=== PATIENT | male | born 1950 | race Caucasian/White ===

== ENCOUNTER 2018-03-12 19:42 | Emergency (ER) | payer MEDICARE, OTHER, SELFPAY ==
[2018-03-12 19:43] VITALS: BP 128/70; PULSE 60; RESP 14; TEMP 36.4; O2SAT 97; BMI 26.1
--- NOTE | 2018-03-12 20:46 | RAD_ITS ---
STUDY: X-RAY - RIGHT KNEE REASON FOR EXAM: Male, 67 years old. Right knee pain TECHNIQUE: 4 view(s) of the knee. COMPARISON: None. FINDINGS: Normal visualized distal femur. Normal visualized proximal tibia and fibula. Normal proximal tibiofibular articulation. There is no demonstrated fracture. Normal medial femorotibial compartment. Normal lateral femorotibial compartment. Normal patellofemoral articulation. There is no demonstrated joint effusion. The soft tissue structures are unremarkable. RAD/Knee 4 or More Views IMPRESSION: Normal x-ray examination of the knee. Electronically Signed: Wilmer Barker MD at 20:59 EDT , Service support ,
--- NOTE | 2018-03-12 21:24 | ED.DCSUM_ITS ---
- ER Visit Summary Date of Service: 03/12/18 Chief Complaint: Right knee injury History of Present Illness: The patient is a 67 M presenting for evaluation secondary to a right knee and the. Patient reports that he suffered a twisting injury today while he was carrying a piece of furniture upstairs. He had an immediate pain in his right knee and some difficulty with bearing weight. He denies falling or any other injuries associated with this. Patient believes that potentially this could be a meniscus problem as he had something similar in his contralateral knee in the past that required surgery. Review of systems otherwise negative. Physical Examination: Lower extremity exam is remarkable for a mild amount of effusion of the right knee. There is a significant amount of pain over the medial joint line, no evidence of foreign body. Normal distal pulses normal distal sensation. I was unable to perform ligamentous testing on this patient due to the patient's level of pain. Test Results: Knee x-ray found to be negative Emergency Department Course and Treatment: Patient presented for evaluation secondary to a knee injury. X-rays were found to be negative. Due to the patient's effusion, and level of pain I am suspicious for the possibility of either sprain versus ligamentous tear. Patient will be placed in a knee immobilizer and given crutches. Patient will be sent home with a course of analgesia and follow-up with orthopedics Disposition: Discharge Impression: 1. Right knee sprain This note was generated with [employer] dictation software. It may contain incorrect words, spelling, and punctuation that were not noted in review of the chart prior to signing ED Disposition - Plan for ED Patient: Disposition: Home or Assisted Living Chief Complaint: Lower Extremity Injury Diagnosis: Right knee sprain Instructions: ED Sprain Knee Prescriptions: Oxycodone HCl/Acetaminophen [Percocet 5/325] 1 tab PO Q6H PRN PRN 5 Days #20 tab PRN Reason: Pain Referrals: Jensen Quintanilla DO [STAFF PHYSICIAN] - As soon as possible
[2018-03-12] MEDS: HYDROcodone Bitartrate/Apap 5/325 Tablet PO (21:31)
[2018-03-12 21:38] VITALS: BP 119/60; PULSE 78; RESP 16; O2SAT 98
--- NOTE | 2018-03-12 21:38 | ED.RN ---
md aware pt declined knee brace.
== END 2018-03-12 21:39 | disposition home or self-care (01) ==
PROVIDERS: Emergency Provider Emergency Medicine; Family Provider Internal Medicine; PCP Internal Medicine
DX: S83.91XA Sprain of unspecified site of right knee, initial encounter (principal); X50.1XXA Overexertion from prolonged static or awkward postures, initial encounter; Y93.9 Activity, unspecified; Y92.89 Other specified places as the place of occurrence of the external cause; Y99.9 Unspecified external cause status
CPT/HCPCS: 73564; 99283

== ENCOUNTER → 2018-03-30 11:53 | Outpatient (CLI) | payer MEDICARE, SELFPAY ==
[2018-03-30 14:57] LABS: T4 Free Direct 1.14 ng/dL (0.76-1.46); Thyroid Stim Hormone (TSH) 5.13 uIU/mL (0.358-3.74)
[2018-03-31 10:11] LABS: Vitamin B12 374 pg/mL (211-911); Vitamin D,25 Hydroxy 34.2 ng/mL (29.95-100.01)
== END ==
PROVIDERS: Family Provider Internal Medicine; PCP Internal Medicine
DX: R53.82 Chronic fatigue, unspecified (principal)
CPT/HCPCS: 36415; 82306; 82607; 84439; 84443

== ENCOUNTER → 2018-05-15 06:09 | Outpatient (CLI) | payer MEDICARE, OTHER, SELFPAY ==
[2018-05-15 07:32] LABS: Creatinine, Serum 0.99 mg/dL (0.70-1.30); EST Glomerular Filtration Rate 80 mL/min (>60); Est Glom Filt Rate - Afr Amer 97 mL/min (>60)
--- NOTE | 2018-05-15 10:00 | RAD_ITS ---
CLINICAL HISTORY: Male, 68 years old. Right knee pain. PROCEDURE: ARTHROGRAM - RIGHT KNEE. CONSENT: The procedure as well as the benefits and possible complications including infection and bleeding were explained to the patient. Informed consent was obtained. FLUOROSCOPY TIME (if supplied): (0:58) minutes/seconds. One image was obtained. Injection Information: 10 cc of dilute MRI contrast. Number of images obtained: 1 TECHNIQUE: (All elements of maximal sterile barrier technique followed, including US elements as applicable) The patient was in the supine position. The overlying skin was prepped and draped in usual sterile fashion. Following local anesthetic application and under direct fluoroscopic guidance, a 22-gauge spinal needle was placed into the knee joint. 2 cc of Isovue 300 was injected for confirmation. Following this, 10 cc of dilute contrast was injected. The patient tolerated the procedure well. A CT scan will follow. RAD/Arthrogram Knee IMPRESSION: Successful fluoroscopic guided right knee arthrogram. Electronically Signed: Jr Ojeda MD at 13:29 EDT Tel [phone], Service support ,
--- NOTE | 2018-05-15 10:57 | CT_ITS ---
STUDY: CT RIGHT KNEE WITH INTRA-ARTICULAR CONTRAST administration. REASON FOR EXAM: Male, 68 years old. Right knee pain. Right joint effusion. RADIATION DOSAGE (If Supplied By Facility): CTDIvol = ( 15.35 ) mGy, DLP = ( 480.41 ) mGycm TECHNIQUE: Transaxial CT imaging of the knee was performed following intra-articular injection of 10 cc of dilute contrast.. Coronal and sagittal images were reformatted. COMPARISON: None. FINDINGS: Intra-articular contrast is seen. Normal medial femoral condyle and medial tibial plateau. There is preservation of the articular joint space of the medial knee compartment. Normal lateral femoral condyle and lateral tibial plateau. There is preservation of the articular joint space of the lateral knee compartment. Normal proximal tibiofibular articulation. There is no joint effusion. The quadriceps tendon is grossly normal. The patellar tendon is grossly normal. Normal Hoffa's fat pad. The soft tissues are unremarkable. CT/Extremity Lower WITH Contrast IMPRESSION: Normal CT of the knee. Electronically Signed: Jr Ojeda MD at 13:32 EDT Tel [phone], Service support ,
== END ==
PROVIDERS: Family Provider Internal Medicine; PCP Internal Medicine; Visit Provider Orthopaedic Surgery
DX: M25.461 Effusion, right knee (principal); M25.561 Pain in right knee; N28.9 Disorder of kidney and ureter, unspecified
CPT/HCPCS: 27370; 36415; 73580; 73701; 82565; A9577; Q9967

== ENCOUNTER 2019-01-17 10:34 | Day surgery (SDC) | payer MEDICARE, OTHER, SELFPAY ==
[2019-01-09 08:08] VITALS: BMI 26.9
--- NOTE | 2019-01-09 08:53 | HP_ITS ---
Intake Vital Signs 01/09/19 Body Mass Index (BMI) 26.9 01/09/19 Height 5 ft 10 in 01/09/19 Weight: 185 lb 4 oz 01/09/19 Body Mass Index (BMI) 26.6 01/09/19 Blood Pressure 117/78 01/09/19 Blood Pressure Location Rt brachial 01/09/19 Blood Pressure Position Sitting 01/09/19 Respiratory Rate 20 H 01/09/19 Pulse Rate 62 01/09/19 Pulse Ox 97 01/04/19 Body Mass Index (BMI) 26.9 Intake Visit Reasons: Femoral Hernia Chief Complaint: left groin lump Rivet Thrower Required: No Is patient in pain?: No Allergies No Known Allergies Allergy (Verified 01/09/19 08:07) Medications Levothyroxine [Synthroid] 125 mcg PO DAILY 01/06/15 [History Confirmed 01/09/19] albuterol sulfate HFA 90 mcg/actuation aerosol inhaler 1 puff INHALATION Q6H PRN 01/09/19 [History Confirmed 01/09/19] PFSH Medical History Hypothyroidism (Chronic) Syncope and collapse (Chronic) Presence of cardiac pacemaker (Chronic 07/29/17) Atrioventricular block, complete (Chronic) History of traumatic brain injury (Chronic) Third degree AV block (Acute) Anemia (Acute) BCC (basal cell carcinoma of skin) (Acute) Carpal tunnel syndrome (Acute) History of DVT (deep vein thrombosis) (Acute) Plantar fasciitis (Acute) Surgical History Pacemaker (Chronic 07/29/17) BCC (basal cell carcinoma of skin) (Acute) History of colonoscopy (Acute ~2014) History of lateral meniscus repair of left knee (Acute) History of tonsillectomy (Acute) Family History Father CAD (coronary artery disease) Mother CAD (coronary artery disease) Thyroid disorder Social History Smoking Status: Never smoker alcohol intake: never HPI HPI HPI: CASEY MEDEL, is a 68 M who presents to the office today for HPI HPI Surgical H&P: Yes HPI: CASEY MEDEL, is a 68 M who presents to the office today for evaluation of a bulge in his left groin. Patient was working out doing crPeerTraderes developed a bulge from this which was painless. The bulge easily reduced but comes back once he starts doing crunches and significant lower body workouts. He has had no change in his bowel or bladder habits. He has had occasional left lower quadrant abdominal discomfort. It is usually when the bulge is out. The symptoms are exacerbated by straining. He has had no nausea or vomiting ROS General General: No weight change, appetite, fatigue, colon cancer, breast cancer or weakness HEENT HEENT: No difficulty swallowing, eye injury, eye surgery, swollen glands or hoarseness Endo Endocrine: Yes thyroid disease; no diabetes mellitus, thyroid cancer, Hair loss, heat intolerance or cold intolerance Musc Musculoskeletal: Yes back problems and arthritis; no rheumatoid arthritis, gout or joint pain Additional Details: left groin lump Cardio Cardiovascular: Yes pacemaker; no murmur, heart disease, atrial fibrillation, high blood pressure, heart attack, heart stent, palpitations, shortness of breat with exertion or chest pain Resp Respiratory: No shortness of breath, No sleep apnea, No cough, No COPD, No asthma, No emphysema, No wheezing Gastro Gastrointestinal: No abdominal pain, No nausea or vomiting, No diarrhea, No constipation, No blood in stool, No acid reflux, No hemorrhoids, Yes ulcers, No gallbladder problem, No black,tarry stools Shan Hematologic: No blood thinners, No blood disorders, No bleeding, Yes anemia, Yes blood clots Additional Details: DVT 2014 Neuro Neurologic: No weakness Exam Const General: no acute distress, well developed, well hydrated Orientation: oriented to person, oriented to place, oriented to time [facility] Head: normocephalic, atraumatic Ears: external ears normal Mouth: moist mucous membranes Eyes Sclera: sclerae normal Pupils: normal by confrontation Neck Neck: no lymphadenopathy noted Neck mass: No Thyroid: thyroid normal, symmetrical Chest Chest palpation & inspection: normal inspection of the chest Resp Effort & Inspection: normal respiratory effort Auscultation: clear to auscultation bilaterally Percussion: percussion normal Cardio Rate: regular rate Rhythm: regular rhythm Heart Sounds: no murmurs GI Palpation: soft, no hepatosplenomegaly, no masses, tender Rectal Exam: other Other: There is weakness in the left inguinal area which I believe is probably a standard inguinal hernia and not a femoral hernia Rectal exam deferred. Extrem General: normal to inspection, no clubbing, cyanosis or edema Assessment & Plan Problems 1. Non-recurrent unilateral inguinal hernia without obstruction or gangrene K40.90 Plan My plan is to perform a laparoscopic left inguinal repair. The planned surgical procedure was discussed extensively with the patient. The risks, benefits, anticipated outcomes and possible complication were mentioned. The patient understands that all hernia repair surgery has a chance of recurrence and/or chronic post-operative pain. My staff has also explained the procedure in understandable terms and the patient was given the option to take printed material concerning the planned procedure. The patient had the opportunity to ask questions concerning the planned procedure. The patient freely consents to the planned procedure. Preoperative H&P Coding Level of Care Code Off vis,new,level 3 Diagnoses Non-recurrent unilateral inguinal hernia without obstruction or gangrene K40.90 ??Obstruction and gangrene presence: without obstruction or gangrene ??Laterality: unilateral ??Recurrence: non-recurrent 01/09/19 0853 <Electronically signed by Antoni Castellon MD> Date Antoni Castellon MD I have re-examined the patient. There are no clinical changes since date of exam.
--- NOTE | 2019-01-15 11:11 | EKG12_ITS ---
Test Reason : PRE OP Blood Pressure : / mmHG Vent. Rate : 060 BPM Atrial Rate : 060 BPM P-R Int : 204 ms QRS Dur : 112 ms QT Int : 416 ms P-R-T Axes : 086 262 001 degrees QTc Int : 416 ms Normal sinus rhythm Right superior axis deviation Abnormal ECG Confirmed by EDGAR ROOT, MARIELLE ([id number]), restaurant expeditor MYRIAM LEONARDO ([id number]) on 01/16/2019 9:16:10 AM Referred By: Antoni Castellon Confirmed By:MARIELLE HERNÁNDEZ MD
[2019-01-15 11:16] LABS: Hematocrit 45.1 % (40-54); Hemoglobin 15.1 g/dl (13.0-16.5); Mean Corp Hgb Conc 33.5 g/gl (32-36); Mean Corpuscular Hgb 28.5 pg (27.0-32.0); Mean Corpuscular Volume 85.3 fL (80-94); Mean Platelet Vol. 8.9 fl (6.2-12.0); Platelet Count 279 K/mm3 (150-450); RBC Distribution Width SD 43.2 fl (35.1-43.9); Red Blood Count 5.29 M/mm3 (4.6-6.2)
[2019-01-15 11:19] LABS: Scan Indicated on CBC? Y/N NO
[2019-01-15 11:40] LABS: Anion Gap 4 (5-15); BUN 17 mg/dL (7-18); BUN/Creat Ratio 16.5 RATIO (10-20); Chloride 108 mmol/L (98-107); Creatinine, Serum 1.03 mg/dL (0.70-1.30); EST Glomerular Filtration Rate 77 mL/min (>60); Est Glom Filt Rate - Afr Amer 93 mL/min (>60); Glucose 70 mg/dL (74-106); Potassium 4.6 mmol/L (3.5-5.1); Sodium Level 143 mmol/L (136-145)
[2019-01-16 09:05] LABS: Thyroid Stim Hormone (TSH) 1.02 uIU/mL (0.358-3.74)
[2019-01-17] VITALS (7 sets, daily range): BP systolic 110–137; BP diastolic 66–84; PULSE 60–62; RESP 14–18; TEMP 36.1–36.8; O2SAT 95–100; BMI 26.0
--- NOTE | 2019-01-17 12:42 | PCM.OPRPT ---
Problem List (1) Left inguinal hernia Status: Acute Report of Operation Date of Procedure: 01/17/19 Pre-Operative Diagnosis: Left inguinal hernia Post-Operative Diagnosis: Same Surgery/Procedure Performed:: Laparoscopic left inguinal hernia Type of Anesthesia:: General Anesthesiologist: Matt Evans Estimated Blood Loss (mL): < 25 cc Description of Procedure: Patient was brought into the operating room placed in the supine position. Under excellent general trach intubation the abdomen was sterilely prepped and draped in usual fashion. Local was injected infraumbilically. Curvilinear incision was made. Dissection was carried down to the fascia. The fascia was grasped with a Adele's. There is knee was placed inside the abdomen. The abdomen was insufflated 15 torr. A 10/12 trocar was placed without difficulty. It was flank by 2 #5 trochars placed under direct visualization. There is no injury to underlying structures. Patient was placed in the headdown rotated to the right position. I scored the peritoneum on the left. I dissected down to Rogelio's ligament. I dissected laterally dissecting the cord and vessel structures free from the peritoneum. I dissected further laterally. I had good hemostasis. I placed a large left 3D max mesh into the wound. I tacked it to Rogelio's ligament with a pro-tacker. I tacked it superiorly and laterally with sparing tax. I covered the mesh with the peritoneum intact that back up with the pro-tacker. The mesh was completely covered. An ilioinguinal nerve block was performed. I removed the trochars under direct visualization. The umbilical port was closed with 3 interrupted sutures of 0 Nurolon's. Skin incisions were closed with septicum stitches of 4-0 Monocryl. Steri-Strips were applied sterile dressings were applied and the patient tolerated the procedure well. - Admit VTE Documentation VTE Present on Admission: No VTE Mechan Device Prophylaxis: SCD's VTE Pharm Prophylaxis ordered?: No Reason prophylaxis not ordered:: Treatment Not Indicated
[2019-01-17] MEDS: Cefazolin 2 GM in 0.9% Normal Saline 100 ML IV (12:43)
--- NOTE | 2019-01-17 12:44 | DCINST_ITS ---
Discharge Diet: Light diet - advance as tolerated Discharge Activity: Return to Normal Activity, May Drive - when you are no longer taking narcotic pain medications., May Shower - with the bandage in place 1-2 days after surgery. Lifting Restrictions: 20 pounds for 8 weeks. Additional Activity Instructions:: Climbing stairs is fine, walking is encouraged. Sitting in bed may be uncomfortable. Sitting up using your lateral muscles (sitting up sideways) is usually more comfortable. Do not drive, work heavy equipment of sign legal documents for 24 hours. If your hernia repair was an ingunial repair, you may have scrotal swelling, an ice pack and/or athletic support can provide more comfort. Pain medications may cause nausea, you should typically eat light foods as you take your pain medications. Pain medications may also cause constipation. If you have difficulty with this, discuss with your doctor. Call your doctor if your incision/area has: Continuous Slow Oozing, Sudden Increased Bleeding, Increased Pain/ Swelling, Increased Redness, Foul Smelling Discharge Call your doctor if you observe: Fever of 101 or Higher Suture Line Care: Avoid Pulling/Pushing, Avoid Pinching/Bending Additional Dressing/Incision Instructions:: Leave the operative bandage on for 2-3 days. When you remove the bandage, leave the steri-strips on place until your follow up appointment or they fall off. Allergies/Adverse Reactions: Allergies No Known Allergies Allergy (Verified 01/12/19 09:06) Medications to take at Discharge Levothyroxine [Synthroid] 125 mcg PO DAILY 01/06/15 Oxycodone HCl/Acetaminophen [Percocet 5/325] 1 - 2 tab PO Q4H PRN PRN 6 Days #30 tab 01/17/19 The following prescriptions were given: Oxycodone HCl/Acetaminophen [Percocet 5/325] 1 - 2 tab PO Q4H PRN PRN 6 Days #30 tab PRN Reason: Pain Orders to be completed after discharge: 12 Lead EKG [CVS] Time Frame: 01/12/19, Facility: [facility], Location: Cardiovascular Services Basic Metabolic Profile (BMP) Time Frame: 01/12/19, Location: Laboratory CBC-Complete Blood Cnt No Diff Time Frame: 01/12/19, Location: Laboratory Thyroid Stim Hormone (TSH) Time Frame: 01/12/19, Location: Laboratory Primary Care Physician: Simran Caputo DO [Primary Care Provider] - Test Results: Test results from this visit will be discussed in further detail at your follow- up appointment, if applicable. Please Follow Up With: Antoni Castellon MD - [phone] When: Plan to have a follow up appointment in 7 days. Call to schedule.
[2019-01-17] MEDS: Bupivacaine Mpf 0.5% 30 ML VIAL (13:30)
--- NOTE | 2019-01-17 14:01 | EKGRS_ITS ---
Test Reason : Blood Pressure : / mmHG Vent. Rate : 060 BPM Atrial Rate : 060 BPM P-R Int : 274 ms QRS Dur : 110 ms QT Int : 452 ms P-R-T Axes : 003 -42 -04 degrees QTc Int : 452 ms Atrial-paced rhythm with prolonged AV conduction Left axis deviation Abnormal ECG When compared with ECG of 15-JAN-2019 11:31, Electronic atrial pacemaker has replaced Sinus rhythm Confirmed by LANCE BERRIOS ([id number]), editorial assistant MYRIAM LEONARDO ([id number]) on 01/22/2019 4:56:13 PM Referred By: Antoni Castellon Confirmed By:TOM BERRIOS
[2019-01-17] MEDS: oxyCODONE 5 MG Tablet PO (15:07)
[2019-01-17] MEDS: Acetaminophen 325 MG Tablet PO (15:07)
== END 2019-01-17 15:51 | disposition home or self-care (01) ==
LOC: SDC 10:35 → AC 10:35
PROVIDERS: Family Provider Internal Medicine; PCP Internal Medicine; Referring Provider Surgery; Visit Provider Surgery
PROC: (CPT 49650; principal; 2019-01-17 12:20)
DX: K40.90 Unilateral inguinal hernia, without obstruction or gangrene, not specified as recurrent (principal); E03.9 Hypothyroidism, unspecified; Z95.0 Presence of cardiac pacemaker; Z87.820 Personal history of traumatic brain injury; Z85.828 Personal history of other malignant neoplasm of skin
CPT/HCPCS: 49650; 36415; 80048; 84443; 85027; 93005; J7120; C1781; J2405

== ENCOUNTER → 2019-10-23 | Outpatient (CLI) | payer MEDICARE, SELFPAY ==
[2019-10-02 08:19] VITALS: BMI 26.4
--- NOTE | 2019-10-23 08:45 | ECHOD_ITS ---
Reason For Study: MVP Procedure This was a 2D Doppler, Color Flow transthoracic echocardiogram. Exam performed in department. Left Ventricle Normal LV size. Left ventricular systolic function is normal. The estimated ejection fraction is 60 %. Stage 2 diastolic dysfunction. No regional wall motion abnormalities noted. Right Ventricle Normal RV size. ICD or pacer leads identified within the right ventricle. Normal systolic function. Atria The left atrium is mildly enlarged. Normal right atrium. Mitral Valve Bileaflet diffuse mitral valve thickening. Moderate mitral valve prolapse. Tricuspid Valve Normal tricuspid valve. Mild tricuspid valve insufficiency. Pulmonary artery systolic pressure is 23 mmHg. Aortic Valve Normal aortic valve. Trisinus/trileaflet aortic valve. Mild (1+) eccentric aortic valve insufficiency. Pulmonic Valve Normal pulmonic valve. Great Vessels Normal aortic root. The pulmonary artery is normal size. Normal inferior vena cava. Pericardium/Pleural No pericardial effusion. MMode/2D Measurements & Calculations LVIDd: 4.8 cm IVSd: 1.1 cm Ao root diam: 3.4 cm LVIDs: 3.5 cm LVPWd: 1.2 cm RVDd: 4.0 cm FS: 28.5 % LAV(MOD-bp): 69.0 ml LA A4 area: 21.7 cm2 LA dimension(2D): 3.9 cm LAV(MOD-bp) Indexed: 34.2 ml/m2 LAV(MOD-sp2): 68.0 ml LAV(MOD-sp4): 68.6 ml RA A4 area: 18.9 cm2 Time Measurements MV dec time: 0.23 sec Doppler Measurements & Calculations MV E max justin: 66.8 cm/sec Lat Peak E' Justin: 6.6 cm/sec Med Peak E' Justin: 5.1 cm/sec MV A max justin: 79.7 cm/sec E/E' lat: 10.1 E/E' med: 13.2 MV E/A: 0.84 Ao V2 max: 147.5 cm/sec AI max justin: 329.7 cm/sec LV V1 max: 131.3 cm/sec Ao max P.7 mmHg AI max P.5 mmHg LV V1 max P.9 mmHg Ao V2 mean: 99.8 cm/sec AI dec slope: 131.4 cm/sec2 LV V1 mean P.7 mmHg Ao mean P.5 mmHg AI P1/2t: 735.2 msec LV V1 mean: 90.8 cm/sec Ao V2 VTI: 27.1 cm LV V1 VTI: 26.3 cm PA V2 max: 100.1 cm/sec PI end-d justin: 92.5 cm/sec TR max justin: 224.0 cm/sec PI dec slope: 57.5 cm/sec2 TR max P.1 mmHg Interpretation Summary Normal LV size. Left ventricular systolic function is normal. The estimated ejection fraction is 60 %. Stage 2 diastolic dysfunction. Mild tricuspid valve insufficiency. Ordering Physician: Curly Young Referring Physician: Simran Caputo Performed By: Loyda Morrell, CORNELIO, RVT
== END | disposition home or self-care (01) ==
PROVIDERS: PCP Internal Medicine; Referring Provider Internal Medicine Cardiovascular Disease; Visit Provider Internal Medicine Cardiovascular Disease
DX: R07.9 Chest pain, unspecified (principal); I34.1 Nonrheumatic mitral (valve) prolapse
CPT/HCPCS: 93306

== ENCOUNTER → 2020-09-19 12:02 | Outpatient (CLI) | payer MEDICARE, SELFPAY ==
[2019-10-02 08:19] VITALS: BMI 26.4
--- NOTE | 2020-09-19 12:10 | RAD_ITS ---
STUDY: X-RAY CHEST REASON FOR EXAM: Male, 70 years old. cough, Hx COVID in August TECHNIQUE: PA and lateral views of the chest. COMPARISON: 07/30/2017 FINDINGS: Left subclavian dual-lead pacemaker which is unchanged. Interval removal of an insertable carbider. The lungs are clear and expanded. There is no demonstrated pleural abnormality. Normal size heart. Normal mediastinum and faiza. Normal visualized pulmonary arteries. Normal visualized aortic arch and descending thoracic aorta. Normal visualized thoracic spine. Normal visualized ribs, clavicles, and shoulders. There is no demonstrated abnormality of the visualized soft tissue structures of the upper abdomen. RAD/Chest PA and Lateral IMPRESSION: No active disease. Electronically Signed: Maury Flores MD at 17:00 EST Tel , Service support ,
== END ==
PROVIDERS: PCP Internal Medicine; Referring Provider Internal Medicine; Visit Provider Internal Medicine
DX: R05 Cough (principal)
CPT/HCPCS: 71046

== ENCOUNTER → 2020-10-03 11:53 | Outpatient (CLI) | payer MEDICARE, SELFPAY ==
[2019-10-02 08:19] VITALS: BMI 26.4
[2020-10-03 13:38] LABS: Anion Gap 4 (5-15); BUN 23 mg/dL (7-18); Calcium,Total 9.3 mg/dL (8.5-10.1); Chloride 109 mmol/L (98-107); Creatinine, Serum 0.96 mg/dL (0.70-1.30); EST Glomerular Filtration Rate 83 mL/min (>60); Est Glom Filt Rate - Afr Amer 100 mL/min (>60); Free T3 2.3 pg/mL (2.18-3.98); Glucose 89 mg/dL (74-106); Magnesium 2.3 mg/dL (1.6-2.6); Potassium 4.4 mmol/L (3.5-5.1); Sodium Level 142 mmol/L (136-145); T4 Free Direct 1.11 ng/dL (0.76-1.46)
== END ==
PROVIDERS: PCP Internal Medicine; Referring Provider Internal Medicine Cardiovascular Disease; Visit Provider Internal Medicine Cardiovascular Disease
DX: I44.2 Atrioventricular block, complete (principal); I47.2 Ventricular tachycardia; I48.0 Paroxysmal atrial fibrillation; I48.92 Unspecified atrial flutter; I49.5 Sick sinus syndrome; Z95.0 Presence of cardiac pacemaker
CPT/HCPCS: 80048; 83735; 84439; 84443; 84481

== ENCOUNTER → 2020-10-24 16:53 | Outpatient (CLI) | payer MEDICARE, SELFPAY ==
[2020-10-24 12:54] VITALS: BMI 26.5
[2020-10-24 17:26] LABS: Absolute Lymphocyte Count 2.69 X10^3/uL (0.83-4.51); Absolute Neutrophil Count 6.3 X10^3/uL (2.0-7.7); Basophil# 0.07 X10^3/uL; Basophil% 0.7 % (0-1); Eosinophil# 0.25 X10^3/uL; Eosinophils% 2.4 % (0-5); Hematocrit 44.6 % (40-54); Hemoglobin 14.3 g/dL (13.0-16.5); Lymphocyte # 2.69 X10^3/ul (4.0); Lymphocyte % 25.5 % (19-41); Mean Corp Hgb Conc 32.1 g/dL (32-36); Mean Corpuscular Hgb 28.1 pg (27.0-32.0); Mean Corpuscular Volume 87.6 fL (80-94); Monocyte# 1.19 X10^3/uL; Monocyte% 11.3 % (0-10); NRBC Flagged by Analyzer 0 % (0-5); Neutrophil # 6.28 X10^3/uL (2.7-7.7); Neutrophil % 59.6 % (47-70); Platelet Count 304 K/mm3 (150-450); RBC Distribution Width CV 13.8 % (11.6-14.6); RBC Distribution Width SD 43.9 fl (35.1-43.9); Red Blood Count 5.09 M/mm3 (4.6-6.2); White Blood Count 10.5 K/mm3 (4.4-11.0)
[2020-10-24 17:48] LABS: Anion Gap 7 (5-15); BUN 26 mg/dL (7-18); BUN/Creat Ratio 24.3 RATIO (10-20); Calcium,Total 8.7 mg/dL (8.5-10.1); Chloride 104 mmol/L (98-107); Creatinine, Serum 1.07 mg/dL (0.70-1.30); EST Glomerular Filtration Rate 73 mL/min (>60); Est Glom Filt Rate - Afr Amer 88 mL/min (>60); Glucose 85 mg/dL (74-106); Potassium 4.2 mmol/L (3.5-5.1); Sodium Level 140 mmol/L (136-145)
== END ==
PROVIDERS: PCP Internal Medicine; Referring Provider Internal Medicine Cardiovascular Disease; Visit Provider Internal Medicine Cardiovascular Disease
DX: I47.2 Ventricular tachycardia (principal); R07.9 Chest pain, unspecified
CPT/HCPCS: 36415; 80048; 85025

== ENCOUNTER → 2020-11-03 08:54 | Day surgery (SDC) | payer MEDICARE, SELFPAY ==
[2020-10-24 12:54] VITALS: BMI 26.5
[2020-10-31 08:39] VITALS: BMI 26.5
--- NOTE | 2020-11-03 11:07 | CL.D_ITS ---
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 The risks and benefits of the procedure as well as a full d escription of our services here and current unavailability of surgical backup were fully explained to the patient and/or their significant other prior to the catheterization. The Timeout was completed, verifying the correct patient and procedure. The patient's procedural site was prepped and draped in the usual fashion. Local anesthetic was given subcutaneously to right radial region with Lidocaine 2% . Using a modified Seldinger technique, arterial access was obtained via the right radial artery, a 6 Fr sheath was inserted. Left Coronary Artery selective angiography was performed in multiple views u sing a 5 Fr. 4.0 [place] catheter. Right Coronary Artery selective angiography was then performed in mu ltiple views using a 5 Fr. 4.0 [place] catheter. Left Ventriculography was performed in VELEZ projection using a 5 Fr. [place] catheter. LV to AO pullback pressures were then recorded. CORONARY ANGIOGRAPHY DOMINANCE: Right Dominant LEFT HEART ASSESSMENT Left Ventricular Ejection Fraction: by LV Gram 65 % Normal LV wall motion Normal Left Ventricular systolic function LEFT MAIN: Angiographically normal LEFT ANTERIOR DESCENDING ARTERY: PROX LAD: 60 % Stenosis, No significant disease noted CIRCUMFLEX ARTERY: Angiographically normal RIGHT CORONARY ARTERY: Angiographically normal COMPLICATIONS PROCEDURE MEDICATIONS Fentanyl 50 mcg IV Versed 1 mg IV Oxygen: 2 L/min via nasal cannula Heparin 5000 unit(s) IV 11/03/2020 11:15:58 SUMMARY OF HEMODYNAMIC DATA Time AIR REST ECG 09:17:57 AO 99/67 (83) SA 10:42:45 LV 106/3, 6 10:50:29 LV 103/3, 6 10:50:35 LV 104/4, 7 10:51:21 LVp 104/3, 8 10:51:25 AOp 107/64 (83) 10:51:30 Signed By Curly Young MD On 11/03/2020 11:23:17 Curly Yougn MD
--- NOTE | 2020-11-03 12:30 | PCM.OP.PRO ---
Procedure Report Date of Procedure: 11/03/20 Procedure report; 1. IVUS of proximal LAD/intravascular ultrasound 2. IFR of proximal LAD which is measured 0.97. Consent; Risk-benefit procedure explained detail to the patient informed consent obtained and placed in the chart Special equipment; 1. 6 Icelandic JL 3.5 guide catheter 0.014 run-through extra floppy, 180 cm wire 3. Intravascular ultrasound/IVUS catheter 4. IFR wire Procedure in detail; This patient had a history of paroxysmal atrial flutter, with AV block and recent history of syncope and collapse and had a pacemaker Patient underwent cardiac catheterization by his primary chairperson anesthesiology Dr. Young, revealed eccentric atherosclerosis of the proximal LAD around 40-60% Based on his clinical presentation and the angiographic finding of the proximal LAD we decided to proceed and evaluate further to assess for obstructive CAD Anticoagulation used in the Counselor/Art Therapist with heparin Then will proceed with the guide catheter was then we used run-through wire and we crossed the proximal LAD lesion and then we proceed with IVUS and recorded measurement of the LAD distal to the lesion with a pullback across the proximal LAD lesion. Prior to this nitroglycerin IC was given a total of 300 mcg. Patient was given a total of 6000 of heparin in the Counselor/Art Therapist. Following this for further evaluation we will proceed with the IFR wire and pullback IFR was performed which measured around 0.97, this is indicative of nonobstructive lesion of the proximal LAD which is angiographically around 40 to 60%. The MLA of the proximal LAD was measured as well which is indicative of nonobstructive atherosclerosis of the proximal LAD Following this TR band applied to right radial artery area to maintain hemostasis with no complication in the Counselor/Art Therapist Recommendation and plan; Discussed the finding of IVUS of proximal LAD/IFR in detail with the primary chairperson anesthesiology Dr. Young With recommend to treat with medical thank and he will plan for nuclear stress test which can be set up as an outpatient There is no immediate complication in the Counselor/Art Therapist patient was very stable. Aurelio Rubio MD,[facility] The patient chairperson anesthesiology
== END ==
PROVIDERS: PCP Internal Medicine; Referring Provider Internal Medicine Cardiovascular Disease; Visit Provider Internal Medicine Cardiovascular Disease
DX: I25.10 Atherosclerotic heart disease of native coronary artery without angina pectoris (principal); I47.2 Ventricular tachycardia; I48.92 Unspecified atrial flutter; I48.0 Paroxysmal atrial fibrillation; E03.9 Hypothyroidism, unspecified; Z95.0 Presence of cardiac pacemaker; Z79.899 Other long term (current) drug therapy; Z79.82 Long term (current) use of aspirin
CPT/HCPCS: 92978; 93458; 93571; 99152; 99153; J0153; J7040; Q9967; C1753; C1769; C1887; C1894

== ENCOUNTER → 2021-02-04 06:51 | Outpatient (CLI) | payer MEDICARE, SELFPAY ==
[2020-10-31 08:39] VITALS: BMI 26.5
--- NOTE | 2021-02-04 13:10 | STRESSREP ---
Stress Test Report Pharmacologic myocardial perfusion stress test. 70-year-old man with a history of pacemaker implantation. Stress protocol: Resting EKG demonstrates normal sinus rhythm with a rate of 64 bpm normal intervals are noted resting blood pressures 132/76 mmHg. 0.4 mg of regadenoson was infused per usual protocol followed by rapid intravenous saline flush injection continuous EKG monitoring was performed. The maximum heart rate attained was 78 bpm which was 51% of maximum predicted heart rate the maximum workload was 1 metabolic equivalent. At rest there were no ST or T wave changes noted to suggest abnormal flow reserve and at peak infusion nonspecific ST changes were noted with did not meet the criteria for ischemia. No clinical angina was noted the final blood pressure was 118/60 mmHg. Myocardial perfusion protocol. 11.1 mCi of technetium 99m sestamibi was injected at rest. 0.4 mg of regadenoson was infused per usual protocol. At peak infusion 33.1 mCi of technetium 99m sestamibi was injected stress images were obtained stress and rest images were reconstructed in comparing the short axis vertical long and horizontal long axis. Gated images were also obtained per Perfusion SPECT analysis: Review of the stress images demonstrate normal uptake of tracer noted in all areas of the myocardium the resting images similarly demonstrate normal uptake of tracer noted in all areas of the myocardium. No areas of reversibility are noted suggest ischemia and no previous infarct is noted. Gated SPECT analysis: The gated ejection fraction is 71%. Conclusion: Normal pharmacologic myocardial perfusion stress test. Preserved ejection fraction.
== END ==
PROVIDERS: PCP Internal Medicine; Referring Provider Internal Medicine Cardiovascular Disease; Visit Provider Internal Medicine Cardiovascular Disease
DX: I25.119 Atherosclerotic heart disease of native coronary artery with unspecified angina pectoris (principal); I48.92 Unspecified atrial flutter; I48.0 Paroxysmal atrial fibrillation; I49.5 Sick sinus syndrome; I44.2 Atrioventricular block, complete; I34.1 Nonrheumatic mitral (valve) prolapse; I47.2 Ventricular tachycardia; R07.9 Chest pain, unspecified; Z95.0 Presence of cardiac pacemaker
CPT/HCPCS: 78452; 93017; A9500; A4216

== ENCOUNTER 2021-09-17 10:14 | Outpatient (CLI) | payer MEDICARE, SELFPAY ==
[2021-09-17 11:13] LABS: Creatinine, Serum 0.82 mg/dL (0.70-1.30); EST Glomerular Filtration Rate 99 mL/min (>60); Est Glom Filt Rate - Afr Amer 119 mL/min (>60)
== END 2021-09-17 23:59 | disposition short-term general hospital (02) ==
LOC: LAB 10:16
PROVIDERS: PCP Internal Medicine; Referring Provider Orthopaedic Surgery; Visit Provider Orthopaedic Surgery
DX: N18.9 Chronic kidney disease, unspecified (principal); M75.41 Impingement syndrome of right shoulder
CPT/HCPCS: 36415; 82565

== ENCOUNTER 2021-10-02 11:25 | Outpatient (CLI) | payer MEDICARE, SELFPAY ==
--- NOTE | 2021-10-02 11:35 | CT_ITS ---
STUDY: CT SCAN SHOULDER RIGHT REASON FOR EXAM: Male, 71 years old. IMPINGEMENT OF RIGHT SHOULDER RADIATION DOSAGE (If Supplied By Facility): CTDIvol = ( 24.94 ) mGy, DLP = ( 656.13 ) mGycm. Individualized dose optimization techniques were used for this CT.? TECHNIQUE: Multiple axial tomographic images of the right shoulder were obtained following intra-articular contrast administration. Coronal and sagittal reconstruction was obtained as well. COMPARISON: None. FINDINGS: There is a marked degree of the osteoarthritis with degenerative spur formation of the glenohumeral joint. There is evidence of a hypertrophic degenerative changes of the acromioclavicular joint with impingement of the supraspinatus muscle tendon. There is no evidence of full thickness tear of the rotator cuff. CT/Extremity Upper WITH Contrast IMPRESSION: Marked degree of joint space narrowing and osteoarthritis with spur formation along the inferior medial aspect of the proximal right humerus. No evidence of rotator cuff cuff tear. Hypertrophic osteoarthritic changes of the glenohumeral joint. Electronically Signed: Jr Ojeda MD at 13:15 EST ,
--- NOTE | 2021-10-02 11:45 | RAD_ITS ---
CLINICAL HISTORY: Male, 71 years old. Right shoulder pain. Impingement syndrome. PROCEDURE: ARTHROGRAM - RIGHT SHOULDER CONSENT: The procedure as well as the benefits and possible complications including infection and bleeding which point the patient. Informed consent was obtained. FLUOROSCOPY TIME (if supplied): (48 seconds) minutes/seconds Injection Information: 10 cc of dilute MRI contrast. Number of images obtained: 5 TECHNIQUE: (All elements of maximal sterile barrier technique followed, including US elements as applicable) The patient was in the supine position. The overlying skin was prepped and draped in usual sterile fashion. Following local anesthetic application and under direct fluoroscopic guidance, a 22-gauge spinal needle was placed into the shoulder joint. 10 cc of dilute MRI contrast was injected. Imaging was obtained. There is a moderate to marked degree of a joint space narrowing of the glenohumeral joint with degenerative spur formation along the inferior medial aspect of the humeral head. No evidence of rotator cuff tear. RAD/Arthrogram Shoulder IMPRESSION: Moderate degree of joint space narrowing and degenerative changes of the glenohumeral joint with spur formation. The patient tolerated the procedure well. Electronically Signed: Jr Ojeda MD at 12:50 EST ,
[2021-10-02] MEDS: Iopamidol 10 ML in Syringe 1 EACH 600 ML INTRAARTIC (12:00)
[2021-10-02] MEDS: Lidocaine 2% (5ml sdv) 5 ML VIAL.MPF INFILT (12:00)
== END 2021-10-02 23:59 | disposition short-term general hospital (02) ==
PROVIDERS: PCP Internal Medicine; Referring Provider Orthopaedic Surgery; Visit Provider Orthopaedic Surgery
DX: M75.41 Impingement syndrome of right shoulder (principal); M19.011 Primary osteoarthritis, right shoulder
CPT/HCPCS: 23350; 73040; 73201; A9575; Q9967

== ENCOUNTER → 2022-09-21 | Outpatient (CLI) | payer MEDICARE, SELFPAY ==
--- NOTE | 2022-09-21 08:42 | CDU_ITS ---
Reason For Study: Dizziness Rt. Velocities/BP Lt. Velocities/BP Prox CCA 89.4/17.9 cm/sec. Prox CCA 96.1/20 cm/sec. Mid CCA 79.5/21.2 cm/sec. Mid CCA 97.4/28.6 cm/sec. Dist CCA 97.1/24.5 cm/sec. Dist CCA 72.8/23.7 cm/sec. Prox ICA 70.4/21.2 cm/sec. Prox ICA 66.7/20 cm/sec. Mid ICA 71.6/26.2 cm/sec. Mid ICA 66.7/26.2 cm/sec. Dist ICA 92.5/33.5 cm/sec. Dist ICA 61.8/22.5 cm/sec. Rt. ICA/CCA = 1.03. Lt. ICA/CCA = 0.69. Prox ECA 121.2/24.3 cm/sec. Prox ECA 119.5/22.5 cm/sec. Rt. Vert. 32.4/8.8 cm/sec. Lt. Vert. 40.9/12.6 cm/sec. Right Extracranial There is homogeneous, smooth atherosclerotic plaque noted in the right common carotid artery. There is homogeneous, smooth atherosclerotic plaque noted in the right internal carotid artery. There is intimal thickening but no significant atherosclerotic plaque noted in the right external carotid artery. Antegrade flow is noted in the right vertebral artery. Left Extracranial There is homogeneous, smooth atherosclerotic plaque noted in the left common carotid artery. There is homogeneous, smooth atherosclerotic plaque noted in the left internal carotid artery. There is intimal thickening but no significant atherosclerotic plaque noted in the left external carotid artery. Antegrade flow is noted in the left vertebral artery. Procedure Carotid Duplex 47026. This is a Carotid Duplex examination using B-mode, color flow and specral Doppler. Exam performed in department. VL/Carotid Duplex Ultrasound Interpretation Summary Mild (<50%) stenosis right extracranial internal carotid. Mild (<50%) stenosis left extracranial internal carotid. Patent and antegrade vertebrals bilaterally. Ordering Physician: Prosper Lawrence Referring Physician: Simran Caputo M.D. Performed By: Vandana Ayala RVT
== END | disposition home or self-care (01) ==
LOC: CVS 08:41
PROVIDERS: PCP Internal Medicine; Referring Provider Nurse Practitioner Family; Visit Provider Nurse Practitioner Family
DX: I65.23 Occlusion and stenosis of bilateral carotid arteries (principal); I48.0 Paroxysmal atrial fibrillation; I49.5 Sick sinus syndrome; I47.20 Ventricular tachycardia, unspecified; R42 Dizziness and giddiness; I34.1 Nonrheumatic mitral (valve) prolapse; I25.10 Atherosclerotic heart disease of native coronary artery without angina pectoris; Z95.0 Presence of cardiac pacemaker
CPT/HCPCS: 93880

== ENCOUNTER → 2023-11-01 | Outpatient (CLI) | payer MEDICARE, SELFPAY ==
--- NOTE | 2023-11-01 06:15 | ECHOD_ITS ---
Reason For Study: LYNN, CAD Procedure This was a 2D Doppler, Color Flow transthoracic echocardiogram. Exam performed in department. Left Ventricle Normal LV size. Left ventricular systolic function is normal. The estimated ejection fraction is 65 %. No regional wall motion abnormalities noted. Right Ventricle Normal RV size. ICD or pacer leads identified within the right ventricle. Normal systolic function. Atria The left atrium is mildly enlarged. The right atrium is mildly enlarged. Mitral Valve Bileaflet diffuse mitral valve thickening. Mild mitral valve prolapse. Mild (1+) mitral valve insufficiency. Tricuspid Valve Normal tricuspid valve. Mild (1+) tricuspid valve insufficiency. Pulmonary artery systolic pressure is 24 mmHg. Aortic Valve Trisinus/trileaflet aortic valve. Pulmonic Valve Normal pulmonic valve. Great Vessels Normal aortic root. The pulmonary artery is normal size. Normal inferior vena cava. Pericardium/Pleural No pericardial effusion. MMode/2D Measurements & Calculations LVIDd: 4.4 cm IVSd: 1.4 cm Ao root diam: 3.4 cm LVIDs: 3.1 cm LVPWd: 0.95 cm LA dimension: 3.8 cm RVDd: 4.5 cm FS: 29.9 % LAV(MOD-bp): 71.3 ml LVAd ap4: 33.6 cm2 SV(MOD-sp4): 64.5 ml LAV(MOD-bp) Indexed: 36.0 ml/m2 LVLd ap4: 8.1 cm LAV(MOD-sp2): 74.6 ml EDV(MOD-sp4): 114.6 ml LAV(MOD-sp4): 68.5 ml EDV(sp4-el): 117.8 ml LVAs ap4: 20.9 cm2 LVLs ap4: 7.0 cm ESV(MOD-sp4): 50.1 ml ESV(sp4-el): 52.6 ml EF(MOD-sp4): 56.3 % EF(sp4-el): 55.3 % SV(sp4-el): 65.2 ml LA A4 area: 22.2 cm2 RA A4 area: 23.0 cm2 Time Measurements MV dec time: 0.18 sec Doppler Measurements & Calculations MV E max justin: 76.9 cm/sec Lat Peak E' Justin: 7.0 cm/sec Med Peak E' Justin: 6.5 cm/sec MV A max justin: 66.8 cm/sec E/E' lat: 10.9 E/E' med: 11.8 MV E/A: 1.2 MV V2 max: 102.0 cm/sec MV P1/2t max justin: 102.0 cm/sec Ao V2 max: 129.3 cm/sec MV max P.2 mmHg MV P1/2t: 76.3 msec Ao max P.7 mmHg MV V2 mean: 54.0 cm/sec Ao V2 mean: 90.4 cm/sec MV mean P.4 mmHg MV dec slope: 391.7 cm/sec2 Ao mean P.8 mmHg MV V2 VTI: 35.2 cm MVA(P1/2t): 2.9 cm2 Ao V2 VTI: 28.4 cm AI max justin: 344.0 cm/sec LV V1 max: 104.5 cm/sec MR max justin: 508.8 cm/sec AI max P.4 mmHg LV V1 max P.4 mmHg MR max P.6 mmHg AI dec slope: 100.7 cm/sec2 AI P1/2t: 1000 msec PA V2 max: 90.8 cm/sec TR max justin: 273.7 cm/sec TR max P.0 mmHg ECHO/Echo Complete Interpretation Summary Normal LV size. Left ventricular systolic function is normal. The estimated ejection fraction is 65 %. Bileaflet diffuse mitral valve thickening. Mild mitral valve prolapse. Mild (1+) mitral valve insufficiency. Ordering Physician: Prosper Lawrence Referring Physician: Simran Caputo M.D. Performed By: Bryce Raymundo RCS
--- OUTSIDE RECORDS SUMMARY | 2023-11-01 06:25 | XMS RPT_ITS | CCD ---
Author Name Unknown Address [address] [place] [address] Organization [facility] Care Team Providers Care Spot Remover Name Role Phone JOSLYN Krause, Pauly Roy Unavailable Unavailable JOSLYN Krause, Pauly Roy Unavailable Unavailable Simran Woodard Unavailable Reji Guerrero Unavailable Haseeb Page Unavailable Simran Woodard Unavailable Camille Rodriguez Unavailable Unavailab Chris Blanchard Unavailable Ana Hermosillo Unavailable Unavailable Unavailable Unavailable Simran Woodard Unavailable Reji Guerrero Unavailable Haseeb Page Unavailable PeaAntoni Sanders P Unavailable Chelsea Woodardhleen Unavailable Camille Rodriguez Unavailable Unavailab Chris Blanchard Unavailable Suhas Davis Unavailable Unavailable MessengerAna Unavailable Unavailable Manwolfk, Poonam Unavailable Unavailable Unavailable Unavailable Suhas Davis Unavailable Unavailable Manchak, Poonam Unavailable Unavailable Kassidy Handy Unavailable Unavailable Suhas Richard Unavailable Unavailable Messenger, Ana Unavailable Unavailable Danika Quezada Unavailable Olena Mccrary Unavailable Unavailable Antionette Koo Unavailable Unavailable PeabodySHAY Antoni P Unavailable [phone] Vance BHAGAT Simran Unavailable [phone] Reji Guerrero MD Unavailable Dr. Haseeb Page Unavailable Antoni Crocker MD Unavailable Vance DO, Simran Unavailable Camille Rodriguez Unavailable Unavailab Dr. Chris Blanchard Unavailable Jerrica CHANEY, Poonam Unavailable Unavailable Jaimee JORGENSEN, Ana Unavailable Unavailable Jose Manuel SAAVEDRA, Suhas Unavailable Unavailable Gravius ICE PULLER, Olena Unavailable Unavailable Slarb WIRE SPOOLER, Chelsi Unavailable Unavailable Ciesa BODY MAKE UP ARTIST, Gina Unavailable Unavailable Unavailable Unavailable Unavailable DR SIMRAN WOODARD DO Primary Care Physician [phone] Rozina WIRE SPOOLER, Kassidy Unavailable Unavailable Neftali WIRE SPOOLER, ANASTACIO Unavailable Unavailable Vance DO, Simran Unavailable Ciesa, Danika Unavailable JESSIE WEBB Attending Unavailable VANCE SIMRAN K Primary Care Unavailable VANCE, SIMRAN K Referring Unavailable Ciesa, Danika Unavailable Simran Woodard DO Primary Care Provider Vance DOSimran Attending Unavailable Vance DO Simran Referring Unavailable Vance DO, Simran Consulting Unavailable Vance DO, Simran Unavailable Reji Guerrero MD Unavailable Dr. Haseeb Page Unavailable Antoni Crocker MD Unavailable Vance DO, Simran Unavailable Camille Rodriguez Unavailable Unavailab Dr. Chris Blanchard Unavailable Jerrica CHANEY, Poonam Unavailable Unavailable Jaimee JORGENSEN, Ana Unavailable Unavailable Jose Manuel SAAVEDRA, Suhas Unavailable Unavailable Niobrara ICE PULLER, Kayela Unavailable Unavailable Ciesa, Danika Unavailable Unavailable Unavailable LIYAH MENG Attending Unavailable LIYAH MENG Admitting Unavailable SIMRAN WOODARD Primary Care Unavailab LIYAH Ardon Referring Unavailable VANCE, SIMRAN RITTER Primary Care Unavailab shane HANSON, MOOK Attending Unavailable VANCE, SIMRAN RITTER Primary Care Unavailab shane HANSON, MOOK Referring Unavailable VANCE, SIMRAN RITTER Primary Care Unavailab CHAITANYA Aguilera Attending Unavailable VANCE, SIMRAN RITTER Primary Care Unavailab SHANNA Rob Attending Unavailable Allergies Allergy Classification Reported Allergen(s) Allergy Type Date of Onset Reaction(s) Facility NEGATED: Highlighted row has been ruled out! (1 source) Allergy to substance (finding) 6 [facility]; [facility] Work Phone: NEGATED: Highlighted row has been ruled out! (1 source) Allergy to drug (finding) [facility]; [facility] Work Phone: NEGATED: Highlighted row has been ruled out! (1 source) Allergy to substance (finding) [facility]; [facility] Work Phone: NEGATED: Highlighted row has been ruled out! (1 source) Allergy to drug (finding) [facility]; [facility] Work Phone: NEGATED: Highlighted row has been ruled out! (1 source) Allergy to substance (finding) [facility]; [facility] Work Phone: NEGATED: Highlighted row has been ruled out! (1 source) Allergy to drug (finding) [facility]; [facility] Work Phone: NEGATED: Highlighted row has been ruled out! (1 source) Allergy to substance (finding) [facility]; [facility] Work Phone: NEGATED: Highlighted row has been ruled out! (1 source) Allergy to drug (finding) [facility]; [facility] Work Phone: NEGATED: Highlighted row has been ruled out! (1 source) Allergy to substance (finding) [facility]; [facility] Work Phone: NEGATED: Highlighted row has been ruled out! (1 source) Allergy to drug (finding) [facility]; [facility] Work Phone: NEGATED: Highlighted row has been ruled out! (1 source) Allergy to substance (finding) 6 [facility]; [facility] Work Phone: NEGATED: Highlighted row has been ruled out! (1 source) Allergy to drug (finding) [facility]; [facility] Work Phone: NEGATED: Highlighted row has been ruled out! (1 source) Allergy to substance (finding) 6 [facility]; [facility] Work Phone: NEGATED: Highlighted row has been ruled out! (1 source) Allergy to drug (finding) [facility]; [facility] Work Phone: NEGATED: Highlighted row has been ruled out! (1 source) Allergy to substance (finding) 6 [facility]; [facility] Work Phone: NEGATED: Highlighted row has been ruled out! (1 source) Allergy to drug (finding) [facility]; [facility] Work Phone: Medications Current Medications Medication Drug Class(es) Dates Sig (Normalized) Sig (Original) acetaminophen 500 mg oral tablet (1 source) Start: 11-25-2021 End: 12-09-2021 take 1 tablet by mouth once daily acetaminophen 500 mg oral tablet Dose : 1,000 mg = 2 tab(s), Oral, TID, PRN as needed for pain, not to exceed 3000 mg/day, # 100 tab(s), 0 Refill(s), 12/09/21 8:35:00 EDT, Pharmacy: [id number], 177.8, cm, 11/24/21 11:54:00 EDT, Height, kg, 11/24/21 11:54:00 EDT, Dosing Weight Start Date: 11/25/21 Stop Date: 12/09/21 Status: Ordered Albuterol (Eqv-ProAir HFA) 90 mcg/inh inhalation aerosol (1 source) Start: 11-24-2021 take 1 dose by inhalation every six hours as needed for wheezing Albuterol (Eqv-ProAir HFA) 90 mcg/inh inhalation aerosol Dose = 2 puff(s), Inhalation, q6hr, PRN Wheezing, 0 Refill(s) Start Date: 11/24/21 Status: Ordered oxyCODONE hydrochloride 5 mg oral tablet (1 source) Opioid Agonist Start: 11-25-2021 End: 12-02-2021 take 1-2 tablets by mouth every four hours as needed for pain oxyCODONE 5 mg oral tablet ( IMMEDIATE release ) See Instructions, PRN as needed for pain, 1-2 tab(s) Oral q4h, # 42 tab(s), 0 Refill(s), 12/02/21 8:36:00 EDT, Pharmacy: [id number], Status post total replacement of right shoulder, 177.8, cm, 11/24/21 11:54:00 EDT, Height, 79.5, kg, ... Start Date: 11/25/21 Stop Date: 12/02/21 Status: Ordered sennosides, [facility] (1 source) Start: 11-25-2021 End: 11-28-2021 take 1 tablet by mouth twice daily Senokot S 50 mg-8.6 mg oral tablet Dose = 2 tab(s), Oral, BID, Take until first bowel movement, then as needed, # 20 tab(s), 0 Refill(s), Pharmacy: [id number], 177.8, cm, 11/24/21 11:54:00 EDT, Height, kg, 11/24/21 11:54:00 EDT, Dosing Weight Start Date: 11/25/21 Stop Date: 11/28/21 Status: Ordered Vitamin D3 (2 sources) Start: 11-03-2021 Vitamin D3 5000 IU, Oral, qDay, 0 Refill(s) Start Date: 11/03/21 Status: Ordered Vitamin D3 125 mcg (5000 intl units) oral capsule (1 source) Start: 11-24-2021 Vitamin D3 125 mcg (5000 intl units) oral capsule Dose : 5,000 unit(s) = 1 cap(s), Oral, qDay Start Date: 11/24/21 Status: Ordered Completed/Discontinued Medications Medication Drug Class(es) Dates Sig (Normalized) Sig (Original) acetaminophen 750 mg / HYDROcodone bitartrate 7.5 mg oral tablet (20 sources) Opioid Agonist Start: 01-10-2007 End: 11-06-2007 Problems Active Problems Problem Classification Problem Date Documented Da te Episodic/Chronic Abdominal hernia (20 sources) Femoral hernia; Translations: [Non-recurrent unilateral femoral hernia without obstruction or gangrene] 01-04-2019 Episodic Acute bronchitis (20 sources) Acute bronchitis; Translations: [Acute bronchitis, unspecified organism] 09-30-2017 Episodic Past or Other Problems Problem Classification Problem Date Documented Date Episodic/Chronic Blindness and vision defects (20 sources) Visual disturbance; Translations: [Unspecified visual disturbance] Resolved: 11-02-2021 09-30-2017 Episodic Cardiac dysrhythmias (6 sources) Sinus bradycardia; Translations: [Bradycardia, unspecified] Onset: 01-20-2017 01-21-2017 Episodic Complications of surgical procedures or medical care (1 source) Complication of surgical and medical care, unspecified, initial encounter; Translations: [Adverse effect of treatment, initial encounter] Onset: 12-27-2022 Episodic Conditions associated with dizziness or vertigo (20 sources) Labyrinthitis, unspecified; Translations: [Peripheral vertigo, unspecified] Onset: 11-22-2012 Resolved: 11-02-2021 09-30-2017 Episodic Deficiency and other anemia (20 sources) Deficiency and other anemia Headache; including migraine (19 sources) Headache; including migraine Hemorrhoids (20 sources) Hemorrhoids; Translations: [Hemorrhoids] Resolved: 01-20-2009 06-17-2015 Episodic Influenza (20 sources) Influenza Intracranial injury (20 sources) Traumatic brain injury; Translations: [Concussion with loss of consciousness of unspecified duration, initial encounter] Onset: 12-11-2013 Resolved: 11-02-2021 09-30-2017 Episodic Results Test Name Value Interpretation Reference Range Facil ity Vital Signs Date Time Vital Sign Value Performing Clinician Facility 07-27-2023 13:50-0500 Body height 177.8 cm Shanna Negrete APRN.CNP Work Phone: [facility] 07-27-2023 13:50-0500 Body weight 82.56 kg Shanna Negrete APRN.CNP Work Phone: [facility] 07-27-2023 13:50-0500 Diastolic blood pressure 77 mm[Hg] Shanna Negrete APRN.BODY MAKE UP ARTIST Work Phone: [facility] 07-27-2023 13:50-0500 Heart rate 60 /min Shanna Negrete APRN.BODY MAKE UP ARTIST Work Phone: [facility] 07-27-2023 13:50-0500 SaO2% (BldA) [Mass fraction] 97 % Shanna Negrete APRN.BODY MAKE UP ARTIST Work Phone: [facility] 07-27-2023 13:50-0500 Systolic blood pressure 117 mm[Hg] Shanna Negrete APRN.BODY MAKE UP ARTIST Work Phone: [facility] 01-17-2023 09:48-0400 Body height 177.8 cm Chaitanya Gerard APRN.BODY MAKE UP ARTIST Work Phone: [facility] 01-17-2023 09:48-0400 Body weight 81.65 kg Chaitanya Gerard APRN.BODY MAKE UP ARTIST Work Phone: [facility] 01-17-2023 09:48-0400 Diastolic blood pressure 81 mm[Hg] Chaitanya Gerard APRN.BODY MAKE UP ARTIST Work Phone: [facility] 01-17-2023 09:48-0400 Heart rate 60 /min Chaitanya Gerard APRN.BODY MAKE UP ARTIST Work Phone: [facility] 01-17-2023 09:48-0400 SaO2% (BldA) [Mass fraction] 96 % Chaitanya Gerard APRN.BODY MAKE UP ARTIST Work Phone: [facility] 01-17-2023 09:48-0400 Systolic blood pressure 128 mm[Hg] Chaitanya Gerard APRN.BODY MAKE UP ARTIST Work Phone: [facility] 10-28-2022 08:44-0500 Body height 177.8 cm [facility]; [facility] Work Phone: 10-28-2022 08:44-0500 Body mass index (BMI) [Ratio] 25.83 kg/m2 [facility]; [facility] Work Phone: 10-28-2022 08:44-0500 Body surface area Derived from formula 2 m2 [facility]; [facility] Work Phone: 10-28-2022 08:44-0500 Body temperature 96.9 [degF] [facility]prehens[facility]; [facility] Work Phone: 10-28-2022 08:44-0500 Body weight 81.65 kg Antolin [facility]; [facility] Work Phone: 10-28-2022 08:44-0500 Diastolic blood pressure 68 mm[Hg] [facility] Work Phone: 10-28-2022 08:44-0500 Heart rate 99 /min [facility]; [facility] Work Phone: 10-28-2022 08:44-0500 Respiratory rate 16 /min [facility] Comprehensiv e [facility]; [facility] Work Phone: 10-28-2022 08:44-0500 SaO2% (BldA) [Mass fraction] 96 % [facility]; [facility] Work Phone: 10-28-2022 08:44-0500 Systolic blood pressure 114 mm[Hg] [facility]; [facility] Work Phone: 10-15-2022 09:15-0500 Body height 177.8 cm [facility] Comprehensiv e [facility]; [facility] Work Phone: 10-15-2022 09:15-0500 Body mass index (BMI) [Ratio] 25.11 kg/m2 [facility]; [facility] Work Phone: 10-15-2022 09:15-0500 Body surface area Derived from formula 1.97 m2 [facility]; [facility] Work Phone: 10-15-2022 09:15-0500 Body temperature 97.1 [degF] Poonam Becerril ICE PULLER Comprehensi ve [facility]; [facility] Work Phone: Encounters Encounter Date Encounter Type Care Provider Facility Start: 07-27-2023 End: 07-27-2023 ambulatory SIMRAN WOODARD Facility:[facility] Start: 07-27-2023 End: 07-27-2023 Patient encounter procedure Shanna Negrete PROMOTION WRITER.BODY MAKE UP ARTIST Work Phone: [facility] [place] Procedures Date Procedure Procedure Detail Performing Clinician Start: 07-27-2023 Ecg routine ecg w/least 12 lds w/i&r Shanna Negrete PROMOTION WRITER.BODY MAKE UP ARTIST Work Phone: Start: 01-17-2023 Ecg routine ecg w/least 12 lds w/i&r Chaitanya Gerard PROMOTION WRITER.BODY MAKE UP ARTIST Work Phone: Start: 09-21-2022 End: 09-21-2022 Carotid Duplex Ultrasound Procedure Note: See Note; NOTES: [facility] [address] [place] [address] Carotid Duplex Ultrasound 09/21/22 0846 MR#: [id number] Acct: [id number] Name: CASEY FLANAGAN Rep #: [id number] : 1950 72 From: Onofre Jean MD Attending Dr: Prosper Lawrence NP-C Status: REG CLI Ordering Dr: Prosper Lawrence PLANT CONTROL OPERATOR PLANT CONTROL OPERATOR-C Date: 09/21/22 Location: [facility] Sex: M C Admitted: Reason For Study: Dizziness Rt. Velocities/BP Lt. Velocities/BP Prox CCA 89.4/17.9 cm/sec. Prox CCA 96.1/20 cm/sec. Mid CCA 79.5/21.2 cm/sec. Mid CCA 97.4/28.6 cm/sec. Dist CCA 97.1/24.5 cm/sec. Dist CCA 72.8/23.7 cm/sec. Prox ICA 70.4/21.2 cm/sec. Prox ICA 66.7/20 cm/sec. Mid ICA 71.6/26.2 cm/sec. Mid ICA 66.7/26.2 cm/sec. Dist ICA 92.5/33.5 cm/sec. Dist ICA 61.8/22.5 cm/sec. Rt. ICA/CCA = 1.03. Lt. ICA/CCA = 0.69. Prox ECA 121.2/24.3 cm/sec. Prox ECA 119.5/22.5 cm/sec. Rt. Vert. 32.4/8.8 cm/sec. Lt. Vert. 40.9/12.6 cm/sec. Right Extracranial There is homogeneous, smooth atherosclerotic plaque noted in the right common carotid artery. There is homogeneous, smooth atherosclerotic plaque noted in the right internal carotid artery. There is intimal thickening but no significant atherosclerotic plaque noted in the right external carotid artery. Antegrade flow is noted in the right vertebral artery. Left Extracranial There is homogeneous, smooth atherosclerotic plaque noted in the left common carotid artery. There is homogeneous, smooth atherosclerotic plaque noted in the left internal carotid artery. There is intimal thickening but no significant atherosclerotic plaque noted in the left external carotid artery. Antegrade flow is noted in the left vertebral artery. Procedure Carotid Duplex 84896. This is a Carotid Duplex examination using B-mode, color flow and specral Doppler. Exam performed in department. VL/Carotid Duplex Ultrasound Interpretation Summary Mild (<50%) stenosis right extracranial internal carotid. Mild (<50%) stenosis left extracranial internal carotid. Patent and antegrade vertebrals bilaterally. Ordering Physician: Prosper Lawrence Referring Physician: Simran Woodard M.D. Performed By: Vandana Ayala RVT 09/21/221622 Date Onofre Jean MD CC: PLANT CONTROL OPERATOR-Patti Lawrence; Dr. Simran Woodard DO Date Dictated: 09/21/22 0846 Date Transcribed: 09/21/22 1623 Electronic Warfare Technician: Signed Simran Wodoard DO Work Phone: Start: 09-16-2022 End: 09-18-2022 12 Lead EKG performed by BMS Procedure Note: See Note; NOTES: [facility] [address] [place] [address] 12 Lead EKG performed by BMS 09/16/22 1248 MR#: [id number] Acct: [id number] Name: CASEY FLANAGAN Rep #: [id number] : 1950 72 From: Prosper Lawrence PLANT CONTROL OPERATOR PLANT CONTROL OPERATOR-C Attending Dr: Prosper Lawrence PLANT CONTROL OPERATOR-C Status: DEP AMB Ordering Dr: Prosper Lawrence NP PLANT CONTROL OPERATOR-C Date: 09/16/22 Location: [facility] [place] Sex: M C Admitted: BMS/12 Lead EKG performed by BMS ECG Report Interpretation Sin us Rhythm -RSR(V1) -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 ABNORMAL Electronically signed on 09/18/2022 at 10:37 by Curly Young Software Version [id number] 09/18/22 1042 Date Prosper Lawrence PLANT CONTROL OPERATOR PLANT CONTROL OPERATOR-C CC: Dr. Simran Woodard DO Date Dictated: 09/16/22 1248 Date Transcribed: 09/16/22 1248 Electronic Warfare Technician: SID Signed Simran Woodard DO Work Phone: Start: 09-16-2022 End: 11-05-2022 Cardiology Visit Report Procedure Note: See Note; NOTES: [facility] [address] [place] [address] OFFICE VISIT Date of Service: 09/16/22 MR#: [id number] Acct: [id number] Name: CASEY FLANAGAN Rep #: [id number] : 1950 Provider: JAMES landaverde Age/Sex: 72/M Location: [facility] [place] Status: Signed [facility] History of Present Illness Details: CASEY FLANAGAN, is a 72 M who presents to the office today for preoperative clearance. He has a history of recurrent syncope and had a loop recorder placed at the [facility]. He had presented over the week with syncope and was noted to have significant pauses. He subsequently went on to have a dual-chamber pacemaker placed successfully. He has been having routine pacemaker interrogations. Unbeknownst to him he has had some short periods of atrial fibrillation flutter. He has also more recently had an episode of monomorphic wide complex tachycardia concerning for VT at the end of September 2020. It was AV dissociated for approximately 13 seconds. Patient at that time was not symptomatic but was having a verbal heated argument with his brother. In November of 2020, he underwent a left cardiac catheterization, which demonstrated moderately severe disease (60% stenosis) noted in the proximal left anterior descending artery. He was referred to quality assurance/r&d lab technician, Dr. Hanson, for watchman device evaluation due to concerns taking anticoagulation and high fall risk for ongoing dizziness. He denies chest, arm, jaw, or neck discomfort. He denies symptoms of shortness of breath with exertion, shortness of breath at rest, orthopnea, PND, sudden weight gain, or bilateral lower extremity edema. He denies chronic cough. He continues with lightheadedness and dizziness. This is not always positional related. He denies palpitations, near syncope, or syncopal episodes. He denies claudication issues. He denies fever or chills. He denies blood in urine, blood in stool, or epistaxis. He denies myalgia. He denies unexplainable fatigue. His exercise tolerance is stable. A Shared Decision Making interaction occurred at this visit using a Shared Decision Making tool prior to initial implant of Watchman device. Risk, benefits, and alternative treatments were reviewed. Electrophysiology office note also reviewed in detail. A collaborative decision was made that is it within lines of scientific evidence and patient's values and preferences. Intake Vital Signs 09/16/22 12:48 09/16/22 12:48 Height 5 ft 10 in 5 ft 10 in Weight: 181 lb BMI 25.9 BP 121/77 H Blood Pressure Location Lt brachial Position Sitting Respiration 18 Pulse 59 L Pulse Source Monitor Intake Visit Reasons: PER MARIAN LAU Physical Fitness Trainer Required: No Is patient in pain?: No Allergies No Known Allergies Allergy (Verified 05/26/22 15:39) Medications levothyroxine 125 mcg tablet 125 mcg PO DAILY thyroid 01/06/15 [History Confirmed 09/16/22] apixaban 5 mg tablet (Eliquis) 5 mg PO BID #60 tabs 11/02/21 [Rx Confirmed 09/16/22] atorvastatin 80 mg tablet (Lipitor) 80 mg PO DAILY #90 tabs 11/02/21 [Rx Confirmed 09/16/22] meloxicam 15 mg tablet 15 mg PO DAILY 09/16/22 [History Confirmed 09/16/22] PFSH Medical History (Reviewed 09/16/22 @ 13:32 by Prosper Lawrence PLANT CONTROL OPERATOR, PLANT CONTROL OPERATOR-C) Anemia Atrioventricular block, complete BCC (basal cell carcinoma of skin) Carpal tunnel syndrome COVID-19 virus detected (09/02/20) History of DVT (deep vein thrombosis) History of traumatic brain injury Hypothyroidism Left inguinal hernia Nonobstructive atherosclerosis of coronary artery Nonrheumatic mitral (valve) prolapse Paroxysmal atrial fibrillation Paroxysmal atrial flutter Plantar fasciitis Sick sinus syndrome Syncope and collapse Ventricular tachycardia (paroxysmal) (10/02/20) Surgical History (Reviewed 09/16/22 @ 13:32 by Prosper Lawrence PLANT CONTROL OPERATOR, PLANT CONTROL OPERATOR-C) BCC (basal cell carcinoma of skin) History of colonoscopy (2014) History of lateral meniscus repair of left knee History of left heart catheterization (11/03/20) History of permanent cardiac pacemaker placement (07/29/17) History of right shoulder replacement History of tonsillectomy Hx of left inguinal hernia repair Family History (Reviewed 09/16/22 @ 13:32 by Prosper Lawrence PLANT CONTROL OPERATOR, PLANT CONTROL OPERATOR-C) Father CAD (coronary artery disease), Onset Age: 65 CABG Mother CAD (coronary artery disease) Thyroid disorder Pacemaker Brother Heart disease Valve replacement Social History (Reviewed 09/16/22 @ 13:32 by Prosper Lawrence PLANT CONTROL OPERATOR, PLANT CONTROL OPERATOR-C) Smoking Status: Never smoker alcohol intake: current alcohol intake frequency: holidays/special occasions only substance use type: does not use caffeine: Yes Type: coffee ROS Const Const: Negative for fatigue, weakness, body ache, fever(s) or chills ENT ENT: Positive for dizziness; Negative for Nosebleed/epistaxis Cardio Chest Pain: No Palpitations: No Edema: None Muscle aches with walking: None Resp Respiratory: Negative for SOB with activity, SOB at rest, SOB orthopnea SOB lying down, Cough or paroxysmal nocturnal dyspnea GI GI: Negative nausea, vomiting blood/hematemesis, bright, red blood in stools or black,tarry stools : Negative for hematuria or frequent nighttime urination/ nocturia Musc Musc: Negative for muscle aches/ myalgia Skin Skin: Negative non-healing lesions or rash Neuro Neuro: Positive for dizziness and lightheadedness; Negative for near syncope, syncope, orthostatic symptoms or weakness Endo Endo: Negative for fatigue Allergy Allergy/Immunology: Negative for rash Cardiology Exam Const Appearance: cooperative, healthy appearing, comfortable and no acute distress Nutritional Appearance: well nourished and overweight Orientation: alert, awake and oriented x3 Head Head: normal to inspection Ears: hearing grossly normal bilaterally Nose: external nose normal Face and Sinus: face symmetric Mouth: moist mucous membranes Eyes General: appearance normal, both eyes and all related structures Eyelids: eyelids normal EOM: EOM intact bilaterally Neck Neck: normal visual inspection and no JVD Carotids: normal carotid upstroke Chest Chest inspection: normal inspection of the chest, symmetric chest movement and normal respiratory effort; Negative cough Auscultation: Bilateral: Clear to Auscultation Cardio Rate: regular rate Rhythm: regular rhythm Heart sounds: S1 normal and S2 normal; Negative rub, gallop or murmur GI GI: normal to inspection Neuro General: patient alert, patient awake, patient oriented x3 and CN's II-XI intact bilaterally Skin Skin: no rashes or lesions noted Extremities Pulses: Normal: Right Posterior Tibial Pulse, Left Posterior Tibial Pulse, Right Radial Pulse and Left Radial Pulse Lower Extremity Edema: None: Bilateral Psych Psychological: normal affect Supplemental Info Supplemental Information Echocardiogram 10/23/2019: Interpretation Summary Normal LV size. Left ventricular systolic function is normal. The estimated ejection fraction is 60 %. Stage 2 diastolic dysfunction. Mild tricuspid valve insufficiency. Stress test 02/04/2021: Stress protocol: Resting EKG demonstrates normal sinus rhythm with a rate of 64 bpm normal intervals are noted resting blood pressures 132/76 mmHg. 0.4 mg of regadenoson was infused per usual protocol followed by rapid intravenous saline flush injection continuous EKG monitoring was performed. The maximum heart rate attained was 78 bpm which was 51% of maximum predicted heart rate the maximum workload was 1 metabolic equivalent. At rest there were no ST or T wave changes noted to suggest abnormal flow reserve and at peak infusion nonspecific ST changes were noted with did not meet the criteria for ischemia. No clinical angina was noted the final blood pressure was 118/60 mmHg. Myocardial perfusion protocol. 11.1 mCi of technetium 99m sestamibi was injected at rest. 0.4 mg of regadenoson was infused per usual protocol. At peak infusion 33.1 mCi of technetium 99m sestamibi was injected stress images were obtained stress and rest images were reconstructed in comparing the short axis vertical long and horizontal long axis. Gated images were also obtained per Perfusion SPECT analysis: Review of the stress images demonstrate normal uptake of tracer noted in all areas of the myocardium the resting images similarly demonstrate normal uptake of tracer noted in all areas of the myocardium. No areas of reversibility are noted suggest ischemia and no previous infarct is noted. Gated SPECT analysis: The gated ejection fraction is 71%. Conclusion: Normal pharmacologic myocardial perfusion stress test. Preserved ejection fraction. Cardiac catheterization 11/03/2020: PROCEDURE(S) PERFORMED GI08-SKL/COR/LV CLINICAL PROFILE AND INDICATIONS Indications: Cardiac Arrhythmia Heart Failure: None CONCLUSIONS Moderately severe disease noted in the proximal left anterior descending artery RECOMMENDATIONS Staged for IVUS CORONARY ANGIOGRAPHY DOMINANCE: Right Dominant LEFT HEART ASSESSMENT Left Ventricular Ejection Fraction: by LV Gram 65 % Normal LV wall motion Normal Left Ventricular systolic function LEFT MAIN: Angiographically normal LEFT ANTERIOR DESCENDING ARTERY: PROX LAD: 60 % Stenosis, No significant disease noted CIRCUMFLEX ARTERY: Angiographically normal RIGHT CORONARY ARTERY: Angiographically normal Labs: No Data to Display Diagnostics: Electrocardiogram Pacemaker Check Pulmonary: No Data to Display Assessment and Plan Assessment and Plan (1) History of permanent cardiac pacemaker placement: Status: Chronic Plan: His most recent dual-chamber pacemaker evaluation from 07/21/2022 showed 139 MS episodes, less than 1% total time and 945 NSVT episodes since 09/06/2017. Stored electrograms available for review for NSVT episodes show what appears to be supraventricular tachycardia at 181 and 186 bpm, 1:1 conduction for approximately 14 seconds. Stored electrogram for SVT episodes show atrial flutter with RVR. No true VT/VF episodes noted. Stored electrograms for ATR episodes show atrial flutter with appropriate MS. Longest ATR episode approximately 14 minutes and 40 seconds. Ventricular paced 2%. Atrial paced 70%. Estimated by life 4.5 years. (2) Paroxysmal atrial fibrillation: Status: Chronic Plan: Patient's most recent pacemaker evaluation shows 139 MS episodes, comprising of less than 1% total time. This is consistent with previous pacemaker reports. His [id number] score is 1 (age). He does have a previous history of DVT and anemia. Due to ongoing dizziness and frequent falls despite pacemaker placement, he was referred to quality assurance/r&d lab technician for watchman device consideration. A shared decision-making tool was completed today and it was decided to continue to proceed with watchman device placement per quality assurance/r&d lab technician. (3) Sick sinus syndrome: Status: Chronic Plan: He is status post permanent pacemaker for this. (4) Ventricular tachycardia (paroxysmal): Status: Acute Plan: His most recent pacemaker evaluation shows no true VT/VF episodes. He will continue current medical therapy and continue to monitor. (5) Dizziness: Status: Acute Plan: This is an ongoing concern. On account of this, he was evaluated by quality assurance/r&d lab technician for watchman device to reduce stroke risk in the setting of frequent falls and bleeding risk. He does not recall undergoing a carotid duplex ultrasound the past. He was asked undergo goal 1 to ensure no significant carotid artery disease that may be contributing to symptoms. (6) Nonrheumatic mitral (valve) prolapse: Status: Chronic Plan: His most recent echocardiogram from October 2019 showed ejection fraction of 60%, mildly enlarged left atrium, and moderate mitral valve prolapse. This appears stable today. We will continue to monitor and follow. We will consider repeat echocardiogram on an ongoing basis. (7) Nonobstructive atherosclerosis of coronary artery: Status: Chronic Plan: Heart catheterization from November 2020 showed moderately severe disease noted in the proximal left anterior descending artery at 60%. Patient denies any chest pain, arm pain, jaw pain, neck pain, shortness of breath, or fatigue suggestive of angina at this time. We will continue to monitor. We will not make any medication regimen changes and will continue risk factor modification. He will continue current medical therapy with atorvastatin. Orders: Orders 12 Lead EKG performed by TIANA 09/16/22 I48.0 - Paroxysmal atrial fibrillation Carotid Duplex Ultrasound 09/16/22 I25.10 - Atherosclerotic heart disease of [place] coronary artery without angina pectoris, I34.1 - Nonrheumatic mitral (valve) prolapse, I47.2 - Ventricular tachycardia, I48.0 - Paroxysmal atrial fibrillation, I49.5 - Sick sinus syndrome, I65.22 - Occlusion and stenosis of left carotid artery, R42 - Dizziness and giddiness, Z95.0 - Presence of cardiac pacemaker Plan Details Additional Comments: Thank you for allowing us to participate in the patients plan of care, if you have any questions please do not hesitate to call. This note was generated using a voice recognition system and there may be incorrect words, spelling or punctuation that were not noted when reviewing the office note prior to saving. Portions of this documentation were copied and pasted from previous office visit notes to provide a cohesive continuity of the history. The note has been reviewed, edited, and updated, as necessary. 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 Pauly) Coding Level of Care Code Off vis,est,level 4 Diagnoses History of permanent cardiac pacemaker placement Z95.0 Paroxysmal atrial fibrillation I48.0 Sick sinus syndrome I49.5 Ventricular tachycardia (paroxysmal) I47.2 Dizziness R42 Nonrheumatic mitral (valve) prolapse I34.1 Nonobstructive atherosclerosis of coronary artery I25.10 Coding Level of Care Code Off vis,est,level 4 Diagnoses History of permanent cardiac pacemaker placement Z95.0 Paroxysmal atrial fibrillation I48.0 Sick sinus syndrome I49.5 Ventricular tachycardia (paroxysmal) I47.2 Dizziness R42 Nonrheumatic mitral (valve) prolapse I34.1 Nonobstructive atherosclerosis of coronary artery I25.10 09/17/22 1344 <Electronically signed by Prosper RAMIREZ> Date Prosper WICKC Cosigner Signature: Date (if applicable) CC: Dr. Simran Woodard, DO Simran Woodard DO Work Phone: Start: 07-21-2022 End: 07-21-2022 Pacemaker Check Procedure Note: See Note; NOTES: [facility] [address] [place] [address] Pacemaker Check Date of Service: 07/21/221806 MR#: [id number] Acct: [id number] Name: CASEY FLANAGAN Rep #: [id number] : 1950 From: Cinda Krause Age/Sex: 72/M Location: [facility] Status: Signed Billing Codes PM Device Codes: PM Dev Interrogate (Remot Assessment and Plan Assessment and Plan (1) History of permanent cardiac pacemaker placement: Status: Chronic (2) Paroxysmal atrial flutter: Status: Chronic (3) Paroxysmal atrial fibrillation: Status: Chronic (4) Sick sinus syndrome: Status: Chronic (5) Atrioventricular block, complete: Status: Chronic (6) Ventricular tachycardia (paroxysmal): Status: Acute 07/21/221807 <Electronically signed by Cinda Krause > Date Cinda Lea Signature: Date (if applicable) CC: Simran Woodard DO Work Phone: Start: 05-26-2022 End: 05-26-2022 Cardiology Visit Report Procedure Note: See Note; NOTES: [facility] [place] [id number] [place] [address] OFFICE VISIT Date of Service: 05/26/22 MR#: [id number] Acct: [id number] Name: CASEY FLANAGAN Rep #: [id number] : 1950 Provider: AQUILINO Valentin Age/Sex: 72/M Location: [facility] [place] Status: Signed HPI [facility] History of Present Illness Details: CASEY FLANAGAN, is a 71 M who presents to the office today for preoperative clearance. He has a history of recurrent syncope and had a loop recorder placed at the [facility]. He had presented over the week with syncope and was noted to have significant pauses. He subsequently went on to have a dual-chamber pacemaker placed successfully. He has been having routine pacemaker interrogations. Unbeknownst to him he has had some short periods of atrial fibrillation flutter. He has also more recently had an episode of monomorphic wide complex tachycardia concerning for VT at the end of September 2020. It was AV dissociated for approximately 13 seconds. Patient at that time was not symptomatic but was having a verbal heated argument with his brother. In November of 2020, he underwent a left cardiac catheterization, which demonstrated moderately severe disease (60% stenosis) noted in the proximal left anterior descending artery. Pt is having lightheadedness his neurologist wanted him to have a CT scan. He could not have a scan done down there because of his insurance. He is wondering if we could order it and send it to his neurologist. He has not had any recent syncopal events, thinks it has been 6-8 months since he had his last event. He sts that the PPM has not helped with these episodes. This has been worked up extensively over the years. He still notes that he is fatigued. He thinks it is because he is not sleeping well at night. He recently had a shoulder placement in November 2021. He does not have any chest pain. He does not have any palpitations. He would like to be evaluated for a Watchman device, he is concerned about his syncopal events and hitting his head. Intake Vital Signs 05/26/22 15:33 05/26/22 15:35 Height 5 ft 10 in 5 ft 10 in Weight: 180 lb BMI 25.8 BP 117/74 Blood Pressure Location Lt brachial Position Sitting Respiration 16 Pulse 60 Pulse Source Auscultation Intake Visit Reasons: fu/ pt would like discuss getting a watchman Physical Fitness Trainer Required: No Accompanied by: Is patient in pain?: No Allergies No Known Allergies Allergy (Verified 05/26/22 15:39) Medications levothyroxine 125 mcg tablet 125 mcg PO DAILY thyroid 01/06/15 [History Confirmed 05/26/22] apixaban 5 mg tablet (Eliquis) 5 mg PO BID #60 tabs 11/02/21 [Rx Confirmed 05/26/22] atorvastatin 80 mg tablet (Lipitor) 80 mg PO DAILY #90 tabs 11/02/21 [Rx Confirmed 05/26/22] Ejection fraction %: 60 to 64 PFSH Medical History Anemia Atrioventricular block, complete BCC (basal cell carcinoma of skin) Carpal tunnel syndrome COVID-19 virus detected (09/02/20) History of DVT (deep vein thrombosis) History of traumatic brain injury Hypothyroidism Left inguinal hernia Nonobstructive atherosclerosis of coronary artery Nonrheumatic mitral (valve) prolapse Paroxysmal atrial fibrillation Paroxysmal atrial flutter Plantar fasciitis Sick sinus syndrome Syncope and collapse Ventricular tachycardia (paroxysmal) (10/02/20) Surgical History BCC (basal cell carcinoma of skin) History of colonoscopy (2014) History of lateral meniscus repair of left knee History of left heart catheterization (11/03/20) History of permanent cardiac pacemaker placement (07/29/17) History of right shoulder replacement History of tonsillectomy Hx of left inguinal hernia repair Family History Father CAD (coronary artery disease), Onset Age: 65 CABG Mother CAD (coronary artery disease) Thyroid disorder Social History Smoking Status: Never smoker alcohol intake: current alcohol intake frequency: holidays/special occasions only substance use type: does not use caffeine: Yes Type: coffee ROS Const Const: Negative for fatigue, weakness, headache(s), frequent falls, excessive sweating, weight gain or weight loss Eyes Eyes: Negative for blind spots, loss of peripheral vision, transient loss of vision, blurry vision, change in vision or double vision ENT ENT: Positive for dizziness; Negative for headache(s), tinnitus, Nosebleed/epistaxis or balance problems Cardio Chest Pain: No Palpitations: No Edema: None Muscle aches with walking: None Resp Respiratory: Negative for SOB with activity, SOB at rest, SOB orthopnea SOB lying down or Cough GI GI: Negative nausea, vomiting, heartburn, bloating, vomiting blood/hematemesis, bright, red blood in stools or black,tarry stools : Negative for hematuria Musc Musc: Negative for muscle aches/ myalgia, muscle weakness, joint pain or balance problems Skin Skin: Negative rash or wounds Neuro Neuro: Positive for dizziness, lightheadedness, near syncope and syncope; Negative for orthostatic symptoms, frequent falls, headache(s), weakness, confusion, memory loss, restless legs, blurry vision or double vision Shan Hematologic/Lymphatic: Negative for easy bleeding or easy bruising Endo Endo: Negative for fatigue, cold intolerance, heat intolerance or excessive sweating Psych Psych: Negative for anxiety or depression Allergy Allergy/Immunology: Negative for rash Cardiology Exam Const Appearance: cooperative and no acute distress Orientation: alert and oriented x3 Head Head: normal to inspection Ears: hearing grossly normal bilaterally Nose: external nose normal Face and Sinus: face symmetric Eyes General: appearance normal, both eyes and all related structures Eyelids: eyelids normal Conjunctivae: conjunctivae normal Pupils: PERRL and pupil size EOM: EOM intact bilaterally Neck Neck: normal visual inspection Carotids: Negative bruit Chest Chest inspection: normal inspection of the chest and normal respiratory effort Auscultation: Bilateral: Clear to Auscultation Cardio Palpation: normal PMI Rate: regular rate Rhythm: regular rhythm Heart sounds: S1 normal and S2 normal; Negative rub, gallop or murmur GI GI: normal to inspection and soft; Negative no hepatosplenomegaly Neuro General: patient alert, patient oriented x3 and CN's II-XI intact bilaterally Skin Skin: no rashes or lesions noted Extremities Pulses: Normal: Right Posterior Tibial Pulse, Left Posterior Tibial Pulse, Right Radial Pulse and Left Radial Pulse Lower Extremity Edema: None: Bilateral Psych Psychological: normal affect Supplemental Info Supplemental Information Echocardiogram 10/23/2019: Interpretation Summary Normal LV size. Left ventricular systolic function is normal. The estimated ejection fraction is 60 %. Stage 2 diastolic dysfunction. Mild tricuspid valve insufficiency. Stress test 02/04/2021: Stress protocol: Resting EKG demonstrates normal sinus rhythm with a rate of 64 bpm normal intervals are noted resting blood pressures 132/76 mmHg. 0.4 mg of regadenoson was infused per usual protocol followed by rapid intravenous saline flush injection continuous EKG monitoring was performed. The maximum heart rate attained was 78 bpm which was 51% of maximum predicted heart rate the maximum workload was 1 metabolic equivalent. At rest there were no ST or T wave changes noted to suggest abnormal flow reserve and at peak infusion nonspecific ST changes were noted with did not meet the criteria for ischemia. No clinical angina was noted the final blood pressure was 118/60 mmHg. Myocardial perfusion protocol. 11.1 mCi of technetium 99m sestamibi was injected at rest. 0.4 mg of regadenoson was infused per usual protocol. At peak infusion 33.1 mCi of technetium 99m sestamibi was injected stress images were obtained stress and rest images were reconstructed in comparing the short axis vertical long and horizontal long axis. Gated images were also obtained per Perfusion SPECT analysis: Review of the stress images demonstrate normal uptake of tracer noted in all areas of the myocardium the resting images similarly demonstrate normal uptake of tracer noted in all areas of the myocardium. No areas of reversibility are noted suggest ischemia and no previous infarct is noted. Gated SPECT analysis: The gated ejection fraction is 71%. Conclusion: Normal pharmacologic myocardial perfusion stress test. Preserved ejection fraction. Cardiac catheterization 11/03/2020: PROCEDURE(S) PERFORMED AF97-GEC/COR/LV CLINICAL PROFILE AND INDICATIONS Indications: Cardiac Arrhythmia Heart Failure: None CONCLUSIONS Moderately severe disease noted in the proximal left anterior descending artery RECOMMENDATIONS Staged for IVUS DESCRIPTION OF PROCEDURE The patient arrived to the procedure lab. The risks and benefits of the procedure as well as a full description of our services here and current unavailability of surgical backup were fully explained to the patient and/or their significant other prior to the catheterization. The Timeout was completed, verifying the correct patient and procedure. The patient's procedural site was prepped and draped in the usual fashion. Local anesthetic was given subcutaneously to right radial region with Lidocaine 2%. Using a modified Seldinger technique, arterial access was obtained via the right radial artery, a 6Fr sheath was inserted. Left Coronary Artery selective angiography was performed in multiple views using a 5 Fr. 4.0 [place] catheter. Right Coronary Artery selective angiography was then performed in multiple views using a 5 Fr. 4.0 [place] catheter. Left Ventriculography was performed in VELEZ projection using a 5 Fr. Pigtail catheter. LV to AO pullback pressures were then recorded. CORONARY ANGIOGRAPHY DOMINANCE: Right Dominant LEFT HEART ASSESSMENT Left Ventricular Ejection Fraction: by LV Gram 65 % Normal LV wall motion Normal Left Ventricular systolic function LEFT MAIN: Angiographically normal LEFT ANTERIOR DESCENDING ARTERY: PROX LAD: 60 % Stenosis, No significant disease noted CIRCUMFLEX ARTERY: Angiographically normal RIGHT CORONARY ARTERY: Angiographically normal Labs: No Data to Display Diagnostics: Electrocardiogram Stress Test NM Stress Test Pacemaker Check Cardiac Catheterization Pulmonary: No Data to Display Assessment and Plan Assessment and Plan (1) Nonobstructive atherosclerosis of coronary artery: Status: Chronic Plan: Patient does not have any symptoms of angina. He will continue with his atorvastatin. (2) History of permanent cardiac pacemaker placement: Status: Chronic Plan: Pacemaker is functioning appropriately. We will continue to monitor at routine scheduled pacemaker interrogations. (3) Paroxysmal atrial fibrillation: Status: Chronic Plan: Patient does have paroxysmal atrial fibrillation that is noted on his pacemaker interrogations. His rate is controlled. For now he will continue with his Eliquis. He would like to be referred for evaluation of a watchman device as he does have syncopal events from his previous traumatic brain injury and is concerned about falling and hitting his head. If he does proceed with a watchman device feel that patient should be on an aspirin once he stops his Eliquis. (4) Nonrheumatic mitral (valve) prolapse: Status: Chronic Plan: This is moderate, will continue with echocardiograms as deemed appropriate. (5) Dizziness: Status: Acute Plan: Patient does continue to have issues with dizziness. Would like to obtain a head CT to further evaluate. We will then forward results to his neurologist. Orders: Orders Brain/Head without Contrast Today R42 - Dizziness and giddiness Referrals Electrophysiology I48.0 - Paroxysmal atrial fibrillation Plan Details Additional Comments: . Thank you for allowing me to participate in the care of your patient. Please don't hesitate to call if any issues arise. This note was generated using a voice recognition system and there may be incorrect words, spelling, or punctuation that were not noted when reviewing the office note prior to saving. Follow Up: 05/26/22 (keep as is) Coding Level of Care Code Off vis,est,level 4 Diagnoses Nonobstructive atherosclerosis of coronary artery I25.10 History of permanent cardiac pacemaker placement Z95.0 Paroxysmal atrial fibrillation I48.0 Nonrheumatic mitral (valve) prolapse I34.1 Dizziness R42 Coding Level of Care Code Off vis,est,level 4 Diagnoses Nonobstructive atherosclerosis of coronary artery I25.10 History of permanent cardiac pacemaker placement Z95.0 Paroxysmal atrial fibrillation I48.0 Nonrheumatic mitral (valve) prolapse I34.1 Dizziness R42 05/26/22 1722 <Electronically signed by Manju Simon A> Date Manju Lea Signature: Date (if applicable) CC: Dr. Simran Woodard, DO Simran Woodard DO Work Phone: Start: 04-09-2022 End: 04-09-2022 Pacemaker Check Procedure Note: See Note; NOTES: [facility] [address] [place] [address] Pacemaker Check Date of Service: 04/09/221512 MR#: [id number] Acct: [id number] Name: CASEY FLANAGAN Rep #: [id number] : 1950 From: Cinda Krause Age/Sex: 71/M Location: [facility] Status: Signed Billing Codes PM Device Codes: PM Dev Interrogate (Remot Assessment and Plan Assessment and Plan (1) History of permanent cardiac pacemaker placement: Status: Chronic (2) Paroxysmal atrial flutter: Status: Chronic (3) Paroxysmal atrial fibrillation: Status: Chronic (4) Sick sinus syndrome: Status: Chronic (5) Atrioventricular block, complete: Status: Chronic (6) Ventricular tachycardia (paroxysmal): Status: Acute 04/09/225 <Electronically signed by Cinda Krause > Date Cinda Lea Signature: Date (if applicable) CC: Simran Woodard DO Work Phone: Start: 01-01-2022 End: 01-01-2022 Pacemaker Check Comments: See Note; NOTES: [facility] [address] [place] [address] Pacemaker Check Date of Service: 01/01/221631 MR#: [id number] Acct: [id number] Name: CASEY FLANAGAN Rep #: [id number] : 1950 From: Cinda Krause Age/Sex: 71/M Location: [facility] Status: Signed Billing Codes PM Device Codes: PM Dev Interrogate (Remot Assessment and Plan Assessment and Plan (1) History of permanent cardiac pacemaker placement: Status: Chronic (2) Paroxysmal atrial flutter: Status: Chronic (3) Paroxysmal atrial fibrillation: Status: Chronic (4) Sick sinus syndrome: Status: Chronic (5) Atrioventricular block, complete: Status: Chronic (6) Ventricular tachycardia (paroxysmal): Status: Acute 01/01/221632 <Electronically signed by Cinda Krause > Date Cinda Lea Signature: Date (if applicable) CC: Simran Woodard DO Work Phone: Start: 11-24-[address] JASMINE BEYER MD Plan of Treatment Date Care Activity Detail Author Start: 06-16-2031 Urine microalbumin profile DTaP,Tdap,Td Vaccine (2 - Td or Tdap) [facility] Start: 01-19-2026 DIABETES SCREEN DIABETES SCREEN [facility] Start: 01-19-2026 Diabetes Screening Diabetes Screening [facility] Start: 05-06-2023 Covid-19 Vaccine ( season) Covid-19 Vaccine () [facility] Start: 05-06-2023 Influenza vaccination [facility] Start: 10-28-2022 Procedure Education [facility] Work Phone: Start: 10-28-2022 Provider Instructions for Treatment [facility] Work Phone: Start: 10-15-2022 Assay of testosterone free TESTOSTERONE FREE ([id number]) [facility] Work Phone: Start: 10-15-2022 Procedure Education [facility] Work Phone: Start: 10-15-2022 Comprehensive metabolic panel [facility]; [facility] Work Phone: Start: 10-15-2022 Assay of thyroid stimulating hormone tsh TSH (THYROID STIMULATING HORMONE) ([id number]) [facility]; [facility] Work Phone: Start: 10-15-2022 CBC, PLATELETS & MANUAL DIFF ([id number]) CBC, PLATELETS & MANUAL DIFF ([id number]) [facility]; [facility] Work Phone: Start: 10-15-2022 Assay of testosterone total TESTOSTERONE TOTAL ([id number]) [facility]; [facility] Work Phone: Start: 10-15-2022 Assay of prostate specific antigen total PSA (PROSTATE SPECIFIC ANTIGEN) ([id number]) [facility]; [facility] Work Phone: Start: 09-05-2022 ADVANCE DIRECTIVE DISCUSSION ADVANCE DIRECTIVE DISCUSSION [facility] Start: 09-05-2022 DEPRESSION ASSESSMENT DEPRESSION ASSESSMENT [facility] Start: 06-16-2022 Pneumococcal Vaccine: 65+ (2 - PCV) Pneumococcal Vaccine: 65+ (2 - PCV) [facility] Start: 05-06-2022 Influenza vaccination INFLUENZA (#1) [facility] Start: 11-02-2021 Prothrombin time [facility] Work Phone: Start: 11-02-2021 Urnls dip stick/tablet rgnt non-auto w/o micrscp [facility]; [facility] Work Phone: Immunizations Immunization Date Immunization Notes Care Provider Fa epifanio 06-16-2021 tetanus and diphther ia toxoids, adsorbed, preservative free, for adult use (2 Lf of tetanus toxoid and 2 Lf of diphtheria toxoid) Simran Woodard DO Work Phone: [facility]; [facility] Work Phone: 06-16-2021 pneumococcal polysaccharide vaccine, 23 valent Simrnaiva Woodard DO Work Phone: [facility]; [facility] Work Phone: Payers Date Payer Category Payer Medicare [employer] [place] [place] [id number] 2021-Present [phone] [address] [place] [address] O [id number]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 tablet Take 80 mg by mouth once daily. levothyroxine (SYNTHROID) 125 mcg tablet Take 1 tablet by mouth once daily. Takes 125 mcg 6 days a week, and 250 mcg once a week. iv contrast (will be provided with radiology test) CTA Coronary. No IV access, insert saline lock prior to the sedation, infusion, injection for imaging exam. Discontinue saline lock post exam. If Pt. has a central line or IVAD, may access for administration according to line specific nursing protocol. Once exam is complete flush line and de-access according to line specific nursing protocol in the CT contrast administration guidelines link. metoprolol tartrate, short acting, (LOPRESSOR) 50 mg tablet Take one 50 mg tablet the evening prior to the CTA examination, take another 50 mg tablet the morning of the CTA examination. REVIEW OF SYSTEMS: GENERAL: Negative for: Weight loss or gain, Fever or Chills, Weakness and Sleep difficulties. HEENT: Negative for: Headache, Impaired Vision, Glasses, Hearing Impairment, Ringing in Ears, Nosebleeds, Poor dental care, Bleeding Gums, Dentures NECK: Negative for: Swelling, Pain, Stiffness RESPIRATORY: Negative for: (more content not included)... [facility] 11-25-2021 Hospital Discharg e instructions Patient Education 11/25/2021 08:35:02 5 - [facility] Post-op Instruction 04/2017 (01135) [facility] Post-operative Instructions PLEASE FOLLOW [facility] POST-OP INSTRUCTIONS GIVEN WATCH FOR SIGNS OF INFECTION: call the office ([phone]) if experencing any of the following: (Usually appears 36-48 hours after surgery) Increased temperature (101 degrees Fahrenheit or higher) Redness or swelling Increased uncontrolled pain Foul odor or drainage Calf discomfort Significant swelling Or if having any chest pain, shortness of breath, or difficulty breathing or swallowing call the office or go the nearest Emergency Room. If you have any questions, please call your doctor at the number listed on your follow up instructions. Form: 338A (97390) R: 01/09 Follow Up Care 10/20/2021 08:00:28 With:SHAHNAZ HUFFMAN PA-C, Orthopedic, Orthopedic, Orthopedic Address: [facility] [address] [place] [phone] When:12/07/2021 09:45:00 Comments:This is your post-op appointment. Follow-up as scheduled. With:[facility] Address: [address] [place] [phone] When:12/07/2021 10:00:00 Comments:This is your first physical therapy appointment. Follow-up as scheduled. [facility] Evaluation + Plan note Future Appointments [facility] Presence of Watchman left atrial appendage closure device- Primary [facility] Diagnosis Paroxysmal atrial fibrillation (HCC)- Primary Atrial fibrillation Encounter for care of pacemaker AV block, complete (HCC) Atrioventricular block, complete Presence of Watchman left atrial appendage closure device Dizziness Dizziness and giddiness Syncope, unspecified syncope type At risk for stroke Other specified personal history presenting hazards to health [facility] Narrative No data available for this section [facility] Hospital Discharge instructions No data available for this section [facility] Instructions* Name Dates Details Patient Instructions Indication:Encounter for gynecological examination without abnormal finding Start:15-Jun-2021 Instruction Type:Provider Instructions for Treatment How to Access Health Informa tion Online using Patient Portal and [employer]rd [employer] Apps Indication:Encounter for gynecological examination without abnormal finding Start:15-Jun-2021 Instruction Type:Patient Education Patient Instructions Indication:BMI 24.0-24.9, adult Start:04-Jun-2021 Instruction Type:Provider Instructions for Treatment How to Access Health Informa tion Online using Patient Portal and [employer] Apps Indication:BMI 24.0-24.9, adult Start:04-Jun-2021 Instruction Type:Patient Education Patient Instructions Indication:BMI 26.0-26.9,adult Start:27-May-2021 Instruction Type:Provider Instructions for Treatment How to Access Health Informa tion Online using Patient Portal and [employer] Apps Indication:BMI 26.0-26.9,adult Start:27-May-2021 Instruction Type:Patient Education Patient Instructions Indication:Current nonsmoker (Renamed from Current non-smoker) Start:08-Sep-2020 Instruction Type:Provider Instructions for Treatment How to Access Health Informa tion Online using Patient Portal and [employer] Apps Indication:Current nonsmoker (Renamed from Current non-smoker) Start:08-Sep-2020 Instruction Type:Patient Education How to access health informa tion online Indication:BMI 26.0-26.9,adult Start:12-Sep-2019 Instruction Type:Patient Education How to access health informa tion online - Detail Indication:BMI 26.0-26.9,adult Start:12-Sep-2019 Instruction Type:Patient Education Patient Instructions Indication:BMI 26.0-26.9,adult Start:12-Sep-2019 Instruction Type:Provider Instructions for Treatment How to access health informa tion online Indication:Current nonsmoker (Renamed from Current non-smoker) Start:04-Jan-2019 Instruction Type:Patient Education How to access health informa tion online - Detail Indication:Current nonsmoker (Renamed from Current non-smoker) Start:04-Jan-2019 Instruction Type:Patient Education Patient Instructions Indication:Current nonsmoker (Renamed from Current non-smoker) Start:04-Jan-2019 Instruction Type:Provider Instructions for Treatment How to access health informa tion online Indication:Current nonsmoker (Renamed from Current non-smoker) Start:30-Sep-2017 Instruction Type:Patient Education How to access health informa tion online - Detail Indication:Current nonsmoker (Renamed from Current non-smoker) Start:30-Sep-2017 Instruction Type:Patient Education Patient Instructions Indication:Current nonsmoker (Renamed from Current non-smoker) Start:30-Sep-2017 Instruction Type:Provider Instructions for Treatment How to access health informa tion online Indication:Flu-like symptoms Start:23-Sep-2017 Instruction Type:Patient Education How to access health informa tion online - Detail Indication:Flu-like symptoms Start:23-Sep-2017 Instruction Type:Patient Education Patient Instructions Indication:Flu-like symptoms Start:23-Sep-2017 Instruction Type:Provider Instructions for Treatment How to access health informa tion online Indication:Current nonsmoker (Renamed from Current non-smoker) Start:10-Aug-2017 Instruction Type:Patient Education How to access health informa tion online - Detail Indication:Current nonsmoker (Renamed from Current non-smoker) Start:10-Aug-2017 Instruction Type:Patient Education Patient Instructions Indication:Current nonsmoker (Renamed from Current non-smoker) Start:10-Aug-2017 Instruction Type:Provider Instructions for Treatment How to access health informa tion online Indication:BMI 26.0-26.9,adult Start:14-Feb-2017 Instruction Type:Patient Education How to access health informa tion online - Detail Indication:BMI 26.0-26.9,adult Start:14-Feb-2017 Instruction Type:Patient Education Patient Instructions Indication:BMI 26.0-26.9,adult Start:14-Feb-2017 Instruction Type:Provider Instructions for Treatment How to access health informa tion online Indication:Osteoarthritis Start:18-Mar-2016 Instruction Type:Patient Education How to access health informa tion online - Detail Indication:Osteoarthritis Start:18-Mar-2016 Instruction Type:Patient Education Patient Instructions Indication:Osteoarthritis Start:18-Mar-2016 Instruction Type:Provider Instructions for Treatment Patient Instructions Indication:Cough, persistent Start:19-Sep-2015 Instruction Type:Provider Instructions for Treatment How to access health informa tion online - Detail Indication:Cough, persistent Start:11-Sep-2015 Instruction Type:Patient Education How to access health informa tion online Indication:Cough, persistent Start:11-Sep-2015 Instruction Type:Patient Education Patient Instructions Indication:Cough, persistent Start:11-Sep-2015 Instruction Type:Provider Instructions for Treatment Patient Instructions Indication:Cough Start:10-Sep-2015 Instruction Type:Provider Instructions for Treatment How to access health informa tion online Indication:Bronchitis Start:25-Aug-2015 Instruction Type:Patient Education How to access health informa tion online - Detail Indication:Bronchitis Start:25-Aug-2015 Instruction Type:Patient Education Patient Instructions Indication:Bronchitis Start:25-Aug-2015 Instruction Type:Provider Instructions for Treatment How to access health informa tion online Indication:Hypercholesteremia Start:09-Apr-2015 Instruction Type:Patient Education How to access health informa tion online - Detail Indication:Hypercholesteremia Start:09-Apr-2015 Instruction Type:Patient Education Patient Instructions Indication:Hypercholesteremia Start:09-Apr-2015 Instruction Type:Provider Instructions for Treatment Patient Instructions Indication:Hypercholesteremia Start:23-Jul-2013 Instruction Type:Provider Instructions for Treatment Patient Instructions Indication:Hypothyroidism Start:29-Mar-2013 Instruction Type:Provider Instructions for Treatment [facility] Work Phone: Instructions* Name Dates Details Patient Instructions Indication:Current nonsmoker (Renamed from Current non-smoker) Start:25-Sep-2021 Instruction Type:Provider Instructions for Treatment How to Access Health Informa tion Online using Patient Portal and [employer] Indication:Current nonsmoker (Renamed from Current non-smoker) Start:25-Sep-2021 Instruction Type:Patient Education Patient Instructions Indication:Encounter for gynecological examination without abnormal finding Start:15-Jun-2021 Instruction Type:Provider Instructions for Treatment How to Access Health Informa tion Online using Patient Portal and [employer] Indication:Encounter for gynecological examination without abnormal finding Start:15-Jun-2021 Instruction Type:Patient Education Patient Instructions Indication:BMI 24.0-24.9, adult Start:04-Jun-2021 Instruction Type:Provider Instructions for Treatment How to Access Health Informa tion Online using Patient Portal and [employer] Indication:BMI 24.0-24.9, adult Start:04-Jun-2021 Instruction Type:Patient Education Patient Instructions Indication:BMI 26.0-26.9,adult Start:27-May-2021 Instruction Type:Provider Instructions for Treatment How to Access Health Informa tion Online using Patient Portal and [employer] Indication:BMI 26.0-26.9,adult Start:27-May-2021 Instruction Type:Patient Education Patient Instructions Indication:Current nonsmoker (Renamed from Current non-smoker) Start:08-Sep-2020 Instruction Type:Provider Instructions for Treatment How to Access Health Informa tion Online using Patient Portal and [employer] Apps Indication:Current nonsmoker (Renamed from Current non-smoker) Start:08-Sep-2020 Instruction Type:Patient Education How to access health informa tion online Indication:BMI 26.0-26.9,adult Start:12-Sep-2019 Instruction Type:Patient Education How to access health informa tion online - Detail Indication:BMI 26.0-26.9,adult Start:12-Sep-2019 Instruction Type:Patient Education Patient Instructions Indication:BMI 26.0-26.9,adult Start:12-Sep-2019 Instruction Type:Provider Instructions for Treatment How to access health informa tion online Indication:Current nonsmoker (Renamed from Current non-smoker) Start:04-Jan-2019 Instruction Type:Patient Education How to access health informa tion online - Detail Indication:Current nonsmoker (Renamed from Current non-smoker) Start:04-Jan-2019 Instruction Type:Patient Education Patient Instructions Indication:Current nonsmoker (Renamed from Current non-smoker) Start:04-Jan-2019 Instruction Type:Provider Instructions for Treatment How to access health informa tion online Indication:Current nonsmoker (Renamed from Current non-smoker) Start:30-Sep-2017 Instruction Type:Patient Education How to access health informa tion online - Detail Indication:Current nonsmoker (Renamed from Current non-smoker) Start:30-Sep-2017 Instruction Type:Patient Education Patient Instructions Indication:Current nonsmoker (Renamed from Current non-smoker) Start:30-Sep-2017 Instruction Type:Provider Instructions for Treatment How to access health informa tion online Indication:Flu-like symptoms Start:23-Sep-2017 Instruction Type:Patient Education How to access health informa tion online - Detail Indication:Flu-like symptoms Start:23-Sep-2017 Instruction Type:Patient Education Patient Instructions Indication:Flu-like symptoms Start:23-Sep-2017 Instruction Type:Provider Instructions for Treatment How to access health informa tion online Indication:Current nonsmoker (Renamed from Current non-smoker) Start:10-Aug-2017 Instruction Type:Patient Education How to access health informa tion online - Detail Indication:Current nonsmoker (Renamed from Current non-smoker) Start:10-Aug-2017 Instruction Type:Patient Education Patient Instructions Indication:Current nonsmoker (Renamed from Current non-smoker) Start:10-Aug-2017 Instruction Type:Provider Instructions for Treatment How to access health informa tion online Indication:BMI 26.0-26.9,adult Start:14-Feb-2017 Instruction Type:Patient Education How to access health informa tion online - Detail Indication:BMI 26.0-26.9,adult Start:14-Feb-2017 Instruction Type:Patient Education Patient Instructions Indication:BMI 26.0-26.9,adult Start:14-Feb-2017 Instruction Type:Provider Instructions for Treatment How to access health informa tion online Indication:Osteoarthritis Start:18-Mar-2016 Instruction Type:Patient Education How to access health informa tion online - Detail Indication:Osteoarthritis Start:18-Mar-2016 Instruction Type:Patient Education Patient Instructions Indication:Osteoarthritis Start:18-Mar-2016 Instruction Type:Provider Instructions for Treatment Patient Instructions Indication:Cough, persistent Start:19-Sep-2015 Instruction Type:Provider Instructions for Treatment How to access health informa tion online - Detail Indication:Cough, persistent Start:11-Sep-2015 Instruction Type:Patient Education How to access health informa tion online Indication:Cough, persistent Start:11-Sep-2015 Instruction Type:Patient Education Patient Instructions Indication:Cough, persistent Start:11-Sep-2015 Instruction Type:Provider Instructions for Treatment Patient Instructions Indication:Cough Start:10-Sep-2015 Instruction Type:Provider Instructions for Treatment How to access health informa tion online Indication:Bronchitis Start:25-Aug-2015 Instruction Type:Patient Education How to access health informa tion online - Detail Indication:Bronchitis Start:25-Aug-2015 Instruction Type:Patient Education Patient Instructions Indication:Bronchitis Start:25-Aug-2015 Instruction Type:Provider Instructions for Treatment How to access health informa tion online Indication:Hypercholesteremia Start:09-Apr-2015 Instruction Type:Patient Education How to access health informa tion online - Detail Indication:Hypercholesteremia Start:09-Apr-2015 Instruction Type:Patient Education Patient Instructions Indication:Hypercholesteremia Start:09-Apr-2015 Instruction Type:Provider Instructions for Treatment Patient Instructions Indication:Hypercholesteremia Start:23-Jul-2013 Instruction Type:Provider Instructions for Treatment Patient Instructions Indication:Hypothyroidism Start:29-Mar-2013 Instruction Type:Provider Instructions for Treatment [facility] Work Phone: Instructions* Name Dates Details Patient Instructions Indication:Current nonsmoker (Renamed from Current non-smoker) Start:25-Sep-2021 Instruction Type:Provider Instructions for Treatment How to Access Health Informa tion Online using Patient Portal and [employer] Indication:Current nonsmoker (Renamed from Current non-smoker) Start:25-Sep-2021 Instruction Type:Patient Education Patient Instructions Indication:Encounter for gynecological examination without abnormal finding Start:15-Jun-2021 Instruction Type:Provider Instructions for Treatment How to Access Health Informa tion Online using Patient Portal and [employer] Indication:Encounter for gynecological examination without abnormal finding Start:15-Jun-2021 Instruction Type:Patient Education Patient Instructions Indication:BMI 24.0-24.9, adult Start:04-Jun-2021 Instruction Type:Provider Instructions for Treatment How to Access Health Informa tion Online using Patient Portal and [employer] Indication:BMI 24.0-24.9, adult Start:04-Jun-2021 Instruction Type:Patient Education Patient Instructions Indication:BMI 26.0-26.9,adult Start:27-May-2021 Instruction Type:Provider Instructions for Treatment How to Access Health Informa tion Online using Patient Portal and [employer] Indication:BMI 26.0-26.9,adult Start:27-May-2021 Instruction Type:Patient Education Patient Instructions Indication:Current nonsmoker (Renamed from Current non-smoker) Start:08-Sep-2020 Instruction Type:Provider Instructions for Treatment How to Access Health Informa tion Online using Patient Portal and [employer] Indication:Current nonsmoker (Renamed from Current non-smoker) Start:08-Sep-2020 Instruction Type:Patient Education How to access health informa tion online Indication:BMI 26.0-26.9,adult Start:12-Sep-2019 Instruction Type:Patient Education How to access health informa tion online - Detail Indication:BMI 26.0-26.9,adult Start:12-Sep-2019 Instruction Type:Patient Education Patient Instructions Indication:BMI 26.0-26.9,adult Start:12-Sep-2019 Instruction Type:Provider Instructions for Treatment How to access health informa tion online Indication:Current nonsmoker (Renamed from Current non-smoker) Start:04-Jan-2019 Instruction Type:Patient Education How to access health informa tion online - Detail Indication:Current nonsmoker (Renamed from Current non-smoker) Start:04-Jan-2019 Instruction Type:Patient Education Patient Instructions Indication:Current nonsmoker (Renamed from Current non-smoker) Start:04-Jan-2019 Instruction Type:Provider Instructions for Treatment How to access health informa tion online Indication:Current nonsmoker (Renamed from Current non-smoker) Start:30-Sep-2017 Instruction Type:Patient Education How to access health informa tion online - Detail Indication:Current nonsmoker (Renamed from Current non-smoker) Start:30-Sep-2017 Instruction Type:Patient Education Patient Instructions Indication:Current nonsmoker (Renamed from Current non-smoker) Start:30-Sep-2017 Instruction Type:Provider Instructions for Treatment How to access health informa tion online Indication:Flu-like symptoms Start:23-Sep-2017 Instruction Type:Patient Education How to access health informa tion online - Detail Indication:Flu-like symptoms Start:23-Sep-2017 Instruction Type:Patient Education Patient Instructions Indication:Flu-like symptoms Start:23-Sep-2017 Instruction Type:Provider Instructions for Treatment How to access health informa tion online Indication:Current nonsmoker (Renamed from Current non-smoker) Start:10-Aug-2017 Instruction Type:Patient Education How to access health informa tion online - Detail Indication:Current nonsmoker (Renamed from Current non-smoker) Start:10-Aug-2017 Instruction Type:Patient Education Patient Instructions Indication:Current nonsmoker (Renamed from Current non-smoker) Start:10-Aug-2017 Instruction Type:Provider Instructions for Treatment How to access health informa tion online Indication:BMI 26.0-26.9,adult Start:14-Feb-2017 Instruction Type:Patient Education How to access health informa tion online - Detail Indication:BMI 26.0-26.9,adult Start:14-Feb-2017 Instruction Type:Patient Education Patient Instructions Indication:BMI 26.0-26.9,adult Start:14-Feb-2017 Instruction Type:Provider Instructions for Treatment How to access health informa tion online Indication:Osteoarthritis Start:18-Mar-2016 Instruction Type:Patient Education How to access health informa tion online - Detail Indication:Osteoarthritis Start:18-Mar-2016 Instruction Type:Patient Education Patient Instructions Indication:Osteoarthritis Start:18-Mar-2016 Instruction Type:Provider Instructions for Treatment Patient Instructions Indication:Cough, persistent Start:19-Sep-2015 Instruction Type:Provider Instructions for Treatment How to access health informa tion online - Detail Indication:Cough, persistent Start:11-Sep-2015 Instruction Type:Patient Education How to access health informa tion online Indication:Cough, persistent Start:11-Sep-2015 Instruction Type:Patient Education Patient Instructions Indication:Cough, persistent Start:11-Sep-2015 Instruction Type:Provider Instructions for Treatment Patient Instructions Indication:Cough Start:10-Sep-2015 Instruction Type:Provider Instructions for Treatment How to access health informa tion online Indication:Bronchitis Start:25-Aug-2015 Instruction Type:Patient Education How to access health informa tion online - Detail Indication:Bronchitis Start:25-Aug-2015 Instruction Type:Patient Education Patient Instructions Indication:Bronchitis Start:25-Aug-2015 Instruction Type:Provider Instructions for Treatment How to access health informa tion online Indication:Hypercholesteremia Start:09-Apr-2015 Instruction Type:Patient Education How to access health informa tion online - Detail Indication:Hypercholesteremia Start:09-Apr-2015 Instruction Type:Patient Education Patient Instructions Indication:Hypercholesteremia Start:09-Apr-2015 Instruction Type:Provider Instructions for Treatment Patient Instructions Indication:Hypercholesteremia Start:23-Jul-2013 Instruction Type:Provider Instructions for Treatment Patient Instructions Indication:Hypothyroidism Start:29-Mar-2013 Instruction Type:Provider Instructions for Treatment [facility]; [facility] Work Phone: Instructions* Name Dates Details Patient Instructions Indication:Preop examination Start:02-Nov-2021 Instruction Type:Provider Instructions for Treatment How to Access Health Informa tion Online using Patient Portal and [employer] Apps Indication:Preop examination Start:02-Nov-2021 Instruction Type:Patient Education Patient Instructions Indication:Current nonsmoker (Renamed from Current non-smoker) Start:25-Sep-2021 Instruction Type:Provider Instructions for Treatment How to Access Health Informa tion Online using Patient Portal and [employer] Apps Indication:Current nonsmoker (Renamed from Current non-smoker) Start:25-Sep-2021 Instruction Type:Patient Education Patient Instructions Indication:Encounter for gynecological examination without abnormal finding Start:15-Jun-2021 Instruction Type:Provider Instructions for Treatment How to Access Health Informa tion Online using Patient Portal and [employer] Apps Indication:Encounter for gynecological examination without abnormal finding Start:15-Jun-2021 Instruction Type:Patient Education Patient Instructions Indication:BMI 24.0-24.9, adult Start:04-Jun-2021 Instruction Type:Provider Instructions for Treatment How to Access Health Informa tion Online using Patient Portal and [employer]rd [employer] Apps Indication:BMI 24.0-24.9, adult Start:04-Jun-2021 Instruction Type:Patient Education Patient Instructions Indication:BMI 26.0-26.9,adult Start:27-May-2021 Instruction Type:Provider Instructions for Treatment How to Access Health Informa tion Online using Patient Portal and [employer]rd [employer] Apps Indication:BMI 26.0-26.9,adult Start:27-May-2021 Instruction Type:Patient Education Patient Instructions Indication:Current nonsmoker (Renamed from Current non-smoker) Start:08-Sep-2020 Instruction Type:Provider Instructions for Treatment How to Access Health Informa tion Online using Patient Portal and [employer] Apps Indication:Current nonsmoker (Renamed from Current non-smoker) Start:08-Sep-2020 Instruction Type:Patient Education How to access health informa tion online Indication:BMI 26.0-26.9,adult Start:12-Sep-2019 Instruction Type:Patient Education How to access health informa tion online - Detail Indication:BMI 26.0-26.9,adult Start:12-Sep-2019 Instruction Type:Patient Education Patient Instructions Indication:BMI 26.0-26.9,adult Start:12-Sep-2019 Instruction Type:Provider Instructions for Treatment How to access health informa tion online Indication:Current nonsmoker (Renamed from Current non-smoker) Start:04-Jan-2019 Instruction Type:Patient Education How to access health informa tion online - Detail Indication:Current nonsmoker (Renamed from Current non-smoker) Start:04-Jan-2019 Instruction Type:Patient Education Patient Instructions Indication:Current nonsmoker (Renamed from Current non-smoker) Start:04-Jan-2019 Instruction Type:Provider Instructions for Treatment How to access health informa tion online Indication:Current nonsmoker (Renamed from Current non-smoker) Start:30-Sep-2017 Instruction Type:Patient Education How to access health informa tion online - Detail Indication:Current nonsmoker (Renamed from Current non-smoker) Start:30-Sep-2017 Instruction Type:Patient Education Patient Instructions Indication:Current nonsmoker (Renamed from Current non-smoker) Start:30-Sep-2017 Instruction Type:Provider Instructions for Treatment How to access health informa tion online Indication:Flu-like symptoms Start:23-Sep-2017 Instruction Type:Patient Education How to access health informa tion online - Detail Indication:Flu-like symptoms Start:23-Sep-2017 Instruction Type:Patient Education Patient Instructions Indication:Flu-like symptoms Start:23-Sep-2017 Instruction Type:Provider Instructions for Treatment How to access health informa tion online Indication:Current nonsmoker (Renamed from Current non-smoker) Start:10-Aug-2017 Instruction Type:Patient Education How to access health informa tion online - Detail Indication:Current nonsmoker (Renamed from Current non-smoker) Start:10-Aug-2017 Instruction Type:Patient Education Patient Instructions Indication:Current nonsmoker (Renamed from Current non-smoker) Start:10-Aug-2017 Instruction Type:Provider Instructions for Treatment How to access health informa tion online Indication:BMI 26.0-26.9,adult Start:14-Feb-2017 Instruction Type:Patient Education How to access health informa tion online - Detail Indication:BMI 26.0-26.9,adult Start:14-Feb-2017 Instruction Type:Patient Education Patient Instructions Indication:BMI 26.0-26.9,adult Start:14-Feb-2017 Instruction Type:Provider Instructions for Treatment How to access health informa tion online Indication:Osteoarthritis Start:18-Mar-2016 Instruction Type:Patient Education How to access health informa tion online - Detail Indication:Osteoarthritis Start:18-Mar-2016 Instruction Type:Patient Education Patient Instructions Indication:Osteoarthritis Start:18-Mar-2016 Instruction Type:Provider Instructions for Treatment Patient Instructions Indication:Cough, persistent Start:19-Sep-2015 Instruction Type:Provider Instructions for Treatment How to access health informa tion online - Detail Indication:Cough, persistent Start:11-Sep-2015 Instruction Type:Patient Education How to access health informa tion online Indication:Cough, persistent Start:11-Sep-2015 Instruction Type:Patient Education Patient Instructions Indication:Cough, persistent Start:11-Sep-2015 Instruction Type:Provider Instructions for Treatment Patient Instructions Indication:Cough Start:10-Sep-2015 Instruction Type:Provider Instructions for Treatment How to access health informa tion online Indication:Bronchitis Start:25-Aug-2015 Instruction Type:Patient Education How to access health informa tion online - Detail Indication:Bronchitis Start:25-Aug-2015 Instruction Type:Patient Education Patient Instructions Indication:Bronchitis Start:25-Aug-2015 Instruction Type:Provider Instructions for Treatment How to access health informa tion online Indication:Hypercholesteremia Start:09-Apr-2015 Instruction Type:Patient Education How to access health informa tion online - Detail Indication:Hypercholesteremia Start:09-Apr-2015 Instruction Type:Patient Education Patient Instructions Indication:Hypercholesteremia Start:09-Apr-2015 Instruction Type:Provider Instructions for Treatment Patient Instructions Indication:Hypercholesteremia Start:23-Jul-2013 Instruction Type:Provider Instructions for Treatment Patient Instructions Indication:Hypothyroidism Start:29-Mar-2013 Instruction Type:Provider Instructions for Treatment [facility]; [facility] Work Phone: Instructions* Name Dates Details Patient Instructions Indication:Preop examination Start:02-Nov-2021 Instruction Type:Provider Instructions for Treatment How to Access Health Informa tion Online using Patient Portal and [employer] Apps Indication:Preop examination Start:02-Nov-2021 Instruction Type:Patient Education Patient Instructions Indication:Current nonsmoker (Renamed from Current non-smoker) Start:25-Sep-2021 Instruction Type:Provider Instructions for Treatment How to Access Health Informa tion Online using Patient Portal and [employer] Apps Indication:Current nonsmoker (Renamed from Current non-smoker) Start:25-Sep-2021 Instruction Type:Patient Education Patient Instructions Indication:Encounter for gynecological examination without abnormal finding Start:15-Jun-2021 Instruction Type:Provider Instructions for Treatment How to Access Health Informa tion Online using Patient Portal and [employer] Apps Indication:Encounter for gynecological examination without abnormal finding Start:15-Jun-2021 Instruction Type:Patient Education Patient Instructions Indication:BMI 24.0-24.9, adult Start:04-Jun-2021 Instruction Type:Provider Instructions for Treatment How to Access Health Informa tion Online using Patient Portal and [employer] Apps Indication:BMI 24.0-24.9, adult Start:04-Jun-2021 Instruction Type:Patient Education Patient Instructions Indication:BMI 26.0-26.9,adult Start:27-May-2021 Instruction Type:Provider Instructions for Treatment How to Access Health Informa tion Online using Patient Portal and [employer] Apps Indication:BMI 26.0-26.9,adult Start:27-May-2021 Instruction Type:Patient Education Patient Instructions Indication:Current nonsmoker (Renamed from Current non-smoker) Start:08-Sep-2020 Instruction Type:Provider Instructions for Treatment How to Access Health Informa tion Online using Patient Portal and [employer] Apps Indication:Current nonsmoker (Renamed from Current non-smoker) Start:08-Sep-2020 Instruction Type:Patient Education How to access health informa tion online Indication:BMI 26.0-26.9,adult Start:12-Sep-2019 Instruction Type:Patient Education How to access health informa tion online - Detail Indication:BMI 26.0-26.9,adult Start:12-Sep-2019 Instruction Type:Patient Education Patient Instructions Indication:BMI 26.0-26.9,adult Start:12-Sep-2019 Instruction Type:Provider Instructions for Treatment How to access health informa tion online Indication:Current nonsmoker (Renamed from Current non-smoker) Start:04-Jan-2019 Instruction Type:Patient Education How to access health informa tion online - Detail Indication:Current nonsmoker (Renamed from Current non-smoker) Start:04-Jan-2019 Instruction Type:Patient Education Patient Instructions Indication:Current nonsmoker (Renamed from Current non-smoker) Start:04-Jan-2019 Instruction Type:Provider Instructions for Treatment How to access health informa tion online Indication:Current nonsmoker (Renamed from Current non-smoker) Start:30-Sep-2017 Instruction Type:Patient Education How to access health informa tion online - Detail Indication:Current nonsmoker (Renamed from Current non-smoker) Start:30-Sep-2017 Instruction Type:Patient Education Patient Instructions Indication:Current nonsmoker (Renamed from Current non-smoker) Start:30-Sep-2017 Instruction Type:Provider Instructions for Treatment How to access health informa tion online Indication:Flu-like symptoms Start:23-Sep-2017 Instruction Type:Patient Education How to access health informa tion online - Detail Indication:Flu-like symptoms Start:23-Sep-2017 Instruction Type:Patient Education Patient Instructions Indication:Flu-like symptoms Start:23-Sep-2017 Instruction Type:Provider Instructions for Treatment How to access health informa tion online Indication:Current nonsmoker (Renamed from Current non-smoker) Start:10-Aug-2017 Instruction Type:Patient Education How to access health informa tion online - Detail Indication:Current nonsmoker (Renamed from Current non-smoker) Start:10-Aug-2017 Instruction Type:Patient Education Patient Instructions Indication:Current nonsmoker (Renamed from Current non-smoker) Start:10-Aug-2017 Instruction Type:Provider Instructions for Treatment How to access health informa tion online Indication:BMI 26.0-26.9,adult Start:14-Feb-2017 Instruction Type:Patient Education How to access health informa tion online - Detail Indication:BMI 26.0-26.9,adult Start:14-Feb-2017 Instruction Type:Patient Education Patient Instructions Indication:BMI 26.0-26.9,adult Start:14-Feb-2017 Instruction Type:Provider Instructions for Treatment How to access health informa tion online Indication:Osteoarthritis Start:18-Mar-2016 Instruction Type:Patient Education How to access health informa tion online - Detail Indication:Osteoarthritis Start:18-Mar-2016 Instruction Type:Patient Education Patient Instructions Indication:Osteoarthritis Start:18-Mar-2016 Instruction Type:Provider Instructions for Treatment Patient Instructions Indication:Cough, persistent Start:19-Sep-2015 Instruction Type:Provider Instructions for Treatment How to access health informa tion online - Detail Indication:Cough, persistent Start:11-Sep-2015 Instruction Type:Patient Education How to access health informa tion online Indication:Cough, persistent Start:11-Sep-2015 Instruction Type:Patient Education Patient Instructions Indication:Cough, persistent Start:11-Sep-2015 Instruction Type:Provider Instructions for Treatment Patient Instructions Indication:Cough Start:10-Sep-2015 Instruction Type:Provider Instructions for Treatment How to access health informa tion online Indication:Bronchitis Start:25-Aug-2015 Instruction Type:Patient Education How to access health informa tion online - Detail Indication:Bronchitis Start:25-Aug-2015 Instruction Type:Patient Education Patient Instructions Indication:Bronchitis Start:25-Aug-2015 Instruction Type:Provider Instructions for Treatment How to access health informa tion online Indication:Hypercholesteremia Start:09-Apr-2015 Instruction Type:Patient Education How to access health informa tion online - Detail Indication:Hypercholesteremia Start:09-Apr-2015 Instruction Type:Patient Education Patient Instructions Indication:Hypercholesteremia Start:09-Apr-2015 Instruction Type:Provider Instructions for Treatment Patient Instructions Indication:Hypercholesteremia Start:23-Jul-2013 Instruction Type:Provider Instructions for Treatment Patient Instructions Indication:Hypothyroidism Start:29-Mar-2013 Instruction Type:Provider Instructions for Treatment [facility]; [facility] Work Phone: Instructions* Name Dates Details Patient Instructions Indication:Preop examination Start:02-Nov-2021 Instruction Type:Provider Instructions for Treatment How to Access Health Informa tion Online using Patient Portal and [employer] Apps Indication:Preop examination Start:02-Nov-2021 Instruction Type:Patient Education Patient Instructions Indication:Current nonsmoker (Renamed from Current non-smoker) Start:25-Sep-2021 Instruction Type:Provider Instructions for Treatment How to Access Health Informa tion Online using Patient Portal and [employer] Apps Indication:Current nonsmoker (Renamed from Current non-smoker) Start:25-Sep-2021 Instruction Type:Patient Education Patient Instructions Indication:Encounter for gynecological examination without abnormal finding Start:15-Jun-2021 Instruction Type:Provider Instructions for Treatment How to Access Health Informa tion Online using Patient Portal and [employer] Apps Indication:Encounter for gynecological examination without abnormal finding Start:15-Jun-2021 Instruction Type:Patient Education Patient Instructions Indication:BMI 24.0-24.9, adult Start:04-Jun-2021 Instruction Type:Provider Instructions for Treatment How to Access Health Informa tion Online using Patient Portal and [employer] Apps Indication:BMI 24.0-24.9, adult Start:04-Jun-2021 Instruction Type:Patient Education Patient Instructions Indication:BMI 26.0-26.9,adult Start:27-May-2021 Instruction Type:Provider Instructions for Treatment How to Access Health Informa tion Online using Patient Portal and [employer] Apps Indication:BMI 26.0-26.9,adult Start:27-May-2021 Instruction Type:Patient Education Patient Instructions Indication:Current nonsmoker (Renamed from Current non-smoker) Start:08-Sep-2020 Instruction Type:Provider Instructions for Treatment How to Access Health Informa tion Online using Patient Portal and [employer] Apps Indication:Current nonsmoker (Renamed from Current non-smoker) Start:08-Sep-2020 Instruction Type:Patient Education How to access health informa tion online Indication:BMI 26.0-26.9,adult Start:12-Sep-2019 Instruction Type:Patient Education How to access health informa tion online - Detail Indication:BMI 26.0-26.9,adult Start:12-Sep-2019 Instruction Type:Patient Education Patient Instructions Indication:BMI 26.0-26.9,adult Start:12-Sep-2019 Instruction Type:Provider Instructions for Treatment How to access health informa tion online Indication:Current nonsmoker (Renamed from Current non-smoker) Start:04-Jan-2019 Instruction Type:Patient Education How to access health informa tion online - Detail Indication:Current nonsmoker (Renamed from Current non-smoker) Start:04-Jan-2019 Instruction Type:Patient Education Patient Instructions Indication:Current nonsmoker (Renamed from Current non-smoker) Start:04-Jan-2019 Instruction Type:Provider Instructions for Treatment How to access health informa tion online Indication:Current nonsmoker (Renamed from Current non-smoker) Start:30-Sep-2017 Instruction Type:Patient Education How to access health informa tion online - Detail Indication:Current nonsmoker (Renamed from Current non-smoker) Start:30-Sep-2017 Instruction Type:Patient Education Patient Instructions Indication:Current nonsmoker (Renamed from Current non-smoker) Start:30-Sep-2017 Instruction Type:Provider Instructions for Treatment How to access health informa tion online Indication:Flu-like symptoms Start:23-Sep-2017 Instruction Type:Patient Education How to access health informa tion online - Detail Indication:Flu-like symptoms Start:23-Sep-2017 Instruction Type:Patient Education Patient Instructions Indication:Flu-like symptoms Start:23-Sep-2017 Instruction Type:Provider Instructions for Treatment How to access health informa tion online Indication:Current nonsmoker (Renamed from Current non-smoker) Start:10-Aug-2017 Instruction Type:Patient Education How to access health informa tion online - Detail Indication:Current nonsmoker (Renamed from Current non-smoker) Start:10-Aug-2017 Instruction Type:Patient Education Patient Instructions Indication:Current nonsmoker (Renamed from Current non-smoker) Start:10-Aug-2017 Instruction Type:Provider Instructions for Treatment How to access health informa tion online Indication:BMI 26.0-26.9,adult Start:14-Feb-2017 Instruction Type:Patient Education How to access health informa tion online - Detail Indication:BMI 26.0-26.9,adult Start:14-Feb-2017 Instruction Type:Patient Education Patient Instructions Indication:BMI 26.0-26.9,adult Start:14-Feb-2017 Instruction Type:Provider Instructions for Treatment How to access health informa tion online Indication:Osteoarthritis Start:18-Mar-2016 Instruction Type:Patient Education How to access health informa tion online - Detail Indication:Osteoarthritis Start:18-Mar-2016 Instruction Type:Patient Education Patient Instructions Indication:Osteoarthritis Start:18-Mar-2016 Instruction Type:Provider Instructions for Treatment Patient Instructions Indication:Cough, persistent Start:19-Sep-2015 Instruction Type:Provider Instructions for Treatment How to access health informa tion online - Detail Indication:Cough, persistent Start:11-Sep-2015 Instruction Type:Patient Education How to access health informa tion online Indication:Cough, persistent Start:11-Sep-2015 Instruction Type:Patient Education Patient Instructions Indication:Cough, persistent Start:11-Sep-2015 Instruction Type:Provider Instructions for Treatment Patient Instructions Indication:Cough Start:10-Sep-2015 Instruction Type:Provider Instructions for Treatment How to access health informa tion online Indication:Bronchitis Start:25-Aug-2015 Instruction Type:Patient Education How to access health informa tion online - Detail Indication:Bronchitis Start:25-Aug-2015 Instruction Type:Patient Education Patient Instructions Indication:Bronchitis Start:25-Aug-2015 Instruction Type:Provider Instructions for Treatment How to access health informa tion online Indication:Hypercholesteremia Start:09-Apr-2015 Instruction Type:Patient Education How to access health informa tion online - Detail Indication:Hypercholesteremia Start:09-Apr-2015 Instruction Type:Patient Education Patient Instructions Indication:Hypercholesteremia Start:09-Apr-2015 Instruction Type:Provider Instructions for Treatment Patient Instructions Indication:Hypercholesteremia Start:23-Jul-2013 Instruction Type:Provider Instructions for Treatment Patient Instructions Indication:Hypothyroidism Start:29-Mar-2013 Instruction Type:Provider Instructions for Treatment [facility]; [facility] Work Phone: Instructions* Name Dates Details Patient Instructions Indication:Preop examination Start:02-Nov-2021 Instruction Type:Provider Instructions for Treatment How to Access Health Informa tion Online using Patient Portal and [employer]rd [employer] Apps Indication:Preop examination Start:02-Nov-2021 Instruction Type:Patient Education Patient Instructions Indication:Current nonsmoker (Renamed from Current non-smoker) Start:25-Sep-2021 Instruction Type:Provider Instructions for Treatment How to Access Health Informa tion Online using Patient Portal and [employer] Apps Indication:Current nonsmoker (Renamed from Current non-smoker) Start:25-Sep-2021 Instruction Type:Patient Education Patient Instructions Indication:Encounter for gynecological examination without abnormal finding Start:15-Jun-2021 Instruction Type:Provider Instructions for Treatment How to Access Health Informa tion Online using Patient Portal and [employer] Apps Indication:Encounter for gynecological examination without abnormal finding Start:15-Jun-2021 Instruction Type:Patient Education Patient Instructions Indication:BMI 24.0-24.9, adult Start:04-Jun-2021 Instruction Type:Provider Instructions for Treatment How to Access Health Informa tion Online using Patient Portal and [employer] Apps Indication:BMI 24.0-24.9, adult Start:04-Jun-2021 Instruction Type:Patient Education Patient Instructions Indication:BMI 26.0-26.9,adult Start:27-May-2021 Instruction Type:Provider Instructions for Treatment How to Access Health Informa tion Online using Patient Portal and [employer] Apps Indication:BMI 26.0-26.9,adult Start:27-May-2021 Instruction Type:Patient Education Patient Instructions Indication:Current nonsmoker (Renamed from Current non-smoker) Start:08-Sep-2020 Instruction Type:Provider Instructions for Treatment How to Access Health Informa tion Online using Patient Portal and [employer] Apps Indication:Current nonsmoker (Renamed from Current non-smoker) Start:08-Sep-2020 Instruction Type:Patient Education How to access health informa tion online Indication:BMI 26.0-26.9,adult Start:12-Sep-2019 Instruction Type:Patient Education How to access health informa tion online - Detail Indication:BMI 26.0-26.9,adult Start:12-Sep-2019 Instruction Type:Patient Education Patient Instructions Indication:BMI 26.0-26.9,adult Start:12-Sep-2019 Instruction Type:Provider Instructions for Treatment How to access health informa tion online Indication:Current nonsmoker (Renamed from Current non-smoker) Start:04-Jan-2019 Instruction Type:Patient Education How to access health informa tion online - Detail Indication:Current nonsmoker (Renamed from Current non-smoker) Start:04-Jan-2019 Instruction Type:Patient Education Patient Instructions Indication:Current nonsmoker (Renamed from Current non-smoker) Start:04-Jan-2019 Instruction Type:Provider Instructions for Treatment How to access health informa tion online Indication:Current nonsmoker (Renamed from Current non-smoker) Start:30-Sep-2017 Instruction Type:Patient Education How to access health informa tion online - Detail Indication:Current nonsmoker (Renamed from Current non-smoker) Start:30-Sep-2017 Instruction Type:Patient Education Patient Instructions Indication:Current nonsmoker (Renamed from Current non-smoker) Start:30-Sep-2017 Instruction Type:Provider Instructions for Treatment How to access health informa tion online Indication:Flu-like symptoms Start:23-Sep-2017 Instruction Type:Patient Education How to access health informa tion online - Detail Indication:Flu-like symptoms Start:23-Sep-2017 Instruction Type:Patient Education Patient Instructions Indication:Flu-like symptoms Start:23-Sep-2017 Instruction Type:Provider Instructions for Treatment How to access health informa tion online Indication:Current nonsmoker (Renamed from Current non-smoker) Start:10-Aug-2017 Instruction Type:Patient Education How to access health informa tion online - Detail Indication:Current nonsmoker (Renamed from Current non-smoker) Start:10-Aug-2017 Instruction Type:Patient Education Patient Instructions Indication:Current nonsmoker (Renamed from Current non-smoker) Start:10-Aug-2017 Instruction Type:Provider Instructions for Treatment How to access health informa tion online Indication:BMI 26.0-26.9,adult Start:14-Feb-2017 Instruction Type:Patient Education How to access health informa tion online - Detail Indication:BMI 26.0-26.9,adult Start:14-Feb-2017 Instruction Type:Patient Education Patient Instructions Indication:BMI 26.0-26.9,adult Start:14-Feb-2017 Instruction Type:Provider Instructions for Treatment How to access health informa tion online Indication:Osteoarthritis Start:18-Mar-2016 Instruction Type:Patient Education How to access health informa tion online - Detail Indication:Osteoarthritis Start:18-Mar-2016 Instruction Type:Patient Education Patient Instructions Indication:Osteoarthritis Start:18-Mar-2016 Instruction Type:Provider Instructions for Treatment Patient Instructions Indication:Cough, persistent Start:19-Sep-2015 Instruction Type:Provider Instructions for Treatment How to access health informa tion online - Detail Indication:Cough, persistent Start:11-Sep-2015 Instruction Type:Patient Education How to access health informa tion online Indication:Cough, persistent Start:11-Sep-2015 Instruction Type:Patient Education Patient Instructions Indication:Cough, persistent Start:11-Sep-2015 Instruction Type:Provider Instructions for Treatment Patient Instructions Indication:Cough Start:10-Sep-2015 Instruction Type:Provider Instructions for Treatment How to access health informa tion online Indication:Bronchitis Start:25-Aug-2015 Instruction Type:Patient Education How to access health informa tion online - Detail Indication:Bronchitis Start:25-Aug-2015 Instruction Type:Patient Education Patient Instructions Indication:Bronchitis Start:25-Aug-2015 Instruction Type:Provider Instructions for Treatment How to access health informa tion online Indication:Hypercholesteremia Start:09-Apr-2015 Instruction Type:Patient Education How to access health informa tion online - Detail Indication:Hypercholesteremia Start:09-Apr-2015 Instruction Type:Patient Education Patient Instructions Indication:Hypercholesteremia Start:09-Apr-2015 Instruction Type:Provider Instructions for Treatment Patient Instructions Indication:Hypercholesteremia Start:23-Jul-2013 Instruction Type:Provider Instructions for Treatment Patient Instructions Indication:Hypothyroidism Start:29-Mar-2013 Instruction Type:Provider Instructions for Treatment [facility]; [facility] Work Phone: Instructions* Name Dates Details Patient Instructions Indication:Erectile dysfunction, unspecified erectile dysfunction type Start:15-Oct-2022 Instruction Type:Provider Instructions for Treatment How to Access Health Informa tion Online using Patient Portal and [employer] Apps Indication:Erectile dysfunction, unspecified erectile dysfunction type Start:15-Oct-2022 Instruction Type:Patient Education Patient Instructions Indication:Preop examination Start:02-Nov-2021 Instruction Type:Provider Instructions for Treatment How to Access Health Informa tion Online using Patient Portal and [employer] Apps Indication:Preop examination Start:02-Nov-2021 Instruction Type:Patient Education Patient Instructions Indication:Current nonsmoker (Renamed from Current non-smoker) Start:25-Sep-2021 Instruction Type:Provider Instructions for Treatment How to Access Health Informa tion Online using Patient Portal and [employer] Apps Indication:Current nonsmoker (Renamed from Current non-smoker) Start:25-Sep-2021 Instruction Type:Patient Education Patient Instructions Indication:Encounter for gynecological examination without abnormal finding Start:15-Jun-2021 Instruction Type:Provider Instructions for Treatment How to Access Health Informa tion Online using Patient Portal and [employer] Apps Indication:Encounter for gynecological examination without abnormal finding Start:15-Jun-2021 Instruction Type:Patient Education Patient Instructions Indication:BMI 24.0-24.9, adult Start:04-Jun-2021 Instruction Type:Provider Instructions for Treatment How to Access Health Informa tion Online using Patient Portal and [employer] Apps Indication:BMI 24.0-24.9, adult Start:04-Jun-2021 Instruction Type:Patient Education Patient Instructions Indication:BMI 26.0-26.9,adult Start:27-May-2021 Instruction Type:Provider Instructions for Treatment How to Access Health Informa tion Online using Patient Portal and [employer] Apps Indication:BMI 26.0-26.9,adult Start:27-May-2021 Instruction Type:Patient Education Patient Instructions Indication:Current nonsmoker (Renamed from Current non-smoker) Start:08-Sep-2020 Instruction Type:Provider Instructions for Treatment How to Access Health Informa tion Online using Patient Portal and [employer] Apps Indication:Current nonsmoker (Renamed from Current non-smoker) Start:08-Sep-2020 Instruction Type:Patient Education How to access health informa tion online Indication:BMI 26.0-26.9,adult Start:12-Sep-2019 Instruction Type:Patient Education How to access health informa tion online - Detail Indication:BMI 26.0-26.9,adult Start:12-Sep-2019 Instruction Type:Patient Education Patient Instructions Indication:BMI 26.0-26.9,adult Start:12-Sep-2019 Instruction Type:Provider Instructions for Treatment How to access health informa tion online Indication:Current nonsmoker (Renamed from Current non-smoker) Start:04-Jan-2019 Instruction Type:Patient Education How to access health informa tion online - Detail Indication:Current nonsmoker (Renamed from Current non-smoker) Start:04-Jan-2019 Instruction Type:Patient Education Patient Instructions Indication:Current nonsmoker (Renamed from Current non-smoker) Start:04-Jan-2019 Instruction Type:Provider Instructions for Treatment How to access health informa tion online Indication:Current nonsmoker (Renamed from Current non-smoker) Start:30-Sep-2017 Instruction Type:Patient Education How to access health informa tion online - Detail Indication:Current nonsmoker (Renamed from Current non-smoker) Start:30-Sep-2017 Instruction Type:Patient Education Patient Instructions Indication:Current nonsmoker (Renamed from Current non-smoker) Start:30-Sep-2017 Instruction Type:Provider Instructions for Treatment How to access health informa tion online Indication:Flu-like symptoms Start:23-Sep-2017 Instruction Type:Patient Education How to access health informa tion online - Detail Indication:Flu-like symptoms Start:23-Sep-2017 Instruction Type:Patient Education Patient Instructions Indication:Flu-like symptoms Start:23-Sep-2017 Instruction Type:Provider Instructions for Treatment How to access health informa tion online Indication:Current nonsmoker (Renamed from Current non-smoker) Start:10-Aug-2017 Instruction Type:Patient Education How to access health informa tion online - Detail Indication:Current nonsmoker (Renamed from Current non-smoker) Start:10-Aug-2017 Instruction Type:Patient Education Patient Instructions Indication:Current nonsmoker (Renamed from Current non-smoker) Start:10-Aug-2017 Instruction Type:Provider Instructions for Treatment How to access health informa tion online Indication:BMI 26.0-26.9,adult Start:14-Feb-2017 Instruction Type:Patient Education How to access health informa tion online - Detail Indication:BMI 26.0-26.9,adult Start:14-Feb-2017 Instruction Type:Patient Education Patient Instructions Indication:BMI 26.0-26.9,adult Start:14-Feb-2017 Instruction Type:Provider Instructions for Treatment How to access health informa tion online Indication:Osteoarthritis Start:18-Mar-2016 Instruction Type:Patient Education How to access health informa tion online - Detail Indication:Osteoarthritis Start:18-Mar-2016 Instruction Type:Patient Education Patient Instructions Indication:Osteoarthritis Start:18-Mar-2016 Instruction Type:Provider Instructions for Treatment Patient Instructions Indication:Cough, persistent Start:19-Sep-2015 Instruction Type:Provider Instructions for Treatment How to access health informa tion online - Detail Indication:Cough, persistent Start:11-Sep-2015 Instruction Type:Patient Education How to access health informa tion online Indication:Cough, persistent Start:11-Sep-2015 Instruction Type:Patient Education Patient Instructions Indication:Cough, persistent Start:11-Sep-2015 Instruction Type:Provider Instructions for Treatment Patient Instructions Indication:Cough Start:10-Sep-2015 Instruction Type:Provider Instructions for Treatment How to access health informa tion online Indication:Bronchitis Start:25-Aug-2015 Instruction Type:Patient Education How to access health informa tion online - Detail Indication:Bronchitis Start:25-Aug-2015 Instruction Type:Patient Education Patient Instructions Indication:Bronchitis Start:25-Aug-2015 Instruction Type:Provider Instructions for Treatment How to access health informa tion online Indication:Hypercholesteremia Start:09-Apr-2015 Instruction Type:Patient Education How to access health informa tion online - Detail Indication:Hypercholesteremia Start:09-Apr-2015 Instruction Type:Patient Education Patient Instructions Indication:Hypercholesteremia Start:09-Apr-2015 Instruction Type:Provider Instructions for Treatment Patient Instructions Indication:Hypercholesteremia Start:23-Jul-2013 Instruction Type:Provider Instructions for Treatment Patient Instructions Indication:Hypothyroidism Start:29-Mar-2013 Instruction Type:Provider Instructions for Treatment [facility]; [facility] Work Phone: Instructions* Name Dates Details cardiovascular counseling Indication:CAD (coronary artery disease) Start:28-Oct-2022 Instruction Type:Provider Instructions for Treatment Patient Instructions Indication:BMI 25.0-25.9,adult Start:28-Oct-2022 Instruction Type:Provider Instructions for Treatment How to Access Health Informa tion Online using Patient Portal and [employer] Apps Indication:BMI 25.0-25.9,adult Start:28-Oct-2022 Instruction Type:Patient Education Patient Instructions Indication:Erectile dysfunction, unspecified erectile dysfunction type Start:15-Oct-2022 Instruction Type:Provider Instructions for Treatment How to Access Health Informa tion Online using Patient Portal and [employer] Apps Indication:Erectile dysfunction, unspecified erectile dysfunction type Start:15-Oct-2022 Instruction Type:Patient Education Patient Instructions Indication:Preop examination Start:02-Nov-2021 Instruction Type:Provider Instructions for Treatment How to Access Health Informa tion Online using Patient Portal and [employer] Apps Indication:Preop examination Start:02-Nov-2021 Instruction Type:Patient Education Patient Instructions Indication:Current nonsmoker (Renamed from Current non-smoker) Start:25-Sep-2021 Instruction Type:Provider Instructions for Treatment How to Access Health Informa tion Online using Patient Portal and [employer] Apps Indication:Current nonsmoker (Renamed from Current non-smoker) Start:25-Sep-2021 Instruction Type:Patient Education Patient Instructions Indication:Encounter for gynecological examination without abnormal finding Start:15-Jun-2021 Instruction Type:Provider Instructions for Treatment How to Access Health Informa tion Online using Patient Portal and [employer] Apps Indication:Encounter for gynecological examination without abnormal finding Start:15-Jun-2021 Instruction Type:Patient Education Patient Instructions Indication:BMI 24.0-24.9, adult Start:04-Jun-2021 Instruction Type:Provider Instructions for Treatment How to Access Health Informa tion Online using Patient Portal and [employer] Apps Indication:BMI 24.0-24.9, adult Start:04-Jun-2021 Instruction Type:Patient Education Patient Instructions Indication:BMI 26.0-26.9,adult Start:27-May-2021 Instruction Type:Provider Instructions for Treatment How to Access Health Informa tion Online using Patient Portal and [employer] Apps Indication:BMI 26.0-26.9,adult Start:27-May-2021 Instruction Type:Patient Education Patient Instructions Indication:Current nonsmoker (Renamed from Current non-smoker) Start:08-Sep-2020 Instruction Type:Provider Instructions for Treatment How to Access Health Informa tion Online using Patient Portal and [employer] Apps Indication:Current nonsmoker (Renamed from Current non-smoker) Start:08-Sep-2020 Instruction Type:Patient Education How to access health informa tion online Indication:BMI 26.0-26.9,adult Start:12-Sep-2019 Instruction Type:Patient Education How to access health informa tion online - Detail Indication:BMI 26.0-26.9,adult Start:12-Sep-2019 Instruction Type:Patient Education Patient Instructions Indication:BMI 26.0-26.9,adult Start:12-Sep-2019 Instruction Type:Provider Instructions for Treatment How to access health informa tion online Indication:Current nonsmoker (Renamed from Current non-smoker) Start:04-Jan-2019 Instruction Type:Patient Education How to access health informa tion online - Detail Indication:Current nonsmoker (Renamed from Current non-smoker) Start:04-Jan-2019 Instruction Type:Patient Education Patient Instructions Indication:Current nonsmoker (Renamed from Current non-smoker) Start:04-Jan-2019 Instruction Type:Provider Instructions for Treatment How to access health informa tion online Indication:Current nonsmoker (Renamed from Current non-smoker) Start:30-Sep-2017 Instruction Type:Patient Education How to access health informa tion online - Detail Indication:Current nonsmoker (Renamed from Current non-smoker) Start:30-Sep-2017 Instruction Type:Patient Education Patient Instructions Indication:Current nonsmoker (Renamed from Current non-smoker) Start:30-Sep-2017 Instruction Type:Provider Instructions for Treatment How to access health informa tion online Indication:Flu-like symptoms Start:23-Sep-2017 Instruction Type:Patient Education How to access health informa tion online - Detail Indication:Flu-like symptoms Start:23-Sep-2017 Instruction Type:Patient Education Patient Instructions Indication:Flu-like symptoms Start:23-Sep-2017 Instruction Type:Provider Instructions for Treatment How to access health informa tion online Indication:Current nonsmoker (Renamed from Current non-smoker) Start:10-Aug-2017 Instruction Type:Patient Education How to access health informa tion online - Detail Indication:Current nonsmoker (Renamed from Current non-smoker) Start:10-Aug-2017 Instruction Type:Patient Education Patient Instructions Indication:Current nonsmoker (Renamed from Current non-smoker) Start:10-Aug-2017 Instruction Type:Provider Instructions for Treatment How to access health informa tion online Indication:BMI 26.0-26.9,adult Start:14-Feb-2017 Instruction Type:Patient Education How to access health informa tion online - Detail Indication:BMI 26.0-26.9,adult Start:14-Feb-2017 Instruction Type:Patient Education Patient Instructions Indication:BMI 26.0-26.9,adult Start:14-Feb-2017 Instruction Type:Provider Instructions for Treatment How to access health informa tion online Indication:Osteoarthritis Start:18-Mar-2016 Instruction Type:Patient Education How to access health informa tion online - Detail Indication:Osteoarthritis Start:18-Mar-2016 Instruction Type:Patient Education Patient Instructions Indication:Osteoarthritis Start:18-Mar-2016 Instruction Type:Provider Instructions for Treatment Patient Instructions Indication:Cough, persistent Start:19-Sep-2015 Instruction Type:Provider Instructions for Treatment How to access health informa tion online - Detail Indication:Cough, persistent Start:11-Sep-2015 Instruction Type:Patient Education How to access health informa tion online Indication:Cough, persistent Start:11-Sep-2015 Instruction Type:Patient Education Patient Instructions Indication:Cough, persistent Start:11-Sep-2015 Instruction Type:Provider Instructions for Treatment Patient Instructions Indication:Cough Start:10-Sep-2015 Instruction Type:Provider Instructions for Treatment How to access health informa tion online Indication:Bronchitis Start:25-Aug-2015 Instruction Type:Patient Education How to access health informa tion online - Detail Indication:Bronchitis Start:25-Aug-2015 Instruction Type:Patient Education Patient Instructions Indication:Bronchitis Start:25-Aug-2015 Instruction Type:Provider Instructions for Treatment How to access health informa tion online Indication:Hypercholesteremia Start:09-Apr-2015 Instruction Type:Patient Education How to access health informa tion online - Detail Indication:Hypercholesteremia Start:09-Apr-2015 Instruction Type:Patient Education Patient Instructions Indication:Hypercholesteremia Start:09-Apr-2015 Instruction Type:Provider Instructions for Treatment Patient Instructions Indication:Hypercholesteremia Start:23-Jul-2013 Instruction Type:Provider Instructions for Treatment Patient Instructions Indication:Hypothyroidism Start:29-Mar-2013 Instruction Type:Provider Instructions for Treatment [facility]; [facility] Work Phone: Instructions* Name Dates Details cardiovascular counseling Indication:CAD (coronary artery disease) Start:28-Oct-2022 Instruction Type:Provider Instructions for Treatment Patient Instructions Indication:BMI 25.0-25.9,adult Start:28-Oct-2022 Instruction Type:Provider Instructions for Treatment How to Access Health Informa tion Online using Patient Portal and [employer] Apps Indication:BMI 25.0-25.9,adult Start:28-Oct-2022 Instruction Type:Patient Education Patient Instructions Indication:Erectile dysfunction, unspecified erectile dysfunction type Start:15-Oct-2022 Instruction Type:Provider Instructions for Treatment How to Access Health Informa tion Online using Patient Portal and [employer] Apps Indication:Erectile dysfunction, unspecified erectile dysfunction type Start:15-Oct-2022 Instruction Type:Patient Education Patient Instructions Indication:Preop examination Start:02-Nov-2021 Instruction Type:Provider Instructions for Treatment How to Access Health Informa tion Online using Patient Portal and [employer] Apps Indication:Preop examination Start:02-Nov-2021 Instruction Type:Patient Education Patient Instructions Indication:Current nonsmoker (Renamed from Current non-smoker) Start:25-Sep-2021 Instruction Type:Provider Instructions for Treatment How to Access Health Informa tion Online using Patient Portal and [employer] Apps Indication:Current nonsmoker (Renamed from Current non-smoker) Start:25-Sep-2021 Instruction Type:Patient Education Patient Instructions Indication:Encounter for gynecological examination without abnormal finding Start:15-Jun-2021 Instruction Type:Provider Instructions for Treatment How to Access Health Informa tion Online using Patient Portal and [employer] Apps Indication:Encounter for gynecological examination without abnormal finding Start:15-Jun-2021 Instruction Type:Patient Education Patient Instructions Indication:BMI 24.0-24.9, adult Start:04-Jun-2021 Instruction Type:Provider Instructions for Treatment How to Access Health Informa tion Online using Patient Portal and [employer] Apps Indication:BMI 24.0-24.9, adult Start:04-Jun-2021 Instruction Type:Patient Education Patient Instructions Indication:BMI 26.0-26.9,adult Start:27-May-2021 Instruction Type:Provider Instructions for Treatment How to Access Health Informa tion Online using Patient Portal and [employer] Apps Indication:BMI 26.0-26.9,adult Start:27-May-2021 Instruction Type:Patient Education Patient Instructions Indication:Current nonsmoker (Renamed from Current non-smoker) Start:08-Sep-2020 Instruction Type:Provider Instructions for Treatment How to Access Health Informa tion Online using Patient Portal and [employer] Apps Indication:Current nonsmoker (Renamed from Current non-smoker) Start:08-Sep-2020 Instruction Type:Patient Education How to access health informa tion online Indication:BMI 26.0-26.9,adult Start:12-Sep-2019 Instruction Type:Patient Education How to access health informa tion online - Detail Indication:BMI 26.0-26.9,adult Start:12-Sep-2019 Instruction Type:Patient Education Patient Instructions Indication:BMI 26.0-26.9,adult Start:12-Sep-2019 Instruction Type:Provider Instructions for Treatment How to access health informa tion online Indication:Current nonsmoker (Renamed from Current non-smoker) Start:04-Jan-2019 Instruction Type:Patient Education How to access health informa tion online - Detail Indication:Current nonsmoker (Renamed from Current non-smoker) Start:04-Jan-2019 Instruction Type:Patient Education Patient Instructions Indication:Current nonsmoker (Renamed from Current non-smoker) Start:04-Jan-2019 Instruction Type:Provider Instructions for Treatment How to access health informa tion online Indication:Current nonsmoker (Renamed from Current non-smoker) Start:30-Sep-2017 Instruction Type:Patient Education How to access health informa tion online - Detail Indication:Current nonsmoker (Renamed from Current non-smoker) Start:30-Sep-2017 Instruction Type:Patient Education Patient Instructions Indication:Current nonsmoker (Renamed from Current non-smoker) Start:30-Sep-2017 Instruction Type:Provider Instructions for Treatment How to access health informa tion online Indication:Flu-like symptoms Start:23-Sep-2017 Instruction Type:Patient Education How to access health informa tion online - Detail Indication:Flu-like symptoms Start:23-Sep-2017 Instruction Type:Patient Education Patient Instructions Indication:Flu-like symptoms Start:23-Sep-2017 Instruction Type:Provider Instructions for Treatment How to access health informa tion online Indication:Current nonsmoker (Renamed from Current non-smoker) Start:10-Aug-2017 Instruction Type:Patient Education How to access health informa tion online - Detail Indication:Current nonsmoker (Renamed from Current non-smoker) Start:10-Aug-2017 Instruction Type:Patient Education Patient Instructions Indication:Current nonsmoker (Renamed from Current non-smoker) Start:10-Aug-2017 Instruction Type:Provider Instructions for Treatment How to access health informa tion online Indication:BMI 26.0-26.9,adult Start:14-Feb-2017 Instruction Type:Patient Education How to access health informa tion online - Detail Indication:BMI 26.0-26.9,adult Start:14-Feb-2017 Instruction Type:Patient Education Patient Instructions Indication:BMI 26.0-26.9,adult Start:14-Feb-2017 Instruction Type:Provider Instructions for Treatment How to access health informa tion online Indication:Osteoarthritis Start:18-Mar-2016 Instruction Type:Patient Education How to access health informa tion online - Detail Indication:Osteoarthritis Start:18-Mar-2016 Instruction Type:Patient Education Patient Instructions Indication:Osteoarthritis Start:18-Mar-2016 Instruction Type:Provider Instructions for Treatment Patient Instructions Indication:Cough, persistent Start:19-Sep-2015 Instruction Type:Provider Instructions for Treatment How to access health informa tion online - Detail Indication:Cough, persistent Start:11-Sep-2015 Instruction Type:Patient Education How to access health informa tion online Indication:Cough, persistent Start:11-Sep-2015 Instruction Type:Patient Education Patient Instructions Indication:Cough, persistent Start:11-Sep-2015 Instruction Type:Provider Instructions for Treatment Patient Instructions Indication:Cough Start:10-Sep-2015 Instruction Type:Provider Instructions for Treatment How to access health informa tion online Indication:Bronchitis Start:25-Aug-2015 Instruction Type:Patient Education How to access health informa tion online - Detail Indication:Bronchitis Start:25-Aug-2015 Instruction Type:Patient Education Patient Instructions Indication:Bronchitis Start:25-Aug-2015 Instruction Type:Provider Instructions for Treatment How to access health informa tion online Indication:Hypercholesteremia Start:09-Apr-2015 Instruction Type:Patient Education How to access health informa tion online - Detail Indication:Hypercholesteremia Start:09-Apr-2015 Instruction Type:Patient Education Patient Instructions Indication:Hypercholesteremia Start:09-Apr-2015 Instruction Type:Provider Instructions for Treatment Patient Instructions Indication:Hypercholesteremia Start:23-Jul-2013 Instruction Type:Provider Instructions for Treatment Patient Instructions Indication:Hypothyroidism Start:29-Mar-2013 Instruction Type:Provider Instructions for Treatment [facility] Work Phone: Instructions* Name Dates Details cardiovascular counseling Indication:CAD (coronary artery disease) Start:28-Oct-2022 Instruction Type:Provider Instructions for Treatment Patient Instructions Indication:BMI 25.0-25.9,adult Start:28-Oct-2022 Instruction Type:Provider Instructions for Treatment How to Access Health Informa tion Online using Patient Portal and [employer] Apps Indication:BMI 25.0-25.9,adult Start:28-Oct-2022 Instruction Type:Patient Education Patient Instructions Indication:Erectile dysfunction, unspecified erectile dysfunction type Start:15-Oct-2022 Instruction Type:Provider Instructions for Treatment How to Access Health Informa tion Online using Patient Portal and [employer] Apps Indication:Erectile dysfunction, unspecified erectile dysfunction type Start:15-Oct-2022 Instruction Type:Patient Education Patient Instructions Indication:Preop examination Start:02-Nov-2021 Instruction Type:Provider Instructions for Treatment How to Access Health Informa tion Online using Patient Portal and [employer] Apps Indication:Preop examination Start:02-Nov-2021 Instruction Type:Patient Education Patient Instructions Indication:Current nonsmoker (Renamed from Current non-smoker) Start:25-Sep-2021 Instruction Type:Provider Instructions for Treatment How to Access Health Informa tion Online using Patient Portal and [employer] Apps Indication:Current nonsmoker (Renamed from Current non-smoker) Start:25-Sep-2021 Instruction Type:Patient Education Patient Instructions Indication:Encounter for gynecological examination without abnormal finding Start:15-Jun-2021 Instruction Type:Provider Instructions for Treatment How to Access Health Informa tion Online using Patient Portal and [employer] Apps Indication:Encounter for gynecological examination without abnormal finding Start:15-Jun-2021 Instruction Type:Patient Education Patient Instructions Indication:BMI 24.0-24.9, adult Start:04-Jun-2021 Instruction Type:Provider Instructions for Treatment How to Access Health Informa tion Online using Patient Portal and [employer] Apps Indication:BMI 24.0-24.9, adult Start:04-Jun-2021 Instruction Type:Patient Education Patient Instructions Indication:BMI 26.0-26.9,adult Start:27-May-2021 Instruction Type:Provider Instructions for Treatment How to Access Health Informa tion Online using Patient Portal and [employer] Apps Indication:BMI 26.0-26.9,adult Start:27-May-2021 Instruction Type:Patient Education Patient Instructions Indication:Current nonsmoker (Renamed from Current non-smoker) Start:08-Sep-2020 Instruction Type:Provider Instructions for Treatment How to Access Health Informa tion Online using Patient Portal and [employer] Apps Indication:Current nonsmoker (Renamed from Current non-smoker) Start:08-Sep-2020 Instruction Type:Patient Education How to access health informa tion online Indication:BMI 26.0-26.9,adult Start:12-Sep-2019 Instruction Type:Patient Education How to access health informa tion online - Detail Indication:BMI 26.0-26.9,adult Start:12-Sep-2019 Instruction Type:Patient Education Patient Instructions Indication:BMI 26.0-26.9,adult Start:12-Sep-2019 Instruction Type:Provider Instructions for Treatment How to access health informa tion online Indication:Current nonsmoker (Renamed from Current non-smoker) Start:04-Jan-2019 Instruction Type:Patient Education How to access health informa tion online - Detail Indication:Current nonsmoker (Renamed from Current non-smoker) Start:04-Jan-2019 Instruction Type:Patient Education Patient Instructions Indication:Current nonsmoker (Renamed from Current non-smoker) Start:04-Jan-2019 Instruction Type:Provider Instructions for Treatment How to access health informa tion online Indication:Current nonsmoker (Renamed from Current non-smoker) Start:30-Sep-2017 Instruction Type:Patient Education How to access health informa tion online - Detail Indication:Current nonsmoker (Renamed from Current non-smoker) Start:30-Sep-2017 Instruction Type:Patient Education Patient Instructions Indication:Current nonsmoker (Renamed from Current non-smoker) Start:30-Sep-2017 Instruction Type:Provider Instructions for Treatment How to access health informa tion online Indication:Flu-like symptoms Start:23-Sep-2017 Instruction Type:Patient Education How to access health informa tion online - Detail Indication:Flu-like symptoms Start:23-Sep-2017 Instruction Type:Patient Education Patient Instructions Indication:Flu-like symptoms Start:23-Sep-2017 Instruction Type:Provider Instructions for Treatment How to access health informa tion online Indication:Current nonsmoker (Renamed from Current non-smoker) Start:10-Aug-2017 Instruction Type:Patient Education How to access health informa tion online - Detail Indication:Current nonsmoker (Renamed from Current non-smoker) Start:10-Aug-2017 Instruction Type:Patient Education Patient Instructions Indication:Current nonsmoker (Renamed from Current non-smoker) Start:10-Aug-2017 Instruction Type:Provider Instructions for Treatment How to access health informa tion online Indication:BMI 26.0-26.9,adult Start:14-Feb-2017 Instruction Type:Patient Education How to access health informa tion online - Detail Indication:BMI 26.0-26.9,adult Start:14-Feb-2017 Instruction Type:Patient Education Patient Instructions Indication:BMI 26.0-26.9,adult Start:14-Feb-2017 Instruction Type:Provider Instructions for Treatment How to access health informa tion online Indication:Osteoarthritis Start:18-Mar-2016 Instruction Type:Patient Education How to access health informa tion online - Detail Indication:Osteoarthritis Start:18-Mar-2016 Instruction Type:Patient Education Patient Instructions Indication:Osteoarthritis Start:18-Mar-2016 Instruction Type:Provider Instructions for Treatment Patient Instructions Indication:Cough, persistent Start:19-Sep-2015 Instruction Type:Provider Instructions for Treatment How to access health informa tion online - Detail Indication:Cough, persistent Start:11-Sep-2015 Instruction Type:Patient Education How to access health informa tion online Indication:Cough, persistent Start:11-Sep-2015 Instruction Type:Patient Education Patient Instructions Indication:Cough, persistent Start:11-Sep-2015 Instruction Type:Provider Instructions for Treatment Patient Instructions Indication:Cough Start:10-Sep-2015 Instruction Type:Provider Instructions for Treatment How to access health informa tion online Indication:Bronchitis Start:25-Aug-2015 Instruction Type:Patient Education How to access health informa tion online - Detail Indication:Bronchitis Start:25-Aug-2015 Instruction Type:Patient Education Patient Instructions Indication:Bronchitis Start:25-Aug-2015 Instruction Type:Provider Instructions for Treatment How to access health informa tion online Indication:Hypercholesteremia Start:09-Apr-2015 Instruction Type:Patient Education How to access health informa tion online - Detail Indication:Hypercholesteremia Start:09-Apr-2015 Instruction Type:Patient Education Patient Instructions Indication:Hypercholesteremia Start:09-Apr-2015 Instruction Type:Provider Instructions for Treatment Patient Instructions Indication:Hypercholesteremia Start:23-Jul-2013 Instruction Type:Provider Instructions for Treatment Patient Instructions Indication:Hypothyroidism Start:29-Mar-2013 Instruction Type:Provider Instructions for Treatment [facility] Work Phone: Summary Purpose Family History No Family History Records FoundNo Family History Records FoundNo Family History Records FoundNo Family History Records FoundNo Family History Records Found Advance Directives No Advanced Directives Records Found Name Dates Details Immunization Registry [place] - Effective on 06/16/2021. Expiration date unspecified Effective:16-Jun-2021 Name Dates Details Immunization Registry [place] - Effective on 06/16/2021. Expiration date unspecified Effective:16-Jun-2021 Name Dates Details Immunization Registry [place] - Effective on 06/16/2021. Expiration date unspecified Effective:16-Jun-2021 Name Dates Details Immunization Registry [place] - Effective on 06/16/2021. Expiration date unspecified Effective:16-Jun-2021 Name Dates Details Immunization Registry [place] - Effective on 06/16/2021. Expiration date unspecified Effective:16-Jun-2021 Name Dates Details Immunization Registry [place] - Effective on 06/16/2021. Expiration date unspecified Effective:16-Jun-2021 Name Dates Details Immunization Registry [place] - Effective on 06/16/2021. Expiration date unspecified Effective:16-Jun-2021 Name Dates Details Immunization Registry [place] - Effective on 06/16/2021. Expiration date unspecified Effective:16-Jun-2021 Name Dates Details Immunization Registry [place] - Effective on 06/16/2021. Expiration date unspecified Effective:16-Jun-2021 Name Dates Details Immunization Registry [place] - Effective on 06/16/2021. Expiration date unspecified Effective:16-Jun-2021 Name Dates Details Immunization Registry [place] - Effective on 06/16/2021. Expiration date unspecified Effective:16-Jun-2021 Instructions Name Dates Details Current nonsmoker (Renamed f rom Current non-smoker) : How to access health information online Indication:Current nonsmoker (Renamed from Current non-smoker) Current nonsmoker (Renamed f rom Current non-smoker) : How to access health information online - Detail Indication:Current nonsmoker (Renamed from Current non-smoker) Current nonsmoker (Renamed f rom Current non-smoker) : Patient Instructions Indication:Current nonsmoker (Renamed from Current non-smoker) Flu-like symptoms : How to a ccess health information online Indication:Flu-like symptoms Flu-like symptoms : How to a ccess health information online - Detail Indication:Flu-like symptoms Flu-like symptoms : Patient Instructions Indication:Flu-like symptoms BMI 26.0-26.9,adult : How to access health information online Indication:BMI 26.0-26.9,adult BMI 26.0-26.9,adult : How to access health information online - Detail Indication:BMI 26.0-26.9,adult BMI 26.0-26.9,adult : Patien t Instructions Indication:BMI 26.0-26.9,adult Osteoarthritis : How to acce ss health information online Indication:Osteoarthritis Osteoarthritis : How to acce ss health information online - Detail Indication:Osteoarthritis Osteoarthritis : Patient Ins tructions Indication:Osteoarthritis Cough, persistent : Patient Instructions Indication:Cough, persistent Cough, persistent : How to a ccess health information online - Detail Indication:Cough, persistent Cough, persistent : How to a ccess health information online Indication:Cough, persistent Cough : Patient Instructions Indication:Cough Bronchitis : How to access h ealth information online Indication:Bronchitis Bronchitis : How to access h ealth information online - Detail Indication:Bronchitis Bronchitis : Patient Instruc tions Indication:Bronchitis Hypercholesteremia : How to access health information online Indication:Hypercholesteremia Hypercholesteremia : How to access health information online - Detail Indication:Hypercholesteremia Hypercholesteremia : Patient Instructions Indication:Hypercholesteremia Hypothyroidism : Patient Ins tructions Indication:Hypothyroidism Name Dates Details How to access health informa tion online Indication:Current nonsmoker (Renamed from Current non-smoker) Start:04-Jan-2019 Instruction Type:Patient Education How to access health informa tion online - Detail Indication:Current nonsmoker (Renamed from Current non-smoker) Start:04-Jan-2019 Instruction Type:Patient Education Patient Instructions Indication:Current nonsmoker (Renamed from Current non-smoker) Start:04-Jan-2019 Instruction Type:Provider Instructions for Treatment How to access health informa tion online Indication:Current nonsmoker (Renamed from Current non-smoker) Start:30-Sep-2017 Instruction Type:Patient Education How to access health informa tion online - Detail Indication:Current nonsmoker (Renamed from Current non-smoker) Start:30-Sep-2017 Instruction Type:Patient Education Patient Instructions Indication:Current nonsmoker (Renamed from Current non-smoker) Start:30-Sep-2017 Instruction Type:Provider Instructions for Treatment How to access health informa tion online Indication:Flu-like symptoms Start:23-Sep-2017 Instruction Type:Patient Education How to access health informa tion online - Detail Indication:Flu-like symptoms Start:23-Sep-2017 Instruction Type:Patient Education Patient Instructions Indication:Flu-like symptoms Start:23-Sep-2017 Instruction Type:Provider Instructions for Treatment How to access health informa tion online Indication:Current nonsmoker (Renamed from Current non-smoker) Start:10-Aug-2017 Instruction Type:Patient Education How to access health informa tion online - Detail Indication:Current nonsmoker (Renamed from Current non-smoker) Start:10-Aug-2017 Instruction Type:Patient Education Patient Instructions Indication:Current nonsmoker (Renamed from Current non-smoker) Start:10-Aug-2017 Instruction Type:Provider Instructions for Treatment How to access health informa tion online Indication:BMI 26.0-26.9,adult Start:14-Feb-2017 Instruction Type:Patient Education How to access health informa tion online - Detail Indication:BMI 26.0-26.9,adult Start:14-Feb-2017 Instruction Type:Patient Education Patient Instructions Indication:BMI 26.0-26.9,adult Start:14-Feb-2017 Instruction Type:Provider Instructions for Treatment How to access health informa tion online Indication:Osteoarthritis Start:18-Mar-2016 Instruction Type:Patient Education How to access health informa tion online - Detail Indication:Osteoarthritis Start:18-Mar-2016 Instruction Type:Patient Education Patient Instructions Indication:Osteoarthritis Start:18-Mar-2016 Instruction Type:Provider Instructions for Treatment Patient Instructions Indication:Cough, persistent Start:19-Sep-2015 Instruction Type:Provider Instructions for Treatment How to access health informa tion online - Detail Indication:Cough, persistent Start:11-Sep-2015 Instruction Type:Patient Education How to access health informa tion online Indication:Cough, persistent Start:11-Sep-2015 Instruction Type:Patient Education Patient Instructions Indication:Cough, persistent Start:11-Sep-2015 Instruction Type:Provider Instructions for Treatment Patient Instructions Indication:Cough Start:10-Sep-2015 Instruction Type:Provider Instructions for Treatment How to access health informa tion online Indication:Bronchitis Start:25-Aug-2015 Instruction Type:Patient Education How to access health informa tion online - Detail Indication:Bronchitis Start:25-Aug-2015 Instruction Type:Patient Education Patient Instructions Indication:Bronchitis Start:25-Aug-2015 Instruction Type:Provider Instructions for Treatment How to access health informa tion online Indication:Hypercholesteremia Start:09-Apr-2015 Instruction Type:Patient Education How to access health informa tion online - Detail Indication:Hypercholesteremia Start:09-Apr-2015 Instruction Type:Patient Education Patient Instructions Indication:Hypercholesteremia Start:09-Apr-2015 Instruction Type:Provider Instructions for Treatment Patient Instructions Indication:Hypercholesteremia Start:23-Jul-2013 Instruction Type:Provider Instructions for Treatment Patient Instructions Indication:Hypothyroidism Start:29-Mar-2013 Instruction Type:Provider Instructions for Treatment Name Dates Details How to access health informa tion online Indication:Current nonsmoker (Renamed from Current non-smoker) Start:04-Jan-2019 Instruction Type:Patient Education How to access health informa tion online - Detail Indication:Current nonsmoker (Renamed from Current non-smoker) Start:04-Jan-2019 Instruction Type:Patient Education Patient Instructions Indication:Current nonsmoker (Renamed from Current non-smoker) Start:04-Jan-2019 Instruction Type:Provider Instructions for Treatment How to access health informa tion online Indication:Current nonsmoker (Renamed from Current non-smoker) Start:30-Sep-2017 Instruction Type:Patient Education How to access health informa tion online - Detail Indication:Current nonsmoker (Renamed from Current non-smoker) Start:30-Sep-2017 Instruction Type:Patient Education Patient Instructions Indication:Current nonsmoker (Renamed from Current non-smoker) Start:30-Sep-2017 Instruction Type:Provider Instructions for Treatment How to access health informa tion online Indication:Flu-like symptoms Start:23-Sep-2017 Instruction Type:Patient Education How to access health informa tion online - Detail Indication:Flu-like symptoms Start:23-Sep-2017 Instruction Type:Patient Education Patient Instructions Indication:Flu-like symptoms Start:23-Sep-2017 Instruction Type:Provider Instructions for Treatment How to access health informa tion online Indication:Current nonsmoker (Renamed from Current non-smoker) Start:10-Aug-2017 Instruction Type:Patient Education How to access health informa tion online - Detail Indication:Current nonsmoker (Renamed from Current non-smoker) Start:10-Aug-2017 Instruction Type:Patient Education Patient Instructions Indication:Current nonsmoker (Renamed from Current non-smoker) Start:10-Aug-2017 Instruction Type:Provider Instructions for Treatment How to access health informa tion online Indication:BMI 26.0-26.9,adult Start:14-Feb-2017 Instruction Type:Patient Education How to access health informa tion online - Detail Indication:BMI 26.0-26.9,adult Start:14-Feb-2017 Instruction Type:Patient Education Patient Instructions Indication:BMI 26.0-26.9,adult Start:14-Feb-2017 Instruction Type:Provider Instructions for Treatment How to access health informa tion online Indication:Osteoarthritis Start:18-Mar-2016 Instruction Type:Patient Education How to access health informa tion online - Detail Indication:Osteoarthritis Start:18-Mar-2016 Instruction Type:Patient Education Patient Instructions Indication:Osteoarthritis Start:18-Mar-2016 Instruction Type:Provider Instructions for Treatment Patient Instructions Indication:Cough, persistent Start:19-Sep-2015 Instruction Type:Provider Instructions for Treatment How to access health informa tion online - Detail Indication:Cough, persistent Start:11-Sep-2015 Instruction Type:Patient Education How to access health informa tion online Indication:Cough, persistent Start:11-Sep-2015 Instruction Type:Patient Education Patient Instructions Indication:Cough, persistent Start:11-Sep-2015 Instruction Type:Provider Instructions for Treatment Patient Instructions Indication:Cough Start:10-Sep-2015 Instruction Type:Provider Instructions for Treatment How to access health informa tion online Indication:Bronchitis Start:25-Aug-2015 Instruction Type:Patient Education How to access health informa tion online - Detail Indication:Bronchitis Start:25-Aug-2015 Instruction Type:Patient Education Patient Instructions Indication:Bronchitis Start:25-Aug-2015 Instruction Type:Provider Instructions for Treatment How to access health informa tion online Indication:Hypercholesteremia Start:09-Apr-2015 Instruction Type:Patient Education How to access health informa tion online - Detail Indication:Hypercholesteremia Start:09-Apr-2015 Instruction Type:Patient Education Patient Instructions Indication:Hypercholesteremia Start:09-Apr-2015 Instruction Type:Provider Instructions for Treatment Patient Instructions Indication:Hypercholesteremia Start:23-Jul-2013 Instruction Type:Provider Instructions for Treatment Patient Instructions Indication:Hypothyroidism Start:29-Mar-2013 Instruction Type:Provider Instructions for Treatment Name Dates Details How to access health informa tion online Indication:BMI 26.0-26.9,adult Start:12-Sep-2019 Instruction Type:Patient Education How to access health informa tion online - Detail Indication:BMI 26.0-26.9,adult Start:12-Sep-2019 Instruction Type:Patient Education Patient Instructions Indication:BMI 26.0-26.9,adult Start:12-Sep-2019 Instruction Type:Provider Instructions for Treatment How to access health informa tion online Indication:Current nonsmoker (Renamed from Current non-smoker) Start:04-Jan-2019 Instruction Type:Patient Education How to access health informa tion online - Detail Indication:Current nonsmoker (Renamed from Current non-smoker) Start:04-Jan-2019 Instruction Type:Patient Education Patient Instructions Indication:Current nonsmoker (Renamed from Current non-smoker) Start:04-Jan-2019 Instruction Type:Provider Instructions for Treatment How to access health informa tion online Indication:Current nonsmoker (Renamed from Current non-smoker) Start:30-Sep-2017 Instruction Type:Patient Education How to access health informa tion online - Detail Indication:Current nonsmoker (Renamed from Current non-smoker) Start:30-Sep-2017 Instruction Type:Patient Education Patient Instructions Indication:Current nonsmoker (Renamed from Current non-smoker) Start:30-Sep-2017 Instruction Type:Provider Instructions for Treatment How to access health informa tion online Indication:Flu-like symptoms Start:23-Sep-2017 Instruction Type:Patient Education How to access health informa tion online - Detail Indication:Flu-like symptoms Start:23-Sep-2017 Instruction Type:Patient Education Patient Instructions Indication:Flu-like symptoms Start:23-Sep-2017 Instruction Type:Provider Instructions for Treatment How to access health informa tion online Indication:Current nonsmoker (Renamed from Current non-smoker) Start:10-Aug-2017 Instruction Type:Patient Education How to access health informa tion online - Detail Indication:Current nonsmoker (Renamed from Current non-smoker) Start:10-Aug-2017 Instruction Type:Patient Education Patient Instructions Indication:Current nonsmoker (Renamed from Current non-smoker) Start:10-Aug-2017 Instruction Type:Provider Instructions for Treatment How to access health informa tion online Indication:BMI 26.0-26.9,adult Start:14-Feb-2017 Instruction Type:Patient Education How to access health informa tion online - Detail Indication:BMI 26.0-26.9,adult Start:14-Feb-2017 Instruction Type:Patient Education Patient Instructions Indication:BMI 26.0-26.9,adult Start:14-Feb-2017 Instruction Type:Provider Instructions for Treatment How to access health informa tion online Indication:Osteoarthritis Start:18-Mar-2016 Instruction Type:Patient Education How to access health informa tion online - Detail Indication:Osteoarthritis Start:18-Mar-2016 Instruction Type:Patient Education Patient Instructions Indication:Osteoarthritis Start:18-Mar-2016 Instruction Type:Provider Instructions for Treatment Patient Instructions Indication:Cough, persistent Start:19-Sep-2015 Instruction Type:Provider Instructions for Treatment How to access health informa tion online - Detail Indication:Cough, persistent Start:11-Sep-2015 Instruction Type:Patient Education How to access health informa tion online Indication:Cough, persistent Start:11-Sep-2015 Instruction Type:Patient Education Patient Instructions Indication:Cough, persistent Start:11-Sep-2015 Instruction Type:Provider Instructions for Treatment Patient Instructions Indication:Cough Start:10-Sep-2015 Instruction Type:Provider Instructions for Treatment How to access health informa tion online Indication:Bronchitis Start:25-Aug-2015 Instruction Type:Patient Education How to access health informa tion online - Detail Indication:Bronchitis Start:25-Aug-2015 Instruction Type:Patient Education Patient Instructions Indication:Bronchitis Start:25-Aug-2015 Instruction Type:Provider Instructions for Treatment How to access health informa tion online Indication:Hypercholesteremia Start:09-Apr-2015 Instruction Type:Patient Education How to access health informa tion online - Detail Indication:Hypercholesteremia Start:09-Apr-2015 Instruction Type:Patient Education Patient Instructions Indication:Hypercholesteremia Start:09-Apr-2015 Instruction Type:Provider Instructions for Treatment Patient Instructions Indication:Hypercholesteremia Start:23-Jul-2013 Instruction Type:Provider Instructions for Treatment Patient Instructions Indication:Hypothyroidism Start:29-Mar-2013 Instruction Type:Provider Instructions for Treatment Name Dates Details How to access health informa tion online Indication:BMI 26.0-26.9,adult Start:12-Sep-2019 Instruction Type:Patient Education How to access health informa tion online - Detail Indication:BMI 26.0-26.9,adult Start:12-Sep-2019 Instruction Type:Patient Education Patient Instructions Indication:BMI 26.0-26.9,adult Start:12-Sep-2019 Instruction Type:Provider Instructions for Treatment How to access health informa tion online Indication:Current nonsmoker (Renamed from Current non-smoker) Start:04-Jan-2019 Instruction Type:Patient Education How to access health informa tion online - Detail Indication:Current nonsmoker (Renamed from Current non-smoker) Start:04-Jan-2019 Instruction Type:Patient Education Patient Instructions Indication:Current nonsmoker (Renamed from Current non-smoker) Start:04-Jan-2019 Instruction Type:Provider Instructions for Treatment How to access health informa tion online Indication:Current nonsmoker (Renamed from Current non-smoker) Start:30-Sep-2017 Instruction Type:Patient Education How to access health informa tion online - Detail Indication:Current nonsmoker (Renamed from Current non-smoker) Start:30-Sep-2017 Instruction Type:Patient Education Patient Instructions Indication:Current nonsmoker (Renamed from Current non-smoker) Start:30-Sep-2017 Instruction Type:Provider Instructions for Treatment How to access health informa tion online Indication:Flu-like symptoms Start:23-Sep-2017 Instruction Type:Patient Education How to access health informa tion online - Detail Indication:Flu-like symptoms Start:23-Sep-2017 Instruction Type:Patient Education Patient Instructions Indication:Flu-like symptoms Start:23-Sep-2017 Instruction Type:Provider Instructions for Treatment How to access health informa tion online Indication:Current nonsmoker (Renamed from Current non-smoker) Start:10-Aug-2017 Instruction Type:Patient Education How to access health informa tion online - Detail Indication:Current nonsmoker (Renamed from Current non-smoker) Start:10-Aug-2017 Instruction Type:Patient Education Patient Instructions Indication:Current nonsmoker (Renamed from Current non-smoker) Start:10-Aug-2017 Instruction Type:Provider Instructions for Treatment How to access health informa tion online Indication:BMI 26.0-26.9,adult Start:14-Feb-2017 Instruction Type:Patient Education How to access health informa tion online - Detail Indication:BMI 26.0-26.9,adult Start:14-Feb-2017 Instruction Type:Patient Education Patient Instructions Indication:BMI 26.0-26.9,adult Start:14-Feb-2017 Instruction Type:Provider Instructions for Treatment How to access health informa tion online Indication:Osteoarthritis Start:18-Mar-2016 Instruction Type:Patient Education How to access health informa tion online - Detail Indication:Osteoarthritis Start:18-Mar-2016 Instruction Type:Patient Education Patient Instructions Indication:Osteoarthritis Start:18-Mar-2016 Instruction Type:Provider Instructions for Treatment Patient Instructions Indication:Cough, persistent Start:19-Sep-2015 Instruction Type:Provider Instructions for Treatment How to access health informa tion online - Detail Indication:Cough, persistent Start:11-Sep-2015 Instruction Type:Patient Education How to access health informa tion online Indication:Cough, persistent Start:11-Sep-2015 Instruction Type:Patient Education Patient Instructions Indication:Cough, persistent Start:11-Sep-2015 Instruction Type:Provider Instructions for Treatment Patient Instructions Indication:Cough Start:10-Sep-2015 Instruction Type:Provider Instructions for Treatment How to access health informa tion online Indication:Bronchitis Start:25-Aug-2015 Instruction Type:Patient Education How to access health informa tion online - Detail Indication:Bronchitis Start:25-Aug-2015 Instruction Type:Patient Education Patient Instructions Indication:Bronchitis Start:25-Aug-2015 Instruction Type:Provider Instructions for Treatment How to access health informa tion online Indication:Hypercholesteremia Start:09-Apr-2015 Instruction Type:Patient Education How to access health informa tion online - Detail Indication:Hypercholesteremia Start:09-Apr-2015 Instruction Type:Patient Education Patient Instructions Indication:Hypercholesteremia Start:09-Apr-2015 Instruction Type:Provider Instructions for Treatment Patient Instructions Indication:Hypercholesteremia Start:23-Jul-2013 Instruction Type:Provider Instructions for Treatment Patient Instructions Indication:Hypothyroidism Start:29-Mar-2013 Instruction Type:Provider Instructions for Treatment Name Dates Details How to access health informa tion online Indication:BMI 26.0-26.9,adult Start:12-Sep-2019 Instruction Type:Patient Education How to access health informa tion online - Detail Indication:BMI 26.0-26.9,adult Start:12-Sep-2019 Instruction Type:Patient Education Patient Instructions Indication:BMI 26.0-26.9,adult Start:12-Sep-2019 Instruction Type:Provider Instructions for Treatment How to access health informa tion online Indication:Current nonsmoker (Renamed from Current non-smoker) Start:04-Jan-2019 Instruction Type:Patient Education How to access health informa tion online - Detail Indication:Current nonsmoker (Renamed from Current non-smoker) Start:04-Jan-2019 Instruction Type:Patient Education Patient Instructions Indication:Current nonsmoker (Renamed from Current non-smoker) Start:04-Jan-2019 Instruction Type:Provider Instructions for Treatment How to access health informa tion online Indication:Current nonsmoker (Renamed from Current non-smoker) Start:30-Sep-2017 Instruction Type:Patient Education How to access health informa tion online - Detail Indication:Current nonsmoker (Renamed from Current non-smoker) Start:30-Sep-2017 Instruction Type:Patient Education Patient Instructions Indication:Current nonsmoker (Renamed from Current non-smoker) Start:30-Sep-2017 Instruction Type:Provider Instructions for Treatment How to access health informa tion online Indication:Flu-like symptoms Start:23-Sep-2017 Instruction Type:Patient Education How to access health informa tion online - Detail Indication:Flu-like symptoms Start:23-Sep-2017 Instruction Type:Patient Education Patient Instructions Indication:Flu-like symptoms Start:23-Sep-2017 Instruction Type:Provider Instructions for Treatment How to access health informa tion online Indication:Current nonsmoker (Renamed from Current non-smoker) Start:10-Aug-2017 Instruction Type:Patient Education How to access health informa tion online - Detail Indication:Current nonsmoker (Renamed from Current non-smoker) Start:10-Aug-2017 Instruction Type:Patient Education Patient Instructions Indication:Current nonsmoker (Renamed from Current non-smoker) Start:10-Aug-2017 Instruction Type:Provider Instructions for Treatment How to access health informa tion online Indication:BMI 26.0-26.9,adult Start:14-Feb-2017 Instruction Type:Patient Education How to access health informa tion online - Detail Indication:BMI 26.0-26.9,adult Start:14-Feb-2017 Instruction Type:Patient Education Patient Instructions Indication:BMI 26.0-26.9,adult Start:14-Feb-2017 Instruction Type:Provider Instructions for Treatment How to access health informa tion online Indication:Osteoarthritis Start:18-Mar-2016 Instruction Type:Patient Education How to access health informa tion online - Detail Indication:Osteoarthritis Start:18-Mar-2016 Instruction Type:Patient Education Patient Instructions Indication:Osteoarthritis Start:18-Mar-2016 Instruction Type:Provider Instructions for Treatment Patient Instructions Indication:Cough, persistent Start:19-Sep-2015 Instruction Type:Provider Instructions for Treatment How to access health informa tion online - Detail Indication:Cough, persistent Start:11-Sep-2015 Instruction Type:Patient Education How to access health informa tion online Indication:Cough, persistent Start:11-Sep-2015 Instruction Type:Patient Education Patient Instructions Indication:Cough, persistent Start:11-Sep-2015 Instruction Type:Provider Instructions for Treatment Patient Instructions Indication:Cough Start:10-Sep-2015 Instruction Type:Provider Instructions for Treatment How to access health informa tion online Indication:Bronchitis Start:25-Aug-2015 Instruction Type:Patient Education How to access health informa tion online - Detail Indication:Bronchitis Start:25-Aug-2015 Instruction Type:Patient Education Patient Instructions Indication:Bronchitis Start:25-Aug-2015 Instruction Type:Provider Instructions for Treatment How to access health informa tion online Indication:Hypercholesteremia Start:09-Apr-2015 Instruction Type:Patient Education How to access health informa tion online - Detail Indication:Hypercholesteremia Start:09-Apr-2015 Instruction Type:Patient Education Patient Instructions Indication:Hypercholesteremia Start:09-Apr-2015 Instruction Type:Provider Instructions for Treatment Patient Instructions Indication:Hypercholesteremia Start:23-Jul-2013 Instruction Type:Provider Instructions for Treatment Patient Instructions Indication:Hypothyroidism Start:29-Mar-2013 Instruction Type:Provider Instructions for Treatment Name Dates Details Patient Instructions Indication:Current nonsmoker (Renamed from Current non-smoker) Start:08-Sep-2020 Instruction Type:Provider Instructions for Treatment How to Access Health Informa tion Online using Patient Portal and [employer] Apps Indication:Current nonsmoker (Renamed from Current non-smoker) Start:08-Sep-2020 Instruction Type:Patient Education How to access health informa tion online Indication:BMI 26.0-26.9,adult Start:12-Sep-2019 Instruction Type:Patient Education How to access health informa tion online - Detail Indication:BMI 26.0-26.9,adult Start:12-Sep-2019 Instruction Type:Patient Education Patient Instructions Indication:BMI 26.0-26.9,adult Start:12-Sep-2019 Instruction Type:Provider Instructions for Treatment How to access health informa tion online Indication:Current nonsmoker (Renamed from Current non-smoker) Start:04-Jan-2019 Instruction Type:Patient Education How to access health informa tion online - Detail Indication:Current nonsmoker (Renamed from Current non-smoker) Start:04-Jan-2019 Instruction Type:Patient Education Patient Instructions Indication:Current nonsmoker (Renamed from Current non-smoker) Start:04-Jan-2019 Instruction Type:Provider Instructions for Treatment How to access health informa tion online Indication:Current nonsmoker (Renamed from Current non-smoker) Start:30-Sep-2017 Instruction Type:Patient Education How to access health informa tion online - Detail Indication:Current nonsmoker (Renamed from Current non-smoker) Start:30-Sep-2017 Instruction Type:Patient Education Patient Instructions Indication:Current nonsmoker (Renamed from Current non-smoker) Start:30-Sep-2017 Instruction Type:Provider Instructions for Treatment How to access health informa tion online Indication:Flu-like symptoms Start:23-Sep-2017 Instruction Type:Patient Education How to access health informa tion online - Detail Indication:Flu-like symptoms Start:23-Sep-2017 Instruction Type:Patient Education Patient Instructions Indication:Flu-like symptoms Start:23-Sep-2017 Instruction Type:Provider Instructions for Treatment How to access health informa tion online Indication:Current nonsmoker (Renamed from Current non-smoker) Start:10-Aug-2017 Instruction Type:Patient Education How to access health informa tion online - Detail Indication:Current nonsmoker (Renamed from Current non-smoker) Start:10-Aug-2017 Instruction Type:Patient Education Patient Instructions Indication:Current nonsmoker (Renamed from Current non-smoker) Start:10-Aug-2017 Instruction Type:Provider Instructions for Treatment How to access health informa tion online Indication:BMI 26.0-26.9,adult Start:14-Feb-2017 Instruction Type:Patient Education How to access health informa tion online - Detail Indication:BMI 26.0-26.9,adult Start:14-Feb-2017 Instruction Type:Patient Education Patient Instructions Indication:BMI 26.0-26.9,adult Start:14-Feb-2017 Instruction Type:Provider Instructions for Treatment How to access health informa tion online Indication:Osteoarthritis Start:18-Mar-2016 Instruction Type:Patient Education How to access health informa tion online - Detail Indication:Osteoarthritis Start:18-Mar-2016 Instruction Type:Patient Education Patient Instructions Indication:Osteoarthritis Start:18-Mar-2016 Instruction Type:Provider Instructions for Treatment Patient Instructions Indication:Cough, persistent Start:19-Sep-2015 Instruction Type:Provider Instructions for Treatment How to access health informa tion online - Detail Indication:Cough, persistent Start:11-Sep-2015 Instruction Type:Patient Education How to access health informa tion online Indication:Cough, persistent Start:11-Sep-2015 Instruction Type:Patient Education Patient Instructions Indication:Cough, persistent Start:11-Sep-2015 Instruction Type:Provider Instructions for Treatment Patient Instructions Indication:Cough Start:10-Sep-2015 Instruction Type:Provider Instructions for Treatment How to access health informa tion online Indication:Bronchitis Start:25-Aug-2015 Instruction Type:Patient Education How to access health informa tion online - Detail Indication:Bronchitis Start:25-Aug-2015 Instruction Type:Patient Education Patient Instructions Indication:Bronchitis Start:25-Aug-2015 Instruction Type:Provider Instructions for Treatment How to access health informa tion online Indication:Hypercholesteremia Start:09-Apr-2015 Instruction Type:Patient Education How to access health informa tion online - Detail Indication:Hypercholesteremia Start:09-Apr-2015 Instruction Type:Patient Education Patient Instructions Indication:Hypercholesteremia Start:09-Apr-2015 Instruction Type:Provider Instructions for Treatment Patient Instructions Indication:Hypercholesteremia Start:23-Jul-2013 Instruction Type:Provider Instructions for Treatment Patient Instructions Indication:Hypothyroidism Start:29-Mar-2013 Instruction Type:Provider Instructions for Treatment Name Dates Details Patient Instructions Indication:Current nonsmoker (Renamed from Current non-smoker) Start:08-Sep-2020 Instruction Type:Provider Instructions for Treatment How to Access Health Informa tion Online using Patient Portal and [employer] Apps Indication:Current nonsmoker (Renamed from Current non-smoker) Start:08-Sep-2020 Instruction Type:Patient Education How to access health informa tion online Indication:BMI 26.0-26.9,adult Start:12-Sep-2019 Instruction Type:Patient Education How to access health informa tion online - Detail Indication:BMI 26.0-26.9,adult Start:12-Sep-2019 Instruction Type:Patient Education Patient Instructions Indication:BMI 26.0-26.9,adult Start:12-Sep-2019 Instruction Type:Provider Instructions for Treatment How to access health informa tion online Indication:Current nonsmoker (Renamed from Current non-smoker) Start:04-Jan-2019 Instruction Type:Patient Education How to access health informa tion online - Detail Indication:Current nonsmoker (Renamed from Current non-smoker) Start:04-Jan-2019 Instruction Type:Patient Education Patient Instructions Indication:Current nonsmoker (Renamed from Current non-smoker) Start:04-Jan-2019 Instruction Type:Provider Instructions for Treatment How to access health informa tion online Indication:Current nonsmoker (Renamed from Current non-smoker) Start:30-Sep-2017 Instruction Type:Patient Education How to access health informa tion online - Detail Indication:Current nonsmoker (Renamed from Current non-smoker) Start:30-Sep-2017 Instruction Type:Patient Education Patient Instructions Indication:Current nonsmoker (Renamed from Current non-smoker) Start:30-Sep-2017 Instruction Type:Provider Instructions for Treatment How to access health informa tion online Indication:Flu-like symptoms Start:23-Sep-2017 Instruction Type:Patient Education How to access health informa tion online - Detail Indication:Flu-like symptoms Start:23-Sep-2017 Instruction Type:Patient Education Patient Instructions Indication:Flu-like symptoms Start:23-Sep-2017 Instruction Type:Provider Instructions for Treatment How to access health informa tion online Indication:Current nonsmoker (Renamed from Current non-smoker) Start:10-Aug-2017 Instruction Type:Patient Education How to access health informa tion online - Detail Indication:Current nonsmoker (Renamed from Current non-smoker) Start:10-Aug-2017 Instruction Type:Patient Education Patient Instructions Indication:Current nonsmoker (Renamed from Current non-smoker) Start:10-Aug-2017 Instruction Type:Provider Instructions for Treatment How to access health informa tion online Indication:BMI 26.0-26.9,adult Start:14-Feb-2017 Instruction Type:Patient Education How to access health informa tion online - Detail Indication:BMI 26.0-26.9,adult Start:14-Feb-2017 Instruction Type:Patient Education Patient Instructions Indication:BMI 26.0-26.9,adult Start:14-Feb-2017 Instruction Type:Provider Instructions for Treatment How to access health informa tion online Indication:Osteoarthritis Start:18-Mar-2016 Instruction Type:Patient Education How to access health informa tion online - Detail Indication:Osteoarthritis Start:18-Mar-2016 Instruction Type:Patient Education Patient Instructions Indication:Osteoarthritis Start:18-Mar-2016 Instruction Type:Provider Instructions for Treatment Patient Instructions Indication:Cough, persistent Start:19-Sep-2015 Instruction Type:Provider Instructions for Treatment How to access health informa tion online - Detail Indication:Cough, persistent Start:11-Sep-2015 Instruction Type:Patient Education How to access health informa tion online Indication:Cough, persistent Start:11-Sep-2015 Instruction Type:Patient Education Patient Instructions Indication:Cough, persistent Start:11-Sep-2015 Instruction Type:Provider Instructions for Treatment Patient Instructions Indication:Cough Start:10-Sep-2015 Instruction Type:Provider Instructions for Treatment How to access health informa tion online Indication:Bronchitis Start:25-Aug-2015 Instruction Type:Patient Education How to access health informa tion online - Detail Indication:Bronchitis Start:25-Aug-2015 Instruction Type:Patient Education Patient Instructions Indication:Bronchitis Start:25-Aug-2015 Instruction Type:Provider Instructions for Treatment How to access health informa tion online Indication:Hypercholesteremia Start:09-Apr-2015 Instruction Type:Patient Education How to access health informa tion online - Detail Indication:Hypercholesteremia Start:09-Apr-2015 Instruction Type:Patient Education Patient Instructions Indication:Hypercholesteremia Start:09-Apr-2015 Instruction Type:Provider Instructions for Treatment Patient Instructions Indication:Hypercholesteremia Start:23-Jul-2013 Instruction Type:Provider Instructions for Treatment Patient Instructions Indication:Hypothyroidism Start:29-Mar-2013 Instruction Type:Provider Instructions for Treatment Name Dates Details How to access health informa tion online Indication:Current nonsmoker (Renamed from Current non-smoker) Start:04-Jan-2019 Instruction Type:Patient Education How to access health informa tion online - Detail Indication:Current nonsmoker (Renamed from Current non-smoker) Start:04-Jan-2019 Instruction Type:Patient Education Patient Instructions Indication:Current nonsmoker (Renamed from Current non-smoker) Start:04-Jan-2019 Instruction Type:Provider Instructions for Treatment How to access health informa tion online Indication:Current nonsmoker (Renamed from Current non-smoker) Start:30-Sep-2017 Instruction Type:Patient Education How to access health informa tion online - Detail Indication:Current nonsmoker (Renamed from Current non-smoker) Start:30-Sep-2017 Instruction Type:Patient Education Patient Instructions Indication:Current nonsmoker (Renamed from Current non-smoker) Start:30-Sep-2017 Instruction Type:Provider Instructions for Treatment How to access health informa tion online Indication:Flu-like symptoms Start:23-Sep-2017 Instruction Type:Patient Education How to access health informa tion online - Detail Indication:Flu-like symptoms Start:23-Sep-2017 Instruction Type:Patient Education Patient Instructions Indication:Flu-like symptoms Start:23-Sep-2017 Instruction Type:Provider Instructions for Treatment How to access health informa tion online Indication:Current nonsmoker (Renamed from Current non-smoker) Start:10-Aug-2017 Instruction Type:Patient Education How to access health informa tion online - Detail Indication:Current nonsmoker (Renamed from Current non-smoker) Start:10-Aug-2017 Instruction Type:Patient Education Patient Instructions Indication:Current nonsmoker (Renamed from Current non-smoker) Start:10-Aug-2017 Instruction Type:Provider Instructions for Treatment How to access health informa tion online Indication:BMI 26.0-26.9,adult Start:14-Feb-2017 Instruction Type:Patient Education How to access health informa tion online - Detail Indication:BMI 26.0-26.9,adult Start:14-Feb-2017 Instruction Type:Patient Education Patient Instructions Indication:BMI 26.0-26.9,adult Start:14-Feb-2017 Instruction Type:Provider Instructions for Treatment How to access health informa tion online Indication:Osteoarthritis Start:18-Mar-2016 Instruction Type:Patient Education How to access health informa tion online - Detail Indication:Osteoarthritis Start:18-Mar-2016 Instruction Type:Patient Education Patient Instructions Indication:Osteoarthritis Start:18-Mar-2016 Instruction Type:Provider Instructions for Treatment Patient Instructions Indication:Cough, persistent Start:19-Sep-2015 Instruction Type:Provider Instructions for Treatment How to access health informa tion online - Detail Indication:Cough, persistent Start:11-Sep-2015 Instruction Type:Patient Education How to access health informa tion online Indication:Cough, persistent Start:11-Sep-2015 Instruction Type:Patient Education Patient Instructions Indication:Cough, persistent Start:11-Sep-2015 Instruction Type:Provider Instructions for Treatment Patient Instructions Indication:Cough Start:10-Sep-2015 Instruction Type:Provider Instructions for Treatment How to access health informa tion online Indication:Bronchitis Start:25-Aug-2015 Instruction Type:Patient Education How to access health informa tion online - Detail Indication:Bronchitis Start:25-Aug-2015 Instruction Type:Patient Education Patient Instructions Indication:Bronchitis Start:25-Aug-2015 Instruction Type:Provider Instructions for Treatment How to access health informa tion online Indication:Hypercholesteremia Start:09-Apr-2015 Instruction Type:Patient Education How to access health informa tion online - Detail Indication:Hypercholesteremia Start:09-Apr-2015 Instruction Type:Patient Education Patient Instructions Indication:Hypercholesteremia Start:09-Apr-2015 Instruction Type:Provider Instructions for Treatment Patient Instructions Indication:Hypercholesteremia Start:23-Jul-2013 Instruction Type:Provider Instructions for Treatment Patient Instructions Indication:Hypothyroidism Start:29-Mar-2013 Instruction Type:Provider Instructions for Treatment Name Dates Details Current nonsmoker (Renamed f rom Current non-smoker) : How to access health information online Indication:Current nonsmoker (Renamed from Current non-smoker) Current nonsmoker (Renamed f rom Current non-smoker) : How to access health information online - Detail Indication:Current nonsmoker (Renamed from Current non-smoker) Current nonsmoker (Renamed f rom Current non-smoker) : Patient Instructions Indication:Current nonsmoker (Renamed from Current non-smoker) Flu-like symptoms : How to a [employer] information online Indication:Flu-like symptoms Flu-like symptoms : How to a [place] health information online - Detail Indication:Flu-like symptoms Flu-like symptoms : Patient Instructions Indication:Flu-like symptoms BMI 26.0-26.9,adult : How to access health information online Indication:BMI 26.0-26.9,adult BMI 26.0-26.9,adult : How to access health information online - Detail Indication:BMI 26.0-26.9,adult BMI 26.0-26.9,adult : Patien t Instructions Indication:BMI 26.0-26.9,adult Osteoarthritis : How to acce [place] health information online Indication:Osteoarthritis Osteoarthritis : How to acce [place] health information online - Detail Indication:Osteoarthritis Osteoarthritis : Patient Ins tructions Indication:Osteoarthritis Cough, persistent : Patient Instructions Indication:Cough, persistent Cough, persistent : How to a ccess health information online - Detail Indication:Cough, persistent Cough, persistent : How to a ccess health information online Indication:Cough, persistent Cough : Patient Instructions Indication:Cough Bronchitis : How to access h ealth information online Indication:Bronchitis Bronchitis : How to access h ealth information online - Detail Indication:Bronchitis Bronchitis : Patient Instruc tions Indication:Bronchitis Hypercholesteremia : How to access health information online Indication:Hypercholesteremia Hypercholesteremia : How to access health information online - Detail Indication:Hypercholesteremia Hypercholesteremia : Patient Instructions Indication:Hypercholesteremia Hypothyroidism : Patient Ins tructions Indication:Hypothyroidism Name Dates Details Patient Instructions Indication:Current nonsmoker (Renamed from Current non-smoker) Start:08-Sep-2020 Instruction Type:Provider Instructions for Treatment How to Access Health Informa tion Online using Patient Portal and [employer] Apps Indication:Current nonsmoker (Renamed from Current non-smoker) Start:08-Sep-2020 Instruction Type:Patient Education How to access health informa tion online Indication:BMI 26.0-26.9,adult Start:12-Sep-2019 Instruction Type:Patient Education How to access health informa tion online - Detail Indication:BMI 26.0-26.9,adult Start:12-Sep-2019 Instruction Type:Patient Education Patient Instructions Indication:BMI 26.0-26.9,adult Start:12-Sep-2019 Instruction Type:Provider Instructions for Treatment How to access health informa tion online Indication:Current nonsmoker (Renamed from Current non-smoker) Start:04-Jan-2019 Instruction Type:Patient Education How to access health informa tion online - Detail Indication:Current nonsmoker (Renamed from Current non-smoker) Start:04-Jan-2019 Instruction Type:Patient Education Patient Instructions Indication:Current nonsmoker (Renamed from Current non-smoker) Start:04-Jan-2019 Instruction Type:Provider Instructions for Treatment How to access health informa tion online Indication:Current nonsmoker (Renamed from Current non-smoker) Start:30-Sep-2017 Instruction Type:Patient Education How to access health informa tion online - Detail Indication:Current nonsmoker (Renamed from Current non-smoker) Start:30-Sep-2017 Instruction Type:Patient Education Patient Instructions Indication:Current nonsmoker (Renamed from Current non-smoker) Start:30-Sep-2017 Instruction Type:Provider Instructions for Treatment How to access health informa tion online Indication:Flu-like symptoms Start:23-Sep-2017 Instruction Type:Patient Education How to access health informa tion online - Detail Indication:Flu-like symptoms Start:23-Sep-2017 Instruction Type:Patient Education Patient Instructions Indication:Flu-like symptoms Start:23-Sep-2017 Instruction Type:Provider Instructions for Treatment How to access health informa tion online Indication:Current nonsmoker (Renamed from Current non-smoker) Start:10-Aug-2017 Instruction Type:Patient Education How to access health informa tion online - Detail Indication:Current nonsmoker (Renamed from Current non-smoker) Start:10-Aug-2017 Instruction Type:Patient Education Patient Instructions Indication:Current nonsmoker (Renamed from Current non-smoker) Start:10-Aug-2017 Instruction Type:Provider Instructions for Treatment How to access health informa tion online Indication:BMI 26.0-26.9,adult Start:14-Feb-2017 Instruction Type:Patient Education How to access health informa tion online - Detail Indication:BMI 26.0-26.9,adult Start:14-Feb-2017 Instruction Type:Patient Education Patient Instructions Indication:BMI 26.0-26.9,adult Start:14-Feb-2017 Instruction Type:Provider Instructions for Treatment How to access health informa tion online Indication:Osteoarthritis Start:18-Mar-2016 Instruction Type:Patient Education How to access health informa tion online - Detail Indication:Osteoarthritis Start:18-Mar-2016 Instruction Type:Patient Education Patient Instructions Indication:Osteoarthritis Start:18-Mar-2016 Instruction Type:Provider Instructions for Treatment Patient Instructions Indication:Cough, persistent Start:19-Sep-2015 Instruction Type:Provider Instructions for Treatment How to access health informa tion online - Detail Indication:Cough, persistent Start:11-Sep-2015 Instruction Type:Patient Education How to access health informa tion online Indication:Cough, persistent Start:11-Sep-2015 Instruction Type:Patient Education Patient Instructions Indication:Cough, persistent Start:11-Sep-2015 Instruction Type:Provider Instructions for Treatment Patient Instructions Indication:Cough Start:10-Sep-2015 Instruction Type:Provider Instructions for Treatment How to access health informa tion online Indication:Bronchitis Start:25-Aug-2015 Instruction Type:Patient Education How to access health informa tion online - Detail Indication:Bronchitis Start:25-Aug-2015 Instruction Type:Patient Education Patient Instructions Indication:Bronchitis Start:25-Aug-2015 Instruction Type:Provider Instructions for Treatment How to access health informa tion online Indication:Hypercholesteremia Start:09-Apr-2015 Instruction Type:Patient Education How to access health informa tion online - Detail Indication:Hypercholesteremia Start:09-Apr-2015 Instruction Type:Patient Education Patient Instructions Indication:Hypercholesteremia Start:09-Apr-2015 Instruction Type:Provider Instructions for Treatment Patient Instructions Indication:Hypercholesteremia Start:23-Jul-2013 Instruction Type:Provider Instructions for Treatment Patient Instructions Indication:Hypothyroidism Start:29-Mar-2013 Instruction Type:Provider Instructions for Treatment Name Dates Details Patient Instructions Indication:Current nonsmoker (Renamed from Current non-smoker) Start:08-Sep-2020 Instruction Type:Provider Instructions for Treatment How to Access Health Informa tion Online using Patient Portal and [employer] Apps Indication:Current nonsmoker (Renamed from Current non-smoker) Start:08-Sep-2020 Instruction Type:Patient Education How to access health informa tion online Indication:BMI 26.0-26.9,adult Start:12-Sep-2019 Instruction Type:Patient Education How to access health informa tion online - Detail Indication:BMI 26.0-26.9,adult Start:12-Sep-2019 Instruction Type:Patient Education Patient Instructions Indication:BMI 26.0-26.9,adult Start:12-Sep-2019 Instruction Type:Provider Instructions for Treatment How to access health informa tion online Indication:Current nonsmoker (Renamed from Current non-smoker) Start:04-Jan-2019 Instruction Type:Patient Education How to access health informa tion online - Detail Indication:Current nonsmoker (Renamed from Current non-smoker) Start:04-Jan-2019 Instruction Type:Patient Education Patient Instructions Indication:Current nonsmoker (Renamed from Current non-smoker) Start:04-Jan-2019 Instruction Type:Provider Instructions for Treatment How to access health informa tion online Indication:Current nonsmoker (Renamed from Current non-smoker) Start:30-Sep-2017 Instruction Type:Patient Education How to access health informa tion online - Detail Indication:Current nonsmoker (Renamed from Current non-smoker) Start:30-Sep-2017 Instruction Type:Patient Education Patient Instructions Indication:Current nonsmoker (Renamed from Current non-smoker) Start:30-Sep-2017 Instruction Type:Provider Instructions for Treatment How to access health informa tion online Indication:Flu-like symptoms Start:23-Sep-2017 Instruction Type:Patient Education How to access health informa tion online - Detail Indication:Flu-like symptoms Start:23-Sep-2017 Instruction Type:Patient Education Patient Instructions Indication:Flu-like symptoms Start:23-Sep-2017 Instruction Type:Provider Instructions for Treatment How to access health informa tion online Indication:Current nonsmoker (Renamed from Current non-smoker) Start:10-Aug-2017 Instruction Type:Patient Education How to access health informa tion online - Detail Indication:Current nonsmoker (Renamed from Current non-smoker) Start:10-Aug-2017 Instruction Type:Patient Education Patient Instructions Indication:Current nonsmoker (Renamed from Current non-smoker) Start:10-Aug-2017 Instruction Type:Provider Instructions for Treatment How to access health informa tion online Indication:BMI 26.0-26.9,adult Start:14-Feb-2017 Instruction Type:Patient Education How to access health informa tion online - Detail Indication:BMI 26.0-26.9,adult Start:14-Feb-2017 Instruction Type:Patient Education Patient Instructions Indication:BMI 26.0-26.9,adult Start:14-Feb-2017 Instruction Type:Provider Instructions for Treatment How to access health informa tion online Indication:Osteoarthritis Start:18-Mar-2016 Instruction Type:Patient Education How to access health informa tion online - Detail Indication:Osteoarthritis Start:18-Mar-2016 Instruction Type:Patient Education Patient Instructions Indication:Osteoarthritis Start:18-Mar-2016 Instruction Type:Provider Instructions for Treatment Patient Instructions Indication:Cough, persistent Start:19-Sep-2015 Instruction Type:Provider Instructions for Treatment How to access health informa tion online - Detail Indication:Cough, persistent Start:11-Sep-2015 Instruction Type:Patient Education How to access health informa tion online Indication:Cough, persistent Start:11-Sep-2015 Instruction Type:Patient Education Patient Instructions Indication:Cough, persistent Start:11-Sep-2015 Instruction Type:Provider Instructions for Treatment Patient Instructions Indication:Cough Start:10-Sep-2015 Instruction Type:Provider Instructions for Treatment How to access health informa tion online Indication:Bronchitis Start:25-Aug-2015 Instruction Type:Patient Education How to access health informa tion online - Detail Indication:Bronchitis Start:25-Aug-2015 Instruction Type:Patient Education Patient Instructions Indication:Bronchitis Start:25-Aug-2015 Instruction Type:Provider Instructions for Treatment How to access health informa tion online Indication:Hypercholesteremia Start:09-Apr-2015 Instruction Type:Patient Education How to access health informa tion online - Detail Indication:Hypercholesteremia Start:09-Apr-2015 Instruction Type:Patient Education Patient Instructions Indication:Hypercholesteremia Start:09-Apr-2015 Instruction Type:Provider Instructions for Treatment Patient Instructions Indication:Hypercholesteremia Start:23-Jul-2013 Instruction Type:Provider Instructions for Treatment Patient Instructions Indication:Hypothyroidism Start:29-Mar-2013 Instruction Type:Provider Instructions for Treatment Name Dates Details How to access health informa tion online Indication:Current nonsmoker (Renamed from Current non-smoker) Start:04-Jan-2019 Instruction Type:Patient Education How to access health informa tion online - Detail Indication:Current nonsmoker (Renamed from Current non-smoker) Start:04-Jan-2019 Instruction Type:Patient Education Patient Instructions Indication:Current nonsmoker (Renamed from Current non-smoker) Start:04-Jan-2019 Instruction Type:Provider Instructions for Treatment How to access health informa tion online Indication:Current nonsmoker (Renamed from Current non-smoker) Start:30-Sep-2017 Instruction Type:Patient Education How to access health informa tion online - Detail Indication:Current nonsmoker (Renamed from Current non-smoker) Start:30-Sep-2017 Instruction Type:Patient Education Patient Instructions Indication:Current nonsmoker (Renamed from Current non-smoker) Start:30-Sep-2017 Instruction Type:Provider Instructions for Treatment How to access health informa tion online Indication:Flu-like symptoms Start:23-Sep-2017 Instruction Type:Patient Education How to access health informa tion online - Detail Indication:Flu-like symptoms Start:23-Sep-2017 Instruction Type:Patient Education Patient Instructions Indication:Flu-like symptoms Start:23-Sep-2017 Instruction Type:Provider Instructions for Treatment How to access health informa tion online Indication:Current nonsmoker (Renamed from Current non-smoker) Start:10-Aug-2017 Instruction Type:Patient Education How to access health informa tion online - Detail Indication:Current nonsmoker (Renamed from Current non-smoker) Start:10-Aug-2017 Instruction Type:Patient Education Patient Instructions Indication:Current nonsmoker (Renamed from Current non-smoker) Start:10-Aug-2017 Instruction Type:Provider Instructions for Treatment How to access health informa tion online Indication:BMI 26.0-26.9,adult Start:14-Feb-2017 Instruction Type:Patient Education How to access health informa tion online - Detail Indication:BMI 26.0-26.9,adult Start:14-Feb-2017 Instruction Type:Patient Education Patient Instructions Indication:BMI 26.0-26.9,adult Start:14-Feb-2017 Instruction Type:Provider Instructions for Treatment How to access health informa tion online Indication:Osteoarthritis Start:18-Mar-2016 Instruction Type:Patient Education How to access health informa tion online - Detail Indication:Osteoarthritis Start:18-Mar-2016 Instruction Type:Patient Education Patient Instructions Indication:Osteoarthritis Start:18-Mar-2016 Instruction Type:Provider Instructions for Treatment Patient Instructions Indication:Cough, persistent Start:19-Sep-2015 Instruction Type:Provider Instructions for Treatment How to access health informa tion online - Detail Indication:Cough, persistent Start:11-Sep-2015 Instruction Type:Patient Education How to access health informa tion online Indication:Cough, persistent Start:11-Sep-2015 Instruction Type:Patient Education Patient Instructions Indication:Cough, persistent Start:11-Sep-2015 Instruction Type:Provider Instructions for Treatment Patient Instructions Indication:Cough Start:10-Sep-2015 Instruction Type:Provider Instructions for Treatment How to access health informa tion online Indication:Bronchitis Start:25-Aug-2015 Instruction Type:Patient Education How to access health informa tion online - Detail Indication:Bronchitis Start:25-Aug-2015 Instruction Type:Patient Education Patient Instructions Indication:Bronchitis Start:25-Aug-2015 Instruction Type:Provider Instructions for Treatment How to access health informa tion online Indication:Hypercholesteremia Start:09-Apr-2015 Instruction Type:Patient Education How to access health informa tion online - Detail Indication:Hypercholesteremia Start:09-Apr-2015 Instruction Type:Patient Education Patient Instructions Indication:Hypercholesteremia Start:09-Apr-2015 Instruction Type:Provider Instructions for Treatment Patient Instructions Indication:Hypercholesteremia Start:23-Jul-2013 Instruction Type:Provider Instructions for Treatment Patient Instructions Indication:Hypothyroidism Start:29-Mar-2013 Instruction Type:Provider Instructions for Treatment Reason for Referral Specialty Diagnoses / Procedures Referred By Contac t Referred To Contact Diagnoses Dizziness Syncope, unspecified syncope type Procedures CONSULT TO [facility]NCOPE CLINIC OFFICE/OUTPATIENT [facility] 60-74 MINUTES Shanna Negrete, [employer] [address] [place] [address] Referral ID Status Reason Start Date Expiration Date Visits Requested Visits Authorized [id number] Pending Review PCP Requested Referral 3 07/26/2024 1 1 Additional Source Comments (unrecognized sect ion and content) No Status Records FoundNo Status Records FoundNo Status Records FoundNo Status Records FoundNo Status Records Found INFORMATION SOURCE (unrecogn ized section and content) DATE CREATED AUTHOR AUTHOR'S ORGANIZ ATION 12/04/2021 [facility] DATE CREATED AUTHOR AUTHOR'S ORGANIZ ATION 01/29/2022 [facility] DATE CREATED AUTHOR AUTHOR'S ORGANIZ ATION 10/15/2022 [facility] DATE CREATED AUTHOR AUTHOR'S ORGANIZ ATION 07/30/2023 [facility] Source Comments (unrecognize d section and content) In the event this informatio n is protected by the Federal Confidentiality of Alcohol and Drug Abuse Patient Records regulations: The Federal rules restrict any use of the information to criminally investigate or prosecute any alcohol or drug abuse patient.[facility] the event this information is protected by the Federal Confidentiality of Alcohol and Drug Abuse Patient Records regulations: The Federal rules restrict any use of the information to criminally investigate or prosecute any alcohol or drug abuse patient.[facility] the event this information is protected by the Federal Confidentiality of Alcohol and Drug Abuse Patient Records regulations: The Federal rules restrict any use of the information to criminally investigate or prosecute any alcohol or drug abuse patient.[facility] the event this information is protected by the Federal Confidentiality of Alcohol and Drug Abuse Patient Records regulations: The Federal rules restrict any use of the information to criminally investigate or prosecute any alcohol or drug abuse patient.[facility] the event this information is protected by the Federal Confidentiality of Alcohol and Drug Abuse Patient Records regulations: The Federal rules restrict any use of the information to criminally investigate or prosecute any alcohol or drug abuse patient.[facility] the event this information is protected by the Federal Confidentiality of Alcohol and Drug Abuse Patient Records regulations: The Federal rules restrict any use of the information to criminally investigate or prosecute any alcohol or drug abuse patient.[facility] Reason for Visit (unrecogniz ed section and content) Reason Comments Preparations For Procedures Reason Comments Cardiology Follow Up PAF Reason Comments Patient Update Reason Comments Orders Reason Comments CARD Follow Up 6 Month Care Teams (unrecognized sec tion and content) Spot Remover Relationship Specialty Start Date End Date Simran Woodard DO PCP - General Internal Medicine 08/31/12 Spot Remover Relationship Specialty Start Date End Date Simran Woodard DO PCP - General Internal Medicine 08/31/12 Spot Remover Relationship Specialty Start Date End Date Simran Woodard DO PCP - General Internal Medicine 08/31/12 Spot Remover Relationship Specialty Start Date End Date Simran Woodard DO PCP - General Internal Medicine 08/31/12 FOR RECORDS PERTAINING TO PATIENTS WHO ARE OR HAVE BEEN ENROLLED IN A CHEMICAL DEPENDENCY/SUBSTANCEABUSE PROGRAM, SOME INFORMATION MAY BE OMITTED. This clinical summary was aggregated from multiple sources. Caution should be exercised in using it in the provision of clinical care. This summary normalizes information from multiple sources, and as a consequence, information in this document may materially change the coding, format and clinical context of patient data. In addition, data may be omitted in some cases. CLINICAL DECISIONS SHOULD BE BASED ON THE PRIMARY CLINICAL RECORDS. [facility] [employer] [facility]. provides no warranty or guarantee of the accuracy or completeness of information in this document.
--- NOTE | 2023-11-01 17:28 | STRESSREP ---
Stress Test Report Exercise myocardial perfusion stress test. 73-year-old man with a history of chest pain Stress protocol: Resting EKG demonstrates normal sinus rhythm with a rate of 60 bpm resting blood pressure is 124/82 mmHg. The patient exercised according to the regular Alex protocol for a total duration of 10 minutes attaining a maximum heart rate of 130 bpm which was 87% of maximum predicted heart rate; the maximum workload was 13.4 metabolic equivalents. At rest there were no ST or T wave changes noted to suggest ischemia and at peak exercise upsloping ST changes only were noted which did not meet the criteria for ischemia. No clinical angina was noted the test was terminated due to the target heart rate being achieved/fatigue. The peak blood pressure was 140/70 mmHg. Rate-pressure product was 15,004. Myocardial perfusion protocol. 13 point mCi of technetium 99m sestamibi was injected at rest. The patient exercised according to regular Alex protocol for total duration of 10 minutes and at peak exercise 40 point mCi of technetium 99m sestamibi was injected stress images were obtained stress and rest images were reconstructed in comparing the short axis vertical long and horizontal long axis. Gated images were also obtained. Perfusion SPECT analysis: Review of the stress images demonstrate normal uptake of tracer noted in all areas of the myocardium. The resting images similarly demonstrate normal uptake of tracer noted in all areas of the myocardium. No areas of reversibility are noted to suggest ischemia no previous infarct was noted. Gated SPECT analysis: The gated ejection fraction is 68%. Conclusion: Normal exercise myocardial perfusion stress test at a high workload Preserved ejection fraction.
== END | disposition home or self-care (01) ==
LOC: CVS 06:14
PROVIDERS: PCP Internal Medicine; Referring Provider Nurse Practitioner Family; Visit Provider Nurse Practitioner Family
DX: I34.1 Nonrheumatic mitral (valve) prolapse (principal); I48.0 Paroxysmal atrial fibrillation; I47.20 Ventricular tachycardia, unspecified; I25.10 Atherosclerotic heart disease of native coronary artery without angina pectoris; Z95.0 Presence of cardiac pacemaker; R06.02 Shortness of breath
CPT/HCPCS: 78452; 93017; 93306; A9500; A4216

== ENCOUNTER → 2024-03-21 | Outpatient (CLI) | payer MEDICARE, SELFPAY ==
[2024-03-21 07:39] LABS: Bacteria 0 SEEN /hpf (None Seen); Mucous, Urine 0 SEEN /hpf (<or=2+); Red Blood Cells-Urine 0 SEEN /hpf (0-5); Squamous Epithelial Cells - UA 0 SEEN /hpf (0-5); White Blood Cells 0 SEEN /hpf (0-5)
[2024-03-21 07:55] LABS: Color, Urine Yellow (Yellow); Glucose, Dipstick Normal (Normal); Ketone-Dipstick Negative (Negative); Leukocyte Esterase-Dipstick Negative /ul (Negative); Nitrite-Dipstick Negative (Negative); Occult Blood-Urine Negative /ul (Negative); Protein-Dipstick Negative (Negative); Urine Bilirubin Dipstick Negative (Negative); Urine Clarity Clear (Clear); Urine Urobilinogen Normal (Normal)
[2024-03-21 07:57] LABS: Absolute Lymphocyte Count 2.35 X10^3/uL (0.83-4.51); Basophil# 0.07 X10^3/uL; Basophil% 0.9 % (0-1); Eosinophil# 0.29 X10^3/uL; Eosinophils% 3.7 % (0-5); Hematocrit 43.2 % (40-54); Hemoglobin 14.3 g/dL (13.0-16.5); Lymphocyte # 2.35 X10^3/ul (0.83-4.51); Lymphocyte % 30.4 % (19-41); Mean Corp Hgb Conc 33.1 g/dL (32-36); Mean Corpuscular Hgb 28.8 pg (27.0-32.0); Mean Corpuscular Volume 87.1 fL (80-94); Mean Platelet Vol. 8.9 fl (6.2-12.0); Monocyte# 0.96 X10^3/uL; Monocyte% 12.4 % (0-10); NRBC Flagged by Analyzer 0 % (0-5); Neutrophil # 4.04 X10^3/uL (2.7-7.7); Neutrophil % 52.2 % (47-70); Platelet Count 247 K/mm3 (150-450); RBC Distribution Width CV 13.8 % (11.6-14.6); RBC Distribution Width SD 43.8 fl (35.1-43.9); Red Blood Count 4.96 M/mm3 (4.6-6.2); White Blood Count 7.7 K/mm3 (4.4-11.0)
[2024-03-21 08:54] LABS: ALB/GLOB Ratio 0.9 RATIO (0.9-2.4); AST(SGOT) 43 U/L (15-37); Alanine Aminotransfer ALT/SGPT 57 U/L (16-61); Albumin, Serum 3.3 g/dL (3.2-5.0); Alkaline Phosphatase 73 U/L (45-117); Anion Gap 5 (5-15); BUN 15 mg/dL (7-18); BUN/Creat Ratio 14.9 RATIO (10-20); Calcium,Total 8.7 mg/dL (8.5-10.1); Chloride 105 mmol/L (98-107); Cholesterol 108 mg/dL (200); Creatinine, Serum 1.01 mg/dL (0.70-1.30); EST Glomerular Filtration Rate 77 mL/min (>60); Est Glom Filt Rate - Afr Amer 93 mL/min (>60); Globulin 3.5 g/dL (2.2-4.2); Glucose 93 mg/dL (74-106); High Density Lipoprotein 40 mg/dL; Microalbumin,Random Urine < 5.0 mg/L (NO RANGE EST.); PSA,Total - Annual Screen 1.56 ng/mL (0.00-4.00); Potassium 3.9 mmol/L (3.5-5.1); Protein, Total 6.8 g/dL (6.4-8.2); Sodium Level 138 mmol/L (136-145); Thyroid Stim Hormone (TSH) 2.96 uIU/mL (0.358-3.74); Triglycerides 53 mg/dL; Very Low Density Lipoprotein 11 mg/dL (5-40)
== END | disposition home or self-care (01) ==
PROVIDERS: PCP Internal Medicine; Referring Provider Internal Medicine; Visit Provider Internal Medicine
DX: E78.00 Pure hypercholesterolemia, unspecified (principal); E03.9 Hypothyroidism, unspecified; Z12.5 Encounter for screening for malignant neoplasm of prostate
CPT/HCPCS: 36415; 80053; 80061; 81001; 82043; 82570; 84153; 84443; 85025; G0103

== ENCOUNTER → 2024-09-27 | Outpatient (CLI) | payer MEDICARE, SELFPAY ==
[2024-09-27 13:36] LABS: Anion Gap 2 (5-15); BUN 15 mg/dL (7-18); BUN/Creat Ratio 14.6 RATIO (10-20); Calcium,Total 8.8 mg/dL (8.5-10.1); Chloride 106 mmol/L (98-107); Creatinine, Serum 1.03 mg/dL (0.70-1.30); EST Glomerular Filtration Rate 75 mL/min (>60); Est Glom Filt Rate - Afr Amer 91 mL/min (>60); Glucose 100 mg/dL (74-106); Potassium 4.9 mmol/L (3.5-5.1); Sodium Level 138 mmol/L (136-145)
== END | disposition home or self-care (01) ==
LOC: LAB 12:06
PROVIDERS: PCP Internal Medicine; Referring Provider Nurse Practitioner Family; Visit Provider Nurse Practitioner Family
DX: I48.0 Paroxysmal atrial fibrillation (principal); I25.10 Atherosclerotic heart disease of native coronary artery without angina pectoris
CPT/HCPCS: 36415; 80048

== ENCOUNTER → 2024-10-04 | Outpatient (CLI) | payer MEDICARE, SELFPAY ==
--- NOTE | 2024-10-04 12:15 | RAD_ITS ---
PROCEDURE: CHEST PA AND LATERAL REASON FOR EXAM: Preoperative examination. TECHNIQUE: PA and lateral chest. COMPARISON: Chest x-ray of 08/08/2023. 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 Stable device of the left atrial appendage. The cardiomediastinal silhouette is stable, with a somewhat tortuous aorta note d. No evidence of cardiomegaly. Lungs appear clear throughout. No pleural effusion or pneumothorax is seen. Right proximal humeral endoprosth esis partially visualized, without apparent complication. Mild thoracic spine degenerative changes are noted. No evidence of acute cardiopulmonary disease. Reading Location: [id number]
== END | disposition home or self-care (01) ==
LOC: RAD 12:10
PROVIDERS: PCP Internal Medicine; Referring Provider Nurse Practitioner Family; Visit Provider Nurse Practitioner Family
DX: Z01.818 Encounter for other preprocedural examination (principal); I48.0 Paroxysmal atrial fibrillation; I25.10 Atherosclerotic heart disease of native coronary artery without angina pectoris
CPT/HCPCS: 71046

== ENCOUNTER 2024-11-20 09:29 | Day surgery (SDC) | payer MEDICARE, SELFPAY ==
[2024-10-12 08:11] VITALS: BMI 25.8
--- NOTE | 2024-11-19 09:36 | HP.PCM_ITS ---
History and Physical Date of Admission: 11/20/24 CASEY MEDEL, is a 74 M who presents today for cardioversion. He has a history of recurrent syncope and had a loop recorder placed at the [facility]. He had presented over the week with syncope and was noted to have significant pauses. He subsequently went on to have a dual- chamber pacemaker placed successfully. He has been having routine pacemaker interrogations. Unbeknownst to him he has had some short periods of atrial fibrillation flutter. He has also more recently had an episode of monomorphic wide complex tachycardia concerning for VT at the end of September 2020. It was AV dissociated for approximately 13 seconds. Patient at that time was not symptomatic but was having a verbal heated argument with his brother. In November of 2020, he underwent a left cardiac catheterization, which demonstrated moderately severe disease (60% stenosis) noted in the proximal left anterior descending artery. He was referred to veneer redrier, Dr. Hanson, for watchman device evaluation due to concerns taking anticoagulation and high fall risk for ongoing dizziness. He proceeded with Watchmen device placement on 01/19/2023. Device evaluation August 2024 showed persistent atrial fibrillation. He is evaluated again with veneer redrier on 09/25/2024 to further discuss rhythm controlling strategies and recommendation to proceed with cardioversion. He presented previously for such cardioversion and was not to have missed a dosage of Eliquis. His cardioversion was not preformed and he presents today for cardioversion after 4 weeks of anticoagulation. He denies chest, arm, jaw, or neck discomfort. He denies palpitations. He denies bilateral lower extremity edema. He denies claudication. He states intermittent shortness of breath with activity such as going up stairs. He denies shortness of breath at rest, orthopnea, or PND. He denies chronic cough. He denies significant, sudden weight gain. He states lightheadedness when overexerting himself along with near syncope. He denies dizziness or syncope. He denies blood in urine, blood in stool, or epistaxis. He denies fever with chills. He denies myalgia. He states fatigue. His exercise level has remained stable. He has been on Eliquis prior to 2023. Intake Vital Signs: See EMR Intake Visit Reasons: [facility] Lubricator Granulator Required: No Accompanied by: Is patient in pain?: No Allergies No Known Allergies Allergy (Verified 09/27/24 10:27) Medications: See EMR Ejection fraction %: 65 Have you fallen in the past year?: No PFSH Medical History Pacemaker malfunction Presence of Watchman left atrial appendage closure device (01/19/23) Nonobstructive atherosclerosis of coronary artery COVID-19 virus detected (09/02/20) Ventricular tachycardia (paroxysmal) (10/02/20) Paroxysmal atrial flutter Paroxysmal atrial fibrillation Nonrheumatic mitral (valve) prolapse Sick sinus syndrome Left inguinal hernia BCC (basal cell carcinoma of skin) Carpal tunnel syndrome Anemia History of DVT (deep vein thrombosis) Plantar fasciitis Hypothyroidism Syncope and collapse Atrioventricular block, complete History of traumatic brain injury Surgical History History of right shoulder replacement History of left heart catheterization (11/03/20) History of permanent cardiac pacemaker placement (07/29/17) Hx of left inguinal hernia repair BCC (basal cell carcinoma of skin) History of lateral meniscus repair of left knee History of colonoscopy (2014) History of tonsillectomy Family History Father CAD (coronary artery disease), Onset Age: 65 CABGMother CAD (coronary artery disease) Thyroid disorder PacemakerBrother Heart disease Valve replacement Social History (Updated 09/27/24 @ 10:28 by Aisha Redding) Smoking Status: Never smoker alcohol intake: current alcohol intake frequency: holidays/special occasions only substance use type: does not use caffeine: Yes Type: coffee ROS Const Const: Positive for fatigue; Negative for weakness Eyes Eyes: Negative for change in vision ENT ENT: Negative for dizziness or balance problems Cardio Chest Pain: No Palpitations: No Edema: None Muscle aches with walking: None Resp Respiratory: Positive for SOB with activity; Negative for SOB at rest or SOB orthopnea\SOB lying down GI GI: Negative nausea or heartburn : Negative for hematuria or frequent nighttime urination/ nocturia Musc Musc: Negative for balance problems Skin Skin: Negative non-healing lesions or rash Neuro Neuro: Negative for dizziness, lightheadedness, near syncope, syncope or weakness Endo Endo: Positive for fatigue Allergy Allergy/Immunology: Negative for rash Cardiology Exam Const Appearance: cooperative, healthy appearing, comfortable and no acute distress Nutritional Appearance: average body habitus and well nourished Orientation: alert, awake and oriented x3 Head Head: normal to inspection Ears: hearing grossly normal bilaterally Nose: external nose normal Face and Sinus: face symmetric Mouth: moist mucous membranes Eyes General: appearance normal, both eyes and all related structures Eyelids: eyelids normal EOM: EOM intact bilaterally Neck Neck: normal visual inspection and no JVD Carotids: normal carotid upstroke Chest Chest inspection: normal inspection of the chest, symmetric chest movement and normal respiratory effort; Negative cough Auscultation: Bilateral: Clear to Auscultation Cardio Rate: regular rate Rhythm: regular rhythm Heart sounds: S1 normal and S2 normal; Negative rub, gallop or murmur GI GI: normal to inspection Neuro General: patient alert, patient awake, patient oriented x3 and CN's II-XI intact bilaterally Skin Skin: no rashes or lesions noted Extremities Pulses: Normal: Right Posterior Tibial Pulse, Left Posterior Tibial Pulse, Right Radial Pulse and Left Radial Pulse Lower Extremity Edema: None: Bilateral Psych Psychological: normal affect Supplemental Info Supplemental Information Echocardiogram from 11/01/2023: Interpretation Summary Normal LV size. Left ventricular systolic function is normal. The estimated ejection fraction is 65 %. Bileaflet diffuse mitral valve thickening. Mild mitral valve prolapse. Mild (1+) mitral valve insufficiency. Echocardiogram 10/23/2019: Interpretation Summary Normal LV size. Left ventricular systolic function is normal. The estimated ejection fraction is 60 %. Stage 2 diastolic dysfunction. Mild tricuspid valve insufficiency. Stress test from 11/01/2023: Conclusion: Normal exercise myocardial perfusion stress test at a high workload Preserved ejection fraction. Cardiac catheterization 11/03/2020: PROCEDURE(S) PERFORMED [id number]/LV CLINICAL PROFILE AND INDICATIONS Indications: Cardiac Arrhythmia Heart Failure: None CONCLUSIONS Moderately severe disease noted in the proximal left anterior descending artery RECOMMENDATIONS Staged for IVUS CORONARY ANGIOGRAPHY DOMINANCE: Right Dominant LEFT HEART ASSESSMENT Left Ventricular Ejection Fraction: by LV Gram 65 % Normal LV wall motion Normal Left Ventricular systolic function LEFT MAIN: Angiographically normal LEFT ANTERIOR DESCENDING ARTERY: PROX LAD: 60 % Stenosis, No significant disease noted CIRCUMFLEX ARTERY: Angiographically normal RIGHT CORONARY ARTERY: Angiographically normal Carotid duplex ultrasound from 09/21/2022: Interpretation Summary Mild (<50%) stenosis right extracranial internal carotid. Mild (<50%) stenosis left extracranial internal carotid. Patent and antegrade vertebrals bilaterally. Assessment and Plan Assessment and Plan (1) Paroxysmal atrial fibrillation: Status: Chronic Comment: JENA occlusion on 01/19/2023 with a 27 mm Watchman device at [facility]; Plan: [id number] score: 2 (age, CAD) (2.2% stroke risk) Atrial fibrillation stage: 3A, paroxysmal left atrial appendage occlusion: 01/19/2023-27 mm Watchman device 12 Lead EC09/27/2024-ventricular paced rhythm at 71 bpm Echocardiogram: 11/01/2023-EF: 65%, mildly enlarged left atrium, mildly enlarged right atrium Heart Rate Control: Metoprolol succinate 50 mg p.o. twice daily Anticoagulation/CVA Protection: Eliquis 5 mg p.o. twice daily Device report on 08/07/2024 showed atrial fibrillation. Per device report, he appears to be in persistent atrial fibrillation since such time. He notes worsening shortness of breath going up stairs and fatigue. He was started on anticoagulation in August 2024. He saw electrophysiology team on 09/25/2024 with agreement to proceed with cardioversion and then return to EP clinic for discussion regarding antiarrhythmic loading with sotalol or Tikosyn or atrial fibrillation ablation. Hopefully with maintaining sinus rhythm, his symptoms improved. Transesophageal echocardiogram on 01/19/2023 showed well-seated Watchman device with no flow around his edges. Post cardioversion, he will remain on Eliquis for 1 month and then ultimately transition back to Aspirin given Watchman device placement. (2) Sick sinus syndrome: Status: Chronic Plan: He is status post permanent pacemaker.. He continue to follow with device clinic. (3) History of permanent cardiac pacemaker placement: Status: Chronic Plan: Device report on 09/12/2024 shows RA pacing 50%, RV pacing 9%, battery life 10 months, persistent AFL/AF, and 17 ventricular high rate episodes. (4) Ventricular tachycardia (paroxysmal): Status: Acute Plan: His most recent pacemaker evaluation shows no true VT/VF episodes. He will continue current medical therapy and continue to monitor. He will continue metoprolol. (5) Nonrheumatic mitral (valve) prolapse: Status: Chronic Plan: Echocardiogram in October 2023 showed an ejection fraction of 65%, mild mitral valve prolapse, mild mitral valve insufficiency, and a pulmonary artery systolic pressure 24 mmHg. Overall, this appears stable. We will continue to monitor. (6) Nonobstructive atherosclerosis of coronary artery: Status: Chronic Plan: Heart catheterization from November 2020 showed moderately severe disease noted in the proximal left anterior descending artery at 60%. Stress test in October 2023 was negative for ischemia at a high workload. Ejection fraction was noted be preserved. Overall, this appears stable. We will continue to monitor. If maintaining sinus rhythm does not improve his shortness of breath or fatigue, will consider repeat stress test. (7) Hyperlipidemia: Status: Acute Qualifiers: Hyperlipidemia type: mixed hyperlipidemia Qualified Code(s): E78.2 - Mixed hyperlipidemia Plan: This is monitored by PCP. He will continue Atorvastatin 80mg.
[2024-11-20 10:19] LABS: Anion Gap 5 (5-15); BUN 20 mg/dL (4-19); Calcium,Total 9.6 mg/dL (7.6-11.0); Carbon Dioxide 28.3 mmol/L (21.0-32.0); Chloride 103 mmol/L (98-108); Creatinine, Serum 1.05 mg/dL (0.70-1.20); EST Glomerular Filtration Rate 75 (>60); Estimated Creatinine Clearance 65.66 ml/min (50-250); Glucose 95 mg/dL (70-99); Potassium 4.5 mmol/L (3.3-5.1); Sodium Level 136 mmol/L (133-145)
--- NOTE | 2024-11-20 11:23 | EKG12_ITS ---
Test Reason : POST DCCV Blood Pressure : */* mmHG Vent. Rate : 62 BPM Atrial Rate : 62 BPM P-R Int : 166 ms QRS Dur : 100 ms QT Int : 450 ms P-R-T Axes : * -42 -68 degrees QTcB Int : 456 ms Electronic atrial pacemaker Left axis deviation ST & T wave abnormality, consider inferior ischemia ST & T wave abnormality, consider anterolateral ischemia Abnormal ECG When compared with ECG of 20-Nov-2024 09:47, MANUAL COMPARISON REQUIRED DATA IS UNCONFIRMED Confirmed by EDGAR ROOT, CURLY ([id number]), script editor CINDY CORONEL ([id number]) on 11/22/2024 5:55:35 AM Referred By: Curly Young Confirmed By: CURLY YOUNG MD
--- NOTE | 2024-11-20 11:30 | PCM.OP.PRO2 ---
Problems Associated Problem List Diagnoses (1) Paroxysmal atrial fibrillation: Non-invasive Procedural Procedure Information Date of Procedure: 11/20/24 Pre-Procedure Diagnosis: Paroxysmal atrial fibrillation Post-Procedure Diagnosis: Same Procedure Performed:: DC cardioversion silk washing machine operator: No Procedure Time Out: :11 Procedure Start Time: :16 Procedure Stop Time: :20 Special Medications: Intravenous propofol Description of procedure: Patient was brought to the cardiac catheterization lab in the postabsorptive nonsedated state. Informed consent was obtained. Anterior-posterior pads were applied. The patient was seen by Dr. Viera of the critical care division. Informed consent was obtained. 40 mg of intravenous propofol was administered. Synchronized DC biphasic energy was applied time to the R wave of the QRS complex and 200 J of synchronized DC cardioversion energy were applied with prompt reversal of 2 sinus rhythm. EKG confirmed the above. Procedure findings: Successful DC cardioversion from atrial fibrillation to sinus and paced rhythm. Complications Complications: No
--- NOTE | 2024-11-20 11:35 | PRO.PCM_ITS ---
Procedures Pulmonary Pulmonary Procedures /Diagnostic Testin Con Sedation Non-invasive Procedural Procedure Information Date of Procedure: 11/20/24 Description of procedure: CONSCIOUS SEDATION REPORT DATE OF SERVICE: November 20, 2024 BRIEF HISTORY OF PRESENT ILLNESS: The patient is a 74-year-old male who presented to [facility] to undergo an elective outpatient cardioversion due to underlying atrial fibrillati on. The patient has never previously undergone a cardioversion. He denied any prior anesthetic complications. The patient is a lifelong non-smoker. He has never been diagnosed with obstructive sleep apnea. The patient is systemically anticoagulated on Eliquis. His last surface echocardiogram demonstrated an ejection fraction of approximately 65%. PHYSICAL EXAMINATION: VITAL SIGNS: Reviewed and were acceptable. GENERAL: The patient is a male, in no apparent distress, speaking in full sentences. HEENT: Normocephalic, atraumatic. Mucous membranes are moist and pink. Good mouth opening noted. Trachea is midline. Good neck mobility. CHEST: S1, S2 irregularly irregular. No murmurs, rubs or gallops were noted. LUNGS: Clear to auscultation bilaterally without appreciable wheezes, rales or rhonchi. ABDOMEN: Soft, nontender, nondistended. Positive bowel sounds. EXTREMITIES: There is no clubbing, cyanosis or edema. ASA Class: II DESCRIPTION OF PROCEDURE: After confirmation of informed consent, the patient's anesthesia plan was reviewed in detail. Propofol was chosen. Risks and benefits were reviewed and the patient agreed to proceed. At 1119, the patient was given 40 mg of propofol. The patient achieved an appropriate level of sedation and was given a 200 joule synchronized cardioversion by Dr. Young at the bedside. This was successful in achieving normal sinus rhythm. The patient was monitored until 1133, at which time he reached his baseline mental status and function. The patient tolerated the procedure well. COMPLICATIONS: None ESTIMATED BLOOD LOSS: None RECOMMENDATIONS: Okay to recover in usual fashion.
== END 2024-11-20 12:20 | disposition home or self-care (01) ==
PROVIDERS: PCP Internal Medicine; Referring Provider Internal Medicine Cardiovascular Disease; Visit Provider Internal Medicine Cardiovascular Disease
DX: I48.0 Paroxysmal atrial fibrillation (principal); I48.19 Other persistent atrial fibrillation; I47.20 Ventricular tachycardia, unspecified; Z79.01 Long term (current) use of anticoagulants; I25.10 Atherosclerotic heart disease of native coronary artery without angina pectoris; Z95.0 Presence of cardiac pacemaker; R06.09 Other forms of dyspnea; I34.1 Nonrheumatic mitral (valve) prolapse; E78.2 Mixed hyperlipidemia
CPT/HCPCS: 36415; 80048; 93005

== ENCOUNTER → 2024-12-04 | Outpatient (CLI) | payer MEDICARE, SELFPAY ==
[2024-12-04 10:57] LABS: Bacteria 0 SEEN /hpf (None Seen); Mucous, Urine 0 SEEN /hpf (<or=2+); Red Blood Cells-Urine 0 SEEN /hpf (0-5); Squamous Epithelial Cells - UA 0 SEEN /hpf (0-5); White Blood Cells 0 SEEN /hpf (0-5)
[2024-12-04 11:13] LABS: Hematocrit 44.2 % (40-54); Hemoglobin 14.8 g/dL (13.0-16.5); Mean Corp Hgb Conc 33.5 g/dL (32-36); Mean Corpuscular Hgb 28.8 pg (27.0-32.0); Mean Corpuscular Volume 86.2 fL (80-94); Platelet Count 230 K/mm3 (150-450); RBC Distribution Width SD 44.7 fl (35.1-43.9); Red Blood Count 5.13 M/mm3 (4.6-6.2); White Blood Count 7.1 K/mm3 (4.4-11.0)
[2024-12-04 11:27] LABS: International Normalized Ratio 1.2; Prothrombin Time (Protime)PT. 15.2 SECONDS (11.7-14.9)
[2024-12-04 11:28] LABS: Color, Urine Straw (Yellow); Glucose, Dipstick Normal (Normal); Ketone-Dipstick Negative (Negative); Leukocyte Esterase-Dipstick Negative /ul (Negative); Nitrite-Dipstick Negative (Negative); Occult Blood-Urine Negative /ul (Negative); Protein-Dipstick 15 mg/dl (Negative); Urine Bilirubin Dipstick Negative (Negative); Urine Clarity Clear (Clear); Urine Urobilinogen Normal (Normal); Urine pH 6.5 (5.0 - 8.0)
[2024-12-04 12:51] LABS: Anion Gap 8 (5-15); BUN 16 mg/dL (4-19); Calcium,Total 8.8 mg/dL (7.6-11.0); Carbon Dioxide 28.3 mmol/L (21.0-32.0); Chloride 107 mmol/L (98-108); Creatinine, Serum 0.84 mg/dL (0.70-1.20); EST Glomerular Filtration Rate 93 (>60); Glucose 73 mg/dL (70-99); Potassium 4.9 mmol/L (3.3-5.1); Sodium Level 143 mmol/L (133-145)
== END | disposition home or self-care (01) ==
LOC: LAB 10:52
PROVIDERS: Nurse Practitioner Family; PCP Internal Medicine; Referring Provider Physician Assistant Medical; Visit Provider Physician Assistant Medical
DX: I48.92 Unspecified atrial flutter (principal); I49.5 Sick sinus syndrome; I44.2 Atrioventricular block, complete; T82.111A Breakdown (mechanical) of cardiac pulse generator (battery), initial encounter; Z95.818 Presence of other cardiac implants and grafts; Z95.0 Presence of cardiac pacemaker
CPT/HCPCS: 36415; 80048; 81001; 85027; 85610

== ENCOUNTER 2024-12-17 10:43 | Day surgery (SDC) | payer MEDICARE, SELFPAY ==
[2024-12-14 08:05] VITALS: BMI 25.9
--- NOTE | 2024-12-17 12:38 | CL.IE_ITS ---
Patient: CASEY MEDEL Study Date: 12/17/2024 Performing: Curly Young MD : [id number] Age: 74 Gender: male PROCEDURES PERFORMED [id number])BATTERY REMOVAL+REPLACEMENT PACER-DUAL LEAD INDICATIONS End-of-life replacement indicator PROCEDURE DETAILS The patient was brought to the Catheterization Lab in the postabsorptive nonsedated state. Informed consent was obtained prior to the procedure. PPM generator was then interrogated by the computer numerical control programmer. Local anesthetic was given subcutaneously to the left subclavian region with Lidocaine 2%. Incision was made to the left subclavicular area. PPM generator was attached to the lead(s) and inserted into the pocket. Device pocket was irrigated with antibiotic. Subcutaneous closure was completed with 2-0 Vicryl. Skin closure was completed with 3-0 Vicryl. The patient tolerated the procedure well. Estimated Blood Loss: < 10 mls IMPLANTED / EX-PLANTED DEVICES EXPLANTED DEVICE(S): PPM Generator - Telesales Representative: Sp[employer]Live, Model # L111 , Serial # [id number] IMPLANTED DEVICE(S): PPM Generator - Telesales Representative: Sp[employer]Live, Model # ESSENTIO MRI EL DR , Serial # [id number] DEVICE PARAMETERS DEVICE PARAMETERS: Mode- DDDR Lower rate- 60 Upper rate- 130 CONCLUSIONS / RECOMMENDATIONS Device Conclusions: Successful implantation of a dual chamber pacemaker battery change and replacement Device Recommendations: Follow up with Primary Care Physician PROCEDURE MEDICATIONS Fentanyl 50 mcg IV Versed 1 mg IV Versed 1 mg IV Oxygen: 2 L/min via nasal cannula Antibiotic given in appropriate timeframe. Ancef 2 Gm IV @ 12/17/2024 11:42:25 Signed By Curly Young MD On 12/17/2024 12:37:34 Curly Young MD
== END 2024-12-17 13:30 | disposition home or self-care (01) ==
PROVIDERS: PCP Internal Medicine; Referring Provider Internal Medicine Cardiovascular Disease; Visit Provider Internal Medicine Cardiovascular Disease
DX: Z45.010 Encounter for checking and testing of cardiac pacemaker pulse generator [battery] (principal); I48.0 Paroxysmal atrial fibrillation; I49.5 Sick sinus syndrome; I47.29 Other ventricular tachycardia; Z79.890 Hormone replacement therapy; Z79.01 Long term (current) use of anticoagulants; Z79.899 Other long term (current) drug therapy; E03.9 Hypothyroidism, unspecified; I34.1 Nonrheumatic mitral (valve) prolapse; I25.10 Atherosclerotic heart disease of native coronary artery without angina pectoris; E78.2 Mixed hyperlipidemia
CPT/HCPCS: 33228; 99152; 99153

== ENCOUNTER → 2025-08-02 | Outpatient (CLI) | payer MEDICARE, SELFPAY ==
--- NOTE | 2025-08-02 13:05 | RAD_ITS ---
PROCEDURE: CHEST PA AND LATERAL 08/02/2025 REASON FOR EXAM: PRE-OPERATIVE: DCCV TECHNIQUE: Procedure Code: RADCXR Modality: DX Procedure: CHEST PA AND LATERAL COMPARISON: 10/04/2024 FINDINGS: Left chest pacer. Right proximal humeral prosthesis. Cardiac valve repair. No focal consolidation. No pleural effusion or pneumothorax. Cardiac silhouette is within normal limits. No acute fractures. RAD/Chest PA and Lateral IMPRESSION: No focal consolidation. Reading Location: [id number]
--- OUTSIDE RECORDS SUMMARY | 2025-08-02 13:15 | XMS RPT_ITS | CCD ---
Author Organization [facility] ion [facility] Care Team Providers Care Rat Culturist Name Role Phone JOSLYN Krause, Pauly Roy Unavailable Unavailable JOSLYN Krause, Pauly Roy Unavailable Unavailable VanceAndres reveleseen Unavailable Reji Guerrero Unavailable Haseeb Page Unavailable Vance, Simran Unavailable Camille Rodriguez Unavailable Unavailab Chris Blanchard Unavailable Riya Hermosillo Unavailable Unavailable Unavailable Unavailable Vance, Simran Unavailable Reji Guerrero Unavailable Haseeb Page Unavailable Antoni Crocker Unavailable Vance, Simran Unavailable Camille Rodriguez Unavailable Unavailab Chris Blanchard Unavailable Suhas Davis Unavailable Unavailable Riya Hermosillo Unavailable Unavailable Jerrica, Poonam Unavailable Unavailable Unavailable Unavailable Suhas Davis Unavailable Unavailable Mancal, Poonam Unavailable Unavailable Rozina, Kassidy Unavailable Unavailable Suhas Richard Unavailable Unavailable Riya Hermosillo Unavailable Unavailable Danika Quezada Unavailable Olena Mccrary Unavailable Unavailable Antionette Koo Unavailable Unavailable Antoni Crocker Unavailable Vance DO Simran Unavailable Reji Guerrero MD Unavailable Dr. Haseeb Page Unavailable Antoni Crocker MD Unavailable Vance DO, Simran Unavailable [phone] Camille Rodriguez Unavailable Unavailab Dr. Chris Blanchard Unavailable Jerrica CHANEY, Poonam Unavailable Unavailable Jaimee JORGENSEN, Riya Unavailable Unavailable Jose Manuel BHANDARIN, Suhas Unavailable Unavailable Gravius DYE MAKER, Olena Unavailable Unavailable Slarb UPHOLSTERY CUTTER, Chelsi Unavailable Unavailable Ciesa REGULATOR MECHANIC, Gina Unavailable Unavailable Unavailable Unavailable Unavailable DR SIMRAN WOODARD DO Primary Care Physician [phone] Rozina UPHOLSTERY CUTTER, Kassidy Unavailable Unavailable Neftali UPHOLSTERY CUTTER, ANASTACIO Unavailable Unavailable Vance DO Simran Unavailable [phone] Ciesa, Danika Unavailable Ciesa Danika Unavailable Simran Woodard DO Primary Care Provider Dr. Simran Woodard Primary Care Provider [phone] Dr. Curly Young Attending Provider [phone] Curly Young Referring Provider [phone] Simran Woodard Referring Provider [facility] SEASONAL RECRUITER, SEASONAL RECRUITERBarbara Macias Attending Provider Dr. Onofre Jean Attending Provider [phone] Simran Woodard DO Attending Unavailable Vance DOSimran Referring Unavailable Vance DOSimran Consulting Unavailable Vance DO, Simran Unavailable [phone] Reji Geurrero MD Unavailable Dr. Haseeb Page Unavailable [phone] Antoni Crocker MD Unavailable Vance DO, Simran Unavailable [phone] Camille Rodriguez Unavailable Unavailab Dr. Chris Blanchard Unavailable Jerrica CHANEY, Poonam Unavailable Unavailable Jaimee JORGENSEN, Riya Unavailable Unavailable Suhas Richard LPN Unavailable Unavailable Javi DYE MAKER, Kayela Unavailable Unavailable Danika Quezada Unavailable Unavailable Unavailable Dr. Simran Woodard Primary Care Provider [phone] Dr. Curly Young Attending Provider [phone] Simran Woodard Referring Provider Roof SEASONAL RECRUITER, SEASONAL RECRUITER-C Prosper Macias Attending Provider Dr. Curly Young Referring Provider [phone] Cinda Krause Attending Provider Unavailable Simran Woodard DO Primary Care Provider SIMRAN WOODARD Referring Unavailable SIMRAN WOODARD Primary Care Unavailable JESSIE WILLIS Attending Unavailable Dr. Simran Woodard DO Primary Care Provider Dr. Curly Young MD Attending Provider [phone] Dr. Curly Young MD Referring Provider [phone] Dr. Simran Woodard DO Referring Provider [phone] [facility] SEASONAL RECRUITER-CProsper Attending Provider [phone] [facility] SEASONAL RECRUITER-CProsper Referring Provider [phone] Dr. Curly Young MD Other Provider [phone] Pablito Viera DO Attending Provider Dr. Simran Woodard DO Primary Care Provider Dr. Curly Young MD Attending Provider [phone] Dr. Curly Young MD Referring Provider [phone] Manju Ross Attending Provider [phone] Cinda Krause Attending Provider Unavailable Manju Ross Referring Provider [phone] Dr. Simran Woodard DO Primary Care Provider Dr. Curly Young MD Attending Provider [phone] Dr. Simran Woodard DO Referring Provider Cinda Krause Attending Provider Unavailable Vance DO, Dr. Khalil Primary Care Provider Hannah ROOT, Dr. Rawls Attending Provider Hannah ROOT, Dr. Rawls Referring Provider MATVERENICE DANIELLEISAL Attending Unavailable SELF Referring Unavailable VANCE, SIMRAN RIYA Primary Care Unavailab le MATTO, MOOK Attending Unavailable SELF Referring Unavailable VANCE, SIMRAN RIYA Primary Care Unavailab le MATTO, MOOK Attending Unavailable SELF Referring Unavailable VANCE, SIMRAN RIYA Primary Care Unavailab le Vance, Simran Primary Care Unavailable Pablito Viera Attending Unavailable Hannah, [place] Consulting Unavailable Hannah, Curly Referring Unavailable Hannah, [place] Attending Unavailable Hannah, Curly Referring Unavailable Vance, Simran Primary Care Unavailable Vance, Simran Referring Unavailable Roof SEASONAL RECRUITERProsper Attending Unavailable Vance, Simran Primary Care Unavailable Hannah, [place] Attending Unavailable Hannah, Curly Referring Unavailable Vance, Simran Primary Care Unavailable Hannah, [place] Attending Unavailable Hannah, Curly Referring Unavailable Vance, Simran Primary Care Unavailable Vance, Simran Referring Unavailable Vance, Simran Primary Care Unavailable Cinda Krause Attending Unavailable Vance, Simran Primary Care Unavailable Manju Ross Referring Unavail able Manju Ross Attending Unavail able Hannah, [place] Referring Unavailable Vance, Simran Primary Care Unavailable Hannah, [place] Attending Unavailable Vance, Simran Primary Care Unavailable Vance, Simran Referring Unavailable Roof SEASONAL RECRUITER, Prosper Macias Attending Unavailable Vance, Simran Primary Care Unavailable Hannah, Curly Attending Unavailable Hannah, [place] Attending Unavailable Hannah, Curly Referring Unavailable Vance, Simran Primary Care Unavailable Hannah, Curly Referring Unavailable Hannah, Curly Attending Unavailable Vance, Simran Primary Care Unavailable Hannah, Curly Attending Unavailable Hannah, [place] Referring Unavailable Vance, Simran Primary Care Unavailable Vance, Simran Primary Care Unavailable Hannah, Curly Attending Unavailable Hannah, Curly Referring Unavailable Vance, Simran Primary Care Unavailable Hannah, [place] Attending Unavailable Hannah, Curly Referring Unavailable Vance, Simran Primary Care Unavailable Hannah, [place] Attending Unavailable Hannah, Curly Consulting Unavailable Hannah, Curly Referring Unavailable Vance, Simran Primary Care Unavailable Vance, Simran Referring Unavailable Manju Ross Attending Unavail able Vance, Simran Primary Care Unavailable Hannah, Curly Referring Unavailable Hannah, Curly Attending Unavailable Vance, Simran Primary Care Unavailable Roof SEASONAL RECRUITER, Prosper H Referring Unavailable Roof SEASONAL RECRUITER, Prosper H Attending Unavailable Vance, Simran Primary Care Unavailable Hannah, Curly Attending Unavailable Vance, Simran Primary Care Unavailable Roof SEASONAL RECRUITER, Prosper H Referring Unavailable Roof SEASONAL RECRUITER, Prosper H Attending Unavailable Vance, Simran Primary Care Unavailable Hannah, [place] Referring Unavailable Hannah, Curly Attending Unavailable Vance, Simran Primary Care Unavailable Hannah, Curly Attending Unavailable Hannah, Curly Referring Unavailable Vance, Simran Primary Care Unavailable Hannah, Curly Attending Unavailable Hannah, Curly Consulting Unavailable Hannah, Curly Referring Unavailable Allergies Allergy Classification Reported Allergen(s) Allergy [...] Allergy to substance (finding) [facility]; [facility] Work Phone: NEGATED: Highlighted row [...] Allergy to substance (finding) [facility]; [facility] Work Phone: NEGATED: Highlighted row has been ruled out! (1 source) Allergy to drug (finding) [facility]; [facility] Work Phone: Medications Current Medications [...] tab(s), 0 Refill(s), 12/09/21 8:35:00 EDT, Pharmacy: [id number], 177.8, cm, 11/24/21 11:54:00 [...] 0 Refill(s) Start Date: 11/24/21 Status: Ordered apixaban 5 mg oral tablet (20 sources) Factor Xa Inhibitor Start: 09-16-2024 take 1 tablet by mouth every twelve hours ELIQUIS 5 mg tab(s) Take 1 tablet by mouth every 12 hours. 09/16/2024 Active Start: 08-20-2024 End: 05-08-2025 take 1 tablet by mouth twice daily Apixaban (Eliquis) 5 mg tablet Discontinued 5 mg PO TWICE A DAY 60 September 17, 2024 9:11am December 17, 2024 1:09pm Start: 11-02-2021 End: 03-31-2023 take 1 tablet by mouth twice daily Apixaban (Eliquis) 5 mg tablet Discontinued 5 mg PO TWICE A DAY 60 December 10, 2022 11:09am March 31, 2023 1:31pm Comment on above: Take 5 mg by mouth t wice daily. aspirin 81 mg delayed release oral tablet (20 sources) Platelet Aggregation Inhibitor, Nonsteroidal Anti-inflammatory Drug Start: 03-09-2023 End: 09-27-2024 take 1 tablet by mouth once daily aspirin, enteric coated (ECOTRIN LOW STRENGTH) 81 mg EC tablet Indications: Presence of Watchman left atrial appendage closure device Take 1 tablet by mouth once daily. 90 tablet 3 03/09/2023 Active Start: 09-25-2021 End: 10-28-2022 Start: 10-02-2019 End: 11-02-2021 take 1 tablet by mouth once daily Aspirin (Adult Aspirin Regimen) 81 mg tablet,delayed release (DR/EC) Discontinued 81 mg PO DAILY October 02, 2019 1:00am November 02, 2021 6:27pm Start: 08-22-2015 End: 09-21-2015 Start: 08-22-2015 End: 09-21-2015 take 3 tablets by mouth once daily ASPIRIN ADULT LOW DOSE, 81MG (Oral Tablet Delayed Release) [address] daily for 30 days Refills: 0 Ordered: 22-Sep-2015 Janel Diaz MD Start : 22-Aug-2015 End : 21-Sep-2015 Inactive End: 03-09-2023 take 1 tablet by mouth once aspirin 81 mg chewable tab let Take 81 mg by mouth one time only. 0 03/09/2023 Discontinued (Other) Comment on above: Take 1 tablet by prema th once daily. Take 81 mg by mouth one time only. 24 hr metoprolol succinate 50 mg extended release oral tablet (20 sources) beta-Adrenergic Violet Start: 09-06-2024 take 1 tablet by mouth twice daily Metoprolol Succinate 50 mg tablet extended release 24 hr Active 50 mg PO TWICE A DAY 180 3 September 06, 2024 10:31am this is a dose increase Start: 08-28-2024 End: 09-06-2024 Metoprolol Succinate 50 mg t ablet extended release 24 hr Discontinued 50 mg PO daily 90 3 August 28, 2024 1:00am September 06, 2024 10:32am Dose increased from 25 to 50 mg Start: 08-10-2024 End: 08-28-2024 Metoprolol Succinate 25 mg t ablet extended release 24 hr Discontinued 50 mg PO DAILY 0 0 August 10, 2024 1:06pm August 28, 2024 11:07am Start: 07-04-2023 take 1 tablet by prema th twice daily metoprolol succinate ER (TOPROL XL) 25 mg 24 hr tablet Take 50 mg by mouth two times a day. 07/04/2023 Active Start: 07-04-2023 metoprolol suc cinate ER (TOPROL XL) 25 mg 24 hr tablet 07/04/2023 Active Start: 04-08-2023 End: 08-10-2024 take 1 tablet by mouth once daily Metoprolol Succinate 25 mg tablet extended release 24 hr Discontinued 25 mg PO DAILY 90 March 30, 2024 9:24am August 10, 2024 1:07pm Start: 08-11-2022 End: 01-17-2023 metoprolol tartrate, short a cting, (LOPRESSOR) 50 mg tablet Take one 50 mg tablet the evening prior to the CTA examination, take another 50 mg tablet the morning of the CTA examination. 2 tablet 0 08/11/2022 01/17/2023 Discontinued (Discontinued by another Health Care Provider) Start: 10-24-2020 End: 10-24-2020 take 2 tablets by mouth once daily Metoprolol Succinate 50 mg tablet extended release 24 hr Discontinued 25 mg PO DAILY October 24, 2020 5:27pm October 24, 2020 5:39pm Ventricular tachycardia Paroxysmal atrial fibrillation ventricular tachycardia Start: 10-24-2020 End: 10-24-2020 take 25 mg by mouth once daily Metoprolol Succinate Di scontinued 25 MG PO DAILY October 24, 2020 4:27pm October 24, 2020 4:39pm Start: 10-03-2020 End: 10-24-2020 take 1 tablet by mouth once daily Metoprolol Succinate 50 mg tablet extended release 24 hr Discontinued 50 mg PO DAILY 90 October 03, 2020 1:00am October 24, 2020 5:28pm Ventricular tachycardia Paroxysmal atrial fibrillation ventricular tachycardia Comment on above: Take one 50 mg table t the evening prior to the CTA examination, take another 50 mg tablet the morning of the CTA examination. oxyCODONE hydrochloride 5 mg oral tablet (1 source) Opioid Agonist Start: 11-26-19 End: 12-03-19 take 1-2 tablets by mouth every four hours as needed for pain oxyCODONE 5 mg oral tablet ( IMMEDIATE release ) See Instructions, PRN as needed for pain, 1-2 tab(s) Oral q4h, # 42 tab(s), 0 Refill(s), 12/02/21 8:36:00 EDT, Pharmacy: [id number], Status post total replacement of right shoulder, 177.8, cm, 11/24/21 11:54:00 EDT, Height, 79.5, kg, 11/24/... Start Date: 11/25/21 Stop Date: 12/02/21 Status: Ordered sennosides, DETENTION (1 source) Start: 11-26-19 End: 11-29-19 take 1 tablet by mouth twice daily Senokot S 50 mg-8.6 mg oral tablet Dose = 2 tab(s), Oral, BID, Take until first bowel movement, then as needed, # 20 tab(s), 0 Refill(s), Pharmacy: [id number], 177.8, cm, 11/24/21 11:54:00 EDT, Height, kg, 11/24/21 11:54:00 EDT, Dosing Weight Start Date: 11/25/21 Stop Date: 11/28/21 Status: Ordered Vitamin D3 (2 sources) Start: 11-04-19 Vitamin D3 5000 IU, Oral, qDay, 0 Refill(s) Start Date: 11/03/21 Status: Ordered Vitamin D3 125 mcg (5000 intl units) oral capsule (1 source) Start: 11-25-19 Vitamin D3 125 mcg (5000 intl units) oral capsule Dose : 5,000 unit(s) = 1 cap(s), Oral, qDay Start Date: 11/24/21 Status: Ordered Completed/Discontinued Medications Medication Drug Class(es) Dates Sig (Normalized) Sig (Original) acetaminophen 750 mg / HYDROcodone bitartrate 7.5 mg oral tablet (20 sources) Opioid Agonist Start: 01-10-2007 End: 11-06-2007 Start: 01-10-2007 End: 11-06-2007 take 7.5-750 mg by mouth every six hours as needed VICODIN ES, 7.5-750MG (Oral Tablet) 1 (one) Tablet q6 hours prn for 0 days Quantity: 20 {Tablet} Refills: 0 Ordered: 10-Jan-2007 Riya Hermosillo RN Start : 10-Jan-2007 End : 06-Nov-2007 Inactive acetaminophen 325 mg / oxyCODONE hydrochloride 5 mg oral tablet (16 sources) Opioid Agonist Start: 01-17-2019 End: 01-23-2019 Oxycodone-Acetaminophen 1 TABLET tablet Discontinued 1 - 2 {tbl} PO EVERY 4 HOURS NEEDED as needed for Pain 30 January 17, 2019 12:00am January 22, 2019 12:00am January 23, 2019 12:06am Start: 01-17-2019 End: 01-23-2019 take 1 tablet by mouth every four hours as needed Oxycodone-Acetaminophen Discontinued 1 - 2 TABLET PO EVERY 4 HOURS NEEDED 30 6 January 16, 2019 11:00pm January 22, 2019 11:06pm Start: 03-12-2018 End: 07-05-2018 Oxycodone-Acetaminophen 1 TA BLET tablet Discontinued 1 {tbl} PO EVERY 6 HOURS NEEDED as needed for Pain 20 5 0 March 12, 2018 12:00am July 05, 2018 7:41am Sprain of knee Sprain of unspecified site of unspecified knee, initial encounter Start: 03-12-2018 End: 07-05-2018 take 1 tablet by mouth every six hours as needed Oxycodone-Acetaminophen Discontinued 1 TABLET PO EVERY 6 HOURS NEEDED 20 5 March 11, 2018 11:00pm July 05, 2018 6:41am sensor 200 actuat albuterol 0.09 mg/actuat dry powder inhaler (20 sources) beta2-Adrenergic Agonist Start: 09-25-2021 End: 11-02-2021 Start: 09-25-2021 End: 11-02-2021 take 2 puff(s) by inhalation three times daily ProAir Digihaler 108 (90 Base) MCG/ACT Inhalation Aerosol Powder Breath Activated 2 (two) Puff tid or qid for 0 days Quantity: 1 {Each} Refills: 0 Ordered: 02-Nov-2021 Chelsi Krause LPN Start : 25-Sep-2021 End : 02-Nov-2021 Inactive Start: 09-19-2020 End: 11-02-2021 Start: 09-19-2020 End: 11-02-2021 Proventil HFA 108 (90 Base) MCG/ACT Inhalation Aerosol Solution 1 (one) Puff 2 puffs every 6 hours as needed for 0 days Quantity: 1 {Inhaler} Refills: 0 Ordered: 02-Nov-2021 Chelsi Krause LPN Start : 19-Sep-2020 End : 02-Nov-2021 Inactive Comments: Medication taken as needed. R05 Start: 09-19-2020 Proventil HFA 108 (90 Base) MCG/ACT Inhalation Aerosol Solution 1 (one) Puff 2 puffs every 6 hours as needed for 0 days Quantity: 1 {Inhaler} Refills: 0 Ordered: 19-Sep-2020 Antionette Koo LPN Start : 19-Sep-2020 Active Comments: Medication taken as needed. R05 Start: 09-30-2017 End: 09-12-2019 Start: 09-30-2017 End: 09-12-2019 Start: 09-30-2017 End: 09-12-2019 take 2 puff(s) by inhalation every six hours as needed ProAir RespiClick 108 (90 Base) MCG/ACT Inhalation Aerosol Powder Breath Activated 2 (two) Puff Puff q6 hr prn for 0 days Quantity: 1 {Inhaler} Refills: 0 Ordered: 12-Sep-2019 Suhas Richard LPN Start : 30-Sep-2017 End : 12-Sep-2019 Inactive Start: 08-25-2015 End: 03-18-2016 Start: 08-25-2015 End: 03-18-2016 Proventil HFA 108 (90 Base) MCG/ACT Inhalation Aerosol Solution 1 (one) Aerosol Soln 1-2puffs bid for 0 days Quantity: 1 {Each} Refills: 0 Ordered: 18-Mar-2016 Poonam Becerril CMA Start : 25-Aug-2015 End : 18-Mar-2016 Inactive Start: 07-18-2008 End: 10-01-2008 Start: 07-18-2008 End: 10-01-2008 VENTOLIN HFA, 108 (90 Base)M CG/ACT (Inhalation Aerosol Solution) 2 (two) Aerosol Soln Q 6hr/PRN for 0 days Refills: 0 Ordered: 18-Jul-2008 Darcy Staton Start : 18-Jul-2008 End : 01-Oct-2008 Discontinued Start: 07-18-2008 End: 10-01-2008 VENTOLIN HFA, 108 (90 Base)M CG/ACT (Inhalation Aerosol Solution) 2 (two) Aerosol Soln Q 6hr/PRN for 0 days Refills: 0 Ordered: 18-Jul-2008 Darcy Staton Start : 18-Jul-2008 End : 01-Oct-2008 Discontinued Start: 07-18-2008 End: 10-01-2008 VENTOLIN HFA, 108 (90 Base)M CG/ACT (Inhalation Aerosol Solution) 2 (two) Aerosol Soln Q 6hr/PRN for 0 days Refills: 0 Ordered: 18-Jul-2008 Darcy Staton Start : 18-Jul-2008 End : 01-Oct-2008 Discontinued Comment on above: Medication taken as needed. R05 amoxicillin 875 mg / clavulanate 125 mg oral tablet (20 sources) Penicillin-class Antibacterial Start: 08-25-2015 End: 09-10-2015 Start: 08-25-2015 End: 09-10-2015 take 1 tablet by mouth twice daily AUGMENTIN, 875-125MG (Oral Tablet) 1 Tablet bid for 0 days Quantity: 28 {Tablet} Refills: 0 Ordered: 10-Sep-2015 Chelsi Krause LPN Start : 25-Aug-2015 End : 10-Sep-2015 Discontinued ascorbic acid (4 sources) take 1 tablet by prema th once daily VITAMIN C TABS One tablet by mouth daily ASCORBIC ACID TABS [id number] Haseeb Page DO End: 07-13-2012 take 1 tablet by mouth once daily VITAMIN C TABS One tablet by mouth daily ASCORBIC ACID TABS [id number] Gregorio Patel MD atorvastatin 80 mg oral tablet (20 sources) HMG-CoA Reductase Inhibitor Start: 11-03-2020 End: 10-30-2024 take 1 tablet by mouth once daily Atorvastatin (Lipitor) 80 mg tablet Discontinued 80 mg PO DAILY 90 November 07, 2023 12:13pm October 30, 2024 5:51pm Comment on above: Dr. Young Take 80 mg by mouth once daily. azithromycin 250 mg oral tablet (20 sources) Macrolide Antimicrobial Start: 09-25-2021 End: 11-02-2021 Start: 09-12-2019 End: 06-04-2021 Zithromax Z-Naomy 250 MG Oral Tablet 1 (one) Tablet TAD for 0 days Quantity: 1 {Package} Refills: 0 Ordered: 04-Jun-2021 Olena Mccrary CMA Start : 12-Sep-2019 End : 04-Jun-2021 Inactive Start: 08-22-2015 End: 08-25-2015 ZITHROMAX Z-NAOMY, 250MG (Oral Tablet) Tablet TAD for 0 days Quantity: 1 {Package(s)} Refills: 0 Ordered: 25-Aug-2015 ANASTACIO Lindsay LPN Start : 22-Aug-2015 End : 25-Aug-2015 Inactive Comment on above: 1 package breath-actuated 120 actuat b eclomethasone dipropionate 0.08 mg/actuat metered dose inhaler (20 sources) Corticosteroid Start: 09-11-2015 End: 03-18-2016 Start: 09-11-2015 End: 03-18-2016 Qvar 80 MCG/ACT Inhalation A erosol Solution 1 (one) Aerosol Soln Aerosol Soln bid for 0 days Quantity: 1 {Inhaler} Refills: 0 Ordered: 18-Mar-2016 ChicoPoonam mccall CMA Start : 11-Sep-2015 End : 18-Mar-2016 Inactive Start: 09-11-2015 End: 03-18-2016 Qvar 80 MCG/ACT Inhalation A erosol Solution 1 (one) Aerosol Soln Aerosol Soln bid for 0 days Quantity: 1 {Inhaler} Refills: 0 Ordered: 18-Mar-2016 Poonam Becerril CMA Start : 11-Sep-2015 End : 18-Mar-2016 Inactive Chlorpheniramine / Codeine (20 sources) Histamine-1 Receptor Antagonist, Opioid Agonist Start: 09-12-2015 End: 09-19-2015 Start: 09-12-2015 End: 09-19-2015 take 10 mL by mouth every twelve hours TUZISTRA XR, 14.7-2.8MG/5ML (Oral Liquid Extended Release) 10 Milliliter q12hr for 7 days Quantity: 280 {Milliliter} Refills: 0 Ordered: 12-Sep-2015 Danika Quezada Start : 12-Sep-2015 End : 19-Sep-2015 Inactive Comments: max 10ml /24 Start: 09-12-2015 End: 09-19-2015 take 10 mL by mouth every twelve hours TUZISTRA XR, 14.7-2.8MG/5ML (Oral Liquid Extended Release) 10 Milliliter q12hr for 7 days Quantity: 280 {Milliliter} Refills: 0 Ordered: 12-Sep-2015 Danika Quezada CNP Start : 12-Sep-2015 End : 19-Sep-2015 Inactive Comments: max 10ml /24 Start: 09-12-2015 End: 09-19-2015 take 10 mL by mouth every twelve hours TUZISTRA XR, 14.7-2.8MG/5ML (Oral Liquid Extended Release) 10 Milliliter q12hr for 7 days Quantity: 280 {Milliliter} Refills: 0 Ordered: 12-Sep-2015 Danika Quezada CNP Start : 12-Sep-2015 End : 19-Sep-2015 Inactive Comments: max 10ml /24 Comment on above: max 10ml /24 clopidogrel 75 mg oral tablet (9 sources) P2Y12 Platelet Inhibitor Start: 3 End: 4 take 1 tablet by mouth once daily Clopidogrel 75 mg tablet Discontinued 75 mg PO DAILY March 31, 2023 12:00am September 12, 2023 12:06pm Comment on above: Take 1 tablet by prema th once daily. codeine phosphate 2 mg/ml / guaiFENesin 20 mg/ml oral solution (20 sources) Opioid Agonist Start: 2 End: 2 Start: 09-25-2021 End: 11-02-2021 Virtussin A/C 100-10 MG/5ML Oral Solution 5-10 Milliliter tid or qid for 0 days Quantity: 280 {Milliliter} Refills: 0 Ordered: 02-Nov-2021 Chelsi Krause LPN Start : 25-Sep-2021 End : 02-Nov-2021 Inactive Start: 08-22-2015 End: 09-10-2015 Start: 08-22-2015 End: 09-10-2015 CHERATUSSIN AC, 100-10MG/5ML (Oral Syrup) 1 (one) Syrup Syrup 1-2 teaspoons every 6hours prn for 0 days Quantity: 8 {Fluid_Ounce} Refills: 0 Ordered: 10-Sep-2015 Chelsi Krause LPN Start : 22-Aug-2015 End : 10-Sep-2015 Discontinued Comments: eight Start: 10-01-2008 End: 05-05-2009 Start: 10-01-2008 End: 05-05-2009 GUAIATUSSIN AC, 100-10MG/5ML (Oral Syrup) 1 Syrup 1 tsp qhs for 0 days Quantity: 6 {Ounce(s)} Refills: 0 Ordered: 01-Oct-2008 ANASTACIO Lindsay LPN Start : 01-Oct-2008 End : 05-May-2009 Inactive Comment on above: eight desoximetasone 2.5 mg/ml top ical cream (20 sources) Corticosteroid Start: 09-12-2013 End: 04-09-2015 Start: 09-12-2013 End: 04-09-2015 DESOXIMETASONE, 0.25% (Exter nal Cream) 1 Cream qd prn for 0 days Quantity: 30 {gram(s)} Refills: 2 Ordered: 09-Apr-2015 Riya Hermosillo RN Start : 12-Sep-2013 End : 09-Apr-2015 Inactive dexamethasone 6 mg oral tablet (20 sources) Corticosteroid Start: 09-19-2020 End: 09-24-2020 Comment on above: R05 dexlansoprazole 60 mg delayed release oral capsule (20 sources) Proton Pump Inhibitor Start: 09-11-2015 End: 03-18-2016 doxycycline hyclate 100 mg oral capsule (19 sources) Tetracycline-class Drug Start: 05-27-2021 End: 06-15-2021 fish oil (4 sources) take 1 tablet by mouth once daily FISH OIL CAPS One tablet by mouth daily OMEGA-3 FATTY ACIDS CAPS [id number] Haseeb Page DO End: 07-13-2012 take 1 tablet by mouth once daily FISH OIL CAPS One tablet by mouth daily OMEGA-3 FATTY ACIDS CAPS [id number] Gregorio Patel MD FLUoxetine 20 mg oral tablet (20 sources) Serotonin Reuptake Inhibitor Start: 03-01-2016 End: 03-18-2016 Start: 12-18-2014 End: 01-17-2015 Comment on above: Mail order. levoFLOXacin 750 mg oral tablet (20 sources) Quinolone Antimicrobial Start: 07-18-20 08 End: 10-01-19 09 meloxicam 15 mg oral tablet (20 sources) Nonsteroidal Anti-inflammatory Drug Start: 09-16-19 23 End: 09-12-19 24 take 1 tablet by mouth once daily Meloxicam 15 mg tablet Discontinued 15 mg PO DAILY September 16, 2022 1:00am September 12, 2023 12:06pm Comment on above: Dr. sutton metaxalone 800 mg oral table t (20 sources) Start: 05-24-2011 End: 11-04-2011 methylPREDNISolone 4 mg oral tablet (20 sources) Corticosteroid Start: 09-25-2021 End: 11-02-2021 Start: 08-25-2015 End: 09-10-2015 Start: 08-25-2015 End: 09-10-2015 take 1 tablet by mouth once daily MEDROL (NAOMY), 4MG (Oral Tablet) uad Tablet qd until gone for 0 days Quantity: 1 {Packet} Refills: 0 Ordered: 10-Sep-2015 Chelsi Krause LPN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 [Ratio] 14.0 % Normal 11.6-14.6 [facility] Comment on above: Performed By: #### L 400.0001, L300.3900, L100.0500 #### [facility] [address] [place], [address] Hematocrit (Bld) [Volume fraction] 44.2 % Normal 40-54 [facility] Comment on above: Performed By: #### L 400.0001, L300.3900, L100.0500 #### [facility] [address] [place], [address] Hemoglobin (Bld) [Mass/Vol] 14.8 g/dL Normal 13.0-16.5 [facility] Comment on above: Performed By: #### L 400.0001, L300.3900, L100.0500 #### [facility] [address] [place], [address] MCH (RBC) [Entitic mass] 28.8 pg Normal 27.0-32.0 [facility] Comment on above: Performed By: #### L 400.0001, L300.3900, L100.0500 #### [facility] [address] [place], [address] MCHC (RBC) [Mass/Vol] 33.5 g/dL Normal 32-36 [facility] Comment on above: Performed By: #### L 400.0001, L300.3900, L100.0500 #### [facility] [address] [place], [address] MCV (RBC) [Entitic vol] 86.2 fL Normal 80-94 [facility] Comment on above: Performed By: #### L 400.0001, L300.3900, L100.0500 #### [facility] [address] [place], [address] Platelet mean volume (Bld) [Entitic vol] 9.0 fL Normal 6.2-12.0 [facility] Comment on above: Performed By: #### L 400.0001, L300.3900, L100.0500 #### [facility] [address] [place], [address] Platelets (Bld) [#/Vol] 230 10*3/uL Normal 150-450 [facility] Comment on above: Performed By: #### L 400.0001, L300.3900, L100.0500 #### [facility] [address] [place], [address] RBC (Bld) [#/Vol] 5.13 10*6/uL Normal 4.6-6.2 [facility] Comment on above: Performed By: #### L 400.0001, L300.3900, L100.0500 #### [facility] [address] [place], [address] RDW SD 44.7 fl High 35.1-43.9 [facility] Comment on above: Performed By: #### L 400.0001, L300.3900, L100.0500 #### [facility] [address] [place], [address] WBC (Bld) [#/Vol] 7.1 10*3/uL Normal 4.4-11.0 [facility] Comment on above: Performed By: #### L 400.0001, L300.3900, L100.0500 #### [facility] [address] [place], [address] Carbon dioxide, total [Moles /volume] in Central venous bloodOrdered By: Prosper Lawrence on 12-04-2024 CO2 [Moles/Vol] 28.3 mmol/L 21.0-32.0 [facility] Cardiology Visit Reporton Cardiology Visit Report [facility] [address] [place], [place] [address] OFFICE VISIT Date of Service: 12/04/24 MR#: [id number] Acct: [id number] Name: CASEY FLANAGAN Rep #: [id number] : 1950 Provider: AQUILINO Mccall Age/Sex: 74/M Location: [facility] Status: Signed HPI HPI History of Present Illness Surgical H P: Yes Details: CASEY FLANAGAN, is a 74 M who presents to the office today for preoperative clearance. He has a history of recurrent syncope and had a loop recorder placed at the [facility]. He had presented over the week with [...] anterior descending artery. He was referred to food clerk, Dr. Lara, for watchman device evaluation due to concerns taking anticoagulation and high fall risk for ongoing dizziness. He proceeded with placement on 01/19/2023. Device evaluation August 2024 showed persistent atrial fibrillation. He is evaluated again with food clerk on 09/25/2024 to further discuss rhythm controlling strategies. Patient underwent a cardioversion on November 20, 2024. Since that time he feels much better. He is more energy. He feels less fatigued. His even notices a difference. If patient does not maintain sinus rhythm patient does follow with EP at [facility]. It was recommended that he be considered for Tikosyn versus sotalol versus an ablation. He does follow-up with them in March of this year. Intake Vital Signs 09/12/23 11:01 10/12/24 08:15 11/20/24 09:52 12/04/24 09:45 Height 5 ft 10 in 5 ft 10 in 5 ft 10 in 5 ft 10 in Weight: 181 lb BMI 25.9 BP 113/78 Blood Pressure Location Lt brachial Position Sitting Respiration 16 Pulse 60 Pulse Source NIBP Intake Visit Reasons: 1 Y FU/PAULY @ 10 Soil Technologist Required: No Accompanied by: Is patient in pain?: No Allergies No Known Allergies Allergy (Verified 12/04/24 09:49) Medications ???Medication ???Instructions ???Recorded ???Confirmed ???Type levothyroxine 125 mcg tablet 125 mcg PO DAILY thyroid 01/06/15 12/04/24 History metoprolol succinate 50 mg 50 mg PO BID this is a dose 12/04/24 Rx tablet,extended release 24 hr increase #180 tabs apixaban 5 mg tablet (Eliquis) 5 mg PO BID #60 tabs 09/17/24 04/09/29 Rx atorvastatin 80 mg tablet (Lipitor) 80 mg PO DAILY #90 tabs 10/30/ 5 12/04/24 Rx Ejection fraction %: 65 Have you fallen in the past year?: No PFSH Medical History Pacemaker malfunction Presence of Watchman left atrial appendage closure device (01/19/23) Nonobstructive atherosclerosis of coronary artery COVID-19 virus detected (09/02/20) Ventricular tachycardia (paroxysmal) (10/02/20) Paroxysmal atrial flutter Paroxysmal atrial fibrillation Nonrheumatic mitral (valve) prolapse Sick sinus syndrome Left inguinal hernia BCC (basal cell carcinoma of skin) Carpal tunnel syndrome Anemia History of DVT (deep vein thrombosis) Plantar fasciitis Hypothyroidism Syncope and collapse Atrioventricular block, complete History of traumatic brain injury Surgical History History of cardioversion (11/20/24) History of right shoulder replacement History of left heart catheterization (11/03/20) History of permanent cardiac pacemaker placement (07/29/17) Hx of left inguinal hernia repair BCC (basal cell carcinoma of skin) History of lateral meniscus repair of left knee History of colonoscopy (2014) History of tonsillectomy Family History Father CAD (coronary artery disease), Onset Age: 65 CABG Mother CAD (coronary artery disease) Thyroid disorder Pacemaker Brother Heart disease Valve replacement Social History Smoking Status: Never smoker alcohol intake: current alcohol intake frequency: holidays/special occasions only substance use type: does not use caffeine: Yes Type: coffee ROS Const Const: Negative for fatigue or weakness Eyes Eyes: Negative for paiz (more content not included)... Normal [facility] Chloride assayOrdered By: Diane Lawrence on 12-04-2024 Chloride [Moles/Vol] 107 mmol/L 98-[address] [facility] Epithelial cells.squamous LM Ql (Urine sed)Ordered By: Manju James on 12-04-2024 Epithelial cells.squamous LM.HPF (Urine sed) [#/Area] 0 /[HPF] 0-5 [facility] Erythrocyte distribution wid th (RBC) [Ratio]Ordered By: Manju James on 12-04-2024 Erythrocyte distribution width (RBC) [Entitic vol] 44.7 fL High 35.1-43.9 [facility] Erythrocyte distribution wid th ratioOrdered By: Manju James on 12-04-2024 Erythrocyte distribution width (RBC) [Ratio] 14.0 % 11.6-14.6 [facility] GFR/1.73 sq M.predicted krishna g non-blacks MDRD (S/P/Bld) [Vol rate/Area]Ordered By: Prosper Lawrence on 12-04-2024 Estimated GFR (MDRD) Non-Af Amer 93 >60 [facility] Comment on above: mL/min/1.73m2 CKD-EP I Creatinine Equation (2020) Glucose Ql (U)Ordered By: Carolyn James on 12-04-2024 Urine Glucose (UA) Normal mg/dl Normal [facility] Hematocrit Auto (Bld) [Volum e fraction]Ordered By: Manju James on 12-04-2024 Hematocrit (Bld) [Volume fraction] 44.2 % 40-54 [facility] Hemoglobin measurementOrdere d By: Manju James on 12-04-2024 Hemoglobin (Bld) [Mass/Vol] 14.8 g/dL 13.0-16.5 [facility] International normalized rat io (INR) calculationOrdered By: Manju James on 12-04-2024 INR Coag (Bld) [Relative time] 1.2 {INR} [facility] Ketones Test strip Ql (U)Ord ered By: Manju James on 12-04-2024 Ketones Ql (U) Negative Negative [facility] MCV (mean corpuscular volume ) determinationOrdered By: Manju James on 12-04-2024 MCV (RBC) [Entitic vol] 86.2 fL 80-94 [facility] Mean corpuscular hemoglobin (MCH) determinationOrdered By: Manju James on 12-04-2024 MCH (RBC) [Entitic mass] 28.8 pg 27.0-32.0 [facility] Mean corpuscular hemoglobin concentration (MCHC) determinationOrdered By: Manju James on 12-04-2024 MCHC (RBC) [Mass/Vol] 33.5 g/dL 32-36 [facility] Mean platelet volume determi nationOrdered By: Manju James on 12-04-2024 Platelet mean volume (Bld) [Entitic vol] 9.0 fL 6.2-12.0 [facility] Microscopic analysis of urin e for red blood cells (RBC)Ordered By: Manju James on 12-04-2024 Urine RBC 0 SEEN /hpf 0-5 [facility] Mucus LM Ql (Urine sed)Order ed By: Manuj James on 12-04-2024 Mucus Ql (Urine sed) 0 SEEN /hpf [facility] Nitrite Test strip Ql (U)Ord ered By: Manju James on 12-04-2024 Nitrite Ql (U) Negative Negative [facility] Pacemaker Checkon 12-04-2024 Pacemaker Check [facility] [place] [facility] [address] [place] [address] Pacemaker Check Date of Service: 12/04/24 1759 MR#: [id number] Acct: [id number] Name: CASEY FLANAGAN Rep #: [id number] : 1950 From: Cinda Krause Age/Sex: 74/M Location: [facility] Status: Signed Billing Codes PM Device Codes: 24450 PM Dev Prog Eval, Dual Assessment and Plan Assessment and Plan (1) Pacemaker malfunction: Status: Acute Comment: BSX advisory for safety mode and early battery depletion (2) Presence of Watchman left atrial appendage closure device: Status: Chronic (3) History of permanent cardiac pacemaker placement: Status: Chronic (4) Paroxysmal atrial flutter: Status: Chronic (5) Paroxysmal atrial fibrillation: Status: Chronic Comment: JENA occlusion on 01/19/2023 with a 27 mm Watchman device at [facility]; (6) Sick sinus syndrome: Status: Chronic (7) Atrioventricular block, complete: Status: Chronic Orders: Orders CBC-Complete Blood Cnt No Diff Today I48.0 - Paroxysmal atrial fibrillation, I48.92 - Unspecified atrial flutter, I49.5 - Sick sinus syndrome, T82.111A - Breakdown (mechanical) of cardiac pulse generator (battery), initial encounter, Z95.0 - Presence of cardiac pacemaker, Z95.818 - Presence of other cardiac implants and grafts Prothrombin Time w/INR Today I44.2 - Atrioventricular block, complete, I48.0 - Paroxysmal atrial fibrillation, I48.92 - Unspecified atrial flutter, I49.5 - Sick sinus syndrome, T82.111A - Breakdown (mechanical) of cardiac pulse generator (battery), initial encounter, Z95.0 - Presence of cardiac pacemaker, Z95.818 - Presence of other cardiac implants and grafts Urinalysis, Complete Today I44.2 - Atrioventricular block, complete, I48.0 - Paroxysmal atrial fibrillation, I48.92 - Unspecified atrial flutter, I49.5 - Sick sinus syndrome, T82.111A - Breakdown (mechanical) of cardiac pulse generator (battery), initial encounter, Z95.0 - Presence of cardiac pacemaker, Z95.818 - Presence of other cardiac implants and grafts Pacemaker Generator Change 12/17/24 I44.2 - Atrioventricular block, complete, I48.0 - Paroxysmal atrial fibrillation, I48.92 - Unspecified atrial flutter, I49.5 - Sick sinus syndrome, T82.111A - Breakdown (mechanical) of cardiac pulse generator (battery), initial encounter, Z95.0 - Presence of cardiac pacemaker, Z95.818 - Presence of other cardiac implants and grafts 12/04/24 1759 Date Cinda Stephenser Venu Signature: Date (if applicable) CC: Normal [facility] Platelet countOrdered By: Carolyn James on 12-04-2024 Platelets (Bld) [#/Vol] 230 10*3/uL 150-450 [facility] Potassium (Unsp spec) [Mass/ Vol]Ordered By: Prosper Lawrence on 12-04-2024 Potassium [Moles/Vol] 4.9 mmol/L 3.3-5.1 [facility] Protein Test strip Ql (U)Ord ered By: Manju James on 12-04-2024 Protein Ql (U) 15 mg/dl High Negative [facility] Prothrombin Time w/INRon INR Coag (PPP) [Relative time] 1.2 {INR} Normal [facility] Comment on above: Order Comment: Comme nts: For PPM generator change Performed By: #### L 400.0001, L300.3900, L100.0500 #### [facility] [address] [place], [address] PT Coag (PPP) [Time] 15.2 s High 11.7-14.[address] [facility] Comment on above: Order Comment: Comme nts: For PPM generator change Performed By: #### L 400.0001, L300.3900, L100.0500 #### [facility] [address] [place], [place], [address] Prothrombin timeOrdered By: Manju James on 12-04-2024 PT Coag (PPP) [Time] 15.2 s High 11.7-14.[address] [facility] RBC Auto (Bld) [#/Vol]Ordere d By: Manju James on 12-04-2024 RBC (Bld) [#/Vol] 5.13 10*6/uL 4.6-6.2 [facility] Serum creatinine measurement (mass/volume)Ordered By: Prosper Lawrence on 12-04-2024 Creatinine [Mass/Vol] 0.84 mg/dL 0.70-1.20 [facility] Serum glucose measurement (m ass/volume)Ordered By: Prosper Lawrence on 12-04-2024 Glucose [Mass/Vol] 73 mg/dL 70-99 [facility] Serum or plasma calcium lauryn urement (mass/volume)Ordered By: Prosper Lawrence on 12-04-2024 Calcium [Mass/Vol] 8.8 mg/dL 7.6-11.0 [facility] Serum or plasma urea nitroge n measurement (mass/volume)Ordered By: Prosper Lawrence on 12-04-2024 Urea nitrogen [Mass/Vol] 16 mg/dL 4-19 [facility] Sodium levelOrdered By: Prosper Lawrence on 12-04-2024 Sodium [Moles/Vol] 143 mmol/L 133-145 [facility] Urinalysis, Completeon 12-04 BACTERIA 0 SEEN Normal None Seen [facility] Comment on above: Order Comment: For P PPM genrator change BRAILLE TRANSCRIBER TO SPECIFY Performed By: #### L 400.0001, L300.3900, L100.0500 #### [facility] [address] [place], [address] EPI,SQUAMOUS 0 SEEN Normal 0-5 [facility] Comment on above: Order Comment: For P PPM genrator change BRAILLE TRANSCRIBER TO SPECIFY Performed By: #### L 400.0001, L300.3900, L100.0500 #### [facility] [address] [place], [address] Mucus Ql (Urine sed) 0 SEEN Normal [facility] Comment on above: Order Comment: For P PPM genrator change BRAILLE TRANSCRIBER TO SPECIFY Performed By: #### L 400.0001, L300.3900, L100.0500 #### [facility] [address] [place], [address] RBC 0 SEEN Normal 0-[address] [place] [address] Comment on above: Order Comment: For P PPM genrator change BRAILLE TRANSCRIBER TO SPECIFY Performed By: #### L 400.0001, L300.3900, L100.0500 #### [facility] [address] [place], [address] WBC 0 SEEN Normal 0-[address] [place] [address] Comment on above: Order Comment: For P PPM genrator change BRAILLE TRANSCRIBER TO SPECIFY Performed By: #### L 400.0001, L300.3900, L100.0500 #### [facility] [address] [place], [address] Urine blood detectionOrdered By: Manju James on 12-04-2024 Urine Occult Blood Negative Negative [facility] Urine clarityOrdered By: Damon James on 12-04-2024 Clarity (U) Clear Clear [facility] Urine color determinationOrd ered By: Manju James on 12-04-2024 Color (U) Straw Yellow [facility] Urine leukocyte esterase det ection by dipstickOrdered By: Manju James on 12-04-2024 Leukocyte esterase Test strip Ql (U) Negative Negative [facility] Urine pHOrdered By: Manju James on 12-04-2024 pH (U) 6.5 [pH] 5.0 - 8.0 [facility] Urine sediment bacteria coun t by microscopy (number/high power field)Ordered By: Manju James on 12-04-2024 Bacteria LM.HPF (Urine sed) [#/Area] 0 /[HPF] None Seen [facility] Urine specific gravity measu rementOrdered By: Manju James on 12-04-2024 Specific gravity (U) [Rel density] 1.010 1.002-1.03 0 [facility] Urobilinogen Ql (U)Ordered B y: Manju James on 12-04-2024 Urine Urobilinogen Normal mg/dl Normal [facility] White blood cell (WBC) count Ordered By: Manju James on 12-04-2024 WBC (Bld) [#/Vol] 7.1 10*3/uL 4.4-11.0 [facility] White blood cell countOrdere d By: Manju James on 12-04-2024 Urine WBC 0 SEEN /hpf 0-5 [facility] 12 Lead EKGon 11-20-2024 [address] [facility] Cardiovascular Services [address] [place] [address] 12 Lead EKG 11/20/24 1123 MR#: [id number] Acct: [id number] Name: CASEY FLANAGAN Rep #: [id number] : 1950 74 From: Curly Young MD Attending Dr: Dr. Curly Young MD Status: DEP S DC Ordering Dr: Curly Young MD Date: 11/20/24 Location: [facility] Sex: M C Admitted: Test Reason : POST DCCV Blood Pressure : */* mmHG Vent. Rate : 62 BPM Atrial Rate : 62 BPM P-R Int : 166 ms QRS Dur : 100 ms QT Int : 450 ms P-R-T Axes : * -42 -68 degrees QTcB Int : 456 ms Electronic atrial pacemaker Left axis deviation ST T wave abnormality, consider inferior ischemia ST T wave abnormality, consider anterolateral ischemia Abnormal ECG When compared with ECG of 20-Nov-2024 09:47, MANUAL COMPARISON REQUIRED DATA IS UNCONFIRMED Confirmed by CURLY YOUNG MD ([id number]), manager editorial CINDY CORONEL ([id number]) on 11/22/2024 5:55:35 AM Referred By: Curly Young Confirmed By: CURLY YOUNG MD 11/22/24 0555 Date Curly Young MD CC: Dr. Curly Young MD; Dr. Simran Woodard DO Signed Normal [facility] Anion gap in Serum or Plasma Ordered By: Curly Young on 11-20-2024 Anion gap [Moles/Vol] 5 mmol/L 5- [facility] BUN/creatinine ratioOrdered By: Curly Young on 11-20-2024 Urea nitrogen/Creatinine [Mass ratio] 19.0 mg/mg - [facility] Basic Metabolic Profile (BMP )on 11-20-2024 BUN/CRE 19.0 RATIO Normal - [facility] Comment on above: Performed By: #### L 500.2500 #### [facility] [address] [place], [address] Calcium [Mass/Vol] 9.6 mg/dL Normal 7.6-11.0 [facility] Comment on above: Performed By: #### L 500.2500 #### [facility] [address] [place], [address] Chloride [Moles/Vol] 103 mmol/L Normal 98-[address] [facility] Comment on above: Performed By: #### L 500.2500 #### [facility] [address] [place], [address] CO2 [Moles/Vol] 28.3 mmol/L Normal 21.0-32.0 [facility] Comment on above: Performed By: #### L 500.2500 #### [facility] [address] [place], [address] Creatinine [Mass/Vol] 1.05 mg/dL Normal 0.70-1.20 [facility] Comment on above: Performed By: #### L 500.2500 #### [facility] [address] [place], [address] ECRCL 65.66 ml/min Normal 50-250 [facility] Comment on above: Performed By: #### L 500.2500 #### [facility] [address] [place], [address] GAP 5 Normal 5-15 [facility] Comment on above: Performed By: #### L 500.2500 #### [facility] [address] [place], [address] GFR/1.73 sq M.predicted among non-blacks MDRD (S/P/Bld) [Vol rate/Area] 75 mL/min/{1.73_m2} Normal >60 [facility] Comment on above: Result Comment: mL/m in/1.73m2 CKD-EPI Creatinine Equation (2020) Performed By: #### L 500.2500 #### [facility] [address] [place], [address] Glucose [Mass/Vol] 95 mg/dL Normal 70-99 [facility] Comment on above: Performed By: #### L 500.2500 #### [facility] [address] [place], [address] Potassium [Moles/Vol] 4.5 mmol/L Normal 3.3-5.1 [facility] Comment on above: Performed By: #### L 500.2500 #### [facility] [address] [place], [address] Sodium [Moles/Vol] 136 mmol/L Normal 133-145 [facility] Comment on above: Performed By: #### L 500.2500 #### [facility] [address] [place], [place], [address] Urea nitrogen [Mass/Vol] 20 mg/dL High 4-19 [facility] Comment on above: Performed By: #### L 500.2500 #### [facility] [address] [place], [address] Carbon dioxide, total [Moles /volume] in Central venous bloodOrdered By: Curly Young on 11-20-2024 CO2 [Moles/Vol] 28.3 mmol/L 21.0-32.0 [facility] [facility] Chloride assayOrdered By: Cy ril Hannah on 11-20-2024 Chloride [Moles/Vol] 103 mmol/L 98-[address] [facility] Estimation of creatinine saud aranceOrdered By: [place] Hannah on 11-20-2024 Estimated Creatinine Clearance Calc 65.66 ml/min 50-250 [facility] GFR/1.73 sq M.predicted krishna g non-blacks MDRD (S/P/Bld) [Vol rate/Area]Ordered By: Curly Hannah on 11-20-2024 Estimated GFR (MDRD) Non-Af Amer 75 >60 [facility] Comment on above: mL/min/1.73m2 CKD-EP I Creatinine Equation (2020) Potassium (Unsp spec) [Mass/ Vol]Ordered By: [place] Hannah on 11-20-2024 Potassium [Moles/Vol] 4.5 mmol/L 3.3-5.1 [facility] Procedure Reporton Procedure Report [facility] Medical Records Department [address] [place] [address] Procedure Report 11/20/24 1135 MR#: [id number] Acct: [id number] Name: CASEY FLANAGAN Rep #: [id number] : 1950 74 From: Pablito Viera DO PCP: Dr. Simran Woodard, Status:REG [facility] Location: [facility] Procedures Pulmonary Pulmonary Procedures /Diagnostic Testin Con Sedation Non-invasive Procedural Procedure Information Date of Procedure: 11/20/24 Description of procedure: CONSCIOUS SEDATION REPORT DATE OF SERVICE: November 20, 2024 BRIEF HISTORY OF PRESENT ILLNESS: The patient is a 74-year-old male who presented to [facility] to undergo an elective outpatient cardioversion due to underlying atrial fibrillation. The patient has never previously undergone a cardioversion. He denied any prior anesthetic complications. The patient is a lifelong non-smoker. He has never been diagnosed with obstructive sleep apnea. The patient is systemically anticoagulated on Eliquis. His last surface echocardiogram demonstrated an ejection fraction of approximately 65%. PHYSICAL EXAMINATION: VITAL SIGNS: Reviewed and were acceptable. GENERAL: The patient is a male, in no apparent distress, speaking in full sentences. HEENT: Normocephalic, atraumatic. Mucous membranes are moist and pink. Good mouth opening noted. Trachea is midline. Good neck mobility. CHEST: S1, S2 irregularly irregular. No murmurs, rubs or gallops were noted. LUNGS: Clear to auscultation bilaterally without appreciable wheezes, rales or rhonchi. ABDOMEN: Soft, nontender, nondistended. Positive bowel sounds. EXTREMITIES: There is no clubbing, cyanosis or edema. ASA Class: II DESCRIPTION OF PROCEDURE: After confirmation of informed consent, the patient's anesthesia plan was reviewed in detail. Propofol was chosen. Risks and benefits were reviewed and the patient agreed to proceed. At 1119, the patient was given 40 mg of propofol. The patient achieved an appropriate level of sedation and was given a 200 joule synchronized cardioversion by Dr. Young at the bedside. This was successful in achieving normal sinus rhythm. The patient was monitored until 1133, at which time he reached his baseline mental status and function. The patient tolerated the procedure well. COMPLICATIONS: None ESTIMATED BLOOD LOSS: None RECOMMENDATIONS: Okay to recover in usual fashion. 11/20/24 1137 Cosigner Signature (if applicable): CC: Dr. Curly Young MD; Dr. Pablito Viera DO; Dr. Simran Woodard DO Signed Normal [facility] Procedure Report [facility] System Medical Records Department [address] [place] [address] Procedure Report 11/20/24 1130 MR#: [id number] Acct: [id number] Name: CASEY FLANAGAN Rep #: [id number] : 1950 74 From: Curly Young MD PCP: Dr. Simran Woodard DO Status:[facility] Location: [facility] Problems Associated Problem List Diagnoses (1) Paroxysmal atrial fibrillation: Non-invasive Procedural Procedure Information Date of Procedure: 11/20/24 Pre-Procedure Diagnosis: Paroxysmal atrial fibrillation Post-Procedure Diagnosis: Same Procedure Performed:: DC cardioversion technical business systems analyst: No Procedure Time Out: : Procedure Start Time: :16 Procedure Stop Time: : Special Medications: Intravenous propofol Description of procedure: Patient was brought to the cardiac catheterization lab in the postabsorptive nonsedated state. Informed consent was obtained. Anterior-posterior pads were applied. The patient was seen by Dr. Viera of the critical care division. Informed consent was obtained. 40 mg of intravenous propofol was administered. Synchronized DC biphasic energy was applied time to the R wave of the QRS complex and 200 J of synchronized DC cardioversion energy were applied with prompt reversal of 2 sinus rhythm. EKG confirmed the above. Procedure findings: Successful DC cardioversion from atrial fibrillation to sinus and paced rhythm. Complications Complications: No 11/20/24 1131 Cosigner Signature (if applicable): CC: Dr. Curly Young MD; Dr. Simran Woodard DO Signed Normal [facility] Serum creatinine measurement (mass/volume)Ordered By: Curly Young on 11-20-2024 Creatinine [Mass/Vol] 1.05 mg/dL 0.70-1.20 [facility] Serum glucose measurement (m ass/volume)Ordered By: Curly Young on 11-20-2024 Glucose [Mass/Vol] 95 mg/dL 70-99 [facility] Serum or plasma calcium lauryn urement (mass/volume)Ordered By: Curly Young on 11-20-2024 Calcium [Mass/Vol] 9.6 mg/dL 7.6-11.0 [facility] Serum or plasma urea nitroge n measurement (mass/volume)Ordered By: Curly Young on 11-20-2024 Urea nitrogen [Mass/Vol] 20 mg/dL High 4-19 [facility] Sodium levelOrdered By: Ina Young on 11-20-2024 Sodium [Moles/Vol] 136 mmol/L 133-145 [facility] Chest PA and Lateralon 10-04 Chest PA and Lateral [facility] Imaging Services [address] [place], [place] [id number] Chest PA and Lateral MR#: [id number] Acct: [id number] Name: CASEY FLANAGAN Rep #: [id number] : 1950 M 74 From: Casey Zendejas PCP: Dr. Simran Woodard DO Status: REG CLI Study: Chest PA and Lateral Date of Exam: 10/04/24 Exam# [id number] Ordering Dr: Prosper Lawrence NP SEASONAL RECRUITER-Patti PROCEDURE: CHEST PA AND LATERAL REASON FOR EXAM: Preoperative examination. TECHNIQUE: PA and lateral chest. COMPARISON: Chest x-ray of 08/08/2023. RAD/Chest PA and Lateral IMPRESSION: Left thoracic transvenous pacemaker with atrial and ventricular leads is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 Platelet mean volume (Bld) [Entitic vol] 7.7 fL Normal 7.4-10.4 [facility] ([place]) Comment on above: Performed By: #### A BUTCH, ADIFF, CBC, BMP, ALB, GFR #### [address] [address] RBC 4.06 10 6/mcL Normal 4.04-6.13 [facility] ([place]) Comment on above: Performed By: #### A BUTCH, ADIFF, CBC, BMP, ALB, GFR #### [place] [id number] WBC 11.10 10 3/mcL High 4.60-10.80 [facility] ([place]) Comment on above: Performed By: #### A BUTCH, ADIFF, CBC, BMP, ALB, GFR #### [facility] [address] [place], [place] [address] LABORATORYOrdered By: Lanie Tolentino on 11-25-2021 Basophil, Absolute 0.00 103/mcL Invalid Interpretation Code 0.00 - 0.19 10^3/mcL AO Auto Heme SS Basophils/100 WBC (Bld) 0.3 % Invalid Interpretation Code 0.0 - 2.5 % AO Auto Heme SS Eosinophil, Absolute 0.00 103/mcL Invalid Interpretation Code 0.00 - 0.40 10^3/mcL AO Auto Heme SS Eosinophils/100 WBC (Bld) 0.1 % Invalid Interpretation Code 0.0 - 7.0 % AO Auto Heme SS Erythrocyte distribution width (RBC) [Ratio] 14.1 % Invalid Interpretation Code 11.5 - 14.5 % AO Auto Heme SS Hematocrit (Bld) [Volume fraction] 35.9 % Invalid Interpretation Code 42.0 - 52.0 % AO Auto Heme SS Hemoglobin (Bld) [Mass/Vol] 12.0 G/dL Invalid Interpretation Code 14.0 - 18.0 G/dL AO Auto Heme SS Lymphocyte, Absolute 1.60 103/mcL Invalid Interpretation Code 0.77 - 3.85 10^3/mcL AO Auto Heme SS Lymphocytes/100 WBC (Bld) 14.1 % Invalid Interpretation Code 10.0 - 50.0 % AO Auto Heme SS MCH (RBC) [Entitic mass] 29.6 pg Invalid Interpretation Code 27.0 - 31.2 pg AO Auto Heme SS MCHC (RBC) [Mass/Vol] 33.5 G/dL Invalid Interpretation Code 31.8 - 35.4 G/dL AO Auto Heme SS MCV (RBC) [Entitic vol] 88.5 fL Invalid Interpretation Code 80.0 - 94.0 fL AO Auto Heme SS Monocyte, Absolute 1.80 103/mcL Invalid Interpretation Code 0.15 - 1.00 10^3/mcL AO Auto Heme SS Monocytes/100 WBC (Bld) 15.9 % Invalid Interpretation Code 1.7 - 13.0 % AO Auto Heme SS Neutrophil, Absolute 7.70 103/mcL Invalid Interpretation Code 2.85 - 6.16 10^3/mcL AO Auto Heme SS Neutrophils/100 WBC (Bld) 69.6 % Invalid Interpretation Code 37.0 - 80.0 % AO Auto Heme SS Platelet mean volume (Bld) [Entitic vol] 7.7 fL Invalid Interpretation Code 7.4 - 10.4 fL AO Auto Heme SS Platelets (Bld) [#/Vol] 237 103/mcL Invalid Interpretation Code 130 - 400 10^3/mcL AO Auto Heme SS RBC (Bld) [#/Vol] 4.06 106/mcL Invalid Interpretation Code 4.04 - 6.13 10^6/mcL AO Auto Heme SS WBC (Bld) [#/Vol] 11.10 103/mcL Invalid Interpretation Code 4.60 - 10.80 10^3/mcL AO Auto Heme SS LABORATORYOrdered By: Nelida Hollins on 11-25-2021 Calcium [Mass/Vol] 8.2 mg/dL Invalid Interpretation Code 8.4 - 10.2 mg/dL AO ADM SS Chloride [Moles/Vol] 106 mmol/L Invalid Interpretation Code 98 - 107 mmol/L AO ADM SS CO2 [Moles/Vol] 27 mmol/L Invalid Interpretation Code 23 - 31 mmol/L AO ADM SS Creatinine [Mass/Vol] 1.01 mg/dL Invalid Interpretation Code 0.70 - 1.30 mg/dL AO ADM SS Electrolyte Balance 8.0 mEq/L Invalid Interpretation Code 4.0 - 15.0 mEq/L AO ADM SS Glucose [Mass/Vol] 113 mg/dL Invalid Interpretation Code 80 - 115 mg/dL AO ADM SS Potassium [Moles/Vol] 4.4 mmol/L Invalid Interpretation Code 3.5 - 5.1 mmol/L AO ADM SS Sodium [Moles/Vol] 141 mmol/L Invalid Interpretation Code 136 - 145 mmol/L AO ADM SS Urea nitrogen [Mass/Vol] 15 mg/dL Invalid Interpretation Code 7 - 18 mg/dL AO ADM SS Urea nitrogen/Creatinine [Mass ratio] 15 ratio Invalid Interpretation Code 7 - 27 ratio AO ADM SS LABORATORYOrdered By: SYSTEM SYSTEM on 11-25-2021 GFR 89 ml/min/1.73sqm Invalid Interpretation Code AO Chemistry S GFR Non- 73 ml/min/1.73sqm Invalid Interpretation Code AO Chemistry S Gel ABOon 11-24-2021 ABO/Rh Interp Positive Invalid Interpretation Code [facility] [place] Comment on above: Performed By: #### A BUTCH, ADIFF, CBC, BMP, ALB, GFR #### [place] [id number] [place], [place] [address] Gel ABSon 11-24-2021 Antibody Screen Gel Negative Normal [facility] ([place]) Comment on above: Performed By: #### A BUTCH, ADIFF, CBC, BMP, ALB, GFR #### [place] [id number] [place], [place] [address] LABORATORYOrdered By: Luis Miguel Mckeon on 11-24-2021 ABO/Rh Interp Positive Invalid Interpretation Code AO BB SS Antibody Screen Gel Negative ABSC (11/24/21 7:04 AM) Invalid Interpretation Code AO BB SS INHOUSE Rapid Covid/ Flu A/ Flu BOrdered By: ANASTACIO Lindsay on 11-05-2021 SARS-CoV-2 (COVID-19) RNA LAURYN+probe Ql (Unsp spec) Negative Normal [facility]; [facility] Work Phone: INHOUSE Rapid Covid/ Flu A/ Flu B Negative Normal [facility]; [facility] Work Phone: XR CHEST 2 VIEWSon 2 XR CHEST 2 VIEWS ORIGINAL EXAMINATION: TWO XRAY VIEWS OF THE CHEST11/03/2021 TECHNIQUE: PA and Lat chest x-ray obtained. COMPARISON: None. HISTORY: ORDERING SYSTEM PROVIDED HISTORY: Reason for Exam: Pre-admission testing FINDINGS: Left chest wall pacemaker present. The lungs are clear without focal consolidation, pleural effusion, or pneumothorax. The cardiomediastinal silhouette is within normal limits. The visualized osseous structures are within normal limits for age. IMPRESSION: No acute cardiopulmonary process. Interpreted by: Daniel Billings Preliminary Report By: Daniel Billings Electronically signed By Daniel Billings Dictated Date: 11/05/2021 8:32:06 AM Prelim Date: 11/05/2021 8:33:02 AM Sign Date: 11/05/2021 8:33:02 AM Ordering Provider: JASMINE Mora [facility] [place]) .Auto Diffon 11-03-2021 Basophil, Absolute 0.00 10 3/mcL Normal 0.00-0.19 [facility] ([place]) Comment on above: Performed By: #### A BUTCH, ADIFF, CBC, BMP, ALB, GFR #### [address] [address] Basophils/100 WBC (Bld) 0.7 % Normal 0.0-2.5 [facility] [place] Comment on above: Performed By: #### A BUTCH, ADIFF, CBC, BMP, ALB, GFR #### [address] [address] Eosinophil, Absolute 0.10 10 3/mcL Normal 0.00-0.40 A [facility] ([place]) Comment on above: Performed By: #### A BUTCH, ADIFF, CBC, BMP, ALB, GFR #### [address] [address] Eosinophils/100 WBC (Bld) 1.6 % Normal 0.0-7.0 [facility] [place] Comment on above: Performed By: #### A BUTCH, ADIFF, CBC, BMP, ALB, GFR #### [address] [address] Lymphocyte, Absolute 1.60 10 3/mcL Normal 0.77-3.85 A [facility] ([place] Comment on above: Performed By: #### A BUTCH, ADIFF, CBC, BMP, ALB, GFR #### [address] [address] Lymphocytes/100 WBC (Bld) 28.2 % Normal 10.0-50.0 [facility] [place] Comment on above: Performed By: #### A BUTCH, ADIFF, CBC, BMP, ALB, GFR #### [address] [address] Monocyte, Absolute 1.00 10 3/mcL Normal 0.15-1.00 [facility] ([place] Comment on above: Performed By: #### A BUTCH, ADIFF, CBC, BMP, ALB, GFR #### [address] [address] Monocytes/100 WBC (Bld) 17.8 % High 1.7-13.0 [facility] [place] Comment on above: Performed By: #### A BUTCH, ADIFF, CBC, BMP, ALB, GFR #### [address] [address] Neutrophils/100 WBC (Bld) 51.7 % Normal 37.0-80.0 [facility] [place] Comment on above: Performed By: #### A BUTCH, ADIFF, CBC, BMP, ALB, GFR #### [address] [address] .GFRon 11-03-2021 GFR 104 ml/min/1.73sqm Normal [facility] [place] Comment on above: Result Comment: GFR Population mean for , Non- Americans Ages 20-29 = 116 mL/min/1.73 sq.m. Ages 30-39 = 107 mL/min/1.73 sq.m. Ages 40-49 = 99 mL/min/1.73 sq.m. Ages 50-59 = 93 mL/min/1.73 sq.m. Ages 60-69 = 85 mL/min/1.73 sq.m. Ages 70+ = 75 mL/min/1.73 sq.m. Chronic Kidney Disease: Less than 60 mL/min/1.73 square meters End Stage Renal Disease: Less than 15 mL/min/1.73 square meters Performed By: #### A BUTCH, ADIFF, CBC, BMP, ALB, GFR #### [address] [address] GFR Non- 86 ml/min/1.73sqm Normal [facility] [place] Comment on above: Result Comment: GFR Population mean for , Non- Americans Ages 20-29 = 116 mL/min/1.73 sq.m. Ages 30-39 = 107 mL/min/1.73 sq.m. Ages 40-49 = 99 mL/min/1.73 sq.m. Ages 50-59 = 93 mL/min/1.73 sq.m. Ages 60-69 = 85 mL/min/1.73 sq.m. Ages 70+ = 75 mL/min/1.73 sq.m. Chronic Kidney Disease: Less than 60 mL/min/1.73 square meters End Stage Renal Disease: Less than 15 mL/min/1.73 square meters Performed By: #### A BUTCH, ADIFF, CBC, BMP, ALB, GFR #### [address] [address] .NEUABSon 11-03-2021 Neutrophil, Absolute 2.90 10 3/mcL Normal 2.85-6.16 [facility] ([place]) Comment on above: Performed By: #### A BUTCH, ADIFF, CBC, BMP, ALB, GFR #### [address] [address] ALBon 11-03-2021 Albumin Level 3.4 G/dL Normal 3.4-4.8 [facility] ([place]) Comment on above: Performed By: #### A BUTCH, ADIFF, CBC, BMP, ALB, GFR #### [address] [address] BMPon 11-03-2021 BUN/Creatinine Ratio 25 ratio Normal 7-27 [facility] [place] Comment on above: Performed By: #### A BUTCH, ADIFF, CBC, BMP, ALB, GFR #### [address] [address] Calcium [Mass/Vol] 8.4 mg/dL Normal 8.4-10.2 [facility] ([place]) Comment on above: Performed By: #### A BUTCH, ADIFF, CBC, BMP, ALB, GFR #### [address] [address] Chloride [Moles/Vol] 103 mmol/L Normal 98-107 [facility] [place] Comment on above: Performed By: #### A BUTCH, ADIFF, CBC, BMP, ALB, GFR #### [address] [address] CO2 [Moles/Vol] 30 mmol/L Normal 23-31 [facility] ([place]) Comment on above: Performed By: #### A BUTCH, ADIFF, CBC, BMP, ALB, GFR #### [address] [address] Creatinine [Mass/Vol] 0.88 mg/dL Normal 0.70-1.30 [facility] ([place]) Comment on above: Performed By: #### A BUTCH, ADIFF, CBC, BMP, ALB, GFR #### [address] [address] Electrolyte Balance 8.0 mEq/L Normal 4.0-15.0 [facility] ([place]) Comment on above: Performed By: #### A BUTCH, ADIFF, CBC, BMP, ALB, GFR #### [address] [address] Glucose [Mass/Vol] 99 mg/dL Normal 80-115 [facility] ([place]) Comment on above: Performed By: #### A BUTCH, ADIFF, CBC, BMP, ALB, GFR #### [address] [address] Potassium [Moles/Vol] 4.6 mmol/L Normal 3.5-5.1 [facility] ([place] Comment on above: Performed By: #### A BUTCH, ADIFF, CBC, BMP, ALB, GFR #### [address] [address] Sodium [Moles/Vol] 141 mmol/L Normal 136-145 [facility] ([place]) Comment on above: Performed By: #### A BUTCH, ADIFF, CBC, BMP, ALB, GFR #### [address] [address] Urea nitrogen [Mass/Vol] 22 mg/dL High 7-18 [facility] [place] Comment on above: Performed By: #### A BUTCH, ADIFF, CBC, BMP, ALB, GFR #### [address] [address] CBCon 11-03-2021 Erythrocyte distribution width (RBC) [Ratio] 14.6 % High 11.5-14.5 [facility] [place] Comment on above: Order Comment: Pre-A dmission Testing Performed By: #### A BUTCH, ADIFF, CBC, BMP, ALB, GFR #### [address] [address] Hematocrit (Bld) [Volume fraction] 41.0 % Low 42.0-52.0 [facility] [place] Comment on above: Order Comment: Pre-A dmission Testing Performed By: #### A BUTCH, ADIFF, CBC, BMP, ALB, GFR #### [place] [id number] Hgb 14.0 G/dL Normal 14.0-18.0 [facility] [place] Comment on above: Order Comment: Pre-A dmission Testing Performed By: #### A BUTCH, ADIFF, CBC, BMP, ALB, GFR #### [address] [address] MCH (RBC) [Entitic mass] 30.0 pg Normal 27.0-31.2 [facility] [place] Comment on above: Order Comment: Pre-A dmission Testing Performed By: #### A BUTCH, ADIFF, CBC, BMP, ALB, GFR #### [place] [address] MCHC 34.1 G/dL Normal 31.8-35.4 [facility] [place] Comment on above: Order Comment: Pre-A dmission Testing Performed By: #### A BUTCH, ADIFF, CBC, BMP, ALB, GFR #### [place] [id number] MCV (RBC) [Entitic vol] 87.9 fL Normal 80.0-94.0 [facility] [place] Comment on above: Order Comment: Pre-A dmission Testing Performed By: #### A BUTCH, ADIFF, CBC, BMP, ALB, GFR #### [place] [id number] Platelet 277 10 3/mcL Normal 130-400 [facility] ([place]) Comment on above: Order Comment: Pre-A dmission Testing Performed By: #### A BUTCH, ADIFF, CBC, BMP, ALB, GFR #### [address] [address] Platelet mean volume (Bld) [Entitic vol] 7.3 fL Low 7.4-10.4 [facility] ([place]) Comment on above: Order Comment: Pre-A dmission Testing Performed By: #### A BUTCH, ADIFF, CBC, BMP, ALB, GFR #### [address] [address] RBC 4.66 10 6/mcL Normal 4.04-6.13 [facility] ([place]) Comment on above: Order Comment: Pre-A dmission Testing Performed By: #### A BUTCH, ADIFF, CBC, BMP, ALB, GFR #### [address] [address] WBC 5.50 10 3/mcL Normal 4.60-10.80 [facility] Comment on above: Order Comment: Pre-A dmission Testing Performed By: #### A BUTCH, ADIFF, CBC, BMP, ALB, GFR #### [address] [address] Gel ABOon 11-03-2021 ABO/Rh Interp Positive Invalid Interpretation Code [facility] [place] Comment on above: Performed By: #### A NSG, ABOG #### [address] [address] Gel ABSon 11-03-2021 Antibody Screen Gel Negative Normal [facility] ([place] Comment on above: Performed By: #### A NSG, ABOG #### [address] [address] LABORATORYOrdered By: Lanie Tolentino on 11-03-2021 ABO/Rh Interp Positive Invalid Interpretation Code AO BB SS Antibody Screen Gel Negative ABSC (11/03/21 3:45 PM) Invalid Interpretation Code AO BB SS Basophil, Absolute 0.00 103/mcL Invalid Interpretation Code 0.00 - 0.19 10^3/mcL AO Auto Heme SS Basophils/100 WBC (Bld) 0.7 % Invalid Interpretation Code 0.0 - 2.5 % AO Auto Heme SS Eosinophil, Absolute 0.10 103/mcL Invalid Interpretation Code 0.00 - 0.40 10^3/mcL AO Auto Heme SS Eosinophils/100 WBC (Bld) 1.6 % Invalid Interpretation Code 0.0 - 7.0 % AO Auto Heme SS Erythrocyte distribution width (RBC) [Ratio] 14.6 % Invalid Interpretation Code 11.5 - 14.5 % AO Auto Heme SS Hematocrit (Bld) [Volume fraction] 41.0 % Invalid Interpretation Code 42.0 - 52.0 % AO Auto Heme SS Hemoglobin (Bld) [Mass/Vol] 14.0 G/dL Invalid Interpretation Code 14.0 - 18.0 G/dL AO Auto Heme SS INR Coag (PPP) [Relative time] 1.1 {INR} Invalid Interpretation Code 0.9 - 1.2 ratio AO Coag SS Lymphocyte, Absolute 1.60 103/mcL Invalid Interpretation Code 0.77 - 3.85 10^3/mcL AO Auto Heme SS Lymphocytes/100 WBC (Bld) 28.2 % Invalid Interpretation Code 10.0 - 50.0 % AO Auto Heme SS MCH (RBC) [Entitic mass] 30.0 pg Invalid Interpretation Code 27.0 - 31.2 pg AO Auto Heme SS MCHC (RBC) [Mass/Vol] 34.1 G/dL Invalid Interpretation Code 31.8 - 35.4 G/dL AO Auto Heme SS MCV (RBC) [Entitic vol] 87.9 fL Invalid Interpretation Code 80.0 - 94.0 fL AO Auto Heme SS Monocyte, Absolute 1.00 103/mcL Invalid Interpretation Code 0.15 - 1.00 10^3/mcL AO Auto Heme SS Monocytes/100 WBC (Bld) 17.8 % Invalid Interpretation Code 1.7 - 13.0 % AO Auto Heme SS Neutrophil, Absolute 2.90 103/mcL Invalid Interpretation Code 2.85 - 6.16 10^3/mcL AO Auto Heme SS Neutrophils/100 WBC (Bld) 51.7 % Invalid Interpretation Code 37.0 - 80.0 % AO Auto Heme SS Platelet mean volume (Bld) [Entitic vol] 7.3 fL Invalid Interpretation Code 7.4 - 10.4 fL AO Auto Heme SS Platelets (Bld) [#/Vol] 277 103/mcL Invalid Interpretation Code 130 - 400 10^3/mcL AO Auto Heme SS PT Coag (PPP) [Time] 12.2 s Invalid Interpretation Code 9.7 - 14.3 seconds AO Coag SS RBC (Bld) [#/Vol] 4.66 106/mcL Invalid Interpretation Code 4.04 - 6.13 10^6/mcL AO Auto Heme SS WBC (Bld) [#/Vol] 5.50 103/mcL Invalid Interpretation Code 4.60 - 10.80 10^3/mcL AO Auto Heme SS LABORATORYOrdered By: Carmen Yates on 11-03-2021 Albumin BCP dye [Mass/Vol] 3.4 G/dL Invalid Interpretation Code 3.4 - 4.8 G/dL AO ADM SS Calcium [Mass/Vol] 8.4 mg/dL Invalid Interpretation Code 8.4 - 10.2 mg/dL AO ADM SS Chloride [Moles/Vol] 103 mmol/L Invalid Interpretation Code 98 - 107 mmol/L AO ADM SS CO2 [Moles/Vol] 30 mmol/L Invalid Interpretation Code 23 - 31 mmol/L AO ADM SS Creatinine [Mass/Vol] 0.88 mg/dL Invalid Interpretation Code 0.70 - 1.30 mg/dL AO ADM SS Electrolyte Balance 8.0 mEq/L Invalid Interpretation Code 4.0 - 15.0 mEq/L AO ADM SS Glucose [Mass/Vol] 99 mg/dL Invalid Interpretation Code 80 - 115 mg/dL AO ADM SS Potassium [Moles/Vol] 4.6 mmol/L Invalid Interpretation Code 3.5 - 5.1 mmol/L AO ADM SS Sodium [Moles/Vol] 141 mmol/L Invalid Interpretation Code 136 - 145 mmol/L AO ADM SS Urea nitrogen [Mass/Vol] 22 mg/dL Invalid Interpretation Code 7 - 18 mg/dL AO ADM SS Urea nitrogen/Creatinine [Mass ratio] 25 ratio Invalid Interpretation Code 7 - 27 ratio AO ADM SS LABORATORYOrdered By: SYSTEM SYSTEM on 11-03-2021 GFR 104 ml/min/1.73sqm Invalid Interpretation Code AO Chemistry S GFR Non- 86 ml/min/1.73sqm Invalid Interpretation Code AO Chemistry S LABORATORYOrdered By: Lanie Cannon on 11-03-2021 TSH Qn 0.91 m[IU]/L Invalid Interpretation Code 0.36 - 3.74 mcIU/mL AO ADM SS PROon 11-03-2021 INR Coag (PPP) [Relative time] 1.1 {INR} Normal 0.9-1.2 [facility] ([place] Comment on above: Result Comment: Klever dard Dose 2.0 - 3.0 High Dose 2.5 - 3.5 The recommended therapeutic range for oral anticoagulant therapy is: LOW RISK: Prophylaxis of venous thrombosis INR: 2.0 - 3.0 Treatment of pulmonary embolism 2.0 - 3.0 Prevention of systemic embolism 2.0 - 3.0 HIGH RISK: Mechanical prosthetic valves 2.5 - 3.5 Performed By: #### T SH, PRO #### [address] [address] PT Coag (PPP) [Time] 12.2 s Normal 9.7-14.3 [facility] Comment on above: Performed By: #### T SH, PRO #### [address] [address] TSHon 11-03-2021 TSH Qn 0.91 m[IU]/L Normal 0.36-3.74 [facility] ([place]) Comment on above: Performed By: #### T SH, PRO #### [address] [address] Urinalysis, Office ([id number])Or dered By: Chelsi Krause on 11-02-2021 Bilirubin Ql (U) Negative Normal Comprehe nsive Internal Medicine; [facility] Internal Medicine Work Phone: Glucose Test strip (U) [Mass/Vol] Negative Normal [facility]; [facility] Work Phone: Hemoglobin Ql (U) Negative Normal Compreh ensive Internal Medicine; [facility] Work Phone: Ketones Ql (U) Negative Normal Comprehens mouna [facility]; [facility] Work Phone: Leukocyte esterase Test strip Ql (U) Negative Normal [facility]; [facility] Work Phone: Nitrite Ql (U) Negative Normal Comprehens mouna [facility]; [facility] Work Phone: pH (U) 6 [pH] Abnormal [facility]; [facility] Work Phone: Comment on above: 5.5 Protein Ql (U) Negative Normal Comprehens mouna [facility]; [facility] Work Phone: Specific gravity (U) [Rel density] 1.020 1 Normal [facility]; [facility] Work Phone: Urobilinogen (24H U) [Mass/Time] Normal Normal [facility]; [facility] Work Phone: COVID 19 (ONLY) RAPID ([id number] )Ordered By: Suhas Richard on 09-25-2021 SARS-CoV-2 (COVID-19) RNA LAURYN+probe Ql (Unsp spec) Positive Normal [facility]; [facility] Work Phone: COVID 19 (ONLY) RAPID (24658) Positive Normal [facility]; [facility] Work Phone: HEPATITIS C ANTIBODY (77582) Ordered By: Dyer Assistant on 06-16-2021 HCV Ab Signal/Cutoff IA [Rel units/Vol] 0.1 {s/co_ratio} Normal 0.0-0.9 Comprehensiv e Internal Medicine; [facility] Work Phone: Comment on above: Negative: < 0.8 Inde terminate: 0.8 - 0.9 Positive: > 0.9 . The CDC recommends that a positive HCV antibody result be followed up with a HCV Nucleic Acid Amplification test (603289). PATIENT WAS FASTINGP ERFORMED BY: MineSense TechnologiesNorton Audub[facility] Hospital [id number] CBC W/AUTO DIFF WBC (94066)O rdered By: Dyer Assistant on 06-04-2021 Basophils (Bld) [#/Vol] 0.1 10*3/uL Normal 0.0-0.2 [facility]; [facility] Work Phone: Comment on above: PATIENT WAS FASTINGP ERFORMED BY: MineSense TechnologiesNorton [facility]ub[facility] Hospital [id number] Basophils/100 WBC (Bld) 1 % Normal [facility]; [facility] Work Phone: Comment on above: PATIENT WAS FASTINGP ERFORMED BY: [employer] LabUniversity [facility] Ddazxi[address]blin [place] [id number] Eosinophils (Bld) [#/Vol] 0.3 10*3/uL Normal 0.0-0.4 [facility]; [facility] Work Phone: Comment on above: PATIENT WAS FASTINGP ERFORMED BY: LabSturgis Hospital[address] Roadblin [place] [id number] Eosinophils/100 WBC (Bld) 5 % Normal [facility]; [facility] Work Phone: Comment on above: PATIENT WAS FASTINGP ERFORMED BY: LabSturgis Hospital6[address] RoadFrye Regional [facility] [id number] Erythrocyte distribution width (RBC) [Ratio] 13.4 % Normal 11.6-15.4 [facility]; [facility] Work Phone: Comment on above: PATIENT WAS FASTINGP ERFORMED BY: [place] [address] [facility] [id number] Hematocrit (Bld) [Volume fraction] 41.0 % Normal 37.5-51.0 [facility]; [facility] Work Phone: Comment on above: PATIENT WAS FASTINGP ERFORMED BY: [facility]St[facility] [facility] [id number] Hemoglobin (Bld) [Mass/Vol] 13.7 g/dL Normal 13.0-17.7 [facility]; [facility] Work Phone: Comment on above: PATIENT WAS FASTINGP ERFORMED BY: LabSturgis Hospital[address] RoadLevine Children'S Hospitalin [place] [id number] Immature granulocytes (Bld) [#/Vol] 0.0 10*3/uL Normal 0.0-0.1 [facility]; [facility] Work Phone: Comment on above: PATIENT WAS FASTINGP ERFORMED BY: LabUniversity [facility] Kwnfzn8[address] RoadDublin [place] [id number] Immature granulocytes/100 WBC (Bld) 0 % Normal [facility]; [facility] Work Phone: Comment on above: PATIENT WAS FASTINGP ERFORMED BY: [facility] Hvyiae36[address] RoadDublin [place] [id number] Lymphocytes (Bld) [#/Vol] 2.1 10*3/uL Normal 0.7-3.1 [facility]; [facility] Work Phone: Comment on above: PATIENT WAS FASTINGP ERFORMED BY: [facility] Omjpuv40[address] RoadDublin [place] [id number] Lymphocytes/100 WBC (Bld) 30 % Normal [facility]; [facility] Work Phone: Comment on above: PATIENT WAS FASTINGP ERFORMED BY: [facility] Zoyemh97[address] RoadDublin [place] [id number] MCH (RBC) [Entitic mass] 29.5 pg Normal 26.6-33.0 [facility]; [facility] Work Phone: Comment on above: PATIENT WAS FASTINGP ERFORMED BY: [facility] Kstruk6[address] RoadDublin [place] [id number] MCHC (RBC) [Mass/Vol] 33.4 g/dL Normal 31.5-35.7 [facility] prehensive Internal Medicine; [facility] Work Phone: Comment on above: PATIENT WAS FASTINGP ERFORMED BY: [facility] Retfaq4[address] RoadDublin [place] [id number] MCV (RBC) [Entitic vol] 88 fL Normal 79-97 [facility]; [facility] Work Phone: Comment on above: PATIENT WAS FASTINGP ERFORMED BY: [facility] Pglylf4[address]Dublin [place] [id number] Monocytes (Bld) [#/Vol] 0.8 10*3/uL Normal 0.1-0.9 [facility]; [facility] Work Phone: Comment on above: PATIENT WAS FASTINGP ERFORMED BY: [facility] Tgspwf97[address] RoadDublin [place] [id number] Monocytes/100 WBC (Bld) 12 % Normal [facility]; [facility] Work Phone: Comment on above: PATIENT WAS FASTINGP ERFORMED BY: GIA [facility] Thfhic78[address] RoadDublin [place] [id number] Neutrophils (Bld) [#/Vol] 3.5 10*3/uL Normal 1.4-7.0 [facility]; [facility] Work Phone: Comment on above: PATIENT WAS FASTINGP ERFORMED BY: CB [facility] Mnyfed67[address] RoadDublin [place] [id number] Neutrophils/100 WBC (Bld) 52 % Normal [facility]; [facility] Work Phone: Comment on above: PATIENT WAS FASTINGP ERFORMED BY: CB [facility] Fjswtg3[address] RoadDublin [place] [id number] Platelets (Bld) [#/Vol] 279 10*3/uL Normal 150-450 [facility]; [facility] Work Phone: Comment on above: PATIENT WAS FASTINGP ERFORMED BY: CB [facility] Kllwxu88[address] RoadDublin [place] [id number] RBC (Bld) [#/Vol] 4.64 10*6/uL Normal 4.14-5.80 Compr ehensive Internal Medicine; [facility] Work Phone: Comment on above: PATIENT WAS FASTINGP ERFORMED BY: GIA [facility] Amjrud18[address]Dublin [place] [id number] WBC (Bld) [#/Vol] 6.8 10*3/uL Normal 3.4-10.8 Compre [facility]log[facility]; [facility] Work Phone: Comment on above: PATIENT WAS FASTINGP ERFORMED BY: CB [facility] Mwznzg06[address]Dublin [place] [id number] LIPID PANEL ([id number])Ordered B y: Dyer Assistant on 06-04-2021 Cholesterol [Mass/Vol] 109 mg/dL Normal 100-199 [facility]; [facility] Work Phone: Comment on above: PATIENT WAS FASTINGP ERFORMED BY: CB [facility] Xgvxub4[address]Dublin [place] [id number] Cholesterol in HDL [Mass/Vol] 38 mg/dL Abnormal [facility]; [facility] Work Phone: Comment on above: PATIENT WAS FASTINGP ERFORMED BY: GIA LabLynn Azawyk[address] RoadDublin [place] [id number] Triglyceride [Mass/Vol] 39 mg/dL Normal 0-149 [facility]; [facility] Work Phone: Comment on above: PATIENT WAS FASTINGP ERFORMED BY: GIA [facility] Xhsosn[address] [facility] Centerin [place] [id number] LIPID PANEL ([id number]) 10 mg/dL Normal 5-40 [facility]; [facility] Work Phone: Comment on above: PATIENT WAS FASTINGP ERFORMED BY: GIA LabCoepifanio Ujpwnm[address]Dublin [place] [id number] LIPID PANEL (28527) 61 mg/dL Normal 0-99 [facility]; [facility] Work Phone: Comment on above: PATIENT WAS FASTINGP ERFORMED BY: GIA [facility] Uaqvat[address] [facility] Hospitalblin [place] [id number] LIPID PANEL (37695) 1.6 {ratio} Normal 0.0-3.6 [facility] Internal Medicine; [facility] Work Phone: Comment on above: LDL/HDL Ratio Men Wo men 1/2 Avg.Risk 1.0 1.5 Avg.Risk 3.6 3.2 2X Avg.Risk 6.2 5.0 3X Avg.Risk 8.0 6.1 PATIENT WAS FASTINGP ERFORMED BY: GIA [facility] Cizdpv[address] [facility] HospitalDublin [place] [id number] METABOLIC PANEL, COMPREHENSI VE ([id number])Ordered By: Dyer Assistant on 06-04-2021 Albumin [Mass/Vol] 4.0 g/dL Normal 3.8-4.8 [facility] Internal Medicine; [facility] Work Phone: Comment on above: PATIENT WAS FASTINGP ERFORMED BY: GIA [facility] Fhtjut750[address] RoadDublin [place] [id number] Albumin/Globulin [Mass ratio] 1.8 {ratio} Normal 1.2-2.2 [facility]; [facility] Work Phone: Comment on above: PATIENT WAS FASTINGP ERFORMED BY: GIA Mcclure[address] RoadMarkblin [place] [id number] ALP [Catalytic activity/Vol] 81 U/L Normal 44-121 [facility]; [facility] Work Phone: Comment on above: Please note refere nce interval change PATIENT WAS FASTINGP ERFORMED BY: GIA LabUniversity [facility] Rakmra[address]blin [place] [id number] ALT [Catalytic activity/Vol] 77 U/L Abnormal 0-44 [facility]; [facility] Work Phone: Comment on above: PATIENT WAS FASTINGP ERFORMED BY: GIA MelanieUniversity Of Missouri Children'S Hospital Uvhfqs[address]blin [place] [id number] AST [Catalytic activity/Vol] 71 U/L Abnormal 0-40 [facility]; [facility] Work Phone: Comment on above: PATIENT WAS FASTINGP ERFORMED BY: GIA MelanieUniversity Of Missouri Children'S Hospital Alhexc[address]blin [place] [id number] Bilirubin [Mass/Vol] 0.9 mg/dL Normal 0.0-1.2 [facility] rehensive Internal Medicine; [facility] Work Phone: Comment on above: PATIENT WAS FASTINGP ERFORMED BY: LabUniversity [facility] Qlrwes[address] [facility] Centerin [place] [id number] Calcium [Mass/Vol] 9.1 mg/dL Normal 8.6-10.2 [facility] Internal Medicine; [facility] Work Phone: Comment on above: PATIENT WAS FASTINGP ERFORMED BY: LabUniversity [facility] Dpyyzu[address] [facility] Hospitalblin [place] [id number] Chloride [Moles/Vol] 104 mmol/L Normal 96-106 Comp rehensive Internal Medicine; [facility] Work Phone: Comment on above: PATIENT WAS FASTINGP ERFORMED BY: [facility]6[address] [facility] [id number] CO2 [Moles/Vol] 27 mmol/L Normal 20-29 [facility]en [facility]se Internal [facility]; [facility] Work Phone: Comment on above: PATIENT WAS FASTINGP ERFORMED BY: [facility]6[address] [facility] [id number] Creatinine [Mass/Vol] 0.91 mg/dL Normal 0.76-1.27 [facility] prehensive Internal Medicine; [facility] Work Phone: Comment on above: PATIENT WAS FASTINGP ERFORMED BY: LabSturgis Hospital6370 [facility] [id number] GFR/1.73 sq M.predicted among blacks CKD-EPI (S/P/Bld) [Vol rate/Area] 99 mL/min/1.73 Normal [facility]; [facility] Work Phone: Comment on above: [facility] currently reports eGFR in compliance with the current recommendations of the National Kidney Foundation. [facility]aud[facility] will update reporting as new guidelines are published from the NKF-ASN Task force. PATIENT WAS FASTINGP ERFORMED BY: [facility]6[address] [facility] [id number] GFR/1.73 sq M.predicted among non-blacks CKD-EPI (S/P/Bld) [Vol rate/Area] 86 mL/min/1.73 Normal [facility]; [facility] Work Phone: Comment on above: PATIENT WAS FASTINGP ERFORMED BY: LabSt[facility] Hospital6370 [facility] [id number] Globulin (S) [Mass/Vol] 2.2 g/dL Normal 1.5-4.5 [facility]; [facility] Work Phone: Comment on above: PATIENT WAS FASTINGP ERFORMED BY: [facility]6[address] [facility] [id number] Glucose [Mass/Vol] 87 mg/dL Normal 65-99 [facility]; [facility] Work Phone: Comment on above: PATIENT WAS FASTINGP ERFORMED BY: [facility] Uaztju38[address] RoadDublin [place] [id number] Potassium [Moles/Vol] 4.5 mmol/L Normal 3.5-5.2 [facility] Internal Medicine; [facility] Work Phone: Comment on above: PATIENT WAS FASTINGP ERFORMED BY: CB [facility] Sqdwlx5[address] RoadDublin [place] [id number] Protein [Mass/Vol] 6.2 g/dL Normal 6.0-8.5 [facility] Internal Medicine; [facility] Work Phone: Comment on above: PATIENT WAS FASTINGP ERFORMED BY: CB [facility] Hclcst28[address] RoadDublin [place] [id number] Sodium [Moles/Vol] 141 mmol/L Normal 134-144 [facility] Internal Medicine; [facility] Work Phone: Comment on above: PATIENT WAS FASTINGP ERFORMED BY: [facility] Ovfadb93[address] RoadLevine Children'S Hospitalin [place] [id number] Urea nitrogen [Mass/Vol] 21 mg/dL Normal 8-27 [facility] Internal Medicine; [facility] Work Phone: Comment on above: PATIENT WAS FASTINGP ERFORMED BY: [facility] Hixdpp56[address] RoadLevine Children'S Hospitalin [place] [id number] Urea nitrogen/Creatinine [Mass ratio] 23 mg/mg Normal 10-24 [facility] Internal Medicine; [facility] Work Phone: Comment on above: PATIENT WAS FASTINGP ERFORMED BY: [facility] Vsllup[address] [facility]in [place] [id number] PSA (PROSTATE SPECIFIC ANTIG EN) (V76.44)Ordered By: Dyer Assistant on 06-04-2021 Prostate specific Ag [Mass/Vol] 1.0 ng/mL Normal 0.0-4.0 [facility] Internal [facility]; [facility] Work Phone: Comment on above: Brandy ECLIA methodol ogy. .According to the [place] [employer], Serum PSA shoulddecrease and remain at undetectable levels after radicalprostatectomy. The AUA defines biochemical recurrence as an initialPSA value 0.2 ng/mL or greater followed by a subsequent confirmatoryPSA value 0.2 ng/mL or greater.Values obtained with different assay methods or kits cannot be usedinterchangeably. Results cannot be interpreted as absolute evidenceof the presence or absence of malignant disease. PATIENT WAS FASTINGP ERFORMED BY: [employer] Dhagfq6431 [facility] [id number] TSH ([id number])Ordered By: Syste m Line Maintainer on 06-04-2021 TSH Qn 3.050 {uIU/mL} Normal 0.450-4.50 0 [facility]; [facility] Work Phone: Comment on above: PATIENT WAS FASTINGP ERFORMED BY: [facility] AllianceSturgis Hospital6370 [facility] [id number] INHOUSE Rapid Covid/ Flu A/ Flu BOrdered By: Olena Mccrary on 05-27-2021 SARS-CoV-2 (COVID-19) RNA LAURYN+probe Ql (Unsp spec) Negative Normal [facility]; [facility] Work Phone: INHOUSE Rapid Covid/ Flu A/ Flu B Negative Normal [facility]; [facility] Work Phone: 2018 Novel Coronavirus (COVI D-19), LAURYN ([id number])Ordered By: Dyer Assistant on 09-08-20202018 Novel Coronavirus (COVID-19), LAURYN ([id number]) Detected Abnormal [facility]; [facility] Work Phone: Comment on above: Client Requested Fla gThis nucleic acid amplification test was developed and its performancecharacteristics determined by [employer]. Nucleic acidamplification tests include PCR and TMA. This test has not been FDAcleared or approved. This test has been authorized by FDA under anEmergency Use Authorization (EUA). This test is only authorized forthe duration of time the declaration that circumstances existjustifying the authorization of the emergency use of in vitrodiagnostic tests for detection of SARS-CoV-2 virus and/or diagnosisof COVID-19 infection under section 564(b)(1) of the Act, 21 U.S.C.360bbb-3(b) (1), unless the authorization is terminated or revokedsooner.When diagnostic testing is negative, the possibility of a falsenegative result should be considered in the context of a patient'srecent exposures and the presence of clinical signs and symptomsconsistent with COVID-19. An individual without symptoms of COVID-19and who is not shedding SARS-CoV-2 virus would expect to have anegative (not detected) result in this assay. PATIENT NOT FASTINGP ERFORMED BY: [employer] RYB[address] [place] [id number] 2018 Novel Coronavirus (COVID-19), LAURYN ([id number]) Detected Abnormal [facility]; [facility] Work Phone: Comment on above: Client Requested Fla gThis nucleic acid amplification test was developed and its performancecharacteristics determined by [employer]. Nucleic acidamplification tests include PCR and TMA. This test has not been FDAcleared or approved. This test has been authorized by FDA under anEmergency Use Authorization (EUA). This test is only authorized forthe duration of time the declaration that circumstances existjustifying the authorization of the emergency use of in vitrodiagnostic tests for detection of SARS-CoV-2 virus and/or diagnosisof COVID-19 infection under section 564(b)(1) of the Act, 21 U.S.C.360bbb-3(b) (1), unless the authorization is terminated or revokedsooner.When diagnostic testing is negative, the possibility of a falsenegative result should be considered in the context of a patient'srecent exposures and the presence of clinical signs and symptomsconsistent with COVID-19. An individual without symptoms of COVID-19and who is not shedding SARS-CoV-2 virus would expect to have anegative (not detected) result in this assay. PATIENT NOT FASTINGP ERFORMED BY: [employer] [id number] [place] [id number] CBC, PLATELETS & AUT DIFF ([id number] [id number])Ordered By: Dyer Assistant on 11-14-2019 Basophils (Bld) [#/Vol] 0.0 {x10E3/uL} Normal 0.0-0.2 [facility] Work Phone: Comment on above: PATIENT WAS FASTINGP ERFORMED BY: [facility] Rlfkqv14[address]Dublin [place] [id number] Basophils (Bld) [#/Vol] 0.0 10*3/uL Normal 0.0-0.2 [facility]; [facility] Work Phone: Comment on above: PATIENT WAS FASTINGP ERFORMED BY: [facility] Rneljh4[address]Dublin [place] [id number] Basophils/100 WBC (Bld) 0 % Normal [facility] Work Phone: Comment on above: PATIENT WAS FASTINGP ERFORMED BY: [facility] Mcvgnr91[address]Dublin [place] [id number] Eosinophils (Bld) [#/Vol] 0.2 {x10E3/uL} Normal 0.0-0.4 [facility] Work Phone: Comment on above: PATIENT WAS FASTINGP ERFORMED BY: [facility] Fowvdm29[address]Dublin [place] [id number] Eosinophils (Bld) [#/Vol] 0.2 10*3/uL Normal 0.0-0.4 [facility]; [facility] Work Phone: Comment on above: PATIENT WAS FASTINGP ERFORMED BY: [facility] Sayfjh05[address] [place] [id number] Eosinophils/100 WBC (Bld) 2 % Normal [facility] Work Phone: Comment on above: PATIENT WAS FASTINGP ERFORMED BY: [facility] Mgatqe37[address] RoadDublin [place] [id number] Erythrocyte distribution width (RBC) [Ratio] 14.8 % Normal 11.6-15.4 [facility] Work Phone: Comment on above: PATIENT WAS FASTINGP ERFORMED BY: [facility] Knptnf2051 [address]Dublin [place] [id number] Hematocrit (Bld) [Volume fraction] 45.4 % Normal 37.5-51.0 [facility] Work Phone: Comment on above: PATIENT WAS FASTINGP ERFORMED BY: GIA Mcclure[address] [facility] Hospitalblin [place] [id number] Hemoglobin (Bld) [Mass/Vol] 15.1 g/dL Normal 13.0-17.7 [facility] Work Phone: Comment on above: PATIENT WAS FASTINGP ERFORMED BY: LabUniversity [facility] Xgvmor8[address]bl[address] [place] [id number] Immature granulocytes (Bld) [#/Vol] 0.0 {x10E3/uL} Normal 0.0-0.1 [facility] Work Phone: Comment on above: PATIENT WAS FASTINGP ERFORMED BY: Sergio Zxjmdg0746 [address] [place] [id number] Immature granulocytes (Bld) [#/Vol] 0.0 10*3/uL Normal 0.0-0.1 [facility]; [facility] Work Phone: Comment on above: PATIENT WAS FASTINGP ERFORMED BY: [facility]University [facility] Pdijvk4347 [address] [facility]in [place] [id number] Immature granulocytes/100 WBC (Bld) 1 % Normal [facility] Work Phone: Comment on above: PATIENT WAS FASTINGP ERFORMED BY: Sergio Xxwpvc3398 [address] [facility] [id number] Lymphocytes (Bld) [#/Vol] 2.6 {x10E3/uL} Normal 0.7-3.1 [facility] Work Phone: Comment on above: PATIENT WAS FASTINGP ERFORMED BY: [facility] Rbtpsx4796 [address] RoadDublin [place] [id number] Lymphocytes (Bld) [#/Vol] 2.6 10*3/uL Normal 0.7-3.1 [facility]; [facility] Work Phone: Comment on above: PATIENT WAS FASTINGP ERFORMED BY: [facility] Bxwazu9267 [address] RoadDublin [place] [id number] Lymphocytes/100 WBC (Bld) 35 % Normal [facility] Work Phone: Comment on above: PATIENT WAS FASTINGP ERFORMED BY: [facility] Ztzcgy2718 [address] RoadDublin [place] [id number] MCH (RBC) [Entitic mass] 28.3 pg Normal 26.6-33.0 [facility] Internal Medicine Work Phone: Comment on above: PATIENT WAS FASTINGP ERFORMED BY: [facility] Ohosbv8299 [address] Roadbl[address] [place] [id number] MCHC (RBC) [Mass/Vol] 33.3 g/dL Normal 31.5-35.7 [facility] Internal Medicine Work Phone: Comment on above: PATIENT WAS FASTINGP ERFORMED BY: LabUniversity [facility] Tdgvet2006 [address] RoadDuin [place] [id number] MCV (RBC) [Entitic vol] 85 fL Normal 79-97 [facility] Internal Medicine Work Phone: Comment on above: PATIENT WAS FASTINGP ERFORMED BY: LabUniversity [facility] Dhfbwx6177 [address] RoadLevine Children'[facility] Hospitalin [place] [id number] Monocytes (Bld) [#/Vol] 0.8 {x10E3/uL} Normal 0.1-0.9 [facility] Work Phone: Comment on above: PATIENT WAS FASTINGP ERFORMED BY: [facility] Dmhulz0486 [address] Roadbl[address] [place] [id number] Monocytes (Bld) [#/Vol] 0.8 10*3/uL Normal 0.1-0.9 [facility]; [facility] Work Phone: Comment on above: PATIENT WAS FASTINGP ERFORMED BY: [facility] Wxrqxd7628 [address] RoadDublin [place] [id number] Monocytes/100 WBC (Bld) 11 % Normal [facility] Work Phone: Comment on above: PATIENT WAS FASTINGP ERFORMED BY: [facility] Rcoafs2671 [address] RoadDublin [place] [id number] Neutrophils (Bld) [#/Vol] 3.6 {x10E3/uL} Normal 1.4-7.0 [facility] Work Phone: Comment on above: PATIENT WAS FASTINGP ERFORMED BY: CB [facility] Qeqqbb4468 [address] RoadDublin [place] [id number] Neutrophils (Bld) [#/Vol] 3.6 10*3/uL Normal 1.4-7.0 [facility]; [facility] Work Phone: Comment on above: PATIENT WAS FASTINGP ERFORMED BY: CB [facility] Ulotyg9204 [address] RoadDublin [place] [id number] Neutrophils/100 WBC (Bld) 51 % Normal [facility] Work Phone: Comment on above: PATIENT WAS FASTINGP ERFORMED BY: CB [facility] Edldjr2001 [address] RoadDublin [place] [id number] Platelets (Bld) [#/Vol] 311 {x10E3/uL} Normal 150-450 [facility] Work Phone: Comment on above: PATIENT WAS FASTINGP ERFORMED BY: CB [facility] Gnvfir6783 [address] RoadDublin [place] [id number] Platelets (Bld) [#/Vol] 311 10*3/uL Normal 150-450 [facility]; [facility] Work Phone: Comment on above: PATIENT WAS FASTINGP ERFORMED BY: CB [facility] Shmzpe6427 [address] RoadDublin [place] [id number] RBC (Bld) [#/Vol] 5.33 {x10E6/uL} Normal 4.14-5.80 [facility] Internal Medicine Work Phone: Comment on above: PATIENT WAS FASTINGP ERFORMED BY: CB [facility] Eagdep8944 [address] RoadDublin [place] [id number] RBC (Bld) [#/Vol] 5.33 10*6/uL Normal 4.14-5.80 [facility] Internal Medicine; [facility] Work Phone: Comment on above: PATIENT WAS FASTINGP ERFORMED BY: CB [facility] Otjswd6664 [address] RoadDublin [place] [id number] WBC (Bld) [#/Vol] 7.2 {x10E3/uL} Normal 3.4-10.8 [facility] prehensive Internal Medicine Work Phone: Comment on above: PATIENT WAS FASTINGP ERFORMED BY: GIA MelanieLynn Bkptuk1553 ChanceMetropolitan [facility] Psychiatric Centerblin [place] [id number] WBC (Bld) [#/Vol] 7.2 10*3/uL Normal 3.4-10.8 [facility] Internal Medicine; [facility] Work Phone: Comment on above: PATIENT WAS FASTINGP ERFORMED BY: GIA LabLynn MejíaTorupm4130 [facility] [place] [id number] LIPID PANEL ([id number])Ordered B y: Dyer Assistant on 11-14-2019 Cholesterol [Mass/Vol] 196 mg/dL Normal 100-199 [facility] Work Phone: Comment on above: PATIENT WAS FASTINGP ERFORMED BY: GIA Mejíalin6370 [facility] [id number] Cholesterol in HDL [Mass/Vol] 39 mg/dL Abnormal [facility] Work Phone: Comment on above: PATIENT WAS FASTINGP ERFORMED BY: GIA LabLynn MejíaSzmffm9805 [facility] [id number] Cholesterol in LDL [Mass/Vol] 136 mg/dL Abnormal 0-99 [facility] Work Phone: Comment on above: PATIENT WAS FASTINGP ERFORMED BY: GIA LabLynn Wsykge5335 [facility] [id number] Cholesterol in LDL/Cholesterol in HDL [Mass ratio] 3.5 {ratio} Normal 0.0-3.6 [facility] Work Phone: Comment on above: LDL/HDL Ratio Men Wo men 1/2 Avg.Risk 1.0 1.5 Avg.Risk 3.6 3.2 2X Avg.Risk 6.2 5.0 3X Avg.Risk 8.0 6.1 PATIENT WAS FASTINGP ERFORMED BY: GIA LabCoepifanio Cgqnyt5598 [facility] [id number] Cholesterol in VLDL [Mass/Vol] 21 mg/dL Normal 5-40 [facility] Work Phone: Comment on above: PATIENT WAS FASTINGP ERFORMED BY: GIA [facility] Afgqkd9346 [address] RoadDublin [place] [id number] Triglyceride [Mass/Vol] 106 mg/dL Normal 0-149 [facility] Work Phone: Comment on above: PATIENT WAS FASTINGP ERFORMED BY: GIA [facility] Lpdnjt7823 [address] RoadDublin [place] [id number] METABOLIC PANEL, COMPREHENSI VE (10800)Ordered By: Dyer Assistant on 11-14-2019 Albumin [Mass/Vol] 4.3 g/dL Normal 3.8-4.8 [facility] Internal Medicine Work Phone: Comment on above: PATIENT WAS FASTINGP ERFORMED BY: GIA [facility] Ieigss4476 [address] RoadDublin [place] [id number] Albumin/Globulin [Mass ratio] 1.8 {ratio} Normal 1.2-2.2 [facility] Work Phone: Comment on above: PATIENT WAS FASTINGP ERFORMED BY: GIA [facility] Wfvjkn2876 [address] RoadDublin [place] [id number] ALP [Catalytic activity/Vol] 67 [iU]/L Normal 39-117 [facility] Work Phone: Comment on above: PATIENT WAS FASTINGP ERFORMED BY: GIA [facility] Pdhyye3243 [address] RoadDublin [place] [id number] ALP [Catalytic activity/Vol] 67 U/L Normal 39-117 [facility]; [facility] Work Phone: Comment on above: PATIENT WAS FASTINGP ERFORMED BY: CB [facility] Mycssa6903 [address] RoadDublin [place] [id number] ALT [Catalytic activity/Vol] 30 [iU]/L Normal 0-44 [facility] Work Phone: Comment on above: PATIENT WAS FASTINGP ERFORMED BY: CB [facility] Fdrnri7000 [address] RoadDublin [place] [id number] ALT [Catalytic activity/Vol] 30 U/L Normal 0-44 [facility]; [facility] Work Phone: Comment on above: PATIENT WAS FASTINGP ERFORMED BY: CB [facility] Kshhhr5273 [address] RoadDublin [place] [id number] AST [Catalytic activity/Vol] 27 [iU]/L Normal 0-40 [facility] Internal Medicine Work Phone: Comment on above: PATIENT WAS FASTINGP ERFORMED BY: CB [facility] Smkwzu3050 [address] RoadD[address] [place] [id number] AST [Catalytic activity/Vol] 27 U/L Normal 0-40 [facility]; [facility] Internal Medicine Work Phone: Comment on above: PATIENT WAS FASTINGP ERFORMED BY: [facility] Weondo3608 [address] RoadDublin [place] [id number] Bilirubin [Mass/Vol] 0.7 mg/dL Normal 0.0-1.2 [facility] Work Phone: Comment on above: PATIENT WAS FASTINGP ERFORMED BY: [facility] Btivhn3804 [address] RoadDublin [place] [id number] Calcium [Mass/Vol] 9.5 mg/dL Normal 8.6-10.2 [facility] Internal Medicine Work Phone: Comment on above: PATIENT WAS FASTINGP ERFORMED BY: [facility] Aqilrz2865 [address] RoadD[address] [place] [id number] Chloride [Moles/Vol] 100 mmol/L Normal 96-106 [facility] Work Phone: Comment on above: PATIENT WAS FASTINGP ERFORMED BY: CB [facility] Cvqext7408 [address] RoadD[address] [place] [id number] CO2 [Moles/Vol] 28 mmol/L Normal 20-29 [facility] Work Phone: Comment on above: PATIENT WAS FASTINGP ERFORMED BY: CB [facility] Xepfin9614 [address] RoadDublin [place] [id number] Creatinine [Mass/Vol] 1.02 mg/dL Normal 0.76-1.27 [facility] Work Phone: Comment on above: PATIENT WAS FASTINGP ERFORMED BY: CB [facility] Uqfpji0948 [address] RoadD[address] [place] [id number] GFR/1.73 sq M predicted among blacks CKD-EPI (S/P/Bld) [Vol rate/Area] 88 mL/min/1.73 Normal [facility] Internal Medicine Work Phone: Comment on above: PATIENT WAS FASTINGP ERFORMED BY: CB [facility] Qwzyhx4373 [address] RoadD[address] [place] [id number] GFR/1.73 sq M predicted among non-blacks CKD-EPI (S/P/Bld) [Vol rate/Area] 76 mL/min/1.73 Normal [facility] Internal Medicine Work Phone: Comment on above: PATIENT WAS FASTINGP ERFORMED BY: [facility] Ujuxou6238 [address] RoadD[address] [place] [id number] Globulin (S) [Mass/Vol] 2.4 g/dL Normal 1.5-4.5 [facility] Internal Medicine Work Phone: Comment on above: PATIENT WAS FASTINGP ERFORMED BY: [facility] Gnozlc7660 [address] RoadD[address] [place] [id number] Glucose [Mass/Vol] 95 mg/dL Normal 65-99 [facility] Internal Medicine Work Phone: Comment on above: PATIENT WAS FASTINGP ERFORMED BY: [facility] Ntfdfq9162 [address] RoadD[address] [place] [id number] Potassium [Moles/Vol] 5.2 mmol/L Normal 3.5-5.2 [facility] Internal Medicine Work Phone: Comment on above: PATIENT WAS FASTINGP ERFORMED BY: CB [facility] Pnojat3496 [address] RoadD[address] [place] [id number] Protein [Mass/Vol] 6.7 g/dL Normal 6.0-8.5 [facility] Internal Medicine Work Phone: Comment on above: PATIENT WAS FASTINGP ERFORMED BY: CB [facility] Clqlmq8446 [address] RoadD[address] [place] [id number] Sodium [Moles/Vol] 141 mmol/L Normal 134-144 [facility] Internal Medicine Work Phone: Comment on above: PATIENT WAS FASTINGP ERFORMED BY: GIA NavarroUniversity Of [facility] Bmmoqs7201 [facility] [id number] Urea nitrogen [Mass/Vol] 16 mg/dL Normal 8-27 [facility] Internal Medicine Work Phone: Comment on above: PATIENT WAS FASTINGP ERFORMED BY: [facility]6370 [facility] [id number] Urea nitrogen/Creatinine [Mass ratio] 16 mg/mg Normal 10-24 [facility] Internal Medicine Work Phone: Comment on above: PATIENT WAS FASTINGP ERFORMED BY: [facility] Pweqmb5413 [facility] [id number] T3, FREE (TRIDOTHYRONINE) (8 3428)Ordered By: Dyer Assistant on 11-14-2019 Free T3 [Mass/Vol] 3.4 pg/mL Normal 2.0-4.4 [facility] Internal Medicine Work Phone: Comment on above: PATIENT WAS FASTINGP ERFORMED BY: [facility]6370 [facility] [id number] T4, FREE (THYROXINE) (90024) Ordered By: Dyer Assistant on 11-14-2019 Free T4 [Mass/Vol] 1.55 ng/dL Normal 0.82-1.77 [facility] Internal Medicine Work Phone: Comment on above: PATIENT WAS FASTINGP ERFORMED BY: [facility]St[facility]6370 [facility] [id number] TSH (THYROID STIMULATING HOR OSVALDO) (20307)Ordered By: Dyer Assistant on 11-14-2019 TSH Qn 1.000 {uIU/mL} Normal 0.450-4.50 0 [facility] Internal Medicine Work Phone: Comment on above: PATIENT WAS FASTINGP ERFORMED BY: [facility]6370 [facility] [id number] Serum Creatinine AND GFROrde red By: Dyer Assistant on 05-15-2018 Creatinine mass conc 0.99 mg/dL Normal 0.70-1.30 Comp rehensive Internal Medicine Work Phone: Comment on above: The validity of the calculated GFR AND GFRAA in patients over70 years has not been determined. Clinical correlation isessential. [facility] [address] [place], [place], [address] GFR/1.73 sq M predicted among non-blacks MDRD vol rate/area (S/P/Bld) 80 mL/min/{1.73_m2} Normal Comprehe nsive Internal Medicine Work Phone: Comment on above: Non- GFR Calc [facility] Q[address] [place], [place], [address] Serum Creatinine AND GFR 97 mL/min Normal [facility] Work Phone: Comment on above: GFR Calc [facility] [address]pt[address] [place], [place], [address]69[address] T4 Free DirectOrdered By: Fresco [employer] stem Line Maintainer on 03-30-2018 T4 free mass conc 1.14 ng/dL Normal 0.76-1.46 Compreh ensive Internal Medicine Work Phone: Comment on above: [facility] [address] [place], [place], [address] Thyroid Stim Hormone (TSH)Or dered By: Dyer Assistant on 03-30-2018 Thyrotropin Qn 5.13 {uIU/mL} Abnormal 0.358-3.74 Compreh ensive Internal Medicine Work Phone: Comment on above: [facility] [address] [place], [address] Vitamin D26Zrrupxq By: Aleksander m Line Maintainer on 03-30-2018 Cobalamin (Vitamin B12) mass conc 374 pg/mL Normal 211-911 [facility] Work Phone: Comment on above: [facility] [address] [place], [address] Vitamin D,25 HydroxyOrdered By: Dyer Assistant on 03-30-2018 Vitamin D,25 Hydroxy 34.2 ng/mL Normal 29.95-1 00. 01 [facility] Work Phone: Comment on above: Vitamin D 25(OH) Sta tus Range Deficiency <20 ng/mL (50nmol/L) Insuffciency 20 - 30 ng/mL (50 - 75 nmol/L) Sufficiency 30 - 100 ng/mL (75 - 250 nmol/L) Toxicity >100 ng/mL (>250 nmol/L) [facility] [address] [place], [address] Rapid Flu (59899 x 2)Ordered By: Chelsi Krause on 09-23-2017 FLUAV Ag IA Ql (Throat) Positive Normal [facility] Work Phone: FLUAV Ag IA Ql (Throat) Positive Normal [facility]; [facility] Work Phone: Basic Metabolic Profile (BMP )Ordered By: Dyer Assistant on 09-06-2017 Basic metabolic 2000 panel 31.0 mmol/L Normal 21.0-32.0 [facility] Work Phone: Comment on above: [facility] Z[address] [place], [id number] Basic metabolic 2000 panel 97 mL/min Normal [facility] Work Phone: Comment on above: Non- GFR Calc [facility] V[address]cur[address] [place], [place], [address] Basic metabolic 2000 panel 6 1 Normal 5-15 [facility] Work Phone: Comment on above: [facility] Sil[address] [place], [place], [address]26[address] Basic metabolic 2000 panel 102 mmol/L Normal 98-107 [facility] Work Phone: Comment on above: [facility] [address] [place], [place], 91138[address] Basic metabolic 2000 panel 84 mg/dL Normal 70-110 [facility] Work Phone: Comment on above: [facility] [address]oxcz[address] [place], [place], [address] Basic metabolic 2000 panel 4.5 mmol/L Normal 3.5-5.1 [facility] Work Phone: Comment on above: [facility] Msmyqrlbrx[address] [place], [place], 200536[address] Basic metabolic 2000 panel 139 mmol/L Normal 136-145 [facility] Work Phone: Comment on above: [facility] [address]jlra[address] [place], [place], [address] Basic metabolic 2000 panel 8.9 mg/dL Normal 8.5-10.1 [facility] Work Phone: Comment on above: [facility] [address] [place], [place], 128036[address] Basic metabolic 2000 panel 16 mg/dL Normal 7-18 [facility] Work Phone: Comment on above: [facility] [address] [place], [place], 72558691 Basic metabolic 2000 panel 0.85 mg/dL Normal 0.70-1.30 [facility] Work Phone: Comment on above: The validity of the calculated GFR AND GFRAA in patients over70 years has not been determined. Clinical correlation isessential. [facility] [address]fr[address] [place], [place], 149736[address] Basic metabolic 2000 panel 18.9 {RATIO} Normal 10-20 [facility] Work Phone: Comment on above: [facility] Encbottjrn[address] [place], [place], [address]9847[address] Basic metabolic 2000 panel 117 mL/min Normal [facility] Work Phone: Comment on above: GFR Calc [facility] [address] [place], [place], [address] CBC-Complete Blood Cnt No Di ffOrdered By: Dyer Assistant on 09-06-2017 Erythrocyte distribution width (RBC) [Ratio] 14.0 % Normal 11.6-14.6 [facility] Work Phone: Comment on above: [facility] [address] [place], [address] Erythrocyte distribution width Auto Ratio (RBC) 14.0 % Normal 11.6-14.6 [facility] Work Phone: Hematocrit (Bld) [Volume fraction] 44.9 % Normal 40-54 [facility] Work Phone: Comment on above: [facility] [address] [place], [address] Hematocrit Auto Volume Fraction (Bld) 44.9 % Normal 40-54 Comprehens mouna Internal Medicine Work Phone: Hemoglobin mass conc (Bld) 14.6 g/dL Normal 13.0-16.5 [facility] Work Phone: Comment on above: [facility] [address] [place], [address] MCH (RBC) [Entitic mass] 28.6 pg Normal 27.0-32.0 [facility] Work Phone: Comment on above: [facility] [address] [place], [address] MCH Auto Entitic mass (RBC) 28.6 pg Normal 27.0-32.0 [facility] Work Phone: MCHC (RBC) [Mass/Vol] 32.5 {g/gl} Normal 32-36 [facility] mprehselect [facility] specialty [facility] Internal Medicine Work Phone: Comment on above: [facility] [address] [place], [address] MCHC Auto mass conc (RBC) 32.5 {g/gl} Normal 32-36 [facility] Work Phone: MCV (RBC) [Entitic vol] 87.9 fL Normal 80-94 [facility] Work Phone: Comment on above: [facility] [address] [place], [address] MCV Auto Entitic volume (RBC) 87.9 fL Normal 80-94 [facility] Work Phone: Platelet mean volume (Bld) [Entitic vol] 9.2 fL Normal 6.2-12.0 Comprehensevergreen[facility] Work Phone: Comment on above: [facility] [address] [place], [address] Platelet mean volume Auto Entitic volume (Bld) 9.2 fL Normal 6.2-12.0 [facility] Internal Medicine Work Phone: Platelets (Bld) [#/Vol] 261 10*3/uL Normal 150-450 [facility] Work Phone: Comment on above: [place] [address] [place], [address] Platelets Auto #/vol (Bld) 261 10*3/uL Normal 150-450 [facility] Internal Medicine Work Phone: RBC (Bld) [#/Vol] 5.11 {M/mm3} Normal 4.6-6.2 [facility] Internal Medicine Work Phone: Comment on above: [facility] [place], [address] RBC Auto #/vol (Bld) 5.11 {M/mm3} Normal 4.6-6.2 [facility] Internal Medicine Work Phone: WBC (Bld) [#/Vol] 7.3 10*3/uL Normal 4.4-11.0 [facility] Internal Medicine Work Phone: Comment on above: [facility] [address] [place], [address] WBC Auto #/vol (Bld) 7.3 10*3/uL Normal 4.4-11.0 [facility] prehensive Internal Medicine Work Phone: CBC-Complete Blood Cnt No Diff 44.7 fL Abnormal 35.1-43.9 [facility] Work Phone: Comment on above: [facility] [address] [place], [place], [address] Basic Metabolic Profile (BMP )Ordered By: Dyer Assistant on 07-27-2017 Basic metabolic 2000 panel 19 mg/dL Abnormal 7-18 [facility] Work Phone: Comment on above: 'TROP' Serial specim en #1, #2, #3, or #4: [address] [place] [address] [place], [place], [address] Basic metabolic 2000 panel 120 mL/min Normal [facility] Work Phone: Comment on above: GFR Calc 'TROP' Serial specim en #1, #2, #3, or #4: [address] [place] [address] [place], [place], [address] Basic metabolic 2000 panel 8 1 Normal 5-15 [facility] Work Phone: Comment on above: 'TROP' Serial specim en #1, #2, #3, or #4: [address] [place] [address] [place], [address] Basic metabolic 2000 panel 28.0 mmol/L Normal 21.0-32.0 [facility] Work Phone: Comment on above: 'TROP' Serial specim en #1, #2, #3, or #4: [address] [place] [address] [place], [place], [address] Basic metabolic 2000 panel 4.3 mmol/L Normal 3.5-5.1 [facility] Work Phone: Comment on above: 'TROP' Serial specim en #1, #2, #3, or #4: [address] [place] [address] [place], [place], [address] Basic metabolic 2000 panel 0.83 mg/dL Normal 0.70-1.30 [facility] Work Phone: Comment on above: The validity of the calculated GFR AND GFRAA in patients over70 years has not been determined. Clinical correlation isessential. 'TROP' Serial specim en #1, #2, #3, or #4: [address] [place] [address] [place], [address] Basic metabolic 2000 panel 99 mL/min Normal [facility] Work Phone: Comment on above: Non- GFR Calc 'TROP' Serial specim en #1, #2, #3, or #4: [address] [place] [address] [place], [place], [phone] Basic metabolic 2000 panel 143 mmol/L Normal 136-145 [facility] Work Phone: Comment on above: 'TROP' Serial specim en #1, #2, #3, or #4: [address] [place] [address] [place], [address] Basic metabolic 2000 panel 107 mmol/L Normal 98-107 [facility] Work Phone: Comment on above: 'TROP' Serial specim en #1, #2, #3, or #4: [address] [place] [address] [place], [address] Basic metabolic 2000 panel 8.4 mg/dL Abnormal 8.5-10.1 [facility] Work Phone: Comment on above: 'TROP' Serial specim en #1, #2, #3, or #4: [address] [place] [address] [place], [address] Basic metabolic 2000 panel 22.9 {RATIO} Abnormal 10-20 [facility] Work Phone: Comment on above: 'TROP' Serial specim en #1, #2, #3, or #4: [address] [place] [address] [place], [place], [address] Basic metabolic 2000 panel 94 mg/dL Normal 70-110 [facility] Work Phone: Comment on above: 'TROP' Serial specim en #1, #2, #3, or #4: [address] [place] [address] [place], [address] Basic metabolic 2000 panel 91.62 ml/min Normal [facility] Work Phone: Comment on above: 'TROP' Serial specim en #1, #2, #3, or #4: [address] [place] [address] [place], [address] CBC W/Diff, AutomatedOrdered By: Dyer Assistant on 07-27-2017 Absolute Neut 4.3 {X10_3/uL} Normal 2.0-7.7 Compreh ensive Internal Medicine Work Phone: Comment on above: [facility] [address] [place], [address] Basophils/100 WBC (Bld) 0.4 % Normal 0-1 [facility] Work Phone: Comment on above: [facility] [address] [place], [address] Basophils/100 WBC Auto (Bld) 0.4 % Normal 0-1 [facility] Work Phone: Eosinophils/100 WBC (Bld) 4.3 % Normal 0-5 [facility] Work Phone: Comment on above: [facility] [address] [place], [address] Eosinophils/100 WBC Auto (Bld) 4.3 % Normal 0-5 [facility] Work Phone: Erythrocyte distribution width (RBC) [Ratio] 13.9 % Normal 11.6-14.6 [facility] Work Phone: Comment on above: [facility] [address] [place], [address] Erythrocyte distribution width Auto Ratio (RBC) 13.9 % Normal 11.6-14.6 [facility] Work Phone: Hematocrit (Bld) [Volume fraction] 41.3 % Normal 40-54 [facility] Work Phone: Comment on above: [facility] [address] [place], [address] Hematocrit Auto Volume Fraction (Bld) 41.3 % Normal 40-54 Comprehens mouna Internal Medicine Work Phone: Hemoglobin mass conc (Bld) 13.9 g/dL Normal 13.0-16.5 [facility] Work Phone: Comment on above: [facility] [address] [place], [address] IM GRAN % 0.300 % Normal 0.0-0.9 [facility] Work Phone: Comment on above: IG% - Immature Granu locytes (promyelocytes, myelocytes andmetamyelocytes) > 1% indicates that a LEFT SHIFT is Present. [facility] [address] [place], [address] Lymphocytes (Bld) [#/Vol] 2.24 {X10_3/ul} Normal 0.83-4.51 [facility] Work Phone: Comment on above: [facility] [address] [place], [address] Lymphocytes/100 WBC (Bld) 28.9 % Normal 19-41 [facility] Work Phone: Comment on above: [facility] [address] [place], [address] Lymphocytes/100 WBC Auto (Bld) 28.9 % Normal 19-41 [facility] Work Phone: MCH (RBC) [Entitic mass] 29.4 pg Normal 27.0-32.0 [facility] Work Phone: Comment on above: [facility] [address] [place], [address] MCH Auto Entitic mass (RBC) 29.4 pg Normal 27.0-32.0 [facility] Work Phone: MCHC (RBC) [Mass/Vol] 33.7 {g/gl} Normal 32-36 [facility] [place] Internal Medicine Work Phone: Comment on above: [facility] [address] [place], [address] MCHC Auto mass conc (RBC) 33.7 {g/gl} Normal 32-36 [facility] Work Phone: MCV (RBC) [Entitic vol] 87.3 fL Normal 80-94 [facility] Work Phone: Comment on above: [facility] [address] [place], [address] MCV Auto Entitic volume (RBC) 87.3 fL Normal 80-94 [facility] Work Phone: Monocytes/100 WBC (Bld) 11.0 % Abnormal 0-10 [facility] Work Phone: Comment on above: [facility] [address] [place], [address] Monocytes/100 WBC Auto (Bld) 11.0 % Abnormal 0-10 [facility] Work Phone: Neutrophils/100 WBC (Bld) 55.1 % Normal 47-70 [facility] Work Phone: Comment on above: [facility] [address] [place], [address] Neutrophils/100 WBC Auto (Bld) 55.1 % Normal 47-70 [facility] Work Phone: Platelet mean volume (Bld) [Entitic vol] 8.7 fL Normal 6.2-12.0 Comprehens e Internal Medicine Work Phone: Comment on above: [facility] [address] [place], [address] Platelet mean volume Auto Entitic volume (Bld) 8.7 fL Normal 6.2-12.0 [facility] Work Phone: Platelets (Bld) [#/Vol] 277 10*3/uL Normal 150-450 [facility] Work Phone: Comment on above: [facility] [address] [place], [address] Platelets Auto #/vol (Bld) 277 10*3/uL Normal 150-450 [facility] Work Phone: RBC (Bld) [#/Vol] 4.73 {M/mm3} Normal 4.6-6.2 [facility] Internal Medicine Work Phone: Comment on above: [facility] [address] [place], [address] RBC Auto #/vol (Bld) 4.73 {M/mm3} Normal 4.6-6.2 [facility] [place] Internal Medicine Work Phone: RDW SD 44.0 fL Abnormal 35.1-43.9 [facility] Work Phone: Comment on above: [facility] [address] [place], [address] WBC (Bld) [#/Vol] 7.8 10*3/uL Normal 4.4-11.0 [facility] Internal Medicine Work Phone: Comment on above: [facility] [address] [place], [address] WBC Auto #/vol (Bld) 7.8 10*3/uL Normal 4.4-11.0 [facility] Internal Medicine Work Phone: CBC W/Diff, Automated 0.300 % Normal 0.0-0.9 [facility] prehensive Internal Medicine Work Phone: Comment on above: IG% - Immature Granu locytes (promyelocytes, myelocytes andmetamyelocytes) > 1% indicates that a LEFT SHIFT is Present. CBC W/Diff, Automated 2.24 {X10_3/ul} Normal 0.83-4.51 [facility] Work Phone: CBC W/Diff, Automated 4.3 {X10_3/uL} Normal 2.0-7.7 [facility] Work Phone: CBC W/Diff, Automated 44.0 fL Abnormal 35.1-43.9 [facility] prehensive Internal Medicine Work Phone: MagnesiumOrdered By: Dyer Assistant on 07-27-2017 Magnesium mass conc 2.3 mg/dL Normal 1.8-2.4 [facility]: Comment on above: 'TROP' Serial specim en #1, #2, #3, or #4: [address] [place] [address] [address] [place], [address] PROGRESSon 07-27-2017 PROGRESS HNO ID: [id number] thor: Gordo Wagoner, DOService: (none)Author Type: (none)Type: Progress NotesFiled: 07/27/2017 2:43 PMNote Text:notified today of another long pause 9 sec due to complete heart block.I have not seen pt in 4 yrscalled him in jun after pause and advised ed /cards fuhe didn't doI called pt he feels ok episode was nocturalnevertheless he has had a few episodes of long pauses? sleep apnea,? vagal but need cardiac eval for ischemia etcadvised local er /cards Connie Wagoner Jr, DO Normal [facility] Troponin-IOrdered By: Dyer Assistant on 07-27-2017 Troponin I.cardiac mass conc ng/mL Normal [facility] Work Phone: Comment on above: TROPONIN-I EXPECTED VALUES <0.05 NEGATIVE 0.06 - 0.59 AT RISK OF [place] > OR = 0.60 SUGGEST [place] 'TROP' Serial specim en #1, #2, #3, or #4: [address] [place] [address] [address] [place], [address] LIPID PANEL ([id number])Ordered B y: Dyer Assistant on 02-16-2017 Cholesterol in HDL mass conc 37 mg/dL Abnormal [facility] Work Phone: Comment on above: PATIENT WAS FASTINGP ERFORMED BY: GIA LabCoepifanio Vogrwc9461 [facility] [id number] Cholesterol in LDL mass conc 138 mg/dL Abnormal 0-99 [facility] Work Phone: Comment on above: PATIENT WAS FASTINGP ERFORMED BY: GIA LabLynn Cgkgup6707 [facility] [id number] Cholesterol in LDL/Cholesterol in HDL mass ratio 3.7 {ratio_units} Abnormal 0.0-3.6 [facility] Work Phone: Comment on above: LDL/HDL Ratio Men Wo men 1/2 Avg.Risk 1.0 1.5 Avg.Risk 3.6 3.2 2X Avg.Risk 6.2 5.0 3X Avg.Risk 8.0 6.1 PATIENT WAS FASTINGP ERFORMED BY: GIA LabContinuityX Solutionsepifanio Bwbdui7843 [facility] [id number] Cholesterol in VLDL mass conc 14 mg/dL Normal 5-40 [facility] Work Phone: Comment on above: PATIENT WAS FASTINGP ERFORMED BY: GIA LabContinuityX Solutionsepifanio Dsrdiy0781 [facility] [id number] Cholesterol mass conc 189 mg/dL Normal 100-199 Com prehensive Internal Medicine Work Phone: Comment on above: PATIENT WAS FASTINGP ERFORMED BY: GIA LabCoepifanio Ocdbdb8848 [facility] [id number] Triglyceride mass conc 71 mg/dL Normal 0-149 [facility] Work Phone: Comment on above: PATIENT WAS FASTINGP ERFORMED BY: [facility] Icxlba8500 [facility] [id number] T3, FREE (TRIDOTHYRONINE) ([id number])Ordered By: Dyer Assistant on 02-16-2017 T3 free mass conc 2.9 pg/mL Normal 2.0-4.4 Compreh ensive Internal Medicine Work Phone: Comment on above: PATIENT WAS FASTINGP ERFORMED BY: [facility]6370 [facility] [id number] T4, FREE (THYROXINE) ([id number]) Ordered By: Dyer Assistant on 02-16-2017 T4 free mass conc 1.31 ng/dL Normal 0.82-1.77 Compreh ensive Internal Medicine Work Phone: Comment on above: PATIENT WAS FASTINGP ERFORMED BY: [facility]6370 [facility] [id number] TSH ([id number])Ordered By: Syste m Line Maintainer on 02-16-2017 Thyrotropin Qn 2.160 {uIU/mL} Normal 0.450-4.50 0 [facility] Work Phone: Comment on above: PATIENT WAS FASTINGP ERFORMED BY: [facility]6370 [facility] [id number] Culture, WoundOrdered By: Maicol stem Line Maintainer on 07-14-2016 Bacteria identified Cx Nom (Wound) See Note Normal [facility] Work Phone: Comment on above: Comments: LEFT LATER AL SUPERIOR CHEST.Gram StainGram Stain 2+ Red Blood Cells No organisms seen Wound CultureNo growth aerobically. [facility] [address] [place], [address] Culture, WoundOrdered By: Maicol stem Line Maintainer on 06-30-2016 Bacteria identified Cx Nom (Wound) See Note Normal [facility] Work Phone: Comment on above: Gram StainGram Stain Rare White Blood Cells No organisms seen Wound CultureORGANISM 1: Staphylococcus aureusAmount Growth Rare Staphylococcus aureus: REACTION Benzylpenicillin NF >=0.5 R Cefoxitin *NF - Clindamycin $$ <=0.25 S Inducable Clindamycin Resistan - Erythromycin $ <=0.25 S Gentamicin $ <=0.5 S Levofloxacin $ <=0.12 S Linezolid $$$$ 2 S Moxifloxicin *NF <=0.25 S Oxacillin NF 0.5 S Tigecycline $$$$ <=0.12 S Rifampin $$ <=0.5 S Tetracycline NF <=1 S Trimethoprim/Sulfametho $ <=10 S Vancomycin $ 1 S(NF) indicates non-formulary drug at [facility]. Approval by Infectious Disease Specialist required before non-formulary drugs may be ordered and/or dispensed. * CLSI guidelines does not recommend testing of cephalosporins. This interpretation is deduced from Beta-lactam/penicillin results. [facility] [address] [place], [address] Culture, WoundOrdered By: Maicol stem Line Maintainer on 06-22-2016 Bacteria identified Cx Nom (Wound) See Note Normal [facility] Work Phone: Comment on above: Comments: LEFT LATER IAL SUPERIOR CHESTGram StainGram Stain 3+ Gram positive cocci No cells seen Wound CultureORGANISM 1: Staphylococcus aureusAmount Growth 3+ ORGANISM 2: Stenotrophomonas maltophiliaAmount Growth 1+ Staphylococcus aureus: REACTION Benzylpenicillin NF >=0.5 R Cefoxitin *NF - Clindamycin $$ <=0.25 S Inducable Clindamycin Resistan - Erythromycin $ <=0.25 S Gentamicin $ <=0.5 S Levofloxacin $ <=0.12 S Linezolid $$$$ 2 S Moxifloxicin *NF <=0.25 S Oxacillin NF 0.5 S Tigecycline $$$$ <=0.12 S Rifampin $$ <=0.5 S Tetracycline NF <=1 S Trimethoprim/Sulfametho $ <=10 S Vancomycin $ 1 S(NF) indicates non-formulary drug at [facility]. Approval by Infectious Disease Specialist required before non-formulary drugs may be ordered and/or dispensed. * CLSI guidelines does not recommend testing of cephalosporins. This interpretation is deduced from Beta-lactam/penicillin results. Stenotrophomonas maltophilia: REACTION Levofloxacin $ 2 S Trimethoprim/Sulfametho $ <=20 S(NF) indicates non-formulary drug at [facility]. Approval by Infectious Disease Specialist required before non-formulary drugs may be ordered and/or dispensed. [facility] [address] [place], [place], [address] COLON BIOPSY (CHOOSE SITE)Or dered By: Dyer Assistant on 06-08-2016 COLON BIOPSY (CHOOSE SITE) See Note Normal [facility] Work Phone: Comment on above: Patient: LUCINA FLANAGAN : 1950 (66/M) Acct Num: [id number] Phys: Chris Stallworth Unit Num: [id number] Loc: LABSPEC Specimen: [id number] Received: 06/08/161611 Spec Type: COLON BX TISSUES TISSUES: GROSS DESCRIPTION Received is one container labeled with the patient's name and designated polyp colon 25 cm. The specimen consists of is a pink-red polyp measuring 0.8 x 0.5 x 0.3 cm. The apparent base is inked. The polyp is bisected and submitted entirely in one cassette. / SJ:arelis 06/09/16 TC:1 CPT:74197 HEADER OPERATION: Colonoscopy with polypectomy PRE-OP DIAGNOSIS: Screening / polyp TISSUE SUBMITTED: Colon polyp 25 cm, rule out adenoma MICROSCOPIC DESCRIPTION Slides are reviewed. 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 SJ:arelis 06/10/16 Signed David Hernandez 06/10/16 [facility] [address] [place], [place], [address] CBC WITH MANUAL DIFF ([id number]) Ordered By: Dyer Assistant on 02-16-2016 Basophils (Bld) [#/Vol] 0.0 {x10E3/uL} Normal 0.0-0.2 [facility] Work Phone: Comment on above: PATIENT WAS FASTINGP ERFORMED BY: [facility] Zxnpkv9580 [facility] [id number] Information: [id number] Basophils (Bld) [#/Vol] 0.0 10*3/uL Normal 0.0-0.2 [facility]; [facility] Work Phone: Comment on above: PATIENT WAS FASTINGP ERFORMED BY: [address] [id number] Information: [id number] Basophils Auto #/vol (Bld) 0.0 {x10E3/uL} Normal 0.0-0.2 [facility] Work Phone: Basophils/100 WBC (Bld) 1 % Normal [facility] Work Phone: Comment on above: PATIENT WAS FASTINGP ERFORMED BY: [address] [id number] Information: [id number] Basophils/100 WBC Auto (Bld) 1 % Normal [facility] Work Phone: Eosinophils (Bld) [#/Vol] 0.2 {x10E3/uL} Normal 0.0-0.4 [facility] Work Phone: Comment on above: PATIENT WAS FASTINGP ERFORMED BY: [address] [id number] Information: [id number] Eosinophils (Bld) [#/Vol] 0.2 10*3/uL Normal 0.0-0.4 [facility]; [facility] Work Phone: Comment on above: PATIENT WAS FASTINGP ERFORMED BY: [address] [id number] Information: [id number] Eosinophils Auto #/vol (Bld) 0.2 {x10E3/uL} Normal 0.0-0.4 [facility] Work Phone: Eosinophils/100 WBC (Bld) 3 % Normal [facility] Work Phone: Comment on above: PATIENT WAS FASTINGP ERFORMED BY: [place] [address] [facility] [id number] Information: [id number] Eosinophils/100 WBC Auto (Bld) 3 % Normal [facility] Work Phone: Erythrocyte distribution width (RBC) [Ratio] 14.9 % Normal 12.3-15.4 [facility] Work Phone: Comment on above: PATIENT WAS FASTINGP ERFORMED BY: GIA [place] [id number] [facility] [id number] Information: [id number] Erythrocyte distribution width Auto Ratio (RBC) 14.9 % Normal 12.3-15.4 [facility] Work Phone: Hematocrit (Bld) [Volume fraction] 41.4 % Normal 37.5-51.0 [facility] Work Phone: Comment on above: PATIENT WAS FASTINGP ERFORMED BY: GIA [place] [id number] [facility] [id number] Information: [id number] Hematocrit Auto Volume Fraction (Bld) 41.4 % Normal 37.5-51.0 [facility] Internal Medicine Work Phone: Hemoglobin mass conc (Bld) 13.7 g/dL Normal 12.6-17.7 [facility] Work Phone: Comment on above: PATIENT WAS FASTINGP ERFORMED BY: GIA [facility]6370 [facility] [id number] Information: [id number] Immature granulocytes #/vol (Bld) 0.0 {x10E3/uL} Normal 0.0-0.1 [facility] Work Phone: Comment on above: PATIENT WAS FASTINGP ERFORMED BY: GIA [facility]6370 [facility] [id number] Information: [id number] Immature granulocytes (Bld) [#/Vol] 0.0 10*3/uL Normal 0.0-0.1 [facility]; [facility] Work Phone: Comment on above: PATIENT WAS FASTINGP ERFORMED BY: GIA [facility]6370 [facility] [id number] Information: [id number] Immature granulocytes/100 WBC (Bld) 0 % Normal [facility] Work Phone: Comment on above: PATIENT WAS FASTINGP ERFORMED BY: [place] [id number] [facility] [id number] Information: [id number] Lymphocytes (Bld) [#/Vol] 2.5 {x10E3/uL} Normal 0.7-3.1 [facility] Work Phone: Comment on above: PATIENT WAS FASTINGP ERFORMED BY: GIA [address] [id number] Information: [id number] Lymphocytes (Bld) [#/Vol] 2.5 10*3/uL Normal 0.7-3.1 [facility]; [facility] Work Phone: Comment on above: PATIENT WAS FASTINGP ERFORMED BY: GIA [place] [id number] [facility] [id number] Information: [id number] Lymphocytes Auto #/vol (Bld) 2.5 {x10E3/uL} Normal 0.7-3.1 [facility] Work Phone: Lymphocytes/100 WBC (Bld) 38 % Normal [facility] Work Phone: Comment on above: PATIENT WAS FASTINGP ERFORMED BY: [place] [id number] [facility] [id number] Information: [id number] Lymphocytes/100 WBC Auto (Bld) 38 % Normal [facility] Work Phone: MCH (RBC) [Entitic mass] 28.4 pg Normal 26.6-33.0 [facility] Work Phone: Comment on above: PATIENT WAS FASTINGP ERFORMED BY: Lab19 Jones StreetDublin [place] [id number] Information: [id number] MCH Auto Entitic mass (RBC) 28.4 pg Normal 26.6-33.0 [facility] Work Phone: MCHC (RBC) [Mass/Vol] 33.1 g/dL Normal 31.5-35.7 [facility] prehensive Internal Medicine Work Phone: Comment on above: PATIENT WAS FASTINGP ERFORMED BY: [address] [id number] Information: [id number] MCHC Auto mass conc (RBC) 33.1 g/dL Normal 31.5-35.7 [facility] Work Phone: MCV (RBC) [Entitic vol] 86 fL Normal 79-97 [facility] Work Phone: Comment on above: PATIENT WAS FASTINGP ERFORMED BY: [address] [id number] Information: [id number] MCV Auto Entitic volume (RBC) 86 fL Normal 79-97 [facility] Work Phone: Monocytes (Bld) [#/Vol] 0.8 {x10E3/uL} Normal 0.1-0.9 [facility] Work Phone: Comment on above: PATIENT WAS FASTINGP ERFORMED BY: [place] [id number] [facility] [id number] Information: [id number] Monocytes (Bld) [#/Vol] 0.8 10*3/uL Normal 0.1-0.9 [facility]; [facility] Work Phone: Comment on above: PATIENT WAS FASTINGP ERFORMED BY: [place] [id number] [facility] [id number] Information: [id number] Monocytes Auto #/vol (Bld) 0.8 {x10E3/uL} Normal 0.1-0.9 [facility] Work Phone: Monocytes/100 WBC (Bld) 12 % Normal [facility] Work Phone: Comment on above: PATIENT WAS FASTINGP ERFORMED BY: GIA Melanie[place] MejíaBzrmfe5735 [facility] [id number] Information: [id number] Monocytes/100 WBC Auto (Bld) 12 % Normal [facility] Work Phone: Neutrophils (Bld) [#/Vol] 3.1 {x10E3/uL} Normal 1.4-7.0 [facility] Work Phone: Comment on above: PATIENT WAS FASTINGP ERFORMED BY: GIA [facility] Trgfwy8833 [facility] [id number] Information: [id number] Neutrophils (Bld) [#/Vol] 3.1 10*3/uL Normal 1.4-7.0 [facility]; [facility] Work Phone: Comment on above: PATIENT WAS FASTINGP ERFORMED BY: GIA [facility] Rznwex4168 [facility] [id number] Information: [id number] Neutrophils Auto #/vol (Bld) 3.1 {x10E3/uL} Normal 1.4-7.0 [facility] Work Phone: Neutrophils/100 WBC (Bld) 46 % Normal [facility] Work Phone: Comment on above: PATIENT WAS FASTINGP ERFORMED BY: GIA [place] [id number] [facility] [id number] Information: [id number] Neutrophils/100 WBC Auto (Bld) 46 % Normal [facility] Work Phone: Platelets (Bld) [#/Vol] 265 {x10E3/uL} Normal 150-379 [facility] Work Phone: Comment on above: PATIENT WAS FASTINGP ERFORMED BY: GIA [place] [id number] [facility] [id number] Information: [id number] Platelets (Bld) [#/Vol] 265 10*3/uL Normal 150-379 [facility] Internal Medicine; [facility] Work Phone: Comment on above: PATIENT WAS FASTINGP ERFORMED BY: [facility]6370 [facility] [id number] Information: [id number] Platelets Auto #/vol (Bld) 265 {x10E3/uL} Normal 150-379 [facility] Internal Medicine Work Phone: RBC (Bld) [#/Vol] 4.82 {x10E6/uL} Normal 4.14-5.80 [facility] Internal Medicine Work Phone: Comment on above: PATIENT WAS FASTINGP ERFORMED BY: [address] [id number] Information: [id number] RBC (Bld) [#/Vol] 4.82 10*6/uL Normal 4.14-5.80 [facility] Internal Medicine; [facility] Work Phone: Comment on above: PATIENT WAS FASTINGP ERFORMED BY: [place] [id number] [facility] [id number] Information: [id number] RBC Auto #/vol (Bld) 4.82 {x10E6/uL} Normal 4.14-5.80 [facility] Internal Medicine Work Phone: WBC (Bld) [#/Vol] 6.6 {x10E3/uL} Normal 3.4-10.8 [facility] Internal Medicine Work Phone: Comment on above: PATIENT WAS FASTINGP ERFORMED BY: [place] [id number] [facility] [id number] Information: [id number] WBC (Bld) [#/Vol] 6.6 10*3/uL Normal 3.4-10.8 [facility] Internal Medicine; [facility] Work Phone: Comment on above: PATIENT WAS FASTINGP ERFORMED BY: GIA Sergioepifanio Pdejex4930 [facility] [id number] Information: [id number] WBC Auto #/vol (Bld) 6.6 {x10E3/uL} Normal 3.4-10.8 [facility] Work Phone: Lipid Panel ([id number])Ordered B y: Dyer Assistant on 02-16-2016 Cholesterol in HDL mass conc 39 mg/dL Abnormal [facility] Work Phone: Comment on above: According to ATP-III Guidelines, HDL-C >59 mg/dL is considered anegative risk factor for CHD. PATIENT WAS FASTINGP ERFORMED BY: GIA MelanieLynn MejíaJiywcv0796 [facility] [id number] Cholesterol in LDL mass conc 143 mg/dL Abnormal 0-99 [facility] Work Phone: Comment on above: PATIENT WAS FASTINGP ERFORMED BY: GIA Mejíalin6370 [facility] [id number] Cholesterol in LDL/Cholesterol in HDL mass ratio 3.7 {ratio_units} Abnormal 0.0-3.6 [facility] Work Phone: Comment on above: LDL/HDL Ratio Men Wo men 1/2 Avg.Risk 1.0 1.5 Avg.Risk 3.6 3.2 2X Avg.Risk 6.2 5.0 3X Avg.Risk 8.0 6.1 PATIENT WAS FASTINGP ERFORMED BY: GIA Mejíalin6370 [facility] [id number] Cholesterol in VLDL mass conc 10 mg/dL Normal 5-40 [facility] Work Phone: Comment on above: PATIENT WAS FASTINGP ERFORMED BY: GIA MelanieLynn MejíaXkxurq4409 [facility] [id number] Cholesterol mass conc 192 mg/dL Normal 100-199 Com prehensive Internal Medicine Work Phone: Comment on above: PATIENT WAS FASTINGP ERFORMED BY: GIA Mejíalin6370 [facility] [id number] Triglyceride mass conc 49 mg/dL Normal 0-149 [facility] Work Phone: Comment on above: PATIENT WAS FASTINGP ERFORMED BY: GIA [facility] Uvuaac6[address] RoadDublin [place] [id number] Metabolic Panel, Comprehensi ve ([id number])Ordered By: Dyer Assistant on 02-16-2016 Albumin mass conc 3.9 g/dL Normal 3.6-4.8 Compreh [facility] Internal Medicine Work Phone: Comment on above: PATIENT WAS FASTINGP ERFORMED BY: CB [facility] Zjlwuv4219 Chance RoadDublin [place] [id number] Albumin/Globulin mass ratio 1.6 {ratio} Normal 1.1-2.5 [facility] Work Phone: Comment on above: PATIENT WAS FASTINGP ERFORMED BY: GIA [facility] Kyjpsw1102 [address] RoadDublin [place] [id number] ALP [Catalytic activity/Vol] 55 U/L Normal 39-117 [facility]; [facility] Internal Medicine Work Phone: Comment on above: PATIENT WAS FASTINGP ERFORMED BY: [facility] Mvloeq9949 [address] RoadDublin [place] [id number] ALP enzyme act/vol 55 [iU]/L Normal 39-117 [facility] Internal Medicine Work Phone: Comment on above: PATIENT WAS FASTINGP ERFORMED BY: [facility] Luueop2390 [address]Dublin [place] [id number] ALT [Catalytic activity/Vol] 23 U/L Normal 0-44 [facility]; [facility] Internal Medicine Work Phone: Comment on above: PATIENT WAS FASTINGP ERFORMED BY: CB [facility] Gpydez0464 [address] RoadDublin [place] [id number] ALT enzyme act/vol 23 [iU]/L Normal 0-44 [facility] Internal Medicine Work Phone: Comment on above: PATIENT WAS FASTINGP ERFORMED BY: CB [facility] Fxbdfi38[address] RoadDublin [place] [id number] AST [Catalytic activity/Vol] 23 U/L Normal 0-40 [facility]; [facility] Work Phone: Comment on above: PATIENT WAS FASTINGP ERFORMED BY: GIA LabLynn Mcclure6370 [facility] [id number] AST enzyme act/vol 23 [iU]/L Normal 0-40 Compre hensive Internal Medicine Work Phone: Comment on above: PATIENT WAS FASTINGP ERFORMED BY: GIA Tali Mcclure6370 [facility] [id number] Bilirubin mass conc 0.7 mg/dL Normal 0.0-1.2 Compr ehensive Internal Medicine Work Phone: Comment on above: PATIENT WAS FASTINGP ERFORMED BY: GIA Tali Mcclure6370 [facility] [id number] Calcium mass conc 8.5 mg/dL Abnormal 8.6-10.2 Compreh ensive Internal Medicine Work Phone: Comment on above: PATIENT WAS FASTINGP ERFORMED BY: GIA NavarroJewelsepifanio MejíaQxnmay5437 [facility] [id number] Chloride molar conc 104 mmol/L Normal 97-108 Compr ensive Internal Medicine Work Phone: Comment on above: PATIENT WAS FASTINGP ERFORMED BY: GIA Sergioeipfanio Gkdmqd8642 [facility] [id number] CO2 molar conc 24 mmol/L Normal 18-29 Comprehens mouna Internal Medicine Work Phone: Comment on above: PATIENT WAS FASTINGP ERFORMED BY: GIA Serigoepifanio Xvxnht0819 [facility] [id number] Creatinine mass conc 0.87 mg/dL Normal 0.76-1.27 Comp [facility] Work Phone: Comment on above: PATIENT WAS FASTINGP ERFORMED BY: GIA LabJewelsepifanio Dwbtos3772 [facility] [id number] GFR/1.73 sq M predicted among blacks CKD-EPI vol rate/area (S/P/Bld) 106 mL/min/1.73 Normal Comprehensiv e Internal Medicine Work Phone: Comment on above: PATIENT WAS FASTINGP ERFORMED BY: GIA [facility] Qwgdvf2052 [address] Roadblin [place] [id number] GFR/1.73 sq M predicted among non-blacks CKD-EPI vol rate/area (S/P/Bld) 92 mL/min/1.73 Normal [facility] Work Phone: Comment on above: PATIENT WAS FASTINGP ERFORMED BY: GIA [facility] Flujta8324 Chance Roadblin [place] [id number] Globulin (S) [Mass/Vol] 2.4 g/dL Normal 1.5-4.5 [facility] Work Phone: Comment on above: PATIENT WAS FASTINGP ERFORMED BY: GIA [facility] Efkxgv5332 [address] RoadDublin [place] [id number] Globulin Calculated mass conc (S) 2.4 g/dL Normal 1.5-4.5 [facility] Work Phone: Glucose mass conc 86 mg/dL Normal 65-99 Compreh ensive Internal Medicine Work Phone: Comment on above: PATIENT WAS FASTINGP ERFORMED BY: GIA [facility] Geuvuh0655 [address] RoadDublin [place] [id number] Potassium molar conc 4.7 mmol/L Normal 3.5-5.2 Comp rehensive Internal Medicine Work Phone: Comment on above: PATIENT WAS FASTINGP ERFORMED BY: GIA [facility] Ncigsk6[address] RoadDublin [place] [id number] Protein mass conc 6.3 g/dL Normal 6.0-8.5 Compreh ensive Internal Medicine Work Phone: Comment on above: PATIENT WAS FASTINGP ERFORMED BY: GIA [facility] Nodmyj2817 [address] RoadDublin [place] [id number] Sodium molar conc 143 mmol/L Normal 134-144 Compreh ensive Internal Medicine Work Phone: Comment on above: PATIENT WAS FASTINGP ERFORMED BY: GIA [facility] Epmqfx8059 [address] RoadDublin [place] [id number] Urea nitrogen mass conc 17 mg/dL Normal 8-27 [facility] Work Phone: Comment on above: PATIENT WAS FASTINGP ERFORMED BY: [facility] StaffingJeff[facility]Vqqboq7552 [facility] [id number] Urea nitrogen/Creatinine mass ratio 20 mg/mg Normal 10-22 [facility] Work Phone: Comment on above: PATIENT WAS FASTINGP ERFORMED BY: [facility]ingJeff[facility]Vrtokq1255 [facility] [id number] TSH ([id number])Ordered By: TransactionTreee m Line Maintainer on 02-16-2016 Thyrotropin Qn 2.420 {uIU/mL} Normal 0.450-4.50 0 [facility] Work Phone: Comment on above: PATIENT WAS FASTINGP ERFORMED BY: [facility]ingJeff[facility]Ubnvaa7157 [facility] [id number] VITAMIN B-12 (CYANOCOBALAMIN ) (19344)Ordered By: Dyer Assistant on 02-16-2016 Cobalamin (Vitamin B12) mass conc 539 pg/mL Normal 211-946 [facility] Work Phone: Comment on above: PATIENT WAS FASTINGP ERFORMED BY: [facility]ingJeff[facility]Afsdab9912 [facility] [id number] Bordetella Pertussis PCR ([id number] 798)Ordered By: Dyer Assistant on 09-11-2015 B. parapertussis DNA LAURYN+probe Ql (Unsp spec) Negative Normal [facility] Work Phone: Comment on above: This test was develo ped and its performance characteristics determinedby [employer]. It has not been cleared or approved by theU.S. Food and Drug Administration. The FDA has determined that suchclearance or approval is not necessary. This test is used for clinicalpurposes. It should not be regarded as investigational or research. PATIENT NOT FASTINGP ERFORMED BY: [facility]-[employer]hes[facility] AllianceCandace [place] 997267 [facility] [id number] Information: SRC:NOS [id number] B. parapertussis DNA LAURYN+probe Ql (Unsp spec) Negative Normal [facility]; [facility] Work Phone: Comment on above: This test was develo ped and its performance characteristics determinedby [employer]. It has not been cleared or approved by theU.S. Food and Drug Administration. The FDA has determined that suchclearance or approval is not necessary. This test is used for clinicalpurposes. It should not be regarded as investigational or research. PATIENT NOT FASTINGP ERFORMED BY: [address] [id number] Information: SRC:NOS [id number] B. pertussis DNA LAURYN+probe Ql (Unsp spec) Negative Normal [facility] Work Phone: Comment on above: PATIENT NOT FASTINGP ERFORMED BY: [address] [id number] Information: SRC:NOS F43440 B. pertussis DNA LAURYN+probe Ql (Unsp spec) Negative Normal [facility]; [facility] Work Phone: Comment on above: PATIENT NOT FASTINGP ERFORMED BY: [address] [id number] Information: SRC:NOS L20510 Sputum Culture ([id number])Ordere d By: Dyer Assistant on 09-11-2015 Bacteria identified Cx Nom (Sput) Final report Normal [facility] Work Phone: Comment on above: PATIENT NOT FASTINGP ERFORMED BY: [facility]ingJeff[facility]Zavymw3878 [facility] [id number] Information: [id number] Bacteria identified Cx Nom (Unsp spec) RRF Normal [facility] Work Phone: Comment on above: Routine respiratory mamadou PATIENT NOT FASTINGP ERFORMED BY: [facility]ingJeff[facility]Fpermw7133 [facility] [id number] Information: [id number] Serum Creatinine AND GFROrde red By: Dyer Assistant on 09-10-2015 Creatinine mass conc 1.11 mg/dL Normal 0.70-1.30 Comp rehensive Internal Medicine Work Phone: Comment on above: The validity of the calculated GFR AND GFRAA in patients over70 years has not been determined. Clinical correlation isessential. [facility] [address] [place], [place], [id number] GFR/1.73 sq M predicted among non-blacks MDRD vol rate/area (S/P/Bld) 71 mL/min/{1.73_m2} Normal Comprehe nsive Internal Medicine Work Phone: Comment on above: Non- GFR Calc [facility] [address]spf[address] [place], [place], [id number] Serum Creatinine AND GFR 86 mL/min Normal [facility] Work Phone: Comment on above: GFR Calc [facility] [address] [place], [place], [phone] Rapid Flu (36640 x 2)Ordered By: Miki Pop on 08-22-2015 FLUAV Ag IA Ql (Throat) Negative Normal [facility] Work Phone: Comment on above: A & B negative FLUAV Ag IA Ql (Throat) Negative Normal [facility]; [facility] Work Phone: Comment on above: A & B negative CBC W/AUTO DIFF WBC (55928)O rdered By: Dyer Assistant on 04-09-2015 Basophils (Bld) [#/Vol] 0.0 {x10E3/uL} Normal 0.0-0.2 [facility] Work Phone: Comment on above: PATIENT WAS FASTINGP ERFORMED BY: [employer]70 [facility] [id number] Information: [id number] Basophils (Bld) [#/Vol] 0.0 10*3/uL Normal 0.0-0.2 [facility]; [facility] Work Phone: Comment on above: PATIENT WAS FASTINGP ERFORMED BY: [employer] Ltphse9134 [facility] [id number] Information: [id number] Basophils Auto #/vol (Bld) 0.0 {x10E3/uL} Normal 0.0-0.2 [facility] Work Phone: Basophils/100 WBC (Bld) 1 % Normal [facility] Work Phone: Comment on above: PATIENT WAS FASTINGP ERFORMED BY: [address] [id number] Information: [id number] Basophils/100 WBC Auto (Bld) 1 % Normal [facility] Work Phone: Eosinophils (Bld) [#/Vol] 0.2 {x10E3/uL} Normal 0.0-0.4 [facility] Work Phone: Comment on above: PATIENT WAS FASTINGP ERFORMED BY: [address] [id number] Information: [id number] Eosinophils (Bld) [#/Vol] 0.2 10*3/uL Normal 0.0-0.4 [facility]; [facility] Work Phone: Comment on above: PATIENT WAS FASTINGP ERFORMED BY: [address] [id number] Information: [id number] Eosinophils Auto #/vol (Bld) 0.2 {x10E3/uL} Normal 0.0-0.4 [facility] Work Phone: Eosinophils/100 WBC (Bld) 3 % Normal [facility] Work Phone: Comment on above: PATIENT WAS FASTINGP ERFORMED BY: [address] [id number] Information: [id number] Eosinophils/100 WBC Auto (Bld) 3 % Normal [facility] Work Phone: Erythrocyte distribution width (RBC) [Ratio] 14.6 % Normal 12.3-15.4 [facility] Work Phone: Comment on above: PATIENT WAS FASTINGP ERFORMED BY: [address] [id number] Information: [id number] Erythrocyte distribution width Auto Ratio (RBC) 14.6 % Normal 12.3-15.4 [facility] Work Phone: Hematocrit (Bld) [Volume fraction] 41.6 % Normal 37.5-51.0 [facility] Work Phone: Comment on above: PATIENT WAS FASTINGP ERFORMED BY: GIA [place] [id number] [facility] [id number] Information: [id number] Hematocrit Auto Volume Fraction (Bld) 41.6 % Normal 37.5-51.0 [facility] Internal Medicine Work Phone: Hemoglobin mass conc (Bld) 14.6 g/dL Normal 12.6-17.7 [facility] Work Phone: Comment on above: PATIENT WAS FASTINGP ERFORMED BY: GIA [facility]6370 [facility] [id number] Information: [id number] Immature granulocytes #/vol (Bld) 0.0 {x10E3/uL} Normal 0.0-0.1 [facility] Work Phone: Comment on above: PATIENT WAS FASTINGP ERFORMED BY: GIA [facility]6370 [facility] [id number] Information: [id number] Immature granulocytes (Bld) [#/Vol] 0.0 10*3/uL Normal 0.0-0.1 [facility]; [facility] Work Phone: Comment on above: PATIENT WAS FASTINGP ERFORMED BY: [facility]6370 [facility] [id number] Information: [id number] Immature granulocytes/100 WBC (Bld) 0 % Normal [facility] Work Phone: Comment on above: PATIENT WAS FASTINGP ERFORMED BY: GIA [place] [id number] [facility] [id number] Information: [id number] Lymphocytes (Bld) [#/Vol] 2.7 {x10E3/uL} Normal 0.7-3.1 [facility] Work Phone: Comment on above: PATIENT WAS FASTINGP ERFORMED BY: GIA [address] [id number] Information: [id number] Lymphocytes (Bld) [#/Vol] 2.7 10*3/uL Normal 0.7-3.1 [facility]; [facility] Work Phone: Comment on above: PATIENT WAS FASTINGP ERFORMED BY: [address] [id number] Information: [id number] Lymphocytes Auto #/vol (Bld) 2.7 {x10E3/uL} Normal 0.7-3.1 [facility] Work Phone: Lymphocytes/100 WBC (Bld) 39 % Normal [facility] Work Phone: Comment on above: PATIENT WAS FASTINGP ERFORMED BY: [address] [id number] Information: 315505,[id number] Lymphocytes/100 WBC Auto (Bld) 39 % Normal [facility] Work Phone: MCH (RBC) [Entitic mass] 29.8 pg Normal 26.6-33.0 [facility] Work Phone: Comment on above: PATIENT WAS FASTINGP ERFORMED BY: [address] [id number] Information: [id number] MCH Auto Entitic mass (RBC) 29.8 pg Normal 26.6-33.0 [facility] Work Phone: MCHC (RBC) [Mass/Vol] 35.1 g/dL Normal 31.5-35.7 [facility] prehensive Internal Medicine Work Phone: Comment on above: PATIENT WAS FASTINGP ERFORMED BY: [facility]6370 [facility] [id number] Information: [id number] MCHC Auto mass conc (RBC) 35.1 g/dL Normal 31.5-35.7 [facility] Work Phone: MCV (RBC) [Entitic vol] 85 fL Normal 79-97 [facility] Work Phone: Comment on above: PATIENT WAS FASTINGP ERFORMED BY: [place] [id number] [facility] [id number] Information: [id number] MCV Auto Entitic volume (RBC) 85 fL Normal 79-97 [facility] Work Phone: Monocytes (Bld) [#/Vol] 0.8 {x10E3/uL} Normal 0.1-0.9 [facility] Work Phone: Comment on above: PATIENT WAS FASTINGP ERFORMED BY: [address] [id number] Information: [id number] Monocytes (Bld) [#/Vol] 0.8 10*3/uL Normal 0.1-0.9 [facility]; [facility] Work Phone: Comment on above: PATIENT WAS FASTINGP ERFORMED BY: [address] [id number] Information: [id number] Monocytes Auto #/vol (Bld) 0.8 {x10E3/uL} Normal 0.1-0.9 [facility] Work Phone: Monocytes/100 WBC (Bld) 11 % Normal [facility] Work Phone: Comment on above: PATIENT WAS FASTINGP ERFORMED BY: [place] [id number] [facility] [id number] Information: [id number] Monocytes/100 WBC Auto (Bld) 11 % Normal [facility] Work Phone: Neutrophils (Bld) [#/Vol] 3.2 {x10E3/uL} Normal 1.4-7.0 [facility] Work Phone: Comment on above: PATIENT WAS FASTINGP ERFORMED BY: GIA Sergio Ybyyik1410 [facility] [id number] Information: [id number] Neutrophils (Bld) [#/Vol] 3.2 10*3/uL Normal 1.4-7.0 [facility]; [facility] Work Phone: Comment on above: PATIENT WAS FASTINGP ERFORMED BY: GIA [facility] Yngerq8768 [facility] [id number] Information: [id number] Neutrophils Auto #/vol (Bld) 3.2 {x10E3/uL} Normal 1.4-7.0 [facility] Work Phone: Neutrophils/100 WBC (Bld) 46 % Normal [facility] Work Phone: Comment on above: PATIENT WAS FASTINGP ERFORMED BY: GIA [facility] Hljqao9326 [facility] [id number] Information: [id number] Neutrophils/100 WBC Auto (Bld) 46 % Normal [facility] Work Phone: Platelets (Bld) [#/Vol] 268 {x10E3/uL} Normal 150-379 [facility] Work Phone: Comment on above: PATIENT WAS FASTINGP ERFORMED BY: GIA [place] [id number] [facility] [id number] Information: [id number] Platelets (Bld) [#/Vol] 268 10*3/uL Normal 150-379 [facility]; [facility] Work Phone: Comment on above: PATIENT WAS FASTINGP ERFORMED BY: [facility]6370 [facility] [id number] Information: [id number] Platelets Auto #/vol (Bld) 268 {x10E3/uL} Normal 150-379 [facility] Work Phone: RBC (Bld) [#/Vol] 4.90 {x10E6/uL} Normal 4.14-5.80 [facility] Internal Medicine Work Phone: Comment on above: PATIENT WAS FASTINGP ERFORMED BY: GIA [place] [id number] [facility] [id number] Information: [id number] RBC (Bld) [#/Vol] 4.90 10*6/uL Normal 4.14-5.80 [facility] Internal Medicine; [facility] Work Phone: Comment on above: PATIENT WAS FASTINGP ERFORMED BY: [place] [id number] [facility] [id number] Information: [id number] RBC Auto #/vol (Bld) 4.90 {x10E6/uL} Normal 4.14-5.80 [facility] Work Phone: WBC (Bld) [#/Vol] 7.0 {x10E3/uL} Normal 3.4-10.8 [facility] Internal Medicine Work Phone: Comment on above: PATIENT WAS FASTINGP ERFORMED BY: GIA [facility]6370 [facility] [id number] Information: [id number] WBC (Bld) [#/Vol] 7.0 10*3/uL Normal 3.4-10.8 [facility] Internal [facility]; [facility] Work Phone: Comment on above: PATIENT WAS FASTINGP ERFORMED BY: [facility]6370 [facility] [id number] Information: [id number] WBC Auto #/vol (Bld) 7.0 {x10E3/uL} Normal 3.4-10.8 [facility] Internal Medicine Work Phone: LIPID PANEL ([id number])Ordered B y: Dyer Assistant on 04-09-2015 Cholesterol in HDL mass conc 40 mg/dL Normal [facility] Work Phone: Comment on above: According to ATP-III Guidelines, HDL-C >59 mg/dL is considered anegative risk factor for CHD. PATIENT WAS FASTINGP ERFORMED BY: GIA Mcclure6370 [facility] [id number] Cholesterol in LDL mass conc 145 mg/dL Abnormal 0-99 [facility] Work Phone: Comment on above: PATIENT WAS FASTINGP ERFORMED BY: GIA Mcclure6370 [facility] [id number] Cholesterol in LDL/Cholesterol in HDL mass ratio 3.6 {ratio_units} Normal 0.0-3.6 [facility] Work Phone: Comment on above: LDL/HDL Ratio Men Wo men 1/2 Avg.Risk 1.0 1.5 Avg.Risk 3.6 3.2 2X Avg.Risk 6.2 5.0 3X Avg.Risk 8.0 6.1 PATIENT WAS FASTINGP ERFORMED BY: GIA Mejíalin6370 [facility] [id number] Cholesterol in VLDL mass conc 15 mg/dL Normal 5-40 [facility] Work Phone: Comment on above: PATIENT WAS FASTINGP ERFORMED BY: GIA Mejíalin6370 [facility] [id number] Cholesterol mass conc 200 mg/dL Abnormal 100-199 [facility] prehensive Internal Medicine Work Phone: Comment on above: PATIENT WAS FASTINGP ERFORMED BY: GIA Mcclure6370 [facility] [id number] Triglyceride mass conc 77 mg/dL Normal 0-149 [facility] Work Phone: Comment on above: PATIENT WAS FASTINGP ERFORMED BY: GIA Mejíalin6370 [facility] [id number] METABOLIC PANEL, COMPREHENSI VE (12470)Ordered By: Dyer Assistant on 04-09-2015 Albumin mass conc 4.3 g/dL Normal 3.6-4.8 Compreh ensive Internal Medicine Work Phone: Comment on above: PATIENT WAS FASTINGP ERFORMED BY: GIA [facility] Xlmhle85[address]Dublin [place] [id number] Albumin/Globulin mass ratio 2.0 {ratio} Normal 1.1-2.5 [facility] Internal Medicine Work Phone: Comment on above: PATIENT WAS FASTINGP ERFORMED BY: GIA LabCoepifanio MejíaAomkko0240 [address] RoadDublin [place] [id number] ALP [Catalytic activity/Vol] 72 U/L Normal 39-117 [facility]; [facility] Internal Medicine Work Phone: Comment on above: PATIENT WAS FASTINGP ERFORMED BY: GIA [facility] Rvjymr5994 [address] RoadDublin [place] [id number] ALP enzyme act/vol 72 [iU]/L Normal 39-117 [facility] Internal Medicine Work Phone: Comment on above: PATIENT WAS FASTINGP ERFORMED BY: GIA Mejíalin6370 [address]Dublin [place] [id number] ALT [Catalytic activity/Vol] 30 U/L Normal 0-44 [facility] Internal [facility]; [facility] Work Phone: Comment on above: PATIENT WAS FASTINGP ERFORMED BY: GIA LabLynn MejíaAvlgag17[address]Dublin [place] [id number] ALT enzyme act/vol 30 [iU]/L Normal 0-44 [facility] Internal Medicine Work Phone: Comment on above: PATIENT WAS FASTINGP ERFORMED BY: GIA [facility] Woauit[address] RoadDublin [place] [id number] AST [Catalytic activity/Vol] 25 U/L Normal 0-40 [facility] Internal [facility]; [facility] Work Phone: Comment on above: PATIENT WAS FASTINGP ERFORMED BY: GIA [facility] Czbjlr8586 Chance RoadDublin [place] [id number] AST enzyme act/vol 25 [iU]/L Normal 0-40 [facility] Internal Medicine Work Phone: Comment on above: PATIENT WAS FASTINGP ERFORMED BY: GIA [facility] Rdgexy9335 Chance RoadDublin [place] [id number] Bilirubin mass conc 0.6 mg/dL Normal 0.0-1.2 Compr ehensive Internal Medicine Work Phone: Comment on above: PATIENT WAS FASTINGP ERFORMED BY: GIA LabCoepifanio MejíaEtcgba3224 Chance RoadDublin [place] [id number] Calcium mass conc 9.0 mg/dL Normal 8.6-10.2 Compreh ensive Internal Medicine Work Phone: Comment on above: PATIENT WAS FASTINGP ERFORMED BY: CB [facility] Zdqyhi1305 Chance Roadblin [place] [id number] Chloride molar conc 99 mmol/L Normal 97-108 Compr ehensive Internal Medicine Work Phone: Comment on above: PATIENT WAS FASTINGP ERFORMED BY: GIA [facility] Qrsgob2046 Chance Roadblin [place] [id number] CO2 molar conc 26 mmol/L Normal 18-29 Comprehens mouna Internal Medicine Work Phone: Comment on above: PATIENT WAS FASTINGP ERFORMED BY: [facility] Fohmxb3383 Chance Roadblin [place] [id number] Creatinine mass conc 0.96 mg/dL Normal 0.76-1.27 [facility] Work Phone: Comment on above: PATIENT WAS FASTINGP ERFORMED BY: [facility] Bzwrpj2730 Chance RoadDublin [place] [id number] GFR/1.73 sq M predicted among blacks CKD-EPI vol rate/area (S/P/Bld) 98 mL/min/1.73 Normal Comprehensiv e Internal Medicine Work Phone: Comment on above: PATIENT WAS FASTINGP ERFORMED BY: [facility] Vocwsc5967 Chance RoadDublin [place] [id number] GFR/1.73 sq M predicted among non-blacks CKD-EPI vol rate/area (S/P/Bld) 84 mL/min/1.73 Normal [facility] Work Phone: Comment on above: PATIENT WAS FASTINGP ERFORMED BY: [facility] Fsjgzb9931 Chance RoadDublin [place] [id number] Globulin (S) [Mass/Vol] 2.1 g/dL Normal 1.5-4.5 [facility] Work Phone: Comment on above: PATIENT WAS FASTINGP ERFORMED BY: GIA Sergioepifanio Rirbpr2433 [facility] [id number] Globulin Calculated mass conc (S) 2.1 g/dL Normal 1.5-4.5 [facility] Work Phone: Glucose mass conc 77 mg/dL Normal 65-99 Compreh ensive Internal Medicine Work Phone: Comment on above: PATIENT WAS FASTINGP ERFORMED BY: GIA Mejíalin6370 [facility] [id number] Potassium molar conc 5.2 mmol/L Normal 3.5-5.2 Comp rehensive Internal Medicine Work Phone: Comment on above: PATIENT WAS FASTINGP ERFORMED BY: GIA Mejíalin6370 [facility] [id number] Protein mass conc 6.4 g/dL Normal 6.0-8.5 Compreh ensive Internal Medicine Work Phone: Comment on above: PATIENT WAS FASTINGP ERFORMED BY: GIA Mejíalin6370 [facility] [id number] Sodium molar conc 139 mmol/L Normal 134-144 Compreh ensive Internal Medicine Work Phone: Comment on above: PATIENT WAS FASTINGP ERFORMED BY: GIA Mejíalin6370 [facility] [id number] Urea nitrogen mass conc 16 mg/dL Normal 8-27 [facility] Work Phone: Comment on above: PATIENT WAS FASTINGP ERFORMED BY: GIA LabLynn MejíaYfrlka8807 [facility] [id number] Urea nitrogen/Creatinine mass ratio 17 mg/mg Normal 10-22 [facility] Work Phone: Comment on above: PATIENT WAS FASTINGP ERFORMED BY: GIA LabJewels Ijdjfz3580 [facility] [id number] T3, FREE (TRIDOTHYRONINE) (8 1522)Ordered By: Dyer Assistant on 04-09-2015 T3 free mass conc 2.7 pg/mL Normal 2.0-4.4 Compreh ensive Internal Medicine Work Phone: Comment on above: PATIENT WAS FASTINGP ERFORMED BY: Aimetis6370 Face++[facility] [id number] T4, FREE (THYROXINE) (21054) Ordered By: Dyer Assistant on 04-09-2015 T4 free mass conc 1.34 ng/dL Normal 0.82-1.77 Compreh ensive Internal Medicine Work Phone: Comment on above: PATIENT WAS FASTINGP ERFORMED BY: ProbiodrugUNC Health [facility] [id number] TSH ([id number])Ordered By: TransactionTreee m Line Maintainer on 04-09-2015 Thyrotropin Qn 2.090 {uIU/mL} Normal 0.450-4.50 0 [facility] Work Phone: Comment on above: PATIENT WAS FASTINGP ERFORMED BY: Aimetis6370 [facility]++[facility] [id number] CBC with auto diff ([id number])Or dered By: Dyer Assistant on 12-19-2014 Basophils (Bld) [#/Vol] 0.0 {x10E3/uL} Normal 0.0-0.2 [facility] Work Phone: Comment on above: PERFORMED BY: ERNUNC Health [facility] [id number] Basophils (Bld) [#/Vol] 0.0 10*3/uL Normal 0.0-0.2 [facility]; [facility] Work Phone: Comment on above: PERFORMED BY: ERNUNC Health [facility] [id number] Basophils Auto #/vol (Bld) 0.0 {x10E3/uL} Normal 0.0-0.2 [facility] Work Phone: Basophils/100 WBC (Bld) 1 % Normal [facility] Work Phone: Comment on above: PERFORMED BY: Mas Con Movil70 ChanceHeatmapsFrye Regional [facility] [id number] Basophils/100 WBC Auto (Bld) 1 % Normal [facility] Work Phone: Eosinophils (Bld) [#/Vol] 0.2 {x10E3/uL} Normal 0.0-0.4 [facility] Work Phone: Comment on above: PERFORMED BY: Kadenze ChanceHeatmapsFrye Regional Medical Center [id number] Eosinophils (Bld) [#/Vol] 0.2 10*3/uL Normal 0.0-0.4 [facility]; [facility] Work Phone: Comment on above: PERFORMED BY: WineristFrye Regional Medical Center [id number] Eosinophils Auto #/vol (Bld) 0.2 {x10E3/uL} Normal 0.0-0.4 [facility] Work Phone: Eosinophils/100 WBC (Bld) 2 % Normal [facility] Work Phone: Comment on above: PERFORMED BY: [facility]ineristFrye [facility] [id number] Eosinophils/100 WBC Auto (Bld) 2 % Normal [facility] Work Phone: Erythrocyte distribution width (RBC) [Ratio] 14.7 % Normal 12.3-15.4 [facility] Work Phone: Comment on above: PERFORMED BY: [employer] [place] [address] LawnStarterFrye Regional Medical Center [id number] Erythrocyte distribution width Auto Ratio (RBC) 14.7 % Normal 12.3-15.4 [facility] Work Phone: Hematocrit (Bld) [Volume fraction] 43.4 % Normal 37.5-51.0 [facility] Work Phone: Comment on above: PERFORMED BY: Mas Con Movil[address] [place], [place] [address]HeatmapsFrye Regional Medical Center [id number] Hematocrit Auto Volume Fraction (Bld) 43.4 % Normal 37.5-51.0 [facility] Internal Medicine Work Phone: Hemoglobin mass conc (Bld) 14.4 g/dL Normal 12.6-17.7 [facility] Work Phone: Comment on above: PERFORMED BY: WineristFrye Regional Medical Center [id number] Immature granulocytes #/vol (Bld) 0.0 {x10E3/uL} Normal 0.0-0.1 [facility] Work Phone: Comment on above: PERFORMED BY: Mas Con Movil70 Chance LawnStarterFrye Regional Medical Center [id number] Immature granulocytes (Bld) [#/Vol] 0.0 10*3/uL Normal 0.0-0.1 [facility]; [facility] Work Phone: Comment on above: PERFORMED BY: WineristFrye Regional Medical Center [id number] Immature granulocytes/100 WBC (Bld) 0 % Normal [facility] Work Phone: Comment on above: PERFORMED BY: Mas Con Movil70 Face++[facility] [id number] Lymphocytes (Bld) [#/Vol] 3.2 {x10E3/uL} Abnormal 0.7-3.1 [facility] Work Phone: Comment on above: PERFORMED BY: WineristFrye Regional [facility] Center [id number] Lymphocytes (Bld) [#/Vol] 3.2 10*3/uL Abnormal 0.7-3.1 [facility]; [facility] Work Phone: Comment on above: PERFORMED BY: WineristFrye Regional [facility] Center [id number] Lymphocytes Auto #/vol (Bld) 3.2 {x10E3/uL} Abnormal 0.7-3.1 [facility] Work Phone: Lymphocytes/100 WBC (Bld) 37 % Normal [facility] Work Phone: Comment on above: PERFORMED BY: WineristFrye Regional Medical Center [id number] Lymphocytes/100 WBC Auto (Bld) 37 % Normal [facility] Work Phone: MCH (RBC) [Entitic mass] 28.4 pg Normal 26.6-33.0 [facility] Internal Medicine Work Phone: Comment on above: PERFORMED BY: Kadenze ChanceHeatmapsFrye Regional Medical Center [id number] MCH Auto Entitic mass (RBC) 28.4 pg Normal 26.6-33.0 [facility] Internal Medicine Work Phone: MCHC (RBC) [Mass/Vol] 33.2 g/dL Normal 31.5-35.7 [facility] Internal Medicine Work Phone: Comment on above: PERFORMED BY: WineristFrye Regional Medical Center [id number] MCHC Auto mass conc (RBC) 33.2 g/dL Normal 31.5-35.7 [facility] Internal Medicine Work Phone: MCV (RBC) [Entitic vol] 86 fL Normal 79-97 [facility] Work Phone: Comment on above: PERFORMED BY: WineristFrye Regional Medical Center [id number] MCV Auto Entitic volume (RBC) 86 fL Normal 79-97 [facility] Internal Medicine Work Phone: Monocytes (Bld) [#/Vol] 0.9 {x10E3/uL} Normal 0.1-0.9 [facility] Internal Medicine Work Phone: Comment on above: PERFORMED BY: WineristFrye Regional Medical Center [id number] Monocytes (Bld) [#/Vol] 0.9 10*3/uL Normal 0.1-0.9 [facility]; [facility] Work Phone: Comment on above: PERFORMED BY: Kadenze Chance [facility] [id number] Monocytes Auto #/vol (Bld) 0.9 {x10E3/uL} Normal 0.1-0.9 [facility] Work Phone: Monocytes/100 WBC (Bld) 10 % Normal [facility] Work Phone: Comment on above: PERFORMED BY: Kadenze ChanceCONEXANCE MDin [place] [id number] Monocytes/100 WBC Auto (Bld) 10 % Normal [facility] Work Phone: Neutrophils (Bld) [#/Vol] 4.5 {x10E3/uL} Normal 1.4-7.0 [facility] Work Phone: Comment on above: PERFORMED BY: ERNUNC [facility] [id number] Neutrophils (Bld) [#/Vol] 4.5 10*3/uL Normal 1.4-7.0 [facility]; [facility] Work Phone: Comment on above: PERFORMED BY: Kadenze ChanceCONEXANCE MDUNC Health [facility] [id number] Neutrophils Auto #/vol (Bld) 4.5 {x10E3/uL} Normal 1.4-7.0 [facility] Work Phone: Neutrophils/100 WBC (Bld) 50 % Normal [facility] Work Phone: Comment on above: PERFORMED BY: ERNUNC [facility] [id number] Neutrophils/100 WBC Auto (Bld) 50 % Normal [facility] Work Phone: Platelets (Bld) [#/Vol] 314 {x10E3/uL} Normal 150-379 [facility] Work Phone: Comment on above: PERFORMED BY: ERNin [place] [id number] Platelets (Bld) [#/Vol] 314 10*3/uL Normal 150-379 [facility]; [facility] Work Phone: Comment on above: PERFORMED BY: ERNUNC [facility] [id number] Platelets Auto #/vol (Bld) 314 {x10E3/uL} Normal 150-379 [facility] Work Phone: RBC (Bld) [#/Vol] 5.07 {x10E6/uL} Normal 4.14-5.80 [facility] Internal Medicine Work Phone: Comment on above: PERFORMED BY: ERNUNC [facility] [id number] RBC (Bld) [#/Vol] 5.07 10*6/uL Normal 4.14-5.80 [facility]; [facility] Work Phone: Comment on above: PERFORMED BY: ERNUNC [facility] [id number] RBC Auto #/vol (Bld) 5.07 {x10E6/uL} Normal 4.14-5.80 [facility] Work Phone: WBC (Bld) [#/Vol] 8.8 {x10E3/uL} Normal 3.4-10.8 [facility] Internal Medicine Work Phone: Comment on above: PERFORMED BY: ERNUNC Health [facility] [id number] WBC (Bld) [#/Vol] 8.8 10*3/uL Normal 3.4-10.8 [facility] Internal [facility]; [facility] Work Phone: Comment on above: PERFORMED BY: WineristFrye Regional Medical Center [id number] WBC Auto #/vol (Bld) 8.8 {x10E3/uL} Normal 3.4-10.8 [facility] Work Phone: LIPID PANEL ([id number])Ordered B y: Dyer Assistant on 12-19-2014 Cholesterol in HDL mass conc 36 mg/dL Abnormal [facility] Work Phone: Comment on above: According to ATP-III Guidelines, HDL-C >59 mg/dL is considered anegative risk factor for CHD. PERFORMED BY: ERNblin [place] [id number] Cholesterol in LDL mass conc 148 mg/dL Abnormal 0-99 [facility] Work Phone: Comment on above: PERFORMED BY: [employer]6370 [facility] [id number] Cholesterol in LDL/Cholesterol in HDL mass ratio 4.1 {ratio_units} Abnormal 0.0-3.6 [facility] Work Phone: Comment on above: LDL/HDL Ratio Men Wo men 1/2 Avg.Risk 1.0 1.5 Avg.Risk 3.6 3.2 2X Avg.Risk 6.2 5.0 3X Avg.Risk 8.0 6.1 PERFORMED BY: Mas Con Movil70 [address] [facility] [id number] Cholesterol in VLDL mass conc 13 mg/dL Normal 5-40 [facility] Work Phone: Comment on above: PERFORMED BY: Mas Con Movil70 [address] [facility] [id number] Cholesterol mass conc 197 mg/dL Normal 100-199 [facility] prehensive Internal Medicine Work Phone: Comment on above: PERFORMED BY: Mas Con Movil70 Face++[facility] [id number] Triglyceride mass conc 64 mg/dL Normal 0-149 [facility] Work Phone: Comment on above: PERFORMED BY: [employer]6370 [facility] [id number] METABOLIC PANEL, COMPREHENSI VE ([id number])Ordered By: Dyer Assistant on 12-19-2014 Albumin mass conc 4.3 g/dL Normal 3.6-4.8 Compreh ensive Internal Medicine Work Phone: Comment on above: PERFORMED BY: Mas Con Movil70 [address] [facility] [id number] Albumin/Globulin mass ratio 1.7 {ratio} Normal 1.1-2.5 [facility] Work Phone: Comment on above: PERFORMED BY: Mas Con Movil70 [address] [facility] [id number] ALP [Catalytic activity/Vol] 68 U/L Normal 39-117 [facility]; [facility] Work Phone: Comment on above: PERFORMED BY: [employer]6[address] [facility] CenterMarkUNC [facility] [id number] ALP enzyme act/vol 68 [iU]/L Normal 39-117 [facility] Internal Medicine Work Phone: Comment on above: PERFORMED BY: Mas Con Movil70 [facility] [id number] ALT [Catalytic activity/Vol] 22 U/L Normal 0-44 [facility]; [facility] Work Phone: Comment on above: PERFORMED BY: Mas Con Movil70 [address] [facility] [id number] ALT enzyme act/vol 22 [iU]/L Normal 0-44 [facility] Internal Medicine Work Phone: Comment on above: PERFORMED BY: Mas Con Movil70 [facility] [id number] AST [Catalytic activity/Vol] 21 U/L Normal 0-40 [facility]; [facility] Internal Medicine Work Phone: Comment on above: PERFORMED BY: [employer]6[address] [facility] [id number] AST enzyme act/vol 21 [iU]/L Normal 0-40 [facility] Internal Medicine Work Phone: Comment on above: PERFORMED BY: Mas Con Movil70 [address] [facility] [id number] Bilirubin mass conc 0.8 mg/dL Normal 0.0-1.2 [facility] Internal Medicine Work Phone: Comment on above: PERFORMED BY: Mas Con Movil70 [address] [facility] [id number] Calcium mass conc 9.0 mg/dL Normal 8.6-10.2 [facility] Work Phone: Comment on above: PERFORMED BY: Mas Con Movil70 [address] [facility] [id number] Chloride molar conc 98 mmol/L Normal 97-108 Compr ehensive Internal Medicine Work Phone: Comment on above: PERFORMED BY: [employer]6370 OcoUNC [facility] [id number] CO2 molar conc 26 mmol/L Normal 18-29 Comprehens mouna Internal Medicine Work Phone: Comment on above: PERFORMED BY: [employer]6[address] [facility] [id number] Creatinine mass conc 0.95 mg/dL Normal 0.76-1.27 Comp [facility] Work Phone: Comment on above: PERFORMED BY: [employer]6370 Face++[facility] [id number] GFR/1.73 sq M predicted among blacks CKD-EPI vol rate/area (S/P/Bld) 99 mL/min/1.73 Normal Comprehensiv e Internal Medicine Work Phone: Comment on above: PERFORMED BY: [employer]6370 ChanceHeatmapsFrye Regional Medical Center [id number] GFR/1.73 sq M predicted among non-blacks CKD-EPI vol rate/area (S/P/Bld) 85 mL/min/1.73 Normal [facility] Work Phone: Comment on above: PERFORMED BY: [employer]6370 Face++[facility] [id number] Globulin (S) [Mass/Vol] 2.5 g/dL Normal 1.5-4.5 [facility] Work Phone: Comment on above: PERFORMED BY: [employer]6370 [facility] [id number] Globulin Calculated mass conc (S) 2.5 g/dL Normal 1.5-4.5 [facility] Work Phone: Glucose mass conc 88 mg/dL Normal 65-99 Compreh ensive Internal Medicine Work Phone: Comment on above: PERFORMED BY: [employer]6370 Face++[facility] [id number] Potassium molar conc 4.3 mmol/L Normal 3.5-5.2 Comp rehensive Internal Medicine Work Phone: Comment on above: PERFORMED BY: Kamicat Lynn Vbvlri0550 [place] [id number] Protein mass conc 6.8 g/dL Normal 6.0-8.5 Compreh ensive Internal Medicine Work Phone: Comment on above: PERFORMED BY: Kamicat Lynn Diohnd3326 ChanceCONEXANCE MDUNC Health [facility] [id number] Sodium molar conc 138 mmol/L Normal 134-144 Compreh ensive Internal Medicine Work Phone: Comment on above: PERFORMED BY: Kamicat Lynn Turypc4278 OcoUNC [facility] [id number] Urea nitrogen mass conc 20 mg/dL Normal 8-27 [facility] Work Phone: Comment on above: PERFORMED BY: Mas Con Movil70 OcoUNC Health [facility] [id number] Urea nitrogen/Creatinine mass ratio 21 mg/mg Normal 10-22 [facility] Work Phone: Comment on above: PERFORMED BY: Kamicat Lynn Pmvrol8477 OcoUNC Health [facility] [id number] TSH ([id number])Ordered By: Syste m Line Maintainer on 12-19-2014 Thyrotropin Qn 0.886 {uIU/mL} Normal 0.450-4.50 0 [facility] Work Phone: Comment on above: PERFORMED BY: Mas Con Movil70 OcoUNC Health [facility] [id number] TSH ([id number])Ordered By: Syste m Line Maintainer on 06-07-2013 Thyrotropin Qn 3.490 {uIU/mL} Normal 0.450-4.50 0 [facility] Work Phone: Comment on above: PATIENT NOT FASTINGP ERFORMED BY: [employer] [facility] Ldpvnv7196 [facility] [id number] Information: [id number] CBC with manual diff ([id number]) Ordered By: Dyer Assistant on 03-22-2013 Basophils (Bld) [#/Vol] 0.0 {x10E3/uL} Normal 0.0-0.2 [facility] Work Phone: Comment on above: PATIENT NOT FASTINGP ERFORMED BY: GIA Davis [facility] [id number] Information: ADD [id number] AND DRAW FEE 99 6660 Basophils (Bld) [#/Vol] 0.0 10*3/uL Normal 0.0-0.2 [facility]; [facility] Work Phone: Comment on above: PATIENT NOT FASTINGP ERFORMED BY: GIA [place] Yksqau3586 [facility] [id number] Information: ADD [id number] AND DRAW FEE 99 6660 Basophils Auto #/vol (Bld) 0.0 {x10E3/uL} Normal 0.0-0.2 [facility] Work Phone: Basophils/100 WBC (Bld) 1 % Normal 0-3 [facility] Work Phone: Comment on above: PATIENT NOT FASTINGP ERFORMED BY: GIA Mejíalin6370 [facility] [id number] Information: ADD [id number] AND DRAW FEE 99 6660 Basophils/100 WBC Auto (Bld) 1 % Normal 0-3 [facility] Work Phone: Eosinophils (Bld) [#/Vol] 0.1 {x10E3/uL} Normal 0.0-0.4 [facility] Work Phone: Comment on above: PATIENT NOT FASTINGP ERFORMED BY: GIA [place] Ndgliw8021 [facility] [id number] Information: ADD [id number] AND DRAW FEE 99 6660 Eosinophils (Bld) [#/Vol] 0.1 10*3/uL Normal 0.0-0.4 [facility]; [facility] Work Phone: Comment on above: PATIENT NOT FASTINGP ERFORMED BY: GIA Hill Rfnmdu5037 [facility] [id number] Information: ADD [id number] AND DRAW FEE 99 6660 Eosinophils Auto #/vol (Bld) 0.1 {x10E3/uL} Normal 0.0-0.4 [facility] Work Phone: Eosinophils/100 WBC (Bld) 2 % Normal 0-7 [facility] Work Phone: Comment on above: PATIENT NOT FASTINGP ERFORMED BY: GIA [facility] Zgnrfe519[address] [id number] Information: ADD [id number] AND DRAW FEE 99 6660 Eosinophils/100 WBC Auto (Bld) 2 % Normal 0-7 [facility] Work Phone: Erythrocyte distribution width (RBC) [Ratio] 14.7 % Normal 12.3-15.4 [facility] Internal Medicine Work Phone: Comment on above: PATIENT NOT FASTINGP ERFORMED BY: GIA [employer] [id number] Information: ADD [id number] AND DRAW FEE 99 6660 Erythrocyte distribution width Auto Ratio (RBC) 14.7 % Normal 12.3-15.4 [facility] Work Phone: Hematocrit (Bld) [Volume fraction] 41.0 % Normal 37.5-51.0 [facility] Internal Medicine Work Phone: Comment on above: PATIENT NOT FASTINGP ERFORMED BY: GIA LabContinuityX Solutions[address] [id number] Information: ADD [id number] AND DRAW FEE 99 6660 Hematocrit Auto Volume Fraction (Bld) 41.0 % Normal 37.5-51.0 [facility] Internal Medicine Work Phone: Hemoglobin mass conc (Bld) 13.8 g/dL Normal 12.6-17.7 [facility] Work Phone: Comment on above: PATIENT NOT FASTINGP ERFORMED BY: [facility] Hbqoqk794[address] [id number] Information: ADD [id number] AND DRAW FEE 99 6660 Immature granulocytes #/vol (Bld) 0.0 {x10E3/uL} Normal 0.0-0.1 [facility] Work Phone: Comment on above: PATIENT NOT FASTINGP ERFORMED BY: GIA LabCoepifanio McclureYhycbe2992 [facility] [id number] Information: ADD [id number] AND DRAW FEE 99 6660 Immature granulocytes (Bld) [#/Vol] 0.0 10*3/uL Normal 0.0-0.1 [facility]; [facility] Work Phone: Comment on above: PATIENT NOT FASTINGP ERFORMED BY: [facility] Pzftvy6414 [facility] [id number] Information: ADD [id number] AND DRAW FEE 99 6660 Immature granulocytes/100 WBC (Bld) 0 % Normal 0-2 [facility] Work Phone: Comment on above: PATIENT NOT FASTINGP ERFORMED BY: [facility] Pjanao6377 [facility] [id number] Information: ADD [id number] AND DRAW FEE 99 6660 Lymphocytes (Bld) [#/Vol] 2.7 {x10E3/uL} Normal 0.7-4.5 [facility] Work Phone: Comment on above: PATIENT NOT FASTINGP ERFORMED BY: GIA [facility] Ovucfv9419 [facility] [id number] Information: ADD [id number] AND DRAW FEE 99 6660 Lymphocytes (Bld) [#/Vol] 2.7 10*3/uL Normal 0.7-4.5 [facility]; [facility] Work Phone: Comment on above: PATIENT NOT FASTINGP ERFORMED BY: [place] [id number] [facility] [id number] Information: ADD [id number] AND DRAW FEE 99 6660 Lymphocytes Auto #/vol (Bld) 2.7 {x10E3/uL} Normal 0.7-4.5 [facility] Work Phone: Lymphocytes/100 WBC (Bld) 42 % Normal 14-46 [facility] Work Phone: Comment on above: PATIENT NOT FASTINGP ERFORMED BY: GIA [facility]6370 [facility] [id number] Information: ADD [id number] AND DRAW FEE 99 6660 Lymphocytes/100 WBC Auto (Bld) 42 % Normal 14-46 [facility] Work Phone: MCH (RBC) [Entitic mass] 28.6 pg Normal 26.6-33.0 [facility] Work Phone: Comment on above: PATIENT NOT FASTINGP ERFORMED BY: [place] [id number] [facility] [id number] Information: ADD [id number] AND DRAW FEE 99 6660 MCH Auto Entitic mass (RBC) 28.6 pg Normal 26.6-33.0 [facility] Work Phone: MCHC (RBC) [Mass/Vol] 33.7 g/dL Normal 31.5-35.7 [facility] Work Phone: Comment on above: PATIENT NOT FASTINGP ERFORMED BY: [place] [id number] [facility] [id number] Information: ADD [id number] AND DRAW FEE 99 6660 MCHC Auto mass conc (RBC) 33.7 g/dL Normal 31.5-35.7 [facility] Work Phone: MCV (RBC) [Entitic vol] 85 fL Normal 79-97 [facility] Work Phone: Comment on above: PATIENT NOT FASTINGP ERFORMED BY: [place] [id number] [facility] [id number] Information: ADD [id number] AND DRAW FEE 99 6660 MCV Auto Entitic volume (RBC) 85 fL Normal 79-97 [facility] Work Phone: Monocytes (Bld) [#/Vol] 0.6 {x10E3/uL} Normal 0.1-1.0 [facility] Work Phone: Comment on above: PATIENT NOT FASTINGP ERFORMED BY: [address] [id number] Information: ADD [id number] AND DRAW FEE 99 6660 Monocytes (Bld) [#/Vol] 0.6 10*3/uL Normal 0.1-1.0 [facility]; [facility] Work Phone: Comment on above: PATIENT NOT FASTINGP ERFORMED BY: GIA [facility] [id number] [facility] [id number] Information: ADD [id number] AND DRAW FEE 99 6660 Monocytes Auto #/vol (Bld) 0.6 {x10E3/uL} Normal 0.1-1.0 [facility] Work Phone: Monocytes/100 WBC (Bld) 9 % Normal - [facility] Work Phone: Comment on above: PATIENT NOT FASTINGP ERFORMED BY: GIA [facility] Cent[facility]if[facility]io MejíaTcediw[address] [id number] Information: ADD [id number] AND DRAW FEE 99 6660 Monocytes/100 WBC Auto (Bld) 9 % Normal - [facility] Work Phone: Neutrophils (Bld) [#/Vol] 2.9 {x10E3/uL} Normal 1.8-7.8 [facility] Work Phone: Comment on above: PATIENT NOT FASTINGP ERFORMED BY: GIA [facility] MejíaHfrsta9637 [facility] [id number] Information: ADD [id number] AND DRAW FEE 99 6660 Neutrophils (Bld) [#/Vol] 2.9 10*3/uL Normal 1.8-7.8 [facility]; [facility] Work Phone: Comment on above: PATIENT NOT FASTINGP ERFORMED BY: GIA [facility] [id number] [facility] [id number] Information: ADD [id number] AND DRAW FEE 99 6660 Neutrophils Auto #/vol (Bld) 2.9 {x10E3/uL} Normal 1.8-7.8 [facility] Work Phone: Neutrophils/100 WBC (Bld) 46 % Normal 40-74 [facility] Work Phone: Comment on above: PATIENT NOT FASTINGP ERFORMED BY: GIA Tali Lucia70 [facility] [id number] Information: ADD [id number] AND DRAW FEE 99 6660 Neutrophils/100 WBC Auto (Bld) 46 % Normal 40-74 [facility] Work Phone: Platelets (Bld) [#/Vol] 296 {x10E3/uL} Normal 140-415 [facility] Work Phone: Comment on above: PATIENT NOT FASTINGP ERFORMED BY: GIA Tali Mcclure6370 [facility] [id number] Information: ADD [id number] AND DRAW FEE 99 6660 Platelets (Bld) [#/Vol] 296 10*3/uL Normal 140-415 [facility]; [facility] Work Phone: Comment on above: PATIENT NOT FASTINGP ERFORMED BY: GIA Tali Mcclure6370 [facility] [id number] Information: ADD [id number] AND DRAW FEE 99 6660 Platelets Auto #/vol (Bld) 296 {x10E3/uL} Normal 140-415 [facility] Work Phone: RBC (Bld) [#/Vol] 4.82 {x10E6/uL} Normal 4.14-5.80 [facility] Internal [facility] Work Phone: Comment on above: PATIENT NOT FASTINGP ERFORMED BY: GIA Tali Mejíalin6370 [facility] [id number] Information: ADD [id number] AND DRAW FEE 99 6660 RBC (Bld) [#/Vol] 4.82 10*6/uL Normal 4.14-5.80 [facility] Internal Medicine; [facility] Work Phone: Comment on above: PATIENT NOT FASTINGP ERFORMED BY: GIA Sergio Vyeaqb4775 [facility] [id number] Information: ADD [id number] AND DRAW FEE 99 6660 RBC Auto #/vol (Bld) 4.82 {x10E6/uL} Normal 4.14-5.80 [facility] Work Phone: WBC (Bld) [#/Vol] 6.4 {x10E3/uL} Normal 4.0-10.5 [facility] Work Phone: Comment on above: PATIENT NOT FASTINGP ERFORMED BY: GIA LabCoepifanio MejíaUqteqe7438 [facility] [id number] Information: ADD [id number] AND DRAW FEE 99 6660 WBC (Bld) [#/Vol] 6.4 10*3/uL Normal 4.0-10.5 [facility]; [facility] Work Phone: Comment on above: PATIENT NOT FASTINGP ERFORMED BY: GIA Mejíalin6370 [facility] [id number] Information: ADD [id number] AND DRAW FEE 99 6660 WBC Auto #/vol (Bld) 6.4 {x10E3/uL} Normal 4.0-10.5 [facility] Work Phone: Lipid Panel ([id number])Ordered B y: Dyer Assistant on 03-22-2013 Cholesterol in HDL mass conc 43 mg/dL Normal [facility] Work Phone: Comment on above: According to ATP-III Guidelines, HDL-C >59 mg/dL is considered anegative risk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 [Ratio] 25.9 kg/m2 Dr. Simran Woodard DO Work Phone: [facility] 12-04-2024 09:45-0400 Body weight 82.[address] Simran Woodard DO Work Phone: [facility] 12-04-2024 09:45-0400 Diastolic blood pressure 78 mm[Hg] Dr. Simran Woodard DO Work Phone: [facility] 12-04-2024 09:45-0400 Heart rate 60 /min Dr. Simran Woodard DO Work Phone: [facility] 12-04-2024 09:45-0400 Respiratory rate 16 /min Dr. Simran Wodoard DO Work Phone: [facility] 12-04-2024 09:45-0400 Systolic blood pressure 113 mm[Hg] Dr. Simran Woodard DO Work Phone: [facility] 11-20-2024 09:52-0400 Body height 177.[address] Simran Woodard DO Work Phone: [facility] 11-20-2024 09:52-0400 Body weight 81.[address] Simran Woodard DO Work Phone: [facility] 10-12-2024 08:11-0500 Body mass index (BMI) [Ratio] 25.8 kg/m2 Dr. Simran Woodard DO Work Phone: [facility] 09-27-2024 10:18-0500 Body mass index (BMI) [Ratio] 25.8 kg/m2 Dr. Simran Woodard DO Work Phone: [facility] 09-27-2024 10:18-0500 Body weight 81.[address] Simran Woodard DO Work Phone: [facility] 09-27-2024 10:18-0500 Diastolic blood pressure 72 mm[Hg] Dr. Simran Woodard DO Work Phone: [facility] 09-27-2024 10:18-0500 Heart rate 86 /min Dr. Simran Woodard DO Work Phone: [facility] 09-27-2024 10:18-0500 Respiratory rate 16 /min Dr. Simran Woodard DO Work Phone: [facility] 09-27-2024 10:18-0500 Systolic blood pressure 101 mm[Hg] Dr. Simran Woodard DO Work Phone: [facility] 09-25-2024 12:49-0500 Body mass index (BMI) [Ratio] 25.88 kg/m2 Mook Lara MD Work Phone: [facility] 09-25-2024 12:49-0500 Body weight 81.83 kg Mook Lara MD Work Phone: [facility] 09-25-2024 12:49-0500 Diastolic blood pressure 78 mm[Hg] Mook Lara MD Work Phone: [facility] 09-25-2024 12:49-0500 Heart rate 70 /min Mook Lara MD Work Phone: [facility] 09-25-2024 12:49-0500 SaO2% (BldA) [Mass fraction] 100 % Mook Lara MD Work Phone: [facility] 09-25-2024 12:49-0500 Systolic blood pressure 116 mm[Hg] Mook Lara MD Work Phone: [facility] 09-12-2023 11:01-0500 Body height 177.[address] Simran Woodard Work Phone: [facility] 09-12-2023 11:01-0500 Body mass index (BMI) [Ratio] 25.5 kg/m2 Dr. Simran Woodard Work Phone: [facility] 09-12-2023 11:01-0500 Body weight 80.[address] Simran Woodard Work Phone: [facility] 09-12-2023 11:01-0500 Diastolic blood pressure 64 mm[Hg] Dr. Simran Woodard Work Phone: [facility] 09-12-2023 11:01-0500 Heart rate 60 /min Dr. Simran Woodard Work Phone: [facility] 09-12-2023 11:01-0500 Respiratory rate 16 /min Dr. Simran Woodard Work Phone: [facility] 09-12-2023 11:01-0500 Systolic blood pressure 107 mm[Hg] Dr. Simran Woodard Work Phone: [facility] 07-27-2023 13:50-0500 Body height 177.8 cm Jocelin Anderson JIGGER MACHINE OPERATOR.REGULATOR MECHANIC Work Phone: [facility] 07-27-2023 13:50-0500 Body weight 82.56 kg Jocelin Anderson JIGGER MACHINE OPERATOR.REGULATOR MECHANIC Work Phone: [facility] 07-27-2023 13:50-0500 Diastolic blood pressure 77 mm[Hg] Jocelin Anderson JIGGER MACHINE OPERATOR.REGULATOR MECHANIC Work Phone: [facility] 07-27-2023 13:50-0500 Heart rate 60 /min Jocelin Anderson JIGGER MACHINE OPERATOR.REGULATOR MECHANIC Work Phone: [facility] 07-27-2023 13:50-0500 SaO2% (BldA) [Mass fraction] 97 % Jocelin Anderson JIGGER MACHINE OPERATOR.REGULATOR MECHANIC Work Phone: [facility] 07-27-2023 13:50-0500 Systolic blood pressure 117 mm[Hg] Jocelin Anderson JIGGER MACHINE OPERATOR.REGULATOR MECHANIC Work Phone: [facility] 01-17-2023 09:48-0400 Body height 177.8 cm Chaitanya Gerard APRN.REGULATOR MECHANIC Work Phone: [facility] 01-17-2023 09:48-0400 Body weight 81.65 kg Chaitanya Gerard APRN.REGULATOR MECHANIC Work Phone: [facility] 01-17-2023 09:48-0400 Diastolic blood pressure 81 mm[Hg] Chaitanya Gerard APRN.REGULATOR MECHANIC Work Phone: [facility] 01-17-2023 09:48-0400 Heart rate 60 /min Chaitanya Gerard APRN.REGULATOR MECHANIC Work Phone: [facility] 01-17-2023 09:48-0400 SaO2% (BldA) [Mass fraction] 96 % Chaitanya Gerard APRN.REGULATOR MECHANIC Work Phone: [facility] 01-17-2023 09:48-0400 Systolic blood pressure 128 mm[Hg] Chaitanya Gerard APRN.REGULATOR MECHANIC Work Phone: [facility] 10-28-2022 08:44-0500 Body height 177.8 cm [facility]; [facility] Work Phone: 10-28-2022 08:44-0500 Body mass index (BMI) [Ratio] 25.83 kg/m2 [facility]; [facility] Work Phone: 10-28-2022 08:44-0500 Body surface area Derived from formula 2 m2 [facility]; [facility] Work Phone: 10-28-2022 08:44-0500 Body temperature 96.9 [degF] [facility]; [facility] Work Phone: 10-28-2022 08:44-0500 Body weight 81.65 kg [facility]; [facility] Work Phone: 10-28-2022 08:44-0500 Diastolic blood pressure 68 mm[Hg] [facility]; [facility] Work Phone: 10-28-2022 08:44-0500 Heart rate 99 /min [facility]; [facility] Work Phone: 10-28-2022 08:44-0500 Respiratory rate 16 /min [facility]; [facility] Work Phone: 10-28-2022 08:44-0500 SaO2% (BldA) [Mass fraction] 96 % [facility]; [facility] Work Phone: 10-28-2022 08:44-0500 Systolic blood pressure 114 mm[Hg] [facility]; [facility] Work Phone: 10-15-2022 09:15-0500 Body height 177.8 cm [facility]; [facility] Work Phone: 10-15-2022 09:15-0500 Body mass index (BMI) [Ratio] 25.11 kg/m2 [facility]; [facility] Work Phone: 10-15-2022 09:15-0500 Body surface area Derived from formula 1.97 m2 [facility]; [facility] Work Phone: 10-15-2022 09:15-0500 Body temperature 97.1 [degF] [facility]; [facility] Work Phone: Comment on above: Method: Thermal Scan 10-15-2022 09:15-0500 Body weight 79.38 kg [facility]; [facility] Work Phone: 10-15-2022 09:15-0500 Diastolic blood pressure 64 mm[Hg] [facility]; [facility] Work Phone: Comment on above: Patient Position: Sitting; Cuff Location : Left Arm; Cuff Size: Standard 10-15-2022 09:15-0500 Heart rate 60 /min Poonam Becerril [facility]; [facility] Work Phone: Comment on above: Pattern: Regular 10-15-2022 09:15-0500 Respiratory rate 16 /min Poonam Becerril [facility]; [facility] Work Phone: Comment on above: Pattern: Unlabored 10-15-2022 09:15-0500 SaO2% (BldA) [Mass fraction] 98 % [facility]; [facility] Work Phone: Comment on above: Room air 10-15-2022 09:15-0500 Systolic blood pressure 110 mm[Hg] Poonam Becerril [facility]; [facility] Work Phone: Comment on above: Patient Position: Sitting; Cuff Location : Left Arm; Cuff Size: Standard 09-16-2022 12:48-0500 Body height 177.[address] Simran Woodard Work Phone: [facility] 09-16-2022 12:48-0500 Body mass index (BMI) [Ratio] 25.9 kg/m2 Dr. Simran Woodard Work Phone: [facility] 09-16-2022 12:48-0500 Body weight 82.[address] Simran Woodard Work Phone: [facility] 09-16-2022 12:48-0500 Diastolic blood pressure 77 mm[Hg] Dr. Simran Woodard Work Phone: [facility] 09-16-2022 12:48-0500 Heart rate 59 /min Dr. Simran Woodard Work Phone: [facility] 09-16-2022 12:48-0500 Respiratory rate 18 /min Dr. Simran Woodard Work Phone: [facility] 09-16-2022 12:48-0500 Systolic blood pressure 121 mm[Hg] Dr. Simran Woodard Work Phone: [facility] 11-25-2021 07:29-0400 Body temperature 97.52 [degF] DR JASMINE BEYER MD [facility] 11-25-2021 07:29-0400 Diastolic blood pressure 69 mm[Hg] DR JASMINE BEYER MD [facility] 11-25-2021 07:29-0400 Heart rate 69 /min DR JASMINE BEYER MD [facility] 11-25-2021 07:29-0400 Reason For Taking VItal Signs DR JASMINE BEYER MD [facility] 11-25-2021 07:29-0400 Respiratory rate 18 /min DR JASMINE BEYER MD [facility] 11-25-2021 07:29-0400 Systolic blood pressure 109 mm[Hg] DR JASMINE BEYER MD [facility] 11-25-2021 03:44-0400 Diastolic blood pressure 57 mm[Hg] DR JASMINE BEYER MD [facility] 11-25-2021 03:44-0400 Heart rate 63 /min DR JASMINE BEYER MD [facility] 11-25-2021 03:44-0400 Respiratory rate 18 /min DR JASMINE BEYER MD [facility] 11-25-2021 03:44-0400 Systolic blood pressure 104 mm[Hg] DR JASMINE BEYER MD [facility] 11-25-2021 00:27-0400 Body temperature 98.24 [degF] DR JASMINE BEYER MD [facility] 11-25-2021 00:27-0400 Diastolic blood pressure 57 mm[Hg] DR JASMINE BEYER MD [facility] 11-25-2021 00:27-0400 Heart rate 59 /min DR JASMINE BEYER MD [facility] 11-25-2021 00:27-0400 Respiratory rate 18 /min DR JASMINE BEYER MD [facility] 11-25-2021 00:27-0400 Systolic blood pressure 110 mm[Hg] DR JASMINE BEYER MD [facility] 11-24-2021 19:47-0400 Body temperature 98.42 [degF] DR JASMINE BEYER MD [facility] 11-24-2021 19:47-0400 Heart rate 60 /min DR JASMINE BEYER MD [facility] 11-24-2021 15:35-0400 Heart rate 60 /min DR JASMINE BEYER MD [facility] 11-24-2021 15:35-0400 Reason For Taking VItal Signs DR JASMINE BEYER MD [facility] 11-24-2021 12:09-0400 Body temperature 97.52 [degF] DR JASMINE BEYER MD [facility] 11-24-2021 12:09-0400 Diastolic Blood Pressure NBP [address] JASMINE BEYER MD [facility] 11-24-2021 12:09-0400 Heart rate 61 /min DR JASMINE BEYER MD [facility] 11-24-2021 12:09-0400 Systolic Blood Pressure NBP [address] JASMINE BEYER MD [facility] 11-24-2021 11:54-0400 Body height 177.[address] JASMINE BEYER MD [facility] 11-24-2021 11:54-0400 Body weight 79.[address] JASMINE BEYER MD [facility] 11-24-2021 11:54-0400 Body weight 25.15 kg/m2 DR JASMINE BEYER MD [facility] 11-24-2021 11:16-0400 Body temperature 97.52 [degF] DR JASMINE BEYER MD [facility] 11-24-2021 11:16-0400 Diastolic Blood Pressure NBP [address] JASMINE BEYER MD [facility] 11-24-2021 11:16-0400 Systolic Blood Pressure NBP [address] JASMINE BEYER MD [facility] 11-24-2021 11:00-0400 Diastolic Blood Pressure NBP [address] JASMINE BEYER MD [facility] 11-24-2021 11:00-0400 Systolic Blood Pressure NBP [address] JASMINE BEYER MD [facility] 11-24-2021 10:25-0400 Body temperature 97.52 [degF] DR JASMINE BEYER MD [facility] 11-24-2021 09:45-0400 Body temperature 97.7 [degF] DR JASMINE BEYER MD [facility] 11-24-2021 09:30-0400 Body temperature 96.8 [degF] DR JASMINE BEYER MD [facility] 11-24-2021 07:50-0400 Heart rate 62 /min DR JASMINE BEYER MD [facility] 11-24-2021 07:40-0400 Heart rate 64 /min DR JASMINE BEYER MD [facility] 11-24-2021 06:50-0400 Body height 177.[address] JASMINE BEYER MD [facility] 11-24-2021 06:50-0400 Body weight 79.[address] JASMINE BEYER MD [facility] 11-24-2021 06:50-0400 Heart rate 60 /min DR JASMINE BEYER MD [facility] 11-03-2021 15:03-0500 Body height 177.[address] JASMINE BEYER MD [facility] 11-03-2021 15:03-0500 Body weight 79.[address] JASMINE BEYER MD [facility] 11-03-2021 15:03-0500 Body weight 25.15 kg/m2 DR JASMINE BEYER MD [facility] 11-03-2021 15:03-0500 diastolic 68 mm[Hg] DR JASMINE BEYER MD [facility] 11-03-2021 15:03-0500 Heart rate 60 /min DR JASMINE BEYER MD [facility] 11-03-2021 15:03-0500 systolic 116 mm[Hg] DR JASMINE BEYER MD [facility] 11-02-2021 13:33-0500 Body height 177.8 cm Chelsi Slarb [employer] [facility] Work Phone: 11-02-2021 13:33-0500 Body mass index (BMI) [Ratio] 25.11 kg/m2 Chelsi Slarb [employer] [facility] Work Phone: 11-02-2021 13:33-0500 Body surface area Derived from formula 1.97 m2 Chelsi Slarb [employer] [facility] Work Phone: 11-02-2021 13:33-0500 Body temperature 97.1 [degF] Chelsi Slarb [employer] [facility] Work Phone: 11-02-2021 13:33-0500 Body weight 79.38 kg Chelsi Slarb [employer] [facility] Work Phone: 11-02-2021 13:33-0500 Diastolic blood pressure 78 mm[Hg] Chelsi Slarb [employer] [facility] Work Phone: Comment on above: Patient Position: Sitting; Cuff Location : Left Arm; Cuff Size: Standard 11-02-2021 13:33-0500 Heart rate 63 /min Chelsi Slarb [employer] [facility] Work Phone: Comment on above: Pattern: Regular 11-02-2021 13:33-0500 Respiratory rate 16 /min Chelsi Slarb [employer] [facility] Work Phone: Comment on above: Pattern: Unlabored 11-02-2021 13:33-0500 SaO2% (BldA) [Mass fraction] 96 % Chelsi Slarb [employer] [facility] Work Phone: Comment on above: Room air 11-02-2021 13:33-0500 Systolic blood pressure 102 mm[Hg] Chelsi Slarb [employer] [facility] Work Phone: Comment on above: Patient Position: Sitting; Cuff Location : Left Arm; Cuff Size: Standard 09-25-2021 07:15-0500 Body height 177.8 cm Danika Quezada CNP Work Phone: [facility] Work Phone: 09-25-2021 07:15-0500 Body mass index (BMI) [Ratio] 24.39 kg/m2 Danika Quezada CNP Work Phone: [facility] Work Phone: 09-25-2021 07:15-0500 Body surface area Derived from formula 1.95 m2 Danika Quezada CNP Work Phone: [facility]; [facility] Work Phone: 09-25-2021 07:15-0500 Body temperature 96 [degF] Danika Quezada CNP Work Phone: [facility]; [facility] Work Phone: 09-25-2021 07:15-0500 Body weight 77.11 kg Danika Quezada CNP Work Phone: [facility]; [facility] Work Phone: 06-15-2021 08:04-0400 Body height 177.8 cm Simran Vance DO Work Phone: [facility]; [facility] Work Phone: Comment on above: partial vitals due to virtual visit with covid 06-15-2021 08:04-0400 Body mass index (BMI) [Ratio] 24.39 kg/m2 Simran Vance DO Work Phone: [facility]; [facility] Work Phone: Comment on above: partial vitals due to virtual visit with covid 06-15-2021 08:04-0400 Body surface area Derived from formula 1.95 m2 Simran Vance DO Work Phone: [facility]; [facility] Work Phone: Comment on above: partial vitals due to virtual visit with covid 06-15-2021 08:04-0400 Body temperature 97.6 [degF] Simran Woodard DO Work Phone: [facility]; [facility] Work Phone: Comment on above: Method: Oral partial vitals due t o virtual visit with covid 06-15-2021 08:04-0400 Body weight 77.11 kg Simran Woodard DO Work Phone: [facility]; [facility] Work Phone: Comment on above: partial vitals due to virtual visit with covid 06-15-2021 08:04-0400 Diastolic blood pressure 87 mm[Hg] Simran Woodard DO Work Phone: [facility]; [facility] Work Phone: Comment on above: Patient Position: Sitting partial vitals due t o virtual visit with covid 06-15-2021 08:04-0400 Heart rate 60 /min Simran Woodard DO Work Phone: [facility]; [facility] Work Phone: Comment on above: Pattern: Regular partial vitals due t o virtual visit with covid 06-15-2021 08:04-0400 Systolic blood pressure 128 mm[Hg] Simran Woodard DO Work Phone: [facility]; [facility] Work Phone: Comment on above: Patient Position: Sitting partial vitals due t o virtual visit with covid 06-04-2021 08:16-0400 Body height 177.8 cm Olena Mccrary [facility] Work Phone: 06-04-2021 08:16-0400 Body mass index (BMI) [Ratio] 24.39 kg/m2 Olena Landius [facility] Work Phone: 06-04-2021 08:16-0400 Body surface area [facility]ived from formula 1.95 m[facility] Work Phone: 06-04-2021 08:16-0400 Body temperature 97.3 [degF] Olena Mccrary [facility] Work Phone: Comment on above: Method: Infrared 06-04-2021 08:16-0400 Body weight 77.11 kg Olena Mccrary [facility] Work Phone: 06-04-2021 08:16-0400 Diastolic blood pressure 82 mm[Hg] Olena Mccrary [facility] Work Phone: Comment on above: Patient Position: Sitting; Cuff Location : Left Arm; Cuff Size: Standard 06-04-2021 08:16-0400 Heart rate 71 /min Olena Mccrary [facility] Work Phone: Comment on above: Pattern: Regular 06-04-2021 08:16-0400 Respiratory rate 18 /min Olena Mccrary [facility] Work Phone: Comment on above: Pattern: Unlabored 06-04-2021 08:16-0400 SaO2% (BldA) [Mass fraction] 98 % Olena Mccrary [facility] Work Phone: Comment on above: Room air 06-04-2021 08:16-0400 Systolic blood pressure 122 mm[Hg] Olena Mccrary [facility] Work Phone: Comment on above: Patient Position: Sitting; Cuff Location : Left Arm; Cuff Size: Standard 05-27-2021 11:52-0400 Body height 177.8 cm Olena Mccrary [facility] Work Phone: 05-27-2021 11:52-0400 Body mass index (BMI) [Ratio] 26.4 kg/m2 Olena Mccrary [facility] Work Phone: 05-27-2021 11:52-0400 Body surface area Derived from formula 2.01 m2 Olena Mccrary [facility] Work Phone: 05-27-2021 11:52-0400 Body temperature 97.2 [degF] Olena Mccrary CMA [facility]; [facility] Work Phone: Comment on above: Method: Infrared 05-27-2021 11:52-0400 Body weight 83.46 kg Olena Mccrary CMA [facility] Work Phone: 05-27-2021 11:52-0400 Diastolic blood pressure 58 mm[Hg] Olena Mccrary [facility] Work Phone: Comment on above: Patient Position: Sitting; Cuff Location : Left Arm; Cuff Size: Standard 05-27-2021 11:52-0400 Heart rate 68 /min Olena Mccrary [facility] Work Phone: Comment on above: Pattern: Regular 05-27-2021 11:52-0400 Respiratory rate 20 /min Olena Mccrary [facility] Work Phone: Comment on above: Pattern: Unlabored 05-27-2021 11:52-0400 SaO2% (BldA) [Mass fraction] 95 % Olena Mccrary [facility] Work Phone: Comment on above: Room air 05-27-2021 11:52-0400 Systolic blood pressure 101 mm[Hg] Olena Mccrary [facility] Work Phone: Comment on above: Patient Position: Sitting; Cuff Location : Left Arm; Cuff Size: Standard 09-08-2020 14:39-0500 BMI (Body Mass Index) 26.4 kg/m2 Olena Mccrary [facility] Work Phone: Comment on above: no vs taken as this is phone encounter d ue to covid 09-08-2020 14:39-0500 Body weight 83.46 kg Olena Mccrary [facility] Work Phone: Comment on above: no vs taken as this is phone encounter d ue to covid 09-08-2020 14:39-0500 BSA (Body Surface Area) 2.01 m2 Olena Mccrary [facility] Work Phone: Comment on above: no vs taken as this is phone encounter d ue to covid 09-08-2020 14:39-0500 Height 177.8 cm Olena Mccrary [facility] Work Phone: Comment on above: no vs taken as this is phone encounter d ue to covid 09-12-2019 13:14-0500 BMI (Body Mass Index) 26.4 kg/m2 Suhas Richard LPN [facility] Work Phone: 09-12-2019 13:14-0500 Body Temperature 97.6 [degF] Suhas Richard LPN [facility] Work Phone: Comment on above: Method: Temporal 09-12-2019 13:14-0500 Body weight 83.46 kg Suhas Richard LPN [facility] Work Phone: 09-12-2019 13:14-0500 BP Diastolic 68 mm[Hg] Suhas Richard LPN [facility] Work Phone: Comment on above: Patient Position: Sitting; Cuff Location : Left Arm; Cuff Size: Standard 09-12-2019 13:14-0500 BP Systolic 112 mm[Hg] Suhas Richard LPN [facility] Work Phone: Comment on above: Patient Position: Sitting; Cuff Location : Left Arm; Cuff Size: Standard 09-12-2019 13:14-0500 BSA (Body Surface Area) 2.01 m2 Suhas Richard LPN [facility] Work Phone: 09-12-2019 13:14-0500 Height 177.8 cm Suhas Richard LPN [facility] Work Phone: 09-12-2019 13:14-0500 Pulse (Heart Rate) 64 /min Suhas Richard LPN [facility] Work Phone: Comment on above: Pattern: Regular 09-12-2019 13:14-0500 Pulse Oximetry 95 % Simran Woodard [facility] Work Phone: Comment on above: Room air 09-12-2019 13:14-0500 Respiratory Rate 16 /min Suhas Richard KERI [facility] Work Phone: Comment on above: Pattern: Unlabored 09-12-2019 13:14-0500 SaO2% (BldA) [Mass fraction] 95 % Suhas Richard [employer] [facility] Work Phone: Comment on above: Room air 01-04-2019 11:51-0400 BMI (Body Mass Index) 26.58 kg/m2 Poonam Becerril [facility] Work Phone: 01-04-2019 11:51-0400 Body Temperature 98.2 [degF] Poonam Becerril [facility] Work Phone: Comment on above: Method: Temporal 01-04-2019 11:51-0400 Body weight 84.03 kg Poonam Becerril [facility] Work Phone: 01-04-2019 11:51-0400 BP Diastolic 70 mm[Hg] Poonam Becerril [facility] Work Phone: Comment on above: Patient Position: Sitting; Cuff Location : Left Arm; Cuff Size: Standard 01-04-2019 11:51-0400 BP Systolic 122 mm[Hg] Poonam Becerril [facility] Work Phone: Comment on above: Patient Position: Sitting; Cuff Location : Left Arm; Cuff Size: Standard 01-04-2019 11:51-0400 BSA (Body Surface Area) 2.02 m2 Poonam Becerril [facility] Work Phone: 01-04-2019 11:51-0400 Height 177.8 cm Poonam Becerril [facility] Work Phone: 01-04-2019 11:51-0400 Pulse (Heart Rate) 72 /min Poonam Becerril [facility] Work Phone: Comment on above: Pattern: Regular 01-04-2019 11:51-0400 Pulse Oximetry 98 % Simran Woodard [facility] Work Phone: Comment on above: Room air 01-04-2019 11:51-0400 Respiratory Rate 16 /min Poonam Becerril [employer] [facility] Work Phone: Comment on above: Pattern: Unlabored 01-04-2019 11:51-0400 SaO2% (BldA) [Mass fraction] 98 % Poonam Becerril [facility] Work Phone: Comment on above: Room air 01-04-2019 11:51-0400 Weight 84.03 kg Simran Woodard [facility] Work Phone: 09-30-2017 11:42-0500 BMI (Body Mass Index) 26.58 kg/m2 Riya Hermosillo RN [facility] Work Phone: 09-30-2017 11:42-0500 Body weight 84.03 kg Riya Hermosillo RN [facility] Work Phone: 09-30-2017 11:42-0500 BP Diastolic 70 mm[Hg] Riya Hermosillo RN [facility] Work Phone: Comment on above: Patient Position: Sitting; Cuff Location : Left Arm; Cuff Size: Large 09-30-2017 11:42-0500 BP Systolic 118 mm[Hg] Riya Hermosillo RN [facility] Work Phone: Comment on above: Patient Position: Sitting; Cuff Location : Left Arm; Cuff Size: Large 09-30-2017 11:42-0500 BSA (Body Surface Area) 2.02 m2 Riya Hermosillo RN [facility] Work Phone: 09-30-2017 11:42-0500 Height 177.8 cm Riya Hermosillo RN [facility] Work Phone: 09-30-2017 11:42-0500 Pulse (Heart Rate) 60 /min Riya Hermosillo RN [facility] Work Phone: Comment on above: Pattern: Regular 09-30-2017 11:42-0500 Pulse Oximetry 97 % Simran Woodard [facility] Work Phone: Comment on above: Room air 09-30-2017 11:42-0500 Respiratory Rate 18 /min Riya Hermosillo RN [facility] Work Phone: Comment on above: Pattern: Unlabored 09-30-2017 11:42-0500 SaO2% (BldA) [Mass fraction] 97 % Riya Hermosillo RN [facility] Work Phone: Comment on above: Room air 09-30-2017 11:42-0500 Weight 84.03 kg Simran Woodard [facility] Work Phone: 09-23-2017 10:22-0500 BMI (Body Mass Index) 26.58 kg/m2 Riya Hermosillo RN [facility] Work Phone: 09-23-2017 10:22-0500 Body Temperature 97.8 [degF] Riya Hermosillo RN [facility] Work Phone: Comment on above: Method: Temporal 09-23-2017 10:22-0500 Body weight 84.03 kg Riya Hermosillo RN [facility] Work Phone: 09-23-2017 10:22-0500 BP Diastolic 64 mm[Hg] Riya Hermosillo RN [facility] Work Phone: Comment on above: Patient Position: Sitting; Cuff Location : Left Arm; Cuff Size: Standard 09-23-2017 10:22-0500 BP Systolic 108 mm[Hg] Riya Hermosillo RN [facility] Work Phone: Comment on above: Patient Position: Sitting; Cuff Location : Left Arm; Cuff Size: Standard 09-23-2017 10:22-0500 BSA (Body Surface Area) 2.02 m2 Riya Hermosillo RN [facility] Work Phone: 09-23-2017 10:22-0500 Height 177.8 cm Riya Hermosillo RN [facility] Work Phone: 09-23-2017 10:22-0500 Pulse (Heart Rate) 69 /min Riya Hermosillo RN [facility] Work Phone: Comment on above: Pattern: Regular 09-23-2017 10:22-0500 Respiratory Rate 18 /min Riya Hermosillo RN [facility] Work Phone: Comment on above: Pattern: Unlabored 09-23-2017 10:22-0500 Weight 84.03 kg Simran Woodard [facility] Work Phone: 08-10-2017 11:51-0500 BMI (Body Mass Index) 26.58 kg/m2 Riya Hermosillo RN [facility] Work Phone: 08-10-2017 11:51-0500 Body Temperature 97.2 [degF] Riya Hermosillo RN [facility] Work Phone: Comment on above: Method: Temporal 08-10-2017 11:51-0500 Body weight 84.03 kg Riya Hermosillo RN [facility] Work Phone: 08-10-2017 11:51-0500 BP Diastolic 80 mm[Hg] Riya Hermosillo RN [facility] Work Phone: Comment on above: Patient Position: Sitting; Cuff Location : Left Arm; Cuff Size: Large 08-10-2017 11:51-0500 BP Systolic 120 mm[Hg] Riya Hermosillo RN [facility] Work Phone: Comment on above: Patient Position: Sitting; Cuff Location : Left Arm; Cuff Size: Large 08-10-2017 11:51-0500 BSA (Body Surface Area) 2.02 m2 Riya Hermosillo RN [facility] Work Phone: 08-10-2017 11:51-0500 Height 177.8 cm Riya Hermosillo RN [facility] Work Phone: 08-10-2017 11:51-0500 Pulse (Heart Rate) 59 /min Riya Hermosillo RN [facility] Work Phone: Comment on above: Pattern: Regular 08-10-2017 11:51-0500 Pulse Oximetry 94 % Simran Woodard [facility] Work Phone: Comment on above: Room air 08-10-2017 11:51-0500 Respiratory Rate 18 /min Riya Hermosillo RN [facility] Work Phone: Comment on above: Pattern: Unlabored 08-10-2017 11:51-0500 SaO2% (BldA) [Mass fraction] 94 % Riya Hermosillo RN [facility] Work Phone: Comment on above: Room air 08-10-2017 11:51-0500 Weight 84.03 kg Simran Woodard [facility] Work Phone: 02-14-2017 13:19-0400 BMI (Body Mass Index) 26.54 kg/m2 Riya Hermosillo RN [facility] Work Phone: 02-14-2017 13:19-0400 Body weight 83.92 kg Riya Hermosillo RN [facility] Work Phone: 02-14-2017 13:19-0400 BP Diastolic 73 mm[Hg] Riya Hermosillo RN [facility] Work Phone: Comment on above: Patient Position: Sitting; Cuff Location : Left Arm; Cuff Size: Large 02-14-2017 13:19-0400 BP Systolic 114 mm[Hg] Riya Hermosillo RN [facility] Work Phone: Comment on above: Patient Position: Sitting; Cuff Location : Left Arm; Cuff Size: Large 02-14-2017 13:19-0400 BSA (Body Surface Area) 2.02 m2 Riya Hermosillo RN [facility] Work Phone: 02-14-2017 13:0400 Height 177.8 cm Riya Hermosillo RN [facility] Work Phone: 02-14-2017 13:19-0400 Pulse (Heart Rate) 57 /min Riya Hermosillo RN [facility] Work Phone: Comment on above: Pattern: Regular 02-14-2017 13:19-0400 Pulse Oximetry 96 % Simran Woodard [facility] Work Phone: Comment on above: Room air 02-14-2017 13:19-0400 Respiratory Rate 18 /min Riya Hermosillo RN [facility] Work Phone: Comment on above: Pattern: Unlabored 02-14-2017 13:19-0400 SaO2% (BldA) [Mass fraction] 96 % Riya Hermosillo RN [facility] Work Phone: Comment on above: Room air 02-14-2017 13:19-0400 Weight 83.92 kg Simran Woodard [facility] Work Phone: 03-18-2016 08:36-0400 BMI (Body Mass Index) 26.45 kg/m2 Poonam Becerril [facility] Work Phone: 03-18-2016 08:36-0400 Body Temperature 98.2 [degF] Poonam Becerril [facility] Work Phone: Comment on above: Method: Temporal 03-18-2016 08:36-0400 Body weight 83.63 kg Poonam Becerril [facility] Work Phone: 03-18-2016 08:36-0400 BP Diastolic 60 mm[Hg] Poonam Becerril [facility] Work Phone: Comment on above: Patient Position: Sitting; Cuff Location : Left Arm; Cuff Size: Standard 03-18-2016 08:36-0400 BP Systolic 120 mm[Hg] Poonam Becerril [facility] Work Phone: Comment on above: Patient Position: Sitting; Cuff Location : Left Arm; Cuff Size: Standard 03-18-2016 08:36-0400 BSA (Body Surface Area) 2.02 m2 Poonam Becerril [facility] Work Phone: 03-18-2016 08:36-0400 Height 177.8 cm Poonam Becerril [facility] Work Phone: 03-18-2016 08:36-0400 Pulse (Heart Rate) 58 /min Poonam Becerril [facility] Work Phone: Comment on above: Pattern: Regular 03-18-2016 08:36-0400 Pulse Oximetry 97 % Simran Dumonton [facility] Work Phone: Comment on above: Room air 03-18-2016 08:36-0400 Respiratory Rate 16 /min Poonam Becerril [facility] Work Phone: Comment on above: Pattern: Unlabored 03-18-2016 08:36-0400 SaO2% (BldA) [Mass fraction] 97 % Poonam Becerril [employer] [facility] Work Phone: Comment on above: Room air 03-18-2016 08:36-0400 Weight 83.63 kg Simran Woodard [facility] Work Phone: 09-19-2015 10:31-0500 BMI (Body Mass Index) 25.68 kg/m2 Riya Hermosillo RN [facility] Work Phone: 09-19-2015 10:31-0500 Body weight 81.19 kg Riya Hermosillo RN [facility] Work Phone: 09-19-2015 10:31-0500 BP Diastolic 78 mm[Hg] Riya Hermosillo RN [facility] Work Phone: Comment on above: Patient Position: Sitting; Cuff Location : Left Arm; Cuff Size: Large 09-19-2015 10:31-0500 BP Systolic 118 mm[Hg] Riya Hermosillo RN [facility] Work Phone: Comment on above: Patient Position: Sitting; Cuff Location : Left Arm; Cuff Size: Large 09-19-2015 10:31-0500 BSA (Body Surface Area) 1.99 m2 Riya Hermosillo RN [facility] Work Phone: 09-19-2015 10:31-0500 Height 177.8 cm Riya Hermosillo RN [facility] Work Phone: 09-19-2015 10:31-0500 Pulse (Heart Rate) 58 /min Riya Hermosillo RN [facility] Work Phone: Comment on above: Pattern: Regular 09-19-2015 10:31-0500 Pulse Oximetry 97 % Simran Woodard [facility] Work Phone: Comment on above: Room air 09-19-2015 10:31-0500 Respiratory Rate 18 /min Riya Hermosillo RN [facility] Work Phone: Comment on above: Pattern: Unlabored 09-19-2015 10:31-0500 SaO2% (BldA) [Mass fraction] 97 % Riya Hermosillo RN [facility] Work Phone: Comment on above: Room air 09-19-2015 10:31-0500 Weight 81.19 kg Simran Woodard [facility] Work Phone: 09-11-2015 10:23-0500 BMI (Body Mass Index) 25.68 kg/m2 Riya Hermosillo RN [facility] Work Phone: 09-11-2015 10:23-0500 Body weight 81.19 kg Riya Hermosillo RN [facility] Work Phone: 09-11-2015 10:23-0500 BP Diastolic 62 mm[Hg] Riya Hermosillo RN [facility] Work Phone: Comment on above: Patient Position: Sitting; Cuff Location : Left Arm; Cuff Size: Large 09-11-2015 10:23-0500 BP Systolic 118 mm[Hg] Riya Hermosillo RN [facility] Work Phone: Comment on above: Patient Position: Sitting; Cuff Location : Left Arm; Cuff Size: Large 09-11-2015 10:23-0500 BSA (Body Surface Area) 1.99 m2 Riya Hermosillo RN [facility] Work Phone: 09-11-2015 10:23-0500 Height 177.8 cm Riya Hermosillo RN [facility] Work Phone: 09-11-2015 10:23-0500 Pulse (Heart Rate) 65 /min Riya Hermosillo RN [facility] Work Phone: Comment on above: Pattern: Regular 09-11-2015 10:23-0500 Pulse Oximetry 96 % Simran Woodard [facility] Work Phone: Comment on above: Room air 09-11-2015 10:23-0500 Respiratory Rate 18 /min Riya Hermosillo RN [facility] Work Phone: Comment on above: Pattern: Unlabored 09-11-2015 10:23-0500 SaO2% (BldA) [Mass fraction] 96 % Riya Hermosillo RN [facility]; [facility] Work Phone: Comment on above: Room air 09-11-2015 10:23-0500 Weight 81.19 kg Simran Woodard [facility] Work Phone: 09-10-2015 14:56-0500 BMI (Body Mass Index) 25.68 kg/m2 Chelsi Slarb [employer] [facility] Work Phone: 09-10-2015 14:56-0500 Body Temperature 98.4 [degF] Chelsi Slarb [employer] [facility] Work Phone: 09-10-2015 14:56-0500 Body weight 81.19 kg Chelsi Slarb [employer] [facility] Work Phone: 09-10-2015 14:56-0500 BP Diastolic 72 mm[Hg] Chelsi Slarb [employer] [facility] Work Phone: Comment on above: Patient Position: Sitting; Cuff Location : Left Arm; Cuff Size: Standard 09-10-2015 14:56-0500 BP Systolic 112 mm[Hg] Chelsi Slarb [employer] [facility] Work Phone: Comment on above: Patient Position: Sitting; Cuff Location : Left Arm; Cuff Size: Standard 09-10-2015 14:56-0500 BSA (Body Surface Area) 1.99 m2 Chelsi Slarb [employer] [facility] Work Phone: 09-10-2015 14:56-0500 Height 177.8 cm Chelsi Slarb [employer] [facility] Work Phone: 09-10-2015 14:56-0500 Pulse (Heart Rate) 68 /min Chelsi Slarb [employer] [facility] Work Phone: Comment on above: Pattern: Regular 09-10-2015 14:56-0500 Pulse Oximetry 98 % Simran Vance [facility] Work Phone: Comment on above: Room air 09-10-2015 14:56-0500 Respiratory Rate 18 /min Chelsi Slarb [employer] [facility] Work Phone: Comment on above: Pattern: Unlabored 09-10-2015 14:56-0500 SaO2% (BldA) [Mass fraction] 98 % Chelsi Slarb [employer] [facility]; [facility] Work Phone: Comment on above: Room air 09-10-2015 14:56-0500 Weight 81.19 kg Simran Woodard [facility] Work Phone: 08-25-2015 14:21-0500 BMI (Body Mass Index) 25.68 kg/m2 ANASTACIO Lindsay LPN [facility] Work Phone: 08-25-2015 14:21-0500 Body Temperature 97.6 [degF] ANASTACIO Lindsay LPN [facility] Work Phone: Comment on above: Method: Temporal 08-25-2015 14:-0500 Body weight 81.19 kg ANASTACIO Lindsay LPN [facility] Work Phone: 08-25-2015 14:21-0500 BP Diastolic 74 mm[Hg] ANASTACIO Lindsay LPN [facility] Work Phone: Comment on above: Patient Position: Sitting; Cuff Location : Left Arm; Cuff Size: Standard 08-25-2015 14:21-0500 BP Systolic 114 mm[Hg] ANASTACIO Lindsay LPN [facility] Work Phone: Comment on above: Patient Position: Sitting; Cuff Location : Left Arm; Cuff Size: Standard 08-25-2015 14:-0500 BSA (Body Surface Area) 1.99 m2 ANASTACIO Lindsay LPN [facility] Work Phone: 08-25-2015 14:0500 Height 177.8 cm ANASTACIO Lindsay LPN [facility] Work Phone: 08-25-2015 14:21-0500 Pulse (Heart Rate) 60 /min ANASTACIO Lindsay LPN [facility] Work Phone: Comment on above: Pattern: Regular 08-25-2015 14:21-0500 Pulse Oximetry 98 % Simran Woodard [facility] Work Phone: Comment on above: Room air 08-25-2015 14:21-0500 Respiratory Rate 20 /min ANASTACIO Lindsay LPN [facility] Work Phone: Comment on above: Pattern: Unlabored 08-25-2015 14:21-0500 SaO2% (BldA) [Mass fraction] 98 % ANASTACIO Lindsay LPN [facility]; [facility] Work Phone: Comment on above: Room air 08-25-2015 14:21-0500 Weight 81.19 kg Simran Woodard [facility] Work Phone: 08-22-2015 09:05-0500 BMI (Body Mass Index) 25.74 kg/m2 Chelsi Slarb [employer] [facility] Work Phone: 08-22-2015 09:05-0500 Body Temperature 97.6 [degF] Chelsi Slarb [employer] [facility] Work Phone: 08-22-2015 09:05-0500 Body weight 81.36 kg Chelsi Slarb [employer] [facility] Work Phone: 08-22-2015 09:05-0500 BP Diastolic 74 mm[Hg] Chelsi Slarb [employer] [facility] Work Phone: Comment on above: Patient Position: Sitting; Cuff Location : Left Arm; Cuff Size: Standard 08-22-2015 09:05-0500 BP Systolic 116 mm[Hg] Chelsi Slarb [employer] [facility] Work Phone: Comment on above: Patient Position: Sitting; Cuff Location : Left Arm; Cuff Size: Standard 08-22-2015 09:05-0500 BSA (Body Surface Area) 1.99 m2 Chelsi Slarb [employer] [facility] Work Phone: 08-22-2015 09:05-0500 Height 177.8 cm Chelsi Slarb [employer] [facility] Work Phone: 08-22-2015 09:05-0500 Pulse (Heart Rate) 70 /min Chelsi Slarb [employer] [facility] Work Phone: Comment on above: Pattern: Regular 08-22-2015 09:05-0500 Pulse Oximetry 96 % Simran Woodard [facility] Work Phone: Comment on above: Room air 08-22-2015 09:05-0500 Respiratory Rate 16 /min Chelsi Slarb [employer] [facility] Work Phone: Comment on above: Pattern: Unlabored 08-22-2015 09:05-0500 SaO2% (BldA) [Mass fraction] 96 % Chelsi Krause LPN [facility]; [facility] Work Phone: Comment on above: Room air 08-22-2015 09:05-0500 Weight 81.36 kg Simran Woodard [facility] Work Phone: 04-09-2015 11:20-0400 BMI (Body Mass Index) 25.74 kg/m2 Riya Hermosillo RN [facility] Work Phone: 04-09-2015 11:20-0400 Body weight 81.36 kg Riya Hermosillo RN [facility] Work Phone: 04-09-2015 11:20-0400 BP Diastolic 60 mm[Hg] Riya Hermosillo RN [facility] Work Phone: Comment on above: Patient Position: Sitting; Cuff Location : Left Arm; Cuff Size: Large 04-09-2015 11:20-0400 BP Systolic 110 mm[Hg] Riya Hermosillo RN [facility] Work Phone: Comment on above: Patient Position: Sitting; Cuff Location : Left Arm; Cuff Size: Large 04-09-2015 11:20-0400 BSA (Body Surface Area) 1.99 m2 iRya Hermosillo RN [facility] Work Phone: 04-09-2015 11:20-0400 Height 177.8 cm Riya Hermosillo RN [facility] Work Phone: 04-09-2015 11:20-0400 Pulse (Heart Rate) 46 /min Riya Hermosillo RN [facility] Work Phone: Comment on above: Pattern: Regular 04-09-2015 11:20-0400 Pulse Oximetry 98 % Simran Woodard [facility] Work Phone: Comment on above: Room air 04-09-2015 11:20-0400 Respiratory Rate 18 /min Riya Hermosillo RN [facility] Work Phone: Comment on above: Pattern: Unlabored 04-09-2015 11:20-0400 SaO2% (BldA) [Mass fraction] 98 % Riya Hermosillo RN [facility]; [facility] Work Phone: Comment on above: Room air 04-09-2015 11:20-0400 Weight 81.36 kg Simran Woodard [facility] Work Phone: 12-18-2014 11:44-0400 BMI (Body Mass Index) 25.74 kg/m2 Riya Hermosillo RN [facility] Work Phone: 12-18-2014 11:44-0400 Body weight 81.36 kg Riya Hermosillo RN [facility] Work Phone: 12-18-2014 11:44-0400 BP Diastolic 78 mm[Hg] Riya Hermosillo RN [facility] Work Phone: Comment on above: Patient Position: Sitting; Cuff Location : Left Arm; Cuff Size: Large 12-18-2014 11:44-0400 BP Systolic 128 mm[Hg] Riya Hermosillo RN [facility] Work Phone: Comment on above: Patient Position: Sitting; Cuff Location : Left Arm; Cuff Size: Large 12-18-2014 11:44-0400 BSA (Body Surface Area) 1.99 m2 Riya Hermosillo RN [facility] Work Phone: 12-18-2014 11:44-0400 Height 177.8 cm Riya Hermosillo RN [facility] Work Phone: 12-18-2014 11:44-0400 Pulse (Heart Rate) 62 /min Riya Hermosillo RN [facility] Work Phone: Comment on above: Pattern: Regular 12-18-2014 11:44-0400 Pulse Oximetry 98 % Simran Woodard [facility] Work Phone: Comment on above: Room air 12-18-2014 11:44-0400 Respiratory Rate 18 /min Riya Hermosillo RN [facility] Work Phone: Comment on above: Pattern: Unlabored 12-18-2014 11:44-0400 SaO2% (BldA) [Mass fraction] 98 % Riya Hermosillo RN [facility]; [facility] Work Phone: Comment on above: Room air 12-18-2014 11:44-0400 Weight 81.36 kg Simran Woodard [facility] Work Phone: 09-12-2014 12:34-0500 BMI (Body Mass Index) 25.62 kg/m2 Amberly Davis [facility] Work Phone: 09-12-2014 12:34-0500 Body Temperature 98.2 [degF] Amberly Davis [facility] Work Phone: 09-12-2014 12:34-0500 Body weight 81 kg Amberly Davis [facility] Work Phone: 09-12-2014 12:34-0500 BP Diastolic 62 mm[Hg] Amberly Davis [facility] Work Phone: Comment on above: Patient Position: Sitting; Cuff Location : Left Arm; Cuff Size: Standard 09-12-2014 12:34-0500 BP Systolic 90 mm[Hg] Amberly Davis [facility] Work Phone: Comment on above: Patient Position: Sitting; Cuff Location : Left Arm; Cuff Size: Standard 09-12-2014 12:34-0500 BSA (Body Surface Area) 1.99 m2 Amberly Davis [facility] Work Phone: 09-12-2014 12:34-0500 Height 177.8 cm Amberly Davis [facility] Work Phone: 09-12-2014 12:34-0500 Pulse (Heart Rate) 53 /min Amberly Davis [facility] Work Phone: Comment on above: Pattern: Regular 09-12-2014 12:34-0500 Pulse Oximetry 97 % Simran Woodard [facility] Work Phone: Comment on above: Room air 09-12-2014 12:34-0500 Respiratory Rate 18 /min Amberly Davis [facility] Work Phone: Comment on above: Pattern: Unlabored 09-12-2014 12:34-0500 SaO2% (BldA) [Mass fraction] 97 % Amberly Davis [facility]; [facility] Work Phone: Comment on above: Room air 09-12-2014 12:34-0500 Weight 81 kg Simran Woodard [facility] Work Phone: 09-12-2013 08:34-0500 BMI (Body Mass Index) 25.91 kg/m2 Riya Hermosillo RN [facility] Work Phone: 09-12-2013 08:34-0500 Body weight 81.9 kg Riya Hermosillo RN [facility] Work Phone: 09-12-2013 08:34-0500 BP Diastolic 68 mm[Hg] Riya Hermosillo RN [facility] Work Phone: Comment on above: Patient Position: Sitting; Cuff Location : Left Arm; Cuff Size: Standard 09-12-2013 08:34-0500 BP Systolic 124 mm[Hg] Riya Hermosillo RN [facility] Work Phone: Comment on above: Patient Position: Sitting; Cuff Location : Left Arm; Cuff Size: Standard 09-12-2013 08:34-0500 BSA (Body Surface Area) 2 m2 Riya Hermosillo RN [facility] Work Phone: 09-12-2013 08:34-0500 Height 177.8 cm Riya Hermosillo RN [facility] Work Phone: 09-12-2013 08:34-0500 Pulse (Heart Rate) 61 /min Riya Hermosillo RN [facility] Work Phone: Comment on above: Pattern: Regular 09-12-2013 08:34-0500 Pulse Oximetry 98 % Simran Woodard [facility] Work Phone: Comment on above: Room air 09-12-2013 08:34-0500 Respiratory Rate 18 /min Riya Hermosillo RN [facility] Work Phone: Comment on above: Pattern: Unlabored 09-12-2013 08:34-0500 SaO2% (BldA) [Mass fraction] 98 % Riya Hermosillo RN [facility]; [facility] Work Phone: Comment on above: Room air 09-12-2013 08:34-0500 Weight 81.9 kg Simran Woodard [facility] Work Phone: 07-23-2013 09:23-0500 BMI (Body Mass Index) 26.14 kg/m2 Riya Hermosillo RN [facility] Work Phone: 07-23-2013 09:23-0500 Body Temperature 96.4 [degF] Riya Hermosillo RN [facility] Work Phone: Comment on above: Method: Oral 07-23-2013 09:23-0500 Body weight 82.64 kg Riya Hermosillo RN [facility] Work Phone: 07-23-2013 09:23-0500 BP Diastolic 82 mm[Hg] Riya Hermosillo RN [facility] Work Phone: Comment on above: Patient Position: Sitting; Cuff Location : Left Arm; Cuff Size: Standard 07-23-2013 09:23-0500 BP Systolic 124 mm[Hg] Riya Hermosillo RN [facility] Work Phone: Comment on above: Patient Position: Sitting; Cuff Location : Left Arm; Cuff Size: Standard 07-23-2013 09:23-0500 BSA (Body Surface Area) 2.01 m2 Riya Hermosillo RN [facility] Work Phone: 07-23-2013 09:23-0500 Height 177.8 cm Riya Hermosillo RN [facility] Work Phone: 07-23-2013 09:23-0500 Pulse (Heart Rate) 60 /min Riya Hermosillo RN [facility] Work Phone: Comment on above: Pattern: Regular 07-23-2013 09:23-0500 Pulse Oximetry 98 % Simran Woodard [facility] Work Phone: Comment on above: Room air 07-23-2013 09:23-0500 Respiratory Rate 18 /min Riya Hermosillo RN [facility] Work Phone: Comment on above: Pattern: Unlabored 07-23-2013 09:23-0500 SaO2% (BldA) [Mass fraction] 98 % Riya Hermosillo RN [facility]; [facility] Work Phone: Comment on above: Room air 07-23-2013 09:23-0500 Weight 82.64 kg Simran Woodard [facility] Work Phone: 06-08-2013 10:09-0400 BMI (Body Mass Index) 25.9 kg/m2 Riya Hermosillo RN [facility] Work Phone: 06-08-2013 10:09-0400 Body Temperature 97.7 [degF] Riya Hermosillo RN [facility] Work Phone: Comment on above: Method: Oral 06-08-2013 10:09-0400 Body weight 81.87 kg Riya Hermosillo RN [facility] Work Phone: 06-08-2013 10:09-0400 BP Diastolic 62 mm[Hg] Riya Hermosillo RN [facility] Work Phone: Comment on above: Patient Position: Sitting; Cuff Location : Left Arm; Cuff Size: Large 06-08-2013 10:09-0400 BP Systolic 118 mm[Hg] Riya Hermosillo RN [facility] Work Phone: Comment on above: Patient Position: Sitting; Cuff Location : Left Arm; Cuff Size: Large 06-08-2013 10:09-0400 BSA (Body Surface Area) 2 m2 Riya Hermosillo RN [facility] Work Phone: 06-08-2013 10:09-0400 Height 177.8 cm Riya Hermosillo RN [facility] Work Phone: 06-08-2013 10:09-0400 Pulse (Heart Rate) 63 /min Riya Hermosillo RN [facility] Work Phone: Comment on above: Pattern: Regular 06-08-2013 10:09-0400 Pulse Oximetry 97 % Simran Woodard [facility] Work Phone: Comment on above: Room air 06-08-2013 10:09-0400 Respiratory Rate 20 /min Riya Hermosillo RN [facility] Work Phone: Comment on above: Pattern: Unlabored 06-08-2013 10:09-0400 SaO2% (BldA) [Mass fraction] 97 % Riya Hermosillo RN [facility]; [facility] Work Phone: Comment on above: Room air 06-08-2013 10:09-0400 Weight 81.87 kg Simran Woodard [facility] Work Phone: 05-11-2013 10:36-0400 BMI (Body Mass Index) 26.11 kg/m2 Riya Hermosillo RN [facility] Work Phone: 05-11-2013 10:36-0400 Body Temperature 97 [degF] Riya Hermosillo RN [facility] Work Phone: Comment on above: Method: Oral 05-11-2013 10:36-0400 Body weight 82.56 kg Riya Hermosillo RN [facility] Work Phone: 05-11-2013 10:36-0400 BP Diastolic 70 mm[Hg] Riya Hermosillo RN [facility] Work Phone: Comment on above: Patient Position: Sitting; Cuff Location : Left Arm; Cuff Size: Large 05-11-2013 10:36-0400 BP Systolic 118 mm[Hg] Riya Hermosillo RN [facility] Work Phone: Comment on above: Patient Position: Sitting; Cuff Location : Left Arm; Cuff Size: Large 05-11-2013 10:36-0400 BSA (Body Surface Area) 2.01 m2 Riya Hermosillo RN [facility] Work Phone: 05-11-2013 10:36-0400 Height 177.8 cm Riya Hermosillo RN [facility] Work Phone: 05-11-2013 10:36-0400 Pulse (Heart Rate) 56 /min Riya Hermosillo RN [facility] Work Phone: Comment on above: Pattern: Regular 05-11-2013 10:36-0400 Respiratory Rate 18 /min Riya Hermosillo RN [facility] Work Phone: Comment on above: Pattern: Unlabored 05-11-2013 10:36-0400 Weight 82.56 kg Simran Woodard [facility] Work Phone: 03-29-2013 14:56-0400 BMI (Body Mass Index) 25.75 kg/m2 Riya Hermosillo RN [facility] Work Phone: 03-29-2013 14:56-0400 Body Temperature 97.4 [degF] Riya Hermosillo RN [facility] Work Phone: Comment on above: Method: Oral 03-29-2013 14:56-0400 Body weight 81.39 kg Riya Hermosillo RN [facility] Work Phone: 03-29-2013 14:56-0400 BP Diastolic 68 mm[Hg] Riya Hermosillo RN [facility] Work Phone: Comment on above: Patient Position: Sitting; Cuff Location : Left Arm; Cuff Size: Large 03-29-2013 14:56-0400 BP Systolic 110 mm[Hg] Riya Hermosillo RN [facility] Work Phone: Comment on above: Patient Position: Sitting; Cuff Location : Left Arm; Cuff Size: Large 03-29-2013 14:56-0400 BSA (Body Surface Area) 1.99 m2 Riya Hermosillo RN [facility] Work Phone: 03-29-2013 14:56-0400 Height 177.8 cm Riya Hermosillo RN [facility] Work Phone: 03-29-2013 14:56-0400 Pulse (Heart Rate) 64 /min Riya Hermosillo RN [facility] Work Phone: Comment on above: Pattern: Regular 03-29-2013 14:56-0400 Respiratory Rate 20 /min Riya Hermosillo RN [facility] Work Phone: Comment on above: Pattern: Unlabored 03-29-2013 14:56-0400 Weight 81.39 kg Simran Woodard [facility] Work Phone: 02-23-2013 12:09-0400 BMI (Body Mass Index) 26.12 kg/m2 Riya Hermosillo RN [facility] Work Phone: 02-23-2013 12:09-0400 Body Temperature 98 [degF] Riya Hermosillo RN [facility] Work Phone: Comment on above: Method: Oral 02-23-2013 12:09-0400 Body weight 82.58 kg Riya Hermosillo RN [facility] Work Phone: 02-23-2013 12:09-0400 BP Diastolic 70 mm[Hg] Riya Hermosillo RN [facility] Work Phone: Comment on above: Patient Position: Sitting; Cuff Location : Left Arm; Cuff Size: Large 02-23-2013 12:09-0400 BP Systolic 138 mm[Hg] Riya Hermosillo RN [facility] Work Phone: Comment on above: Patient Position: Sitting; Cuff Location : Left Arm; Cuff Size: Large 02-23-2013 12:09-0400 BSA (Body Surface Area) 2.01 m2 Riya Hermosillo RN [facility] Work Phone: 02-23-2013 12:09-0400 Height 177.8 cm Riya Hermosillo RN [facility] Work Phone: 02-23-2013 12:09-0400 Pulse (Heart Rate) 60 /min Riya Hermosillo RN [facility] Work Phone: Comment on above: Pattern: Regular 02-23-2013 12:09-0400 Respiratory Rate 20 /min Riya Hermosillo RN [facility] Work Phone: Comment on above: Pattern: Unlabored 02-23-2013 12:09-0400 Weight 82.58 kg Simran Woodard [facility] Work Phone: 07-13-2012 15:44-0500 BMI (Body Mass Index) 26.5 kg/m2 JOSLYN [facility] Work Phone: 07-13-2012 15:44-0500 BP Diastolic 78 mm[Hg] [facility] Work Phone: 07-13-2012 15:44-0500 BP Systolic 120 mm[Hg] [facility]N [facility] Work Phone: 07-13-2012 15:44-0500 Height 177.8 cm [facility]N [facility] Work Phone: 07-13-2012 15:44-0500 Pulse (Heart Rate) 72 /min [facility]LYN [facility] Work Phone: 07-13-2012 15:44-0500 Respiratory Rate 18 /min [facility]OSLYN [facility] Work Phone: 07-13-2012 15:44-0500 Weight 83.46 kg Pauly Krause RN [facility] Work Phone: 06-26-2012 14:58-0400 BMI (Body Mass Index) 25.99 kg/m2 Riya Hermosillo RN [facility] Work Phone: 06-26-2012 14:58-0400 Body Temperature 97 [degF] Riya Hermosillo RN [facility] Work Phone: Comment on above: Method: Oral 06-26-2012 14:58-0400 Body weight 82.16 kg Riya Hermosillo RN [facility] Work Phone: 06-26-2012 14:58-0400 BP Diastolic 78 mm[Hg] Riya Hermosillo RN [facility] Work Phone: Comment on above: Patient Position: Sitting; Cuff Location : Left Arm; Cuff Size: Large 06-26-2012 14:58-0400 BP Systolic 122 mm[Hg] Riya Hermosillo RN [facility] Work Phone: Comment on above: Patient Position: Sitting; Cuff Location : Left Arm; Cuff Size: Large 06-26-2012 14:58-0400 BSA (Body Surface Area) 2 m2 Riya Hermosillo RN [facility] Work Phone: 06-26-2012 14:58-0400 Height 177.8 cm Riya Hermosillo RN [facility] Work Phone: 06-26-2012 14:58-0400 Pulse (Heart Rate) 68 /min Riya Hermosillo RN [facility] Work Phone: Comment on above: Pattern: Regular 06-26-2012 14:58-0400 Respiratory Rate 20 /min Riya Hermosillo RN [facility] Work Phone: Comment on above: Pattern: Unlabored 06-26-2012 14:58-0400 Weight 82.16 kg Simran Woodard [facility] Work Phone: 03-20-2012 09:19-0400 BMI (Body Mass Index) 25.31 kg/m2 Marina Zavala LPN [facility] Work Phone: 03-20-2012 09:19-0400 Body Temperature 98.7 [degF] Marina Zavala LPN [facility] Work Phone: Comment on above: Method: Oral 03-20-2012 09:19-0400 Body weight 80 kg Marina Zavala LPN [facility] Work Phone: 03-20-2012 09:19-0400 BP Diastolic 74 mm[Hg] Marina Zavala LPN [facility] Work Phone: Comment on above: Patient Position: Sitting; Cuff Location : Left Arm; Cuff Size: Standard 03-20-2012 09:19-0400 BP Systolic 126 mm[Hg] Marina Zavala LPN [facility] Work Phone: Comment on above: Patient Position: Sitting; Cuff Location : Left Arm; Cuff Size: Standard 03-20-2012 09:190400 BSA (Body Surface Area) 1.98 m2 Marina Zavala LPN [facility] Work Phone: 03-20-2012 09:19-0400 Height 177.8 cm Marina Zavala LPN [facility] Work Phone: 03-20-2012 09:19-0400 Pulse (Heart Rate) 76 /min Marina Zavala LPN [facility] Work Phone: Comment on above: Pattern: Regular 03-20-2012 09:19-0400 Respiratory Rate 18 /min Marina Zavala LPN [facility] Work Phone: 03-20-2012 09:19-0400 Weight 80 kg Simran Woodard [facility] Work Phone: 01-17-2012 08:14-0400 Body Temperature 97.4 [degF] Pauly Krause RN [facility] Work Phone: 11-04-2011 10:09-0500 BMI (Body Mass Index) 25.31 kg/m2 Riya Hermosillo RN [facility] Work Phone: 11-04-2011 10:09-0500 Body Temperature 98.2 [degF] Riya Hermosillo RN [facility] Work Phone: Comment on above: Method: Oral 11-04-2011 10:09-0500 Body weight 80 kg Riya Hermosillo RN [facility] Work Phone: 11-04-2011 10:09-0500 BP Diastolic 70 mm[Hg] Riya Hermosillo RN [facility] Work Phone: Comment on above: Patient Position: Sitting; Cuff Location : Left Arm; Cuff Size: Large 11-04-2011 10:09-0500 BP Systolic 122 mm[Hg] Riya Hermosillo RN [facility] Work Phone: Comment on above: Patient Position: Sitting; Cuff Location : Left Arm; Cuff Size: Large 11-04-2011 10:09-0500 BSA (Body Surface Area) 1.98 m2 Riya Hermosillo RN [facility] Work Phone: 11-04-2011 10:09-0500 Height 177.8 cm Riya Hermosillo RN [facility] Medicine Work Phone: 11-04-2011 10:09-0500 Pulse (Heart Rate) 60 /min Riya Hermosillo RN [facility] Work Phone: Comment on above: Pattern: Regular 11-04-2011 10:09-0500 Respiratory Rate 20 /min Riya Hermosillo RN [facility] Work Phone: Comment on above: Pattern: Unlabored 11-04-2011 10:09-0500 Weight 80 kg Simran Woodard [facility] Work Phone: 04-30-2011 10:58-0400 BMI (Body Mass Index) 24.4 kg/m2 Riya Hermosillo RN [facility] Work Phone: 04-30-2011 10:58-0400 Body Temperature 97 [degF] Riya Hermosillo RN [facility] Work Phone: 04-30-2011 10:58-0400 Body weight 77.14 kg Riya Hermosillo RN [facility] Work Phone: 04-30-2011 10:58-0400 BP Diastolic 68 mm[Hg] Riya Hermosillo RN [facility] Work Phone: Comment on above: Patient Position: Sitting; Cuff Location : Left Arm; Cuff Size: Large 04-30-2011 10:58-0400 BP Systolic 110 mm[Hg] Riya Hermosillo RN [facility] Work Phone: Comment on above: Patient Position: Sitting; Cuff Location : Left Arm; Cuff Size: Large 04-30-2011 10:58-0400 BSA (Body Surface Area) 1.95 m2 Riya Hermosillo RN [facility] Work Phone: 04-30-2011 10:58-0400 Height 177.8 cm Riya Hermosillo RN [facility] Work Phone: 04-30-2011 10:58-0400 Pulse (Heart Rate) 68 /min Riya Hermosillo RN [facility] Work Phone: Comment on above: Pattern: Regular 04-30-2011 10:58-0400 Respiratory Rate 20 /min Riya Hermosillo RN [facility] Work Phone: Comment on above: Pattern: Unlabored 04-30-2011 10:58-0400 Weight 77.14 kg Simran Woodard [facility] Work Phone: 12-01-2010 09:01-0400 BMI (Body Mass Index) 25.25 kg/m2 Riya Hermosillo RN [facility] Work Phone: 12-01-2010 09:01-0400 Body Temperature 96 [degF] Riya Hermosillo RN [facility] Work Phone: Comment on above: Method: Oral 12-01-2010 09:01-0400 Body weight 79.83 kg Riya Hermosillo RN [facility] Work Phone: 12-01-2010 09:01-0400 BP Diastolic 64 mm[Hg] Riya Hermosillo RN [facility] Work Phone: Comment on above: Patient Position: Sitting; Cuff Location : Left Arm; Cuff Size: Large 12-01-2010 09:01-0400 BP Systolic 118 mm[Hg] Riya Hermosillo RN [facility] Work Phone: Comment on above: Patient Position: Sitting; Cuff Location : Left Arm; Cuff Size: Large 12-01-2010 09:01-0400 BSA (Body Surface Area) 1.98 m2 Riya Hermosillo RN [facility] Work Phone: 12-01-2010 09:01-0400 Height 177.8 cm Riya Hermosillo RN [facility] Work Phone: 12-01-2010 09:01-0400 Pulse (Heart Rate) 72 /min Riya Hermosillo RN [facility] Work Phone: Comment on above: Pattern: Regular 12-01-2010 09:01-0400 Respiratory Rate 20 /min Riya Hermosillo RN [facility] Work Phone: Comment on above: Pattern: Unlabored 12-01-2010 09:01-0400 Weight 79.83 kg Simran Woodard [facility] Work Phone: 12-24-2009 08:42-0400 BMI (Body Mass Index) 24.68 kg/m2 Marina Zavala LPN [facility] Work Phone: 12-24-2009 08:42-0400 Body Temperature 97.4 [degF] Marina Zavala LPN [facility] Work Phone: Comment on above: Method: Oral 12-24-2009 08:42-0400 Body weight 78.02 kg Marina Lucas SAAVEDRA [facility] Work Phone: 12-24-2009 08:42-0400 BP Diastolic 72 mm[Hg] Marina Lucas SAAVEDRA [facility] Work Phone: Comment on above: Patient Position: Sitting; Cuff Location : Left Arm; Cuff Size: Standard 12-24-2009 08:42-0400 BP Systolic 110 mm[Hg] Marina Lucas SAAVEDRA [facility] Work Phone: Comment on above: Patient Position: Sitting; Cuff Location : Left Arm; Cuff Size: Standard 12-24-2009 08:42-0400 BSA (Body Surface Area) 1.96 m2 Marina Lucas SAAVEDRA [facility] Work Phone: 12-24-2009 08:42-0400 Height 177.8 cm Marina Zavala LPN [facility] Work Phone: 12-24-2009 08:42-0400 Pulse (Heart Rate) 66 /min Marina Zavala LPN [facility] Work Phone: Comment on above: Pattern: Regular 12-24-2009 08:42-0400 Respiratory Rate 16 /min Marina Zavala LPN [facility] Work Phone: Comment on above: Pattern: Unlabored 12-24-2009 08:42-0400 Weight 78.02 kg Simran Woodard [facility] Work Phone: 10-01-2008 15:08-0500 BMI (Body Mass Index) 24.68 kg/m2 Darcy [facility] Work Phone: 10-01-2008 15:08-0500 Body Temperature 97.7 [degF] [facility] Work Phone: Comment on above: Method: Oral 10-01-2008 15:08-0500 Body weight 78.[address] [facility] Work Phone: 10-01-2008 15:08-0500 BP Diastolic 70 mm[Hg] [facility] Work Phone: Comment on above: Patient Position: Sitting; Cuff Location : Left Arm; Cuff Size: Large 10-01-2008 15:08-0500 BP Systolic 130 mm[Hg] [facility] Work Phone: Comment on above: Patient Position: Sitting; Cuff Location : Left Arm; Cuff Size: Large 10-01-2008 15:08-0500 BSA (Body Surface Area) 1.[address] [facility] Work Phone: 10-01-2008 15:08-0500 Head Circumference 0 cm Simran Woodard [facility] Work Phone: 10-01-2008 15:08-0500 Head Occipital-frontal circumference [address] [facility]; [facility] Work Phone: 10-01-2008 15:08-[address] [facility] Work Phone: 10-01-2008 15:08-0500 Pulse (Heart Rate) 53 /min Darcy Staton [facility] Work Phone: Comment on above: Pattern: Regular 10-01-2008 15:08-0500 Respiratory Rate 18 /min Darcy Staton [facility] Work Phone: Comment on above: Pattern: Unlabored 10-01-2008 15:08-0500 Weight 78.02 kg Simran Woodard [facility] Work Phone: 07-18-2008 15:23-0500 BMI (Body Mass Index) 24.68 kg/m2 Riya Hermosillo RN [facility] Work Phone: 07-18-2008 15:23-0500 Body weight 78.02 kg Riya Hermosillo RN [facility] Work Phone: 07-18-2008 15:23-0500 BP Diastolic 80 mm[Hg] Riya Hermosillo RN [facility] Work Phone: Comment on above: Patient Position: Sitting; Cuff Location : Left Arm; Cuff Size: Standard 07-18-2008 15:23-0500 BP Systolic 118 mm[Hg] Riya Hermosillo RN [facility] Work Phone: Comment on above: Patient Position: Sitting; Cuff Location : Left Arm; Cuff Size: Standard 07-18-2008 15:23-0500 BSA (Body Surface Area) 1.96 m2 Riya Hermosillo RN [facility] Work Phone: 07-18-2008 15:23-0500 Head Circumference 0 cm Simran Woodard [facility] Work Phone: 07-18-2008 15:23-0500 Head Occipital-frontal circumference 0 cm Riya Hermosillo RN [facility]; [facility] Work Phone: 07-18-2008 15:23-0500 Height 177.8 cm Riya Hermosillo RN [facility] Work Phone: 07-18-2008 15:23-0500 Pulse (Heart Rate) 60 /min Riya Hermosillo RN [facility] Work Phone: Comment on above: Pattern: Regular 07-18-2008 15:23-0500 Respiratory Rate 16 /min Riya Hermosillo RN [facility] Work Phone: Comment on above: Pattern: Unlabored 07-18-2008 15:23-0500 Weight 78.02 kg Simran Woodard [facility] Work Phone: 06-06-2008 16:05-0400 BMI (Body Mass Index) 24.76 kg/m2 Riya Hermosillo RN [facility] Work Phone: 06-06-2008 16:05-0400 Body weight 78.27 kg Riya Hermosillo RN [facility] Work Phone: 06-06-2008 16:05-0400 BP Diastolic 70 mm[Hg] Riya Hermosillo RN [facility] Work Phone: Comment on above: Patient Position: Sitting; Cuff Location : Left Arm; Cuff Size: Standard 06-06-2008 16:05-0400 BP Systolic 128 mm[Hg] Riya Hermosillo RN [facility] Work Phone: Comment on above: Patient Position: Sitting; Cuff Location : Left Arm; Cuff Size: Standard 06-06-2008 16:05-0400 BSA (Body Surface Area) 1.96 m2 Riya Hermosillo RN [facility] Work Phone: 06-06-2008 16:05-0400 Head Circumference 0 cm Simran Woodard [facility] Work Phone: 06-06-2008 16:05-0400 Head Occipital-frontal circumference 0 cm Riya Hermosillo RN [facility]; [facility] Work Phone: 06-06-2008 16:05-0400 Height 177.8 cm Riya Hermosillo RN [facility] Work Phone: 06-06-2008 16:05-0400 Pulse (Heart Rate) 60 /min Riya Hermosillo RN [facility] Work Phone: Comment on above: Pattern: Regular 06-06-2008 16:05-0400 Respiratory Rate 18 /min Riya Hermosillo RN [facility] Work Phone: Comment on above: Pattern: Unlabored 06-06-2008 16:05-0400 Weight 78.27 kg Simran Woodard [facility] Work Phone: 11-21-2007 15:21-0400 BMI (Body Mass Index) 24.83 kg/m2 Riya Hermosillo RN [facility] Work Phone: 11-21-2007 15:21-0400 Body weight 78.5 kg Riya Hermosillo RN [facility] Work Phone: 11-21-2007 15:21-0400 BP Diastolic 68 mm[Hg] Riya Hermosillo RN [facility] Work Phone: Comment on above: Patient Position: Sitting; Cuff Location : Left Arm; Cuff Size: Standard 11-21-2007 15:21-0400 BP Systolic 132 mm[Hg] Riya Hermosillo RN [facility] Work Phone: Comment on above: Patient Position: Sitting; Cuff Location : Left Arm; Cuff Size: Standard 11-21-2007 15:21-0400 BSA (Body Surface Area) 1.96 m2 Riya Hermosillo RN [facility] Work Phone: 11-21-2007 15:21-0400 Head Circumference 0 cm Simran Woodard [facility] Work Phone: 11-21-2007 15:21-0400 Head Occipital-frontal circumference 0 cm Riya Hermosillo RN [facility]; [facility] Work Phone: 11-21-2007 15:21-0400 Height 177.8 cm Riya Hermosillo RN [facility] Work Phone: 11-21-2007 15:21-0400 Pulse (Heart Rate) 56 /min Riya Hermosillo RN [facility] Work Phone: Comment on above: Pattern: Regular 11-21-2007 15:21-0400 Respiratory Rate 16 /min Riya Hermosillo RN [facility] Work Phone: Comment on above: Pattern: Unlabored 11-21-2007 15:21-0400 Weight 78.5 kg Simran Woodard [facility] Work Phone: 11-06-2007 15:13-0500 BMI (Body Mass Index) 25.14 kg/m2 Riya Hermosillo RN [facility] Work Phone: 11-06-2007 15:13-0500 Body weight 79.47 kg Riya Hermosillo RN [facility] Work Phone: 11-06-2007 15:13-0500 BP Diastolic 62 mm[Hg] Riya Hermosillo RN [facility] Work Phone: Comment on above: Patient Position: Sitting; Cuff Location : Left Arm; Cuff Size: Standard 11-06-2007 15:13-0500 BP Systolic 118 mm[Hg] Riya Hermosillo RN [facility] Work Phone: Comment on above: Patient Position: Sitting; Cuff Location : Left Arm; Cuff Size: Standard 11-06-2007 15:13-0500 BSA (Body Surface Area) 1.97 m2 Riya Hermosillo RN [facility] Work Phone: 11-06-2007 15:13-0500 Head Circumference 0 cm Simran Woodard [facility] Work Phone: 11-06-2007 15:13-0500 Head Occipital-frontal circumference 0 cm Riya Hermosillo RN [facility]; [facility] Work Phone: 11-06-2007 15:13-0500 Height 177.8 cm Riya Hermosillo RN [facility] Work Phone: 11-06-2007 15:13-0500 Pulse (Heart Rate) 60 /min Riya Hermosillo RN [facility] Work Phone: Comment on above: Pattern: Regular 11-06-2007 15:13-0500 Respiratory Rate 16 /min Riya Hermosillo RN [facility] Work Phone: Comment on above: Pattern: Unlabored 11-06-2007 15:13-0500 Weight 79.47 kg Simran Woodard [facility] Work Phone: 01-10-2007 08:42-0400 Body Temperature 97.7 [degF] Simraniva Woodard [facility] Work Phone: Comment on above: Method: Oral 01-10-2007 08:42-0400 Body weight 0 kg Simran Woodard [facility] Work Phone: 01-10-2007 08:42-0400 BP Diastolic 72 mm[Hg] Simraniva Woodard [facility] Work Phone: Comment on above: Patient Position: Sitting; Cuff Location : Left Arm; Cuff Size: Standard 01-10-2007 08:42-0400 BP Systolic 112 mm[Hg] Simran Vance [facility] Work Phone: Comment on above: Patient Position: Sitting; Cuff Location : Left Arm; Cuff Size: Standard 01-10-2007 08:42-0400 Head Circumference 0 cm Simran Dumonton [facility] Work Phone: 01-10-2007 08:42-0400 Head Occipital-frontal circumference 0 cm Simraniva Woodard DO Work Phone: [facility]; [facility] Work Phone: 01-10-2007 08:42-0400 Height 0 cm Simran Dumonton [facility] Work Phone: 01-10-2007 08:42-0400 Pulse (Heart Rate) 64 /min Simran Dumonton [facility] Work Phone: Comment on above: Pattern: Regular 01-10-2007 08:42-0400 Respiratory Rate 16 /min Simran Dumonton [facility] Work Phone: Comment on above: Pattern: Unlabored 01-10-2007 08:42-0400 Weight 0 kg Simran Dumonton [facility] Work Phone: Encounters Encounter Date Encounter Type Care Provider Facility Start: 07-16-2025 End: 07-16-2025 ambulatory Simran Woodard Facility:[facility] Start: 06-03-2025 End: 06-03-2025 ambulatory MOOK LARA Facility:[facility] Start: 05-16-2025 End: 05-16-2025 Telephone encounter Mook Lara MD Work Phone: [facility] Comment on above: Patient Update Start: 05-12-2025 End: 05-12-[address] Simran Woodard DO Work Phone: -[facility] Start: 05-12-2025 End: 05-12-[address] Curly Young MD [facility] Work Phone: Start: 05-09-2025 End: 05-17-2025 Telephone encounter Mook Lara MD Work Phone: [facility] Comment on above: Patient Update Start: 05-08-2025 End: 05-08-[address] Simran Woodard DO Work Phone: [facility] Start: 05-08-2025 End: 05-08-[address] Curly Young MD -[facility] Work Phone: Start: 04-01-2025 End: 04-01-[address] Simran Woodard DO Work Phone: [facility] Start: 04-01-2025 End: 04-01-[address] Curly Young MD [facility] Work Phone: Start: 03-22-2025 End: 03-22-2025 Patient encounter procedure Mook Lara MD Work Phone: [facility] Comment on above: Paroxysmal atrial fi brillation (HCC) (Primary Dx); AV block, complete (HCC); S/P placement of cardiac pacemaker; Presence of Watchman left atrial appendage closure device Start: 03-22-2025 End: 03-22-2025 ambulatory MOOK LARA Facility:[facility] Start: 01-21-2025 End: 01-21-2025 Telephone encounter Jocelin Anderson APRN.CNP Work Phone: [facility] Comment on above: Document Design Specialist - O ther Start: 12-25-2024 End: 12-25-2024 ambulatory Simran Woodard Facility:[facility] Start: 12-25-2024 End: 12-25-[address] Curly Young MD [facility] Work Phone: Start: 12-17-2024 End: 12-17-2024 Admission to same day surgery center Dr. Curly Young MD -Customer Experience Analyst/Special Procedures Work Phone: Start: 12-17-2024 End: 12-17-[address] Simran Woodard DO Work Phone: [facility] Work Phone: Start: 12-15-2024 End: 12-15-2024 ambulatory Curly Young Facility:[facility] Start: 12-04-2024 End: 12-04-[address] Simran Woodard DO Work Phone: [facility] Work Phone: Start: 12-04-2024 End: 12-04-2024 Patient encounter procedure Manju James PA -Laboratory Work Phone: Start: 12-04-2024 End: 12-04-2024 ambulatory Simran Woodard Facility:[facility] Start: 12-04-2024 End: 12-04-2024 Patient encounter procedure Cinda Krause -[facility] Work Phone: Start: 12-04-2024 End: 12-04-2024 ambulatory Simran Woodard Facility:[facility] Start: 11-20-2024 ambulatory Simran Woodard Facilit y:[facility] Start: 11-20-2024 Non-patient / Non-visit Dr. Pablito vargas DO -[facility] Start: 11-20-2024 End: 11-20-2024 Admission to same day surgery center Dr. Curly Young MD -Customer Experience Analyst/Special Procedures Work Phone: Start: 11-20-2024 End: 11-20-[address] Simran Woodard DO Work Phone: [facility] Work Phone: Start: 11-19-2024 ambulatory Simran Woodard Facilit y:[facility] Start: 11-19-2024 Non-patient / Non-visit Dr. Barbara ROOT -[facility] Start: 10-23-2024 Encounter for other preprocedural examination Prosper Lawrence NP [facility] Start: 10-16-2024 End: 10-16-2024 ambulatory Simran Vance Facility:[facility] Start: 10-16-2024 End: 10-16-[address] Curly Young MD -[facility] Work Phone: Start: 10-04-2024 End: 10-04-2024 Patient encounter procedure Prosper RAMIREZ -Radiology, [facility] Work Phone: Start: 10-04-2024 End: 10-04-2024 ambulatory Simran Woodard Facility:[facility] Start: 09-27-2024 End: 09-27-2024 Patient encounter procedure Prosper RAMIREZ -Laboratory Work Phone: Start: 09-27-2024 End: 09-27-2024 Patient encounter procedure Prosper Colleen Melinda RAMIREZ -[facility] Work Phone: Start: 09-27-2024 End: 09-27-2024 ambulatory Simran Dumonton Facility:[facility] Start: 09-27-2024 End: 09-27-2024 ambulatory Simran Dumonton Facility:[facility] Start: 09-25-2024 End: 09-25-2024 Patient encounter procedure Mook Lara MD Work Phone: [facility] Comment on above: Persistent atrial fi brillation (HCC) (Primary Dx); Sinus bradycardia; S/P placement of cardiac pacemaker; Presence of Watchman left atrial appendage closure device Start: 09-25-2024 End: 09-25-2024 ambulatory MOOK LARA Facility:[facility] Start: 09-12-2024 End: 09-12-2024 ambulatory Simran Woodard Facility:[facility] Start: 09-12-2024 End: 09-12-[address] Curly Young MD -[facility] Work Phone: Start: 09-06-2024 End: 09-06-2024 Telephone encounter Mook Lara MD Work Phone: [facility] Comment on above: Patient Update Start: 09-06-2024 End: 09-06-2024 ambulatory Simran Dumonton Facility:[facility] Start: 09-06-2024 End: 09-06-[address] Curly Young MD -[facility] Work Phone: Start: 08-25-2024 End: 08-25-2024 ambulatory Curly Young Facility:[facility] Start: 08-25-2024 End: 08-25-[address] Curly Young MD -[facility] Work Phone: Start: 08-07-2024 End: 08-07-2024 ambulatory Curly Young Facility:[facility] Start: 08-07-2024 End: 08-07-[address] Curly Young MD -[facility] Work Phone: Start: 07-24-2024 ambulatory SIMRAN Campoverde [facility] Start: 01-24-2024 Telephone encounter Jocelin rodrigez APRN.REGULATOR MECHANIC Work Phone: [facility] Comment on above: Document Design Specialist - O ther Start: 11-03-2023 Non-patient / Non-visit Dr. Susi Woodard Work Phone: [facility] Work Phone: Start: 11-01-2023 Non-patient / Non-visit Dr. Susi Woodard Work Phone: [facility] Start: 11-01-2023 End: 11-01-[address] Simran Woodard Work Phone: [facility] Work Phone: Start: 11-01-2023 End: 11-01-[address] [facility] Start: 09-15-2023 End: 09-15-[address] Simran Woodard Work Phone: [facility] Work Phone: Start: 09-14-2023 End: 09-14-[address] Simran Woodard Work Phone: [facility] Work Phone: Start: 09-12-2023 End: 09-12-[address] Simran Woodard Work Phone: [facility] Work Phone: Start: 09-08-2023 End: 09-08-[address] [facility] Work [facility]: Start: 08-08-2023 End: 08-08-[address] Simran Woodard Work Phone: [facility] Start: 07-27-2023 End: 07-27-2023 Patient encounter procedure Jocelin Anderson APRN.REGULATOR MECHANIC Work Phone: [facility] [place] Comment on above: Paroxysmal atrial fi brillation (HCC) (Primary Dx); Encounter for care of pacemaker; AV block, complete (HCC); Presence of Watchman left atrial appendage closure device; Dizziness; Syncope, unspecified syncope type; At risk for stroke Start: 03-09-2023 Telephone encounter Chaitanya fish APRN.REGULATOR MECHANIC Work Phone: [facility] Comment on above: Orders Start: 01-17-2023 Telephone encounter Chaitanya fish APRN.REGULATOR MECHANIC Work Phone: [facility] [place] Comment on above: Patient Update Start: 01-17-2023 End: 01-17-2023 Patient encounter procedure Chaitanya Gerard APRN.REGULATOR MECHANIC Work Phone: [facility] [place] Comment on above: Paroxysmal atrial fi brillation (HCC) (Primary Dx); S/P placement of cardiac pacemaker; Syncope, unspecified syncope type; At risk for stroke Start: 12-23-2022 Telephone encounter Mook danielle MD Work Phone: [facility] [place] Comment on above: Preparations For Pro cedures Start: 11-18-2022 End: 11-18-2022 Simran Woodard DO Work Phone: [facility] Start: 10-28-2022 End: 10-29-2022 Patient encounter procedure Simran Woodard DO Work Phone: [facility] Start: 10-28-2022 Simran grimm DO Work Phone: [facility] Start: 10-15-2022 End: 10-15-2022 Office outpatient visit 15 minutes Simran Vance Work Phone: [facility] Start: 10-14-2022 ambulatory Simran Woodard DO [facility] Start: 09-21-2022 Non-patient / Non-visit Dr. Susi Woodard Work Phone: [facility] Start: 09-21-2022 Non-patient / Non-visit Dr. Susi Woodard Work Phone: [facility] Start: 09-21-2022 End: 09-21-[address] Simran Woodard Work Phone: [facility] Work Phone: Start: 09-21-2022 End: 09-21-[address] Simran Woodard Work Phone: [facility] Start: 09-16-2022 End: 09-16-[address] Simran Woodard Work Phone: [facility] Start: 09-09-2022 Telephone encounter Mook danielle MD Work Phone: [facility] Comment on above: Preparations For Pro cedures (Watchman Device) Start: 07-21-2022 End: 07-21-[address] Simran Woodard Work Phone: [facility] Start: 11-24-2021 End: 11-25-[address] JASMINE BEYER MD [facility] Start: 11-06-2021 Review Simran Fearo n DO Work Phone: [facility] Start: 11-06-2021 Review Simran Fearo n DO Work Phone: [facility] Start: 11-05-2021 End: 11-06-2021 Office outpatient visit 5 minutes Simran Vance DO Work Phone: [facility] Start: 11-03-2021 End: 11-03-[address] JASMINE BEYER MD [facility] Start: 11-03-2021 End: 11-03-[address] JASMINE BEYER MD [facility] Start: 11-02-2021 End: 11-02-2021 Office outpatient visit 25 minutes Simran Vance DO Work Phone: [facility] Start: 11-02-2021 End: 11-02-2021 Preprocedural examination done Chelsi Krause LPN [facility]; [facility] Work Phone: Start: 10-22-[address] Norman Woodard Work Phone: [facility] Start: 10-22-[address] Ted Woodard DO Work Phone: [facility] Start: 09-25-2021 End: 09-25-2021 Office outpatient visit 15 minutes Simran Vance DO Work Phone: [facility] Start: 09-25-2021 Review Simran Fearo n DO Work Phone: [facility] Start: 06-16-2021 End: 06-17-2021 Office outpatient visit 5 minutes Simran Vance DO Work Phone: [facility] Start: 06-15-2021 End: 06-15-2021 Phone Encounter Simran Vance DO Work Phone: [facility] Start: 06-15-2021 End: 06-15-2021 Simran Vance DO Work Phone: [facility] Start: 06-15-2021 End: 06-15-2021 Patient encounter status Simran Vance DO Work Phone: [facility] Work Phone: Start: 06-15-2021 End: 06-15-2021 Periodic preventive med est patient 65yrs& older Simran Vance DO Work Phone: [facility] Start: 06-04-2021 End: 06-08-2021 Office outpatient visit 25 minutes Simran Vance DO Work Phone: [facility] Start: 05-27-2021 End: 05-27-2021 Office outpatient visit 10 minutes Simran Vance DO Work Phone: [facility] Start: 09-19-2020 End: 09-19-2020 Annotation/Addendum Simran Vance [facility] Start: 09-19-2020 End: 09-19-2020 Simran Vance DO Work Phone: [facility] Start: 09-08-2020 End: 09-08-2020 Office outpatient visit 15 minutes Simran Vance [facility] Start: 07-03-2020 End: 07-03-2020 Office outpatient visit 5 minutes Simran Vance [facility] Start: 07-03-2020 Review Simran Vance [facility] Start: 11-21-2019 End: 11-21-2019 Office outpatient visit 15 minutes Simran Vance [facility] Start: 11-14-2019 End: 11-14-2019 Lab Order Simran Vance [facility] Start: 11-14-2019 End: 11-14-2019 Simran Vance DO Work Phone: [facility] Start: 09-12-2019 End: 09-12-2019 Office outpatient visit 15 minutes Simran Woodard [facility] Start: 07-18-2019 End: 07-18-2019 Office outpatient visit 5 minutes [facility] Start: 01-04-2019 End: 01-04-2019 Office outpatient visit 10 minutes [facility] Start: 09-30-2017 End: 09-30-2017 Office outpatient visit 15 minutes Simran Woodard [facility] Start: 09-23-2017 End: 09-23-2017 Office outpatient visit 10 minutes Simran Woodard [facility] Start: 08-10-2017 End: 08-10-2017 Office outpatient visit 15 minutes Simran Woodard [facility] Start: 07-26-2017 End: 08-03-2017 [facility] Start: 02-14-2017 End: 02-14-2017 Office outpatient visit 15 minutes Simran Woodard [facility] Start: 06-30-2016 End: 06-30-2016 Patient encounter procedure Simran Woodard [facility] Start: 06-30-2016 End: 06-30-2016 Simran Vance DO Work Phone: [facility] Start: 03-18-2016 End: 03-18-2016 Patient encounter procedure Simran Woodard [facility] Start: 03-18-2016 End: 03-18-2016 Simran Vance DO Work Phone: [facility] Start: 02-16-2016 End: 02-16-2016 Phone Encounter Simran [facility] Start: 02-16-2016 End: 02-16-2016 Simran Vance DO Work Phone: [facility] Start: 09-19-2015 End: 09-19-2015 Office outpatient visit 10 minutes [facility] Start: 09-11-2015 End: 09-11-2015 Office outpatient visit 25 minutes Simran Woodard [facility] Start: 09-10-2015 End: 09-10-2015 Office outpatient visit 25 minutes Simran Woodard [facility] Start: 08-25-2015 End: 08-25-2015 Office outpatient visit 40 minutes Simran Woodard [facility] Start: 08-22-2015 End: 08-22-2015 Office outpatient visit 40 minutes Simran Woodard [facility] Start: 04-09-2015 End: 04-09-2015 Office outpatient visit 25 minutes Simran Woodard [facility] Start: 01-31-2015 End: 01-31-2015 Phone Encounter Simran Woodard [facility] Start: 01-31-2015 End: 01-31-2015 Simraniva Woodard DO Work Phone: [facility] Start: 12-18-2014 End: 12-18-2014 Office outpatient visit 25 minutes Simran Woodard [facility] Start: 09-12-2014 End: 09-12-2014 Office outpatient visit 15 minutes Simran Woodard [facility] Start: 09-12-2013 End: 09-12-2013 Patient encounter procedure Simran Woodard [facility] Start: 09-12-2013 End: 09-12-2013 Simran Woodard DO Work Phone: [facility] Start: 07-23-2013 End: 07-23-2013 Patient encounter procedure Simran Woodard [facility] Start: 07-23-2013 End: 07-23-2013 Simran Woodard DO Work Phone: [facility] Start: 06-08-2013 End: 06-08-2013 Patient encounter procedure Simran Woodard [facility] Start: 06-08-2013 End: 06-08-2013 Simran Woodard DO Work Phone: [facility] Start: 05-11-2013 End: 05-11-2013 Patient encounter procedure Simran Woodard [facility] Start: 05-11-2013 End: 05-11-2013 Simran Woodard DO Work Phone: [facility] Start: 04-04-2013 End: 04-04-2013 Phone Encounter Simran Woodard [facility] Start: 04-04-2013 End: 04-04-2013 Simran Dumonton DO Work Phone: [facility] Start: 03-29-2013 End: 03-29-2013 Patient encounter procedure Simran Woodard [facility] Start: 03-29-2013 End: 03-29-2013 Simran Vance DO Work Phone: [facility] Start: 03-20-2013 End: 03-20-2013 Lab Order Simran Woodard [facility] Start: 03-20-2013 End: 03-20-2013 Simran Woodard DO Work Phone: [facility] Start: 02-23-2013 End: 02-23-2013 Patient encounter procedure Simran Woodard [facility] Start: 02-23-2013 End: 02-23-2013 Simran Woodard DO Work Phone: [facility] Start: 06-26-2012 End: 06-26-2012 Patient encounter procedure Simran Woodard [facility] Start: 06-26-2012 End: 06-26-2012 Simran Woodard DO Work Phone: [facility] Start: 03-20-2012 End: 03-20-2012 Office outpatient visit 15 minutes Simran Woodard [facility] Start: 11-04-2011 End: 11-04-2011 Patient encounter procedure Simran Woodard [facility] Start: 11-04-2011 End: 11-04-2011 Simran Dumonton DO Work Phone: [facility] Start: 04-30-2011 End: 04-30-2011 Patient encounter procedure Simran Woodard [facility] Start: 04-30-2011 End: 04-30-2011 Simran Dumonton DO Work Phone: [facility] Start: 04-21-2011 End: 04-21-2011 Phone Encounter Simran Woodard [facility] Start: 04-21-2011 End: 04-21-2011 Simran Dumonton DO Work Phone: [facility] Start: 12-01-2010 End: 12-01-2010 Patient encounter procedure Simran Woodard [facility] Start: 12-01-2010 End: 12-01-2010 Simran Dumonton DO Work Phone: [facility] Start: 06-19-2010 End: 06-19-2010 Patient encounter procedure Simran Woodard [facility] Start: 06-19-2010 End: 06-19-2010 Simran Vance DO Work Phone: [facility] Start: 12-24-2009 End: 12-24-2009 Office outpatient visit 25 minutes Simran Woodard [facility] Start: 10-01-2008 End: 10-01-2008 Office outpatient visit 15 minutes Simran Woodard [facility] Start: 07-18-2008 End: 07-18-2008 Patient encounter procedure Simran Woodard [facility] Start: 07-18-2008 End: 07-18-2008 Simran Woodard DO Work Phone: [facility] Start: 06-06-2008 End: 06-06-2008 Patient encounter procedure Simran Woodard [facility] Start: 06-06-2008 End: 06-06-2008 Simran Woodard DO Work Phone: [facility] Start: 11-21-2007 End: 11-21-2007 Patient encounter procedure Simran Woodard [facility] Start: 11-21-2007 End: 11-21-2007 Simran Woodard DO Work Phone: [facility] Start: 11-06-2007 End: 11-06-2007 Historical Summary Simran Woodard [facility] Start: 11-06-2007 End: 11-06-2007 Simran Woodard DO Work Phone: [facility] Start: 11-06-2007 End: 11-06-2007 Office outpatient visit 10 minutes Simran Woodard [facility] Start: 08-07-2007 End: 08-07-2007 Office outpatient visit 5 minutes Simran Woodard [facility] Start: 06-20-2007 End: 06-20-2007 Historical Summary Simran Woodard [facility] Start: 06-20-2007 End: 06-20-2007 Simran Woodard DO Work Phone: [facility] Start: 01-10-2007 End: 01-10-2007 Office outpatient visit 15 minutes Simran Woodard [facility] Start: 08-15-2006 End: 08-15-2006 Phone Encounter Simran Woodard [facility] Start: 08-15-2006 End: 08-15-2006 Simran Woodard DO Work Phone: [facility] Patient encounter procedure Simran Woodard DO Work Phone: [facility] Work Phone: Patient encounter status Suhas Richard UPHOLSTERY CUTTER [facility] Work Phone: Patient encounter status Kassidy Handy LP N [facility]; [facility] Work Phone: Patient encounter status Poonam Goldencal [facility] Work Phone: Patient encounter status Susikiaraquinten Javi Armstrong PR [facility] Work Phone: Preprocedural examination done Poonam Becerril [facility] Work Phone: Preprocedural examination done Antolin Fangford [facility] Work Phone: Procedures Date Procedure Procedure Detail Performing Clinician Start: 10-04-2024 X-ray of chest, PA and lateral views Dr. Simran Woodard DO Work Phone: Start: 09-27-2024 Evaluation of diagnostic study results Dr. Simran Woodard DO Work Phone: Start: 07-24-2024 Follow-up visit Follow-up JESSIE WILLIS Start: 11-01-2023 Radionuclide imaging of perfusion of myocardium under exercise stress Dr. Simran Woodard Work Phone: Start: 08-08-2023 Plain chest X-ray Dr. Simran Woodard Work Phone: Start: 07-27-2023 Ecg routine ecg w/least 12 lds w/i&r Jocelin nAderson JIGGER MACHINE OPERATOR.REGULATOR MECHANIC Work Phone: Start: 01-17-2023 Ecg routine ecg w/least 12 lds w/i&r Chaitanya Gerard JIGGER MACHINE OPERATOR.REGULATOR MECHANIC Work Phone: Start: 09-21-2022 End: 09-21-2022 Carotid Duplex Ultrasound Procedure Note: See Note; NOTES: [facility] [place] [address] Carotid Duplex Ultrasound 09/21/22 0846 MR#: [id number] Acct: [id number] Name: CASEY FLANAGAN Rep #: [id number] : 1950 72 From: Onofre Jean MD Attending Dr: Prosper Lawrence, SEASONAL RECRUITER-C Status: REG CLI Ordering Dr: Prosper Lawrence NP SEASONAL RECRUITER-C Date: 09/21/22 Location: [facility] Sex: M C [...] the left vertebral artery. Procedure Carotid Duplex 08499. This is a Carotid Duplex examination using B-mode, color flow and specral Doppler. Exam performed in department. VL/Carotid Duplex Ultrasound Interpretation Summary Mild (<50%) stenosis right extracranial internal carotid. Mild (<50%) stenosis left extracranial internal carotid. Patent and antegrade vertebrals bilaterally. Ordering Physician: Prosper Lawrence Referring Physician: Simran Woodard M.D. Performed By: Vandana Ayala RVT 09/21/221622 Date Onofre Jean MD CC: SEASONAL RECRUITER-C Prosper Lawrence; Dr. Simran Woodard DO Date Dictated: 09/21/2246 Date Transcribed: 09/21/221622 Procurement Cost Coordinator: Maximiliano Woodard DO Work Phone: Start: 09-16-2022 End: 09-18-2022 12 Lead EKG performed by [facility] Procedure Note: See Note; NOTES: [address] [address] 12 Lead EKG performed by [facility] 09/16/22 1248 MR#: [id number] Acct: [id number] Name: CASEY FLANAGAN Rep #: [id number] : 1950 72 From: Prosper Lawrence SEASONAL RECRUITER SEASONAL RECRUITER-C Attending Dr: JAMES Pierre Status: DEP AMB Ordering Dr: Prosper Lawrence NP SEASONAL RECRUITER-C Date: 09/16/22 Location: [facility] Sex: M C Admitted: [facility]/12 Lead EKG performed by [facility] ECG Report Interpretation S inus Rhythm -RSR(V1) -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 ABNORMAL Electronically signed on 09/18/2022 at 10:37 by Curly Young Software Version 8610 09/18/22 1042 Date Prosper RAMIREZ CC: Dr. Simran Woodard, DO Date Dictated: 09/16/22 1248 Date Transcribed: 09/16/221247 Procurement Cost Coordinator: SID Signed Simran Woodard DO Work Phone: Start: 09-16-2022 End: 11-05-2022 Cardiology Visit Report Procedure Note: See Note; NOTES: [facility]. [address] [place] [address] OFFICE VISIT Date of Service: 09/16/22 MR#: [id number] Acct: [id number] Name: CASEY FLANAGAN Rep #: [id number] : 1950 Provider: JAMES landaverde Age/Sex: 72/M Location: [facility] Status: Signed HPI HPI History of Present Illness Details: CASEY FLANAGAN, is a 72 M who presents to the office today for preoperative clearance. He has a history of recurrent syncope and had a loop recorder placed at the [facility]. He had presented over the week with [...] anterior descending artery. He was referred to food clerk, Dr. Lara, for watchman device evaluation due to concerns [...] Monitor Intake Visit Reasons: PER MARIAN LAU Soil Technologist Required: No Is patient in pain?: No [...] mg PO DAILY 09/16/22 [History Confirmed 09/16/22] [facility] Medical History Anemia Atrioventricular block, complete BCC [...] Brother Heart disease Valve replacement Social History Smoking Status: Never smoker alcohol [...] ejection fraction. Cardiac catheterization 11/03/2020: PROCEDURE(S) PERFORMED YY44-BSY/COR/LV CLINICAL PROFILE AND INDICATIONS Indications: Cardiac Arrhythmia [...] is consistent with previous pacemaker reports. His UCI6WO0-LSHx score is 1 (age). He does have a previous history of DVT and anemia. Due to ongoing dizziness and frequent falls despite pacemaker placement, he was referred to food clerk for watchman device consideration. A shared decision-making tool was completed today and it was decided to continue to proceed with watchman device placement per food clerk. (3) Sick sinus syndrome: Status: Chronic Plan: He is status post permanent pacemaker for this. (4) Ventricular tachycardia (paroxysmal): Status: Acute Plan: His most recent pacemaker evaluation shows no true VT/VF episodes. He will continue current medical therapy and continue to monitor. (5) Dizziness: Status: Acute Plan: This is an ongoing concern. On account of this, he was evaluated by food clerk for watchman device to reduce stroke risk [...] Orders: Orders 12 Lead EKG performed by [facility] 09/16/22 I48.0 - Paroxysmal atrial fibrillation Carotid Duplex Ultrasound 09/16/22 I25.10 - Atherosclerotic heart disease of [place] coronary artery without angina pectoris, I34.1 - [...] as necessary. Follow Up: Keep as is (BUFFET MANAGER Pauly) Coding Level of Care Code Off [...] I25.10 09/17/22 1344 <Electronically signed by Prosper Lawrence NP, NP-C> Date Prosper Lawrence NP SEASONAL RECRUITER-C Cosigner Signature: Date (if applicable) CC: Dr. Simran Woodard, DO Simran Woodard DO Work Phone: Start: 07-21-2022 End: 07-21-2022 Pacemaker Check Procedure Note: See Note; NOTES: [facility] [address] [place] [address]. [address] [place] [address] Pacemaker Check Date of Service: 07/21/221806 MR#: [id number] Acct: [id number] Name: MASHACASEY ANTONIO Rep #: [id number] : 1950 From: Cinda Krause Age/Sex: 72/M Location: [facility] Status: Signed Billing Codes PM Device Codes: [...] signed by Cinda Krause > Date Cinda Krause Cosigner Signature: Date (if applicable) CC: Simran Woodard DO Work Phone: Start: 05-26-2022 End: 05-26-2022 Cardiology Visit Report Procedure Note: See Note; NOTES: [facility] [address] [place] [address] OFFICE VISIT Date of Service: 05/26/22 MR#: [id number] Acct: [id number] Name: CASEY FLANAGAN Rep #: [id number] : 1950 Provider: AQUILINO Valentin Age/Sex: 72/M Location: [facility] Status: Signed HPI HPI History of Present Illness Details: CASEY FLANAGAN, is a 71 M who presents to the office today for preoperative clearance. He has a history of recurrent syncope and had a loop recorder placed at the [facility]. He had presented over the week with [...] pt would like discuss getting a watchman Soil Technologist Required: No Accompanied by: Is patient in [...] ejection fraction. Cardiac catheterization 11/03/2020: PROCEDURE(S) PERFORMED EJ99-VNJ/COR/LV CLINICAL PROFILE AND INDICATIONS Indications: Cardiac Arrhythmia [...] multiple views using a 5 Fr. 4.0 [place] catheter. Right Coronary Artery selective angiography was then performed in multiple views using a 5 Fr. 4.0 [place] catheter. Left Ventriculography was performed in [facility] [...] R42 05/26/22 1722 <Electronically signed by Manju Melendez> Date Manju Wynnigntaylor Signature: Date (if applicable) CC: Dr. Simran Woodard, DO Simran Woodard DO Work Phone: Start: 04-09-2022 End: 04-09-2022 Pacemaker Check Procedure Note: See Note; NOTES: [facility] [address] [place] [address] [address] [place] [address] Pacemaker Check Date of Service: 04/09/22 1513 MR#: [id number] Acct: [id number] Name: MASHACASEY ANTONIO Rep #: [id number] : 1950 From: Cinda Krause Age/Sex: 71/M Location: [facility] Status: Signed Billing Codes PM Device Codes: PM Dev Interrogate (Remot Assessment and Plan Assessment and Plan (1) History of permanent cardiac pacemaker placement: Status: Chronic (2) Paroxysmal atrial flutter: Status: Chronic (3) Paroxysmal atrial fibrillation: Status: Chronic (4) Sick sinus syndrome: Status: Chronic (5) Atrioventricular block, complete: Status: Chronic (6) Ventricular tachycardia (paroxysmal): Status: Acute 04/09/221514 <Electronically signed by Cinda Krause > Date Cinda Wynnigntaylor Signature: Date (if applicable) CC: Simran Woodard DO Work Phone: Start: 01-01-2022 End: 01-01-2022 Pacemaker Check Comments: See Note; NOTES: [facility] [address] [place] [address] Ave[address] [place] [address] Pacemaker Check Date of Service: 01/01/22 1632 MR#: [id number] Acct: [id number] Name: CASEY FLANAGAN Rep #: [id number] : 1950 From: Cinda Krause Age/Sex: 71/M Location: [facility] Status: Signed Billing Codes PM Device Codes: PM Dev Interrogate (Remot Assessment and Plan Assessment and Plan (1) History of permanent cardiac pacemaker placement: Status: Chronic (2) Paroxysmal atrial flutter: Status: Chronic (3) Paroxysmal atrial fibrillation: Status: Chronic (4) Sick sinus syndrome: Status: Chronic (5) Atrioventricular block, complete: Status: Chronic (6) Ventricular tachycardia (paroxysmal): Status: Acute 01/01/22 1633 <Electronically signed by Cinda Krause > Date Cinda Krause Cosigner Signature: Date (if applicable) CC: Simran Woodard DO Work Phone: Start: 11-24-[address] JASMINE BEYER MD Comment on above: RIGHT Start: 10-22-2021 End: 11-01-2021 12 Lead EKG performed by [facility] Comments: See Note; NOTES: [address] [address] 12 Lead EKG performed by [facility] 10/22/21 1617 MR#: [id number] Acct: [id number] Name: CASEY FLANAGAN Rep #: [id number] : 1950 71 From: Riya Easley NP, NP-C Attending Dr: SHAMIKA CuiC Status: DEP A MARINE Ordering Dr: Riya Easley NP SEASONAL RECRUITER-C Date: 10/22/21 Location: [facility] Sex: M C Admitted: [facility]/12 Lead EKG performed by [facility] ECG Report Interpretation A trial paced rhythm-RSR(V1) -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 -Left atrial enlargement. Electronically signed on 11/01/2021 at 17:28 by Curly Young Software Version 8610 11/01/21 1807 Date Riya RAMIREZ CC: Dr. Simran Woodard, DO Date Dictated: 10/22/211616 Date Transcribed: 10/22/211616 Procurement Cost Coordinator: ANGELA Signed Simran Woodard DO Work Phone: Start: 10-22-2021 End: 11-01-2021 Cardiology Visit Report Comments: See Note; NOTES: [facility] [address] [place], [place] [address] OFFICE VISIT Date of Service: 10/22/21 MR#: [id number] Acct: [id number] Name: CASEY FLANAGAN Rep #: [id number] : 1950 Provider: JAMES Gant rts Age/Sex: 71/M Location: [facility] Status: Signed HPI HPI History of Present Illness Details: CASEY FLANAGAN, is a 71 M who presents to the office today for preoperative clearance. He has a history of recurrent syncope and had a loop recorder placed at the [facility]. He had presented over the week with [...] in the proximal left anterior descending artery. From a cardiac standpoint, the patient is doing well. He denies any palpitations, chest pain, pressure or heaviness. He denies SOB, Orthopnea, and PND. He does not have bleeding issues; no blood in urine, stool or nosebleeds. He denies any decrease in energy level, myalgias, or claudication. He does not have edema, or sudden weight gain. He does have dizziness, lightheadedness with positional changes-this is nothing new or worsening. He denies dizziness, lightheadedness, syncopal or near syncopal episodes, and headaches. He is scheduled for a right shoulder surgery on November [address] Rupal Beyer. Intake Vital Signs 10/22/21 16:11 Height 5 ft 10 in Weight: 174 lb 2 oz BMI 25.0 BP 121/79 H Blood Pressure Location Lt brachial Position Sitting Respiration 18 Pulse 59 L Pulse Source Monitor Pulse Oximetry (%) 98 Oxygen Delivery Method room air Intake Visit Reasons: 1 Y FU (MOVED FROM [facility]) Allergies No Known Allergies Allergy (Verified 10/22/21 16:10) Medications levothyroxine 125 mcg PO DAILY 01/06/15 [History Confirmed 10/22/21] aspirin 81 mg tablet,delayed release 81 mg PO DAILY 10/02/19 [History Confirmed 10/22/21] atorvastatin 80 mg tablet 80 mg PO DAILY #90 tab 10/22/21 [Rx Confirmed 10/22/21] [facility] Medical History Anemia Atrioventricular block, complete BCC [...] permanent cardiac pacemaker placement (07/29/17) History of tonsillectomy Hx of left inguinal hernia repair Family History Father CAD (coronary artery disease), Onset Age: 65 CABG Mother CAD (coronary artery disease) Thyroid disorder Social History Smoking Status: Never smoker alcohol intake: never ROS Const Const: Negative for fatigue, weakness, fever(s), headache(s), chills, frequent falls, weight gain or weight loss Eyes Eyes: Negative for blind spots, loss of peripheral vision, transient loss of vision, blurry vision, change in vision, double vision, floaters or tunnel vision ENT ENT: Positive for dizziness (with positional changes); Negative for headache(s), Nosebleed/epistaxis, balance problems or neck pain Cardio Chest Pain: No Palpitations: No Edema: None Muscle aches with walking: None Resp Respiratory: Negative for SOB with activity, SOB at rest or SOB orthopnea SOB lying down GI GI: Negative nausea, vomiting, heartburn, bloating, vomiting blood/hematemesis, bright, red blood in stools or black,tarry stools Musc Musc: Negative for muscle aches/ myalgia, muscle weakness, joint pain or balance problems Neuro Neuro: Positive for dizziness (with positional changes) and lightheadedness; Negative for near syncope, syncope, orthostatic symptoms, frequent falls, headache(s), weakness, blurry vision or double vision Shan Hematologic/Lymphatic: Negative for easy bleeding or easy bruising Endo Endo: Negative for fatigue Cardiology Exam Const Appearance: cooperative and no [...] ejection fraction. Cardiac catheterization 11/03/2020: PROCEDURE(S) PERFORMED MI39-GJS/COR/LV CLINICAL PROFILE AND INDICATIONS Indications: Cardiac Arrhythmia [...] multiple views using a 5 Fr. 4.0 Pineland catheter. Right Coronary Artery selective angiography was then performed in multiple views using a 5 Fr. 4.0 Pineland catheter. Left Ventriculography was performed in VELEZ [...] Assessment and Plan Assessment and Plan (1) Encounter for pre-operative cardiovascular clearance: Status: Acute Orders: Orders: 12 Lead EKG performed by [facility] 10/22/21 Plan: Patient is scheduled for a total right shoulder replacement on November with Dr. Rupal Beyer. His EKG from today demonstrates Sinus Rhythm-incomplete right bundle branch block, and anterior fascicular block, heart rate 60. He does have a cardiac pacemaker that is atrial paced at 68%. He will be cleared for surgery, and may stop his aspirin 7-10 days prior to his procedure. (2) Nonobstructive atherosclerosis of coronary artery: Status: Chronic Plan: Patient has a history of nonobstructive coronary artery disease. His most recent heart catheterization from 11/2020 demonstrated moderately severe disease noted in the proximal small left anterior descending artery. His most recent stress test from 02/2021 was negative for ischemia. He appears stable at this time, and denies any recent symptoms or events. He will continue aspirin 81mg daily, and atorvastatin 80mg daily. (3) History of permanent cardiac pacemaker placement: Status: Chronic Plan: Patient has a cardiac pacemaker. Patient's most recent pacemaker interrogation from 09/30/2021 demonstrated presenting rhythm ventricular paced at 72 bpm with underlying atrial fibrillation. Ventricular paced 1%. Atrial paced 68%. Estimated battery life 5.5 years. He will continue with regularly scheduled interrogations. (4) Paroxysmal atrial fibrillation: Status: Chronic Plan: Patient has a history of underlying paroxysmal atrial fibrillation. His EKG from today demonstrated sinus rhythm with heart rate of 60. His heart rate is well controlled at this time, he will continue with aspirin 81 mg daily. (5) Sick sinus syndrome: Status: Chronic Plan: Patient has a history of sick sinus syndrome. He does have a pacemaker for this. (6) Atrioventricular block, complete: Status: Chronic Plan: Patient has a history of complete intraventricular block. He does have a cardiac pacemaker for this. (7) Nonrheumatic mitral (valve) prolapse: Status: Chronic Plan: Patient has a history of nonrheumatic mitral valve prolapse. His most recent echocardiogram from 10/23/2019 demonstrates bileaflet diffuse mitral valve thickening, and moderate mitral valve prolapse. We will continue to monitor this with history, exam, and echocardiograms as deemed appropriate. Plan Details Other Medications: Refilled: atorvastatin (Lipitor) 80 mg PO DAILY 90 tabs 3RF Additional Comments: Patient will follow up in 12 months, or sooner if needed. Thank you for allowing me to participate in the care of your patient. Please don't hesitate to call if any issues arise. This note was generated using a voice recognition system and there may be incorrect words, spelling, or punctuation that were not noted when reviewing the office note prior to saving. Follow Up: 1 Year (BUFFET MANAGER) Coding Level of Care Code Off vis,est,level 3 Diagnoses Encounter for pre-operative cardiovascular clearance Z01.810 Nonobstructive atherosclerosis of coronary artery I25.10 History of permanent cardiac pacemaker placement Z95.0 Paroxysmal atrial fibrillation I48.0 Sick sinus syndrome I49.5 Atrioventricular block, complete I44.2 Nonrheumatic mitral (valve) prolapse I34.1 Coding Level of Care Code Off vis,est,level 3 Diagnoses Encounter for pre-operative cardiovascular clearance Z01.810 Nonobstructive atherosclerosis of coronary artery I25.10 History of permanent cardiac pacemaker placement Z95.0 Paroxysmal atrial fibrillation I48.0 Sick sinus syndrome I49.5 Atrioventricular block, complete I44.2 Nonrheumatic mitral (valve) prolapse I34.1 10/26/21 5776 <Electronically signed by Riya Easley NP SEASONAL RECRUITER-C> Date Riya Easley TERESA SEASONAL RECRUITER-C 11/01/21 1555<Electronically signed by Curly Young MD> Cosigner Signature: Date (if applicable) Curly Young MD CC: DO Simran Carver DO Work Phone: Start: 10-02-2021 End: 10-02-2021 Arthrogram Shoulder Comments: See Note; NOTES: [facility] Imaging Services [address] [place] [address] Arthrogram Shoulder MR#: [id number] Acct: [id number] Name: CASEY FLANAGAN Rep #: [id number] : 1950 M 71 From: Jr lara MD PCP: Dr. Simran Woodard DO Status: REG CLI Study: Arthrogram Shoulder Date of Exam: 10/02/21 Exam# [id number] Ordering Dr: Jensen Sutton DO CLINICAL HISTORY: Male, 71 years old. Right shoulder pain. Impingement syndrome. PROCEDURE: ARTHROGRAM - RIGHT SHOULDER CONSENT: The procedure as well as the benefits and possible complications including infection and bleeding which point the patient. Informed consent was obtained. FLUOROSCOPY TIME (if supplied): (48 seconds) minutes/seconds Injection Information: 10 cc of dilute MRI contrast. Number of images obtained: 5 TECHNIQUE: (All elements of maximal sterile barrier technique followed, including US elements as applicable) The patient was in the supine position. The overlying skin was prepped and draped in usual sterile fashion. Following local anesthetic application and under direct fluoroscopic guidance, a 22-gauge spinal needle was placed into the shoulder joint. 10 cc of dilute MRI contrast was injected. Imaging was obtained. There is a moderate to marked degree of a joint space narrowing of the glenohumeral joint with degenerative spur formation along the inferior medial aspect of the humeral head. No evidence of rotator cuff tear. RAD/Arthrogram Shoulder IMPRESSION: Moderate degree of joint space narrowing and degenerative changes of the glenohumeral joint with spur formation. The patient tolerated the procedure well. Electronically Signed: Jr Ojeda MD at 12:50 EST , CC: Dr. Simran Woodard DO; Dr. Jensen Sutton DO Procurement Cost Coordinator: Signed Simran Woodard DO Work Phone: Start: 10-02-2021 End: 10-02-2021 Extremity Upper WITH Contrast Comments: See Note; NOTES: [facility] Imaging Services [address] [place] [address] Extremity Upper WITH Contrast MR#: [id number] Acct: [id number] Name: CASEY FLANAGAN Rep #: [id number] : 1950 M 71 From: Jr lara MD PCP: Dr. Simran Woodard DO Status: REG CLI Study: Extremity Upper WITH Contrast Date of Exam: Exam# [id number] Ordering Dr: Jensen Sutton DO STUDY: CT SCAN SHOULDER RIGHT REASON FOR EXAM: Male, 71 years old. IMPINGEMENT OF RIGHT SHOULDER RADIATION DOSAGE (If Supplied By Facility): CTDIvol = ( 24.94 ) mGy, DLP = ( 656.13 ) mGycm. Individualized dose optimization techniques were used for this CT.? TECHNIQUE: Multiple axial tomographic images of the right shoulder were obtained following intra-articular contrast administration. Coronal and sagittal reconstruction was obtained as well. COMPARISON: None. FINDINGS: There is a marked degree of the osteoarthritis with degenerative spur formation of the glenohumeral joint. There is evidence of a hypertrophic degenerative changes of the acromioclavicular joint with impingement of the supraspinatus muscle tendon. There is no evidence of full thickness tear of the rotator cuff. CT/Extremity Upper WITH Contrast IMPRESSION: Marked degree of joint space narrowing and osteoarthritis with spur formation along the inferior medial aspect of the proximal right humerus. No evidence of rotator cuff cuff tear. Hypertrophic osteoarthritic changes of the glenohumeral joint. Electronically Signed: Jr Ojeda MD at 13:15 EST Reading Location ID and State: [address] [place] [address] , Service support , CC: Dr. Simran Woodard, ; Dr. Jensen Sutton DO Procurement Cost Coordinator: Signed Simran Woodard DO Work Phone: Start: 09-30-2021 End: 09-30-2021 Pacemaker Check Comments: See Note; NOTES: [facility] [address] [place] [address] Pacemaker Check Date of Service: 09/30/211835 MR#: [id number] Acct: [id number] Name: CASEY FLANAGAN Rep #: [id number] : 1950 From: Cinda Krause Age/Sex: 71/M Location: [facility] Status: Signed Billing Codes PM Device Codes: PM Dev Interrogate (Remot Assessment and Plan Assessment and Plan (1) History of permanent cardiac pacemaker placement: Status: Chronic (2) Paroxysmal atrial flutter: Status: Chronic (3) Paroxysmal atrial fibrillation: Status: Chronic (4) Sick sinus syndrome: Status: Chronic (5) Atrioventricular block, complete: Status: Chronic (6) Ventricular tachycardia (paroxysmal): Status: Acute 09/30/211836 <Electronically signed by Cinda Krause > Date Cinda Lea Signature: Date (if applicable) CC: Simran Dumonton DO Work Phone: Start: 06-24-2021 End: 07-01-2021 Pacemaker Check Comments: See Note; NOTES: [facility] [place] [address] [place] [address] Pacemaker Check Date of Service: 06/24/21 1608 MR#: [id number] Acct: [id number] Name: CASEY FLANAGAN Rep #: [id number] : 1950 From: Cinda Krause Age/Sex: 71/M Location: [facility] Status: Signed Billing Codes PM Device Codes: PM Dev Interrogate (Remot Assessment and Plan Assessment and Plan (1) History of permanent cardiac pacemaker placement: Status: Chronic (2) Paroxysmal atrial flutter: Status: Chronic (3) Paroxysmal atrial fibrillation: Status: Chronic (4) Sick sinus syndrome: Status: Chronic (5) Atrioventricular block, complete: Status: Chronic (6) Ventricular tachycardia (paroxysmal): Status: Acute 06/24/21 1609 <Electronically signed by Cinda Krause > Date Cinda Lea Signature: Date (if applicable) CC: Simran Dumonton DO Work Phone: Start: 03-20-2021 End: 03-20-2021 Pacemaker Check Comments: See Note; NOTES: [facility] [address] [place] [address] Pacemaker Check Date of Service: 03/20/21 1528 MR#: [id number] Acct: [id number] Name: CASEY FLANAGAN Rep #: [id number] : 1950 From: Cinda Krause Age/Sex: 70/M Location: [facility] Status: Signed Billing Codes PM Device Codes: PM Dev Interrogate (Remot Assessment and Plan Assessment and Plan (1) History of permanent cardiac pacemaker placement: Status: Chronic (2) Paroxysmal atrial flutter: Status: Chronic (3) Paroxysmal atrial fibrillation: Status: Chronic (4) Sick sinus syndrome: Status: Chronic (5) Atrioventricular block, complete: Status: Chronic (6) Ventricular tachycardia (paroxysmal): Status: Acute 03/20/21 152 <Electronically signed by Cinda Krause > Date Cinda Krause Cosigner Signature: Date (if applicable) CC: Simran Woodard DO Work Phone: Start: 02-04-2021 End: 02-04-2021 Stress Report Comments: See Note; NOTES: [facility] [address] [place] [address] MR#: [id number] Acct: [id number] Name: CASEY FLANAGAN Rep #: [id number] : 1950 70 From: Curly Young MD Primary Care: Dr. Simran Woodard, Status: REG CLI Referring Dr: Curly Young MD Sex: M C Stress Test Report Pharmacologic myocardial perfusion stress test. 70-year-old man with a history of pacemaker implantation. Stress protocol: Resting EKG demonstrates normal sinus [...] myocardial perfusion stress test. Preserved ejection fraction. 02/04/21 1313 <Electronically signed by Curly Young MD> Date Curly Young MD CC: Dr. Curly Young MD; Dr. Simran Woodard, DO Date Dictated: 02/04/21 1310 Date Transcribed: 02/04/21 1310 Procurement Cost Coordinator: [place] Signed Simran Woodard DO Work Phone: Start: 12-17-2020 End: 12-17-2020 Pacemaker Check Comments: See Note; NOTES: [facility] [address] [place], [place] [address]e. [address] [place] [address] Pacemaker Check Date of Service: 12/17/20 9862 MR#: [id number] Acct: [id number] Name: CASEY FLANAGAN Rep #: [id number] : 1950 From: Cinda Krause Age/Sex: 70/M Location: [facility] Status: Signed Billing Codes PM Device Codes: PM Dev Interrogate (Remot 12/17/20 0390 <Electronically signed by Cinda Krause > Date Cinda Krause Cosigner Signature: Date (if applicable) CC: Simran Woodard DO Work Phone: Start: 11-03-2020 End: 11-03-2020 Procedure Report Comments: See Note; NOTES: [facility] Medical Records Department [address] [place] [address] Procedure Report 11/03/20 1230 MR#: [id number] Acct: [id number] Name: CASEY FLANAGAN Rep #: [id number] : 1950 70 From: Aurelio Rubio MD PCP: Dr. Simran Woodard, DO Status:REG SDC Y Location: [facility] Procedure Report Date of Procedure: 11/03/20 Procedure report; 1. IVUS of proximal LAD/intravascular ultrasound 2. IFR of proximal LAD which is measured 0.97. Consent; Risk-benefit procedure explained detail to the patient informed consent obtained and placed in the chart Special equipment; 1. 6 Montenegrin JL 3.5 guide catheter 0.014 run-through extra floppy, 180 cm wire 3. Intravascular ultrasound/IVUS catheter 4. IFR wire Procedure in detail; This patient had a history of paroxysmal atrial flutter, with AV block and recent history of syncope and collapse and had a pacemaker Patient underwent cardiac catheterization by his primary marine welder Dr. Young, revealed eccentric atherosclerosis of the proximal LAD around 40-60% Based on his clinical presentation and the angiographic finding of the proximal LAD we decided to proceed and evaluate further to assess for obstructive CAD Anticoagulation used in the Customer Experience Analyst with heparin Then will proceed with the guide catheter was then we used run-through wire and we crossed the proximal LAD lesion and then we proceed with IVUS and recorded measurement of the LAD distal to the lesion with a pullback across the proximal LAD lesion. Prior to this nitroglycerin IC was given a total of 300 mcg. Patient was given a total of 6000 of heparin in the Customer Experience Analyst. Following this for further evaluation we will proceed with the IFR wire and pullback IFR was performed which measured around 0.97, this is indicative of nonobstructive lesion of the proximal LAD which is angiographically around 40 to 60%. The MLA of the proximal LAD was measured as well which is indicative of nonobstructive atherosclerosis of the proximal LAD Following this TR band applied to right radial artery area to maintain hemostasis with no complication in the Customer Experience Analyst Recommendation and plan; Discussed the finding of IVUS of proximal LAD/IFR in detail with the primary marine welder Dr. Young With recommend to treat with medical thank and he will plan for nuclear stress test which can be set up as an outpatient There is no immediate complication in the Customer Experience Analyst patient was very stable. Aurelio Rubio MD,[facility] The patient marine welder 11/03/20 1427 <Electronically signed by Aurelio Rubio MD> Date Aurelio Rubio MD CC: Dr. Curly Young MD; Dr. Aurelio Rubio MD; Dr. Simran Woodard DO Signed Simran Woodard Start: 11-03-2020 End: 11-03-2020 Cardiac Cath Diagnostic Comments: See Note; NOTES: [facility] Imaging Services [address] [place] [address] Cardiac Cath Diagnostic MR#: [id number] Acct: [id number] Name: CASEY FLANAGAN Rep #: [id number] : 1950 70 From: Curly Young MD PCP: Dr. Simran Woodard DO Status:REG [facility] Patient Name: CASEY FLANAGAN Study Date: 11/03/2020 Performing: Curly Young MD Ht: 70.07 inches 178 cm : 1950 Wt: 185.19 lbs 84 kg Age: 70 Gender: male BSA: 2.02 PROCEDURE(S) PERFORMED YP02-VXC/COR/LV CLINICAL PROFILE AND INDICATIONS Indications: Cardiac Arrythmia Heart Failure: None CONCLUSIONS Moderately severe disease noted in the proximal left anterior descending artery RECOMMENDATIONS Staged for FFR DESCRIPTION OF PROCEDURE The patient arrived to [...] multiple views using a 5 Fr. 4.0 Pineland catheter. Right Coronary Artery selective angiography was then performed in multiple views using a 5 Fr. 4.0 Pineland catheter. Left Ventriculography was performed in VELEZ [...] Angiographically normal RIGHT CORONARY ARTERY: Angiographically normal COMPLICATIONS PROCEDURE MEDICATIONS Fentanyl 50 mcg IV Versed 1 mg IV Oxygen: 2 L/min via nasal cannula SUMMARY OF HEMODYNAMIC DATA Time AIR REST ECG 09:17:57 AO 99/67 (83) SA 10:42:45 LV 106/3, 6 10:50:29 LV 103/3, 6 10:50:35 LV 104/4, 7 10:51:21 LVp 104/3, 8 10:51:25 AOp 107/64 (83) 10:51:30 Signed By Curly Young MD On 11/03/2020 11:07:09 Curly Young MD 11/03/20 1107 Date Curly Young MD Cosigner Signature: Date (if indicated) CC: Dr. Curly Young MD; Dr. Simran Woodard DO Date Dictated: 11/03/20 1039 Date Transcribed: Procurement Cost Coordinator: [place] Signed Janel Diaz Work Phone: Start: 10-24-2020 End: 11-05-2020 12 Lead EKG performed by [facility] Comments: See Note; NOTES: [facility] [address] [place] [address] 12 Lead EKG performed by [facility] 10/24/20 1639 MR#: [id number] Acct: [id number] Name: CASEY FLANAGAN Rep #: [id number] : 1950 70 From: Curly Young MD Attending Dr: Dr. Curly Young MD Status: DEP A Ordering Dr: Curly Young MD Date: 10/24/20 Location: [facility] Sex: M C Admitted: BMS/12 Lead EKG performed by [facility] ECG Report Interpretation S inus Rhythm -Left axis. -Left atrial enlargement. ABNORMAL Electronically signed on 11/05/2020 at 09:47 by Curly Young Software Version 8610 11/05/20 0951 Date Curly Young MD CC: Dr. Simran Woodard, DO Date Dictated: 10/24/201638 Date Transcribed: 10/24/201638 Procurement Cost Coordinator: [place] Signed Simran Woodard Start: 10-24-2020 End: 10-24-2020 Cardiology Visit Report Comments: See Note; NOTES: [facility] [address] [place] [address] OFFICE VISIT Date of Service: 10/24/20 MR#: [id number] Acct: [id number] Name: CASEY FLANAGAN Rep #: [id number] : 1950 Provider: Dr. Curly Young MD Age/Sex: 70/M Location: [facility] Status: Signed HPI HPI History of Present Illness Details: CASEY FLANAGAN, is a 70 M who presents to the office today for Patient had had a history of recurrent syncope and had a loop recorder placed at the [facility]. He had presented over the week with syncope and was noted to have significant pauses. He subsequently went on to have a dual-chamber pacemaker placed successfully and returns for follow-up visit he has had no chest pain or shortness breath or paroxysmal nocturnal dyspnea or pedal edema he has not had any further syncopal episodes. He has not had any pacemaker issues since. He has been having routine pacemaker interrogations. Unbeknownst to him he has had some short periods of atrial fibrillation flutter. He has also more recently had an episode of monomorphic wide complex tachycardia concerning for VT at the end of September. It was AV dissociated for approximately 13 seconds. Patient at that time was not symptomatic but was having a verbal heated argument with his brother. His been doing quite well denying any chest pain or shortness breath or paroxysmal nocturnal dyspnea or pedal edema. He has been compliant with all his follow-ups [facility] the [facility]. He is currently on hardly any medication. His physical exam today demonstrates clear lung caldwell regular rate and rhythm and no pedal edema. Intake Vital Signs 10/24/20 Height 5 ft 10 in 10/24/20 Weight: 185 lb 10/24/20 BMI 26.5 10/24/20 BP 113/72 10/24/20 Respiration 16 10/24/20 Pulse 60 10/24/20 Pulse Oximetry (%) 96 Intake Visit Reasons: 1 Y FU Allergies No Known Allergies Allergy (Verified 10/24/20 12:57) Medications Levothyroxine [Synthroid] 125 mcg PO DAILY 01/06/15 [History Confirmed 10/24/20] aspirin 81 mg tablet,delayed release 81 mg PO DAILY 10/02/19 [History Confirmed 10/24/20] Ejection fraction %: 60 to 64 [facility] Medical History COVID-19 virus detected (Resolved 09/02/20) Paroxysmal atrial flutter (Chronic) Paroxysmal atrial fibrillation (Chronic) Sick sinus syndrome (Chronic) Atrioventricular block, complete (Chronic) Ventricular tachycardia (paroxysmal) (Acute 10/02/20) Nonrheumatic mitral (valve) prolapse (Chronic) Anemia (Chronic) BCC (basal cell carcinoma of skin) (Chronic) Carpal tunnel syndrome (Chronic) History of DVT (deep vein thrombosis) (Chronic) History of traumatic brain injury (Chronic) Hypothyroidism (Chronic) Plantar fasciitis (Chronic) Left inguinal hernia (Resolved) Syncope and collapse (Resolved) Surgical History History of permanent cardiac pacemaker placement (Chronic 07/29/17) BCC (basal cell carcinoma of skin) (Resolved) History of colonoscopy (Resolved 2014) History of lateral meniscus repair of left knee (Resolved) History of tonsillectomy (Resolved) Hx of left inguinal hernia repair (Resolved) Family History Father CAD (coronary artery disease), Onset Age: 65 CABG Mother CAD (coronary artery disease) Thyroid disorder Social History (Updated 10/24/20 @ 16:[address] Curly Young MD) Smoking Status: Never smoker alcohol intake: never ROS Const Const: Negative for fatigue, weakness, headache(s), frequent falls, difficulty sleeping or excessive sweating Eyes Eyes: Negative for loss of peripheral vision, transient loss of vision, blurry vision, double vision or tunnel vision ENT ENT: Negative for headache(s), dizziness, Nosebleed/epistaxis or balance problems Cardio Chest Pain: Yes (Occasional left sided chest pain at rest and with activity) Palpitations: No Edema: None Muscle aches with walking: None Resp Respiratory: Negative for SOB with activity, SOB at rest, SOB orthopnea SOB lying down, Cough or paroxysmal nocturnal dyspnea GI GI: Negative nausea, vomiting, heartburn or black,tarry stools : Negative for hematuria Musc Musc: Negative for muscle aches/ myalgia, muscle weakness, joint pain or balance problems Skin Skin: Negative non-healing lesions, rash or unusual bruising Neuro Neuro: Positive for syncope (last episode June, continues to follow at [facility]); negative for dizziness, lightheadedness, near syncope, orthostatic symptoms, frequent falls, headache(s), weakness, blurry vision, double vision or lack of coordination Shan Hematologic/Lymphatic: Negative for easy bleeding or easy bruising Endo Endo: Negative for fatigue, excessive sweating or increased thirst/drinking Psych Psych: Negative for anxiety or depression Allergy Allergy/Immunology: Negative for hives, Negative for rash Cardiology Exam Const Appearance: cooperative, healthy appearing, no acute distress, well developed and well groomed Nutritional Appearance: average body habitus and well nourished Orientation: alert, awake and oriented x3 Head Head: normal to inspection, normocephalic and atraumatic Ears: hearing grossly normal bilaterally and external ears normal Nose: external nose normal, nares normal, nasal mucous membranes and turbinates normal, septum normal, no nasal discharge Face and Sinus: face symmetric Mouth: oral mucosae normal, tongue normal, oropharynx normal and moist mucous membranes Teeth and gingiva: dentition normal Throat: posterior oropharynx normal, tonsils normal and uvula midline Eyes General: appearance normal, both eyes and all related structures Eyelids: eyelids normal Conjunctivae: conjunctivae normal Pupils: PERRL, normal by confrontation and accommodation normal EOM: EOM intact bilaterally Neck Neck: normal visual inspection, trachea midline and no JVD JVD: +5 Carotids: normal carotid upstroke and bounding pulses Chest Chest inspection: normal inspection of the chest, symmetric chest movement and normal respiratory effort Auscultation: Bilateral: Clear to Auscultation Cardio Palpation: normal PMI Rate: regular rate Rhythm: regular rhythm Heart sounds: S1 normal, S2 normal and normal, physiologic split S2; negative rub, gallop or murmur GI GI: normal to inspection, soft, no hepatosplenomegaly and bowel sounds present Neuro General: alert, awake, oriented x3, gait normal, moves all extremities and no focal sensory deficit Skin Skin: no rashes or lesions noted Extremities Pulses: Normal: Right Femoral Pulse, Left Femoral Pulse, Right Dorsalis Pedis Pulse, Left Dorsalis Pedis Pulse, Right Posterior Tibial Pulse, Left Posterior Tibial Pulse, Right Radial Pulse, Left Radial Pulse Lower Extremity Edema: None: Bilateral Musculoskel Musculoskeletal: No joint tenderness Psych Psychological: normal affect Assessment Plan 1. Ventricular tachycardia (paroxysmal) I47.2 Plan He has had wide complex tachycardia with A-V dissociation concerning for ventricular tachycardia. He has had preserved ejection fraction of 60% with 2+ mitral regurgitation and mitral valve prolapse. He would like us to evaluate his coronary anatomy to be sure that there is no obstructive coronary disease noted. I discussed the above with him the risk benefits alternatives he understands and agrees to proceed. Orders Orders: 12 Lead EKG performed by BMS Today Basic Metabolic Profile (BMP) Today Chest PA and Lateral Today Medications Discontinued: metoprolol succinate ER Discontinued Reason: Order Changed 25 mg PO DAILY ventricular tachycardia 2. Paroxysmal atrial fibrillation I48.0 Plan He does have a history of paroxysmal atrial fibrillation. He has had few paroxysms of the above. We will continue to monitor him carefully. He does not meet the criteria for anticoagulation just yet. Orders Orders: Chest PA and Lateral Today Medications Discontinued: metoprolol succinate ER Discontinued Reason: Order Changed 25 mg PO DAILY ventricular tachycardia 3. History of permanent cardiac pacemaker placement Z95.0 Plan He is status post permanent pacemaker implantation. His pacemaker interrogation appears to be functioning well. He did have wide complex tachycardia as noted above. Admitted the prudent for us to evaluate the above and make sure there is no obstructive coronary disease noted. He has otherwise been AAI pacing at 60 bpm with a battery longevity of over 6 years. Orders Orders: 12 Lead EKG performed by BMS Today Plan Detail Other Orders Orders: Left Heart Cath/COR/LV Percut Today R07.9 CBC W/Diff, Automated Today R07.9 Follow Up 1 Year (per diem physical therapist) Coding Level of Care Code Off vis,est,level 4 Diagnoses Ventricular tachycardia (paroxysmal) I47.2 Paroxysmal atrial fibrillation I48.0 History of permanent cardiac pacemaker placement Z95.0 Coding Level of Care Code Off vis,est,level 4 Diagnoses Ventricular tachycardia (paroxysmal) I47.2 Paroxysmal atrial fibrillation I48.0 History of permanent cardiac pacemaker placement Z95.0 Supplemental Info Supplemental Information Diagnostics Echocardiogram 10/23/19 Pacemaker Check 10/03/20 Chest X-Ray 09/19/20 10/24/20 1641 <Electronically signed by Curly Young MD> Date Curly Wynnigntaylor Signature: Date (if applicable) CC: DO Simran Carver Start: 10-03-2020 End: 10-03-2020 Pacemaker Check Comments: See Note; NOTES: [facility] [address] [place] [address] Pacemaker Check Date of Service: 10/03/201731 MR#: [id number] Acct: [id number] Name: MASHACASEY ANTONIO Rep #: [id number] : 1950 From: Cinda Krause Age/Sex: 70/M Location: [facility] Status: Signed Billing Codes PM Device Codes: PM Dev Interrogate (Remot 10/03/201732 <Electronically signed by Cinda Krause > Date Cinda Lea Signature: Date (if applicable) CC: Simran Woodard Start: 09-19-2020 End: 09-19-2020 Chest PA and Lateral Comments: See Note; NOTES: [facility] Imaging Services [address] [place] [address] Chest PA and Lateral MR#: [id number] Acct: [id number] Name: CASEY FLANAGAN Rep #: [id number] : 1950 M 70 From: Maury Flores MD PCP: Dr. Simran Woodard DO Status: REG CLI Study: Chest PA and Lateral Date of Exam: 09/19/20 Exam# [id number] Ordering Dr: Simran Woodard DO STUDY: X-RAY CHEST REASON FOR EXAM: Male, 70 years old. cough, Hx COVID in August TECHNIQUE: PA and lateral views of the chest. COMPARISON: 07/30/2017 FINDINGS: Left subclavian dual-lead pacemaker which is unchanged. Interval removal of an insertable child monitor. The lungs are clear and expanded. There is no demonstrated pleural abnormality. Normal size heart. Normal mediastinum and faiza. Normal visualized pulmonary arteries. Normal visualized aortic arch and descending thoracic aorta. Normal visualized thoracic spine. Normal visualized ribs, clavicles, and shoulders. There is no demonstrated abnormality of the visualized soft tissue structures of the upper abdomen. RAD/Chest PA and Lateral IMPRESSION: No active disease. Electronically Signed: Maury Flores MD at 17:00 EST Tel , Service support , CC: Dr. Simran Woodard DO Procurement Cost Coordinator: Signed Simran Woodard Work Phone: Start: 09-12-2020 End: 09-12-2020 Pacemaker Check Comments: See Note; NOTES: [facility] [address] [place] [address] Pacemaker Check Date of Service: 09/12/20 1631 MR#: [id number] Acct: [id number] Name: CASEY FLANAGAN Guera Rep #: [id number] : 1950 From: Cinda Krause Age/Sex: 70/M Location: [facility] Status: Signed Billing Codes PM Device Codes: PM Dev Interrogate (Remot 09/12/20 163 <Electronically signed by Cinda Krause > Date Cinda Jimi Cosigner Signature: Date (if applicable) CC: Simran Woodard Start: 06-23-2020 End: 06-23-2020 Screening colonoscopy ANASTACIO Lindsay LPN Comment on above: Dr. Stallworth Start: 05-30-2020 End: 05-30-2020 Pacemaker Check Comments: See Note; NOTES: [facility] [address] [place] [address]. [address] [place] [address] Pacemaker Check Date of Service: 05/30/201514 MR#: [id number] Acct: [id number] Name: CASEY FLANAGAN Guera Rep #: [id number] : 1950 From: Cinda Krause Age/Sex: 70/M Location: [facility] Status: Signed Billing Codes PM Device Codes: PM Dev Interrogate (Remot 05/30/20 1516 <Electronically signed by Cinda Krause > Date Cinda Jimi Cosigner Signature: Date (if applicable) CC: Simran Woodard Start: 02-20-2020 End: 02-20-2020 Pacemaker Check Comments: See Note; NOTES: [facility] [address] [place] [address] Pacemaker Check Date of Service: 02/20/208 MR#: [id number] Acct: [id number] Name: CASEY FLANAGAN Rep #: [id number] : 1950 From: Cinda Krause Age/Sex: 69/M Location: [facility] Status: Signed Billing Codes PM Device Codes: PM Dev Interrogate (Remot 02/20/201718 <Electronically signed by Cinda Krause > Date Cinda Lea Signature: Date (if applicable) CC: Simran Woodard Start: 11-14-2019 End: 11-14-2019 Pacemaker Check Comments: See Note; NOTES: [facility] [address] [place] [address] Pacemaker Check Date of Service: 11/14/19 112 MR#: [id number] Acct: [id number] Name: CASEY FLANAGAN Rep #: [id number] : 1950 From: Cinda Krause Age/Sex: 69/M Location: [facility] Status: Signed Billing Codes PM Device Codes: PM Dev Interrogate (Remot 11/14/191122 <Electronically signed by Cinda Krause > Date Cinda Lea Signature: Date (if applicable) CC: Simran Woodard Start: 11-05-2019 End: 11-05-2019 Echocardiogram Complete Comments: See Note; NOTES: [facility] [address] [facility] [place] [address] Echo Complete 10/23/19 0844 MR#: [id number] Acct: [id number] Name: CASEY FLANAGAN Rep #: [id number] : 1950 69 From: Curly Young MD Attending Dr: Hannah ROOT,Curly Status: DEP I Ordering Dr: Curly Young MD Date: 10/23/19 Location: [facility] Sex: M C Admitted: Reason For Study: MVP Procedure This was a 2D Doppler, Color Flow transthoracic echocardiogram. Exam performed in department. Left Ventricle Normal LV size. Left ventricular systolic function is normal. The estimated ejection fraction is 60 %. Stage 2 diastolic dysfunction. No regional wall motion abnormalities noted. Right Ventricle Normal RV size. ICD or pacer leads identified within the right ventricle. Normal systolic function. Atria The left atrium is mildly enlarged. Normal right atrium. Mitral Valve Bileaflet diffuse mitral valve thickening. Moderate mitral valve prolapse. Tricuspid Valve Normal tricuspid valve. Mild tricuspid valve insufficiency. Pulmonary artery systolic pressure is 23 mmHg. Aortic Valve Normal aortic valve. Trisinus/trileaflet aortic valve. Mild (1+) eccentric aortic valve insufficiency. Pulmonic Valve Normal pulmonic valve. Great Vessels Normal aortic root. The pulmonary artery is normal size. Normal inferior vena cava. Pericardium/Pleural No pericardial effusion. MMode/2D Measurements AND Calculations LVIDd: 4.8 cm IVSd: 1.1 cm Ao root diam: 3.4 cm LVIDs: 3.5 cm LVPWd: 1.2 cm RVDd: 4.0 cm FS: 28.5 % LAV(MOD-bp): 69.0 ml LA A4 area: 21.7 cm2 LA dimension(2D): 3.9 cm LAV(MOD-bp) Indexed: 34.2 ml/m2 LAV(MOD-sp2): 68.0 ml LAV(MOD-sp4): 68.6 ml RA A4 area: 18.9 cm2 Time Measurements MV dec time: 0.23 sec Doppler Measurements AND Calculations MV E max josh: 66.8 cm/sec Lat Peak E' Josh: 6.6 cm/sec Med Peak E' Josh: 5.1 cm/sec MV A max jsoh: 79.7 cm/sec E/E' lat: 10.1 E/E' med: 13.2 MV E/A: 0.84 Ao V2 max: 147.5 cm/sec AI max josh: 329.7 cm/sec LV V1 max: 131.3 cm/sec Ao max P.7 mmHg AI max P.5 mmHg LV V1 max P.9 mmHg Ao V2 mean: 99.8 cm/sec AI dec slope: 131.4 cm/sec2 LV V1 mean P.7 mmHg Ao mean P.5 mmHg AI P1/2t: 735.2 msec LV V1 mean: 90.8 cm/sec Ao V2 VTI: 27.1 cm LV V1 VTI: 26.3 cm PA V2 max: 100.1 cm/sec PI end-d josh: 92.5 cm/sec TR max josh: 224.0 cm/sec PI dec slope: 57.5 cm/sec2 TR max P.1 mmHg Interpretation Summary Normal LV size. Left ventricular systolic function is normal. The estimated ejection fraction is 60 %. Stage 2 diastolic dysfunction. Mild tricuspid valve insufficiency. Ordering Physician: Curly Young Referring Physician: Simran Woodard Performed By: Loyda Morrell, CORNELIO, RVT 11/05/19 1627 Date Curly Young MD CC: Curly Young MD; Simran Woodard DO Date Dictated: 10/23/19 0844 Date Transcribed: 11/05/191626 Procurement Cost Coordinator: Signed Simran Woodard Start: 10-02-2019 End: 10-02-2019 Cardiology Visit Report Comments: See Note; NOTES: [facility] [address] [place] [address] OFFICE VISIT Date of Service: 10/02/19 MR#: [id number] Acct: [id number] Name: CASEY FLANAGAN Rep #: [id number] : 1950 Provider: Curly Young MD Age/Sex: 69/M Location: [facility] Status: Signed HPI [facility] History of Present Illness Details: CASEY FLANAGAN, is a 69 M who presents to the office today for Patient had had a history of recurrent syncope and had a loop recorder placed at the [facility]. He had presented over the gi week with syncope and was noted to have significant pauses. He subsequently went on to have a dual-chamber pacemaker placed successfully and returns for follow-up visit he has had no chest pain or shortness breath or paroxysmal nocturnal dyspnea or pedal edema he has not had any further syncopal episodes. He has not had any pacemaker issues since. He has been having routine pacemaker interrogations. Unbeknownst to him he has had some short periods of atrial fibrillation flutter. His been doing quite well denying any chest pain or shortness breath or paroxysmal nocturnal dyspnea or pedal edema. He has been compliant with all his follow-ups at the pacer clinic. He is currently on hardly any medication. His physical exam today demonstrates clear lung caldwell regular rate and rhythm and no pedal edema. Intake Vital Signs10/02/19 Height 5 ft 10 in 10/02/19 Weight: 184 lb 10/02/19 BMI 26.4 10/02/19 BP 123/80 H 10/02/19 Respiration 16 10/02/19 Pulse 64 10/02/19 Pulse Oximetry (%) 100 Intake Visit Reasons: 1 Y FU Allergies No Known Allergies Allergy (Verified 10/02/19 08:19) Medications Levothyroxine [Synthroid] 125 mcg PO DAILY 01/06/15 [History Confirmed 10/02/19] [facility] Medical History Paroxysmal atrial flutter (Chronic) Paroxysmal atrial fibrillation (Chronic) Sick sinus syndrome (Chronic) Atrioventricular block, complete (Chronic) Nonrheumatic mitral (valve) prolapse (Chronic) Anemia (Chronic) BCC (basal cell carcinoma of skin) (Chronic) Carpal tunnel syndrome (Chronic) History of DVT (deep vein thrombosis) (Chronic) History of traumatic brain injury (Chronic) Hypothyroidism (Chronic) Plantar fasciitis (Chronic) Left inguinal hernia (Resolved) Syncope and collapse (Resolved) Surgical History History of permanent cardiac pacemaker placement (Chronic 07/29/17) BCC (basal cell carcinoma of skin) (Resolved) History of colonoscopy (Resolved 2014) History of lateral meniscus repair of left knee (Resolved) History of tonsillectomy (Resolved) Hx of left inguinal hernia repair (Resolved) Family History Father CAD (coronary artery disease) Mother CAD (coronary artery disease) Thyroid disorder Social History (Updated 10/02/19 @ 09:28 by Curly Young MD) Smoking Status: Never smoker alcohol intake: never ROS Const Const: Negative for fatigue, weakness, headache(s), frequent falls, difficulty sleeping or excessive sweating Eyes Eyes: Negative for loss of peripheral vision, transient loss of vision, blurry vision, double vision or tunnel vision ENT ENT: Negative for headache(s), dizziness, Nosebleed/epistaxis or balance problems Cardio Chest Pain: Yes (occasional left sided chest pain at rest or with activity) Character: tightness Onset: at rest Location: left chest Duration: minutes Palpitations: No Edema: None Muscle aches with walking: None Resp Respiratory: Negative for SOB with activity, SOB at rest, SOB orthopnea\SOB lying down, Cough or paroxysmal nocturnal dyspnea GI GI: Negative nausea, vomiting, heartburn or black,tarry stools : Negative for hematuria Musc Musc: Negative for muscle aches/ myalgia, muscle weakness, joint pain or balance problems Skin Skin: Negative non-healing lesions, rash or unusual bruising Neuro Neuro: Negative for dizziness, lightheadedness, near syncope, syncope, orthostatic symptoms, frequent falls, headache(s), weakness, blurry vision, double vision or lack of coordination Shan Hematologic/Lymphatic: Negative for easy bleeding or easy bruising Endo Endo: Negative for fatigue, excessive sweating or increased thirst/drinking Psych Psych: Negative for anxiety or depression Allergy Allergy/Immunology: Negative for hives, Negative for rash Cardiology Exam Const Appearance: cooperative, healthy appearing, no acute distress, well developed and well groomed Nutritional Appearance: average body habitus and well nourished Orientation: alert, awake and oriented x3 Head Head: normal to inspection, normocephalic and atraumatic Ears: hearing grossly normal bilaterally and external ears normal Nose: external nose normal, nares normal, nasal mucous membranes and turbinates normal, septum normal, no nasal discharge Face and Sinus: face symmetric Mouth: oral mucosae normal, tongue normal, oropharynx normal and moist mucous membranes Teeth and gingiva: dentition normal Throat: posterior oropharynx normal, tonsils normal and uvula midline Eyes General: appearance normal, both eyes and all related structures Eyelids: eyelids normal Conjunctivae: conjunctivae normal Pupils: PERRL, normal by confrontation and accommodation normal EOM: EOM intact bilaterally Neck Neck: normal visual inspection, trachea midline and no JVD JVD: +5 Carotids: normal carotid upstroke and bounding pulses Chest Chest inspection: normal inspection of the chest, symmetric chest movement and normal respiratory effort Auscultation: Bilateral: Clear to Auscultation Cardio Palpation: normal PMI Rate: regular rate Rhythm: regular rhythm Heart sounds: S1 normal, S2 normal and normal, physiologic split S2; negative rub, gallop or murmur Murmur: Grade 1/6, soft and early systolic GI GI: normal to inspection, soft, no hepatosplenomegaly and bowel sounds present Neuro General: alert, awake, oriented x3, gait normal, moves all extremities and no focal sensory deficit Skin Skin: no rashes or lesions noted Extremities Pulses: Normal: Right Femoral Pulse, Left Femoral Pulse, Right Dorsalis Pedis Pulse, Left Dorsalis Pedis Pulse, Right Posterior Tibial Pulse, Left Posterior Tibial Pulse, Right Radial Pulse, Left Radial Pulse Lower Extremity Edema: None: Bilateral Musculoskel Musculoskeletal: No joint tenderness Psych Psychological: normal affect Assessment AND Plan 1. Paroxysmal atrial fibrillation I48.0 Plan He does have a history of paroxysmal atrial fibrillation. The longest episode was 2 hours and 30 minutes. I did discuss this with him. His chads vasc2 score is noted to be 1 and therefore I will suggest that we put him on aspirin once a day. We will continue to follow him in our pacemaker clinic. 2. History of permanent cardiac pacemaker placement Z95.0 Plan He is status post permanent pacemaker implantation with V pacing only 1% of the time. His battery longevity is good and lead impedances are also good. No other changes were made with respect to the above. 3. Nonrheumatic mitral (valve) prolapse I34.1 Plan He does have a previous history of nonrheumatic mitral valve prolapse. I would recommend that we obtain an echocardiogram to reassess his ventricular function as well as his mitral valve integrity. Thank you for allowing me to participate in the care of your patient. Please don't hesitate to call if any issues arise Plan Detail Other Orders Orders: Follow Up 1 Year (per diem physical therapist) Coding Level of Care Code Off vis,est,level 3 Diagnoses Paroxysmal atrial fibrillation I48.0 History of permanent cardiac pacemaker placement Z95.0 Nonrheumatic mitral (valve) prolapse I34.1 Coding Level of Care Code Off vis,est,level 3 Diagnoses Paroxysmal atrial fibrillation I48.0 History of permanent cardiac pacemaker placement Z95.0 Nonrheumatic mitral (valve) prolapse I34.1 Supplemental Info Supplemental Information Diagnostics Electrocardiogram 01/17/19 Pacemaker Check 08/08/19 10/02/19 0928 <Electronically signed by Curly Young MD> Date Curly Lea Signature: Date (if applicable) CC: Simran Mccarthy Start: 04-26-2019 End: 04-26-2019 Pacemaker Check Comments: See Note; NOTES: [facility] [address] [facility] [place] [address] Pacemaker Check Date of Service: 04/26/19 1525 MR#: [id number] Acct: [id number] Name: CASEY FLANAGAN Rep #: [id number] : 1950 From: Cinda Krause Age/Sex: 69/M Location: [facility] Status: Signed Billing Codes PM Device Codes: PM Dev Interrogate (Remot 04/26/19 0258 <Electronically signed by Cinda Krause > Date Cinda Lea Signature: Date (if applicable) CC: Simran Woodard Start: 02-20-2019 End: 02-20-2019 12 Lead EKG w/ Rhythm Strip Comments: See Note; NOTES: [facility] Cardiovascular Services [address] [place] [address] 12 Lead EKG with Rhythm Strip 01/17/19 1411 MR#: [id number] Acct: [id number] Name: CASEY FLANAGAN Rep #: [id number] : 1950 68 From: Garrett Caldwell MD Attending Dr: Antoni Castellon MD Status: [facility] Ordering Dr: Matt Evans MD Date: 01/17/19 Location: [facility] Sex: M C Admitted: Test Reason : Blood Pressure : / mmHG Vent. Rate : 060 BPM Atrial Rate : 060 BPM P-R Int : 274 ms QRS Dur : 110 ms QT Int : 452 ms P-R-T Axes : 003 -42 -04 degrees QTc Int : 452 ms Atrial-paced rhythm with prolonged AV conduction Left axis deviation Abnormal ECG When compared with ECG of 15-JAN-2019 11:31, Electronic atrial pacemaker has replaced Sinus rhythm Confirmed by LANCE CALDWELL ([id number]), manager editorial MYRIAM LEONARDO ([id number]) on 01/22/2019 4:56:13 PM Referred By: Antoni Castellon Confirmed By:TOM CALDWELL 01/22/19 165 Garrett Caldwell MD CC: Matt Evans MD; Antoni Castellon MD; Simran Woodard DO Signed Simran Woodard Start: 01-17-2019 End: 01-17-2019 Operative Report Comments: See Note; NOTES: [facility] Medical Records Department [address] [place] [address] Operative Report 01/17/19 1242 MR#: [id number] Acct: [id number] Name: CASEY FLANAGAN Rep #: [id number] : 1950 68 From: Antoni Castellon MD PCP: Simran Woodard DO Status: REG SDC Y Location: [place] [address] Problem List (1) Left inguinal hernia Status: Acute Report of Operation Date of Procedure: 01/17/19 Pre-Operative Diagnosis: Left inguinal hernia Post-Operative Diagnosis: Same Surgery/Procedure Performed:: Laparoscopic left inguinal hernia Type of Anesthesia:: General Anesthesiologist: aMtt Evans Estimated Blood Loss (mL): < 25 cc Description of Procedure: Patient was brought into the operating room placed in the supine position. Under excellent general trach intubation the abdomen was sterilely prepped and draped in usual fashion. Local was injected infraumbilically. Curvilinear incision was made. Dissection was carried down to the fascia. The fascia was grasped with a Bladen's. There is knee was placed inside the abdomen. The abdomen was insufflated 15 torr. A 10/12 trocar was placed without difficulty. It was flank by 2 #5 trochars placed under direct visualization. There is no injury to underlying structures. Patient was placed in the headdown rotated to the right position. I scored the peritoneum on the left. I dissected down to Rogelio's ligament. I dissected laterally dissecting the cord and vessel structures free from the peritoneum. I dissected further laterally. I had good hemostasis. I placed a large left 3D max mesh into the wound. I tacked it to Rogelio's ligament with a pro-tacker. I tacked it superiorly and laterally with sparing tax. I covered the mesh with the peritoneum intact that back up with the pro-tacker. The mesh was completely covered. An ilioinguinal nerve block was performed. I removed the trochars under direct visualization. The umbilical port was closed with 3 interrupted sutures of 0 Nurolon's. Skin incisions were closed with septicum stitches of 4-0 Monocryl. Steri-Strips were applied sterile dressings were applied and the patient tolerated the procedure well. - Admit VTE Documentation VTE Present on Admission: No VTE Mechan Device Prophylaxis: SCD's VTE Pharm Prophylaxis ordered?: No Reason prophylaxis not ordered:: Treatment Not Indicated 01/17/19 1325 <Electronically signed by Antoni Castellon MD> Date Antoni Castellon MD CC: Antoni Castellon MD; Simran Woodard DO Signed Simran Woodard Start: 01-17-2019 End: 01-17-2019 Discharge Instruction Comments: See Note; NOTES: [facility] Medical Records Department [address] [place] [id number] Instructions for Home/Discharge Instructions 01/17/19 1244 MR#: [id number] Acct: [id number] Name: CASEY FLANAGAN Rep #: [id number] : 1950 68 From: Antoni Castellon MD PCP: Simran Woodard DO Status: [facility] Discharge Diet: Light diet - advance as tolerated Discharge Activity: Return to Normal Activity, May Drive - when you are no longer taking narcotic pain medications., May Shower - with the bandage in place 1-2 days after surgery. Lifting Restrictions: 20 pounds for 8 weeks. Additional Activity Instructions:: Climbing stairs is fine, walking is encouraged. Sitting in bed may be uncomfortable. Sitting up using your lateral muscles (sitting up sideways) is usually more comfortable. Do not drive, work heavy equipment of sign legal documents for 24 hours. If your hernia repair was an ingunial repair, you may have scrotal swelling, an ice pack and/or athletic support can provide more comfort. Pain medications may cause nausea, you should typically eat light foods as you take your pain medications. Pain medications may also cause constipation. If you have difficulty with this, discuss with your doctor. Call your doctor if your incision/area has: Continuous Slow Oozing, Sudden Increased Bleeding, Increased Pain/ Swelling, Increased Redness, Foul Smelling Discharge Call your doctor if you observe: Fever of 101 or Higher Suture Line Care: Avoid Pulling/Pushing, Avoid Pinching/Bending Additional Dressing/Incision Instructions:: Leave the operative bandage on for 2-3 days. When you remove the bandage, leave the steri-strips on place until your follow up appointment or they fall off. Allergies/Adverse Reactions: Allergies No Known Allergies Allergy (Verified 01/12/19 09:06) Medications to take at Discharge Levothyroxine [Synthroid] 125 mcg PO DAILY 01/06/15 Oxycodone HCl/Acetaminophen [Percocet 5/325] 1 - 2 tab PO Q4H PRN PRN 6 Days #30 tab 01/17/19 The following prescriptions were given: Oxycodone HCl/Acetaminophen [Percocet 5/325] 1 - 2 tab PO Q4H PRN PRN 6 Days #30 tab PRN Reason: Pain Orders to be completed after discharge: 12 Lead EKG [CVS] Time Frame: 01/12/19, Facility: [facility], Location: Cardiovascular Services Basic Metabolic Profile (BMP) Time Frame: 01/12/19, Location: Laboratory CBC-Complete Blood Cnt No Diff Time Frame: 01/12/19, Location: Laboratory Thyroid Stim Hormone (TSH) Time Frame: 01/12/19, Location: Laboratory Primary Care Physician: Simran Woodard DO [Primary Care Provider] - Test Results: Test results from this visit will be discussed in further detail at your follow-up appointment, if applicable. Please Follow Up With: Antoni Castellon MD - [phone] When: Plan to have a follow up appointment in 7 days. Call to schedule. 01/17/19 1004 <Electronically signed by Antoni Castellon MD> Date Antoni Castellon MD CC: Simran Woodard DO Signed Simran Woodard Start: 01-17-2019 End: 01-17-2019 History and Physical Exam Comments: See Note; NOTES: [facility] Medical Records Department [address] [place] [address] History and Physical 01/09/19 0853 MR#: [id number] Acct: [id number] Name: CASEY FLANAGAN Rep #: [id number] : 1950 68 From: Antoni Castellon MD PCP: Simran Woodard DO Status: [facility] Location: [place] [address] Intake Vital Signs 01/09/19 Body Mass Index (BMI) 26.9 01/09/19 Height 5 ft 10 in 01/09/19 Weight: 185 lb 4 oz 01/09/19 Body Mass Index (BMI) 26.6 01/09/19 Blood Pressure 117/78 01/09/19 Blood Pressure Location Rt brachial Intake Visit Reasons: Femoral Hernia Chief Complaint: left groin lump Soil Technologist Required: No Is patient in pain?: No Allergies No Known Allergies Allergy (Verified 01/09/19 08:07) Medications Levothyroxine [Synthroid] 125 mcg PO DAILY 01/06/15 [History Confirmed 01/09/19] albuterol sulfate HFA 90 mcg/actuation aerosol inhaler 1 puff INHALATION Q6H PRN 01/09/19 [History Confirmed 01/09/19] PFSH Medical History Hypothyroidism (Chronic) Syncope and collapse (Chronic) Presence of cardiac pacemaker (Chronic 07/29/17) Atrioventricular block, complete (Chronic) History of traumatic brain injury (Chronic) Third degree AV block (Acute) Anemia (Acute) BCC (basal cell carcinoma of skin) (Acute) Carpal tunnel syndrome (Acute) History of DVT (deep vein thrombosis) (Acute) Plantar fasciitis (Acute) Surgical History Pacemaker (Chronic 07/29/17) BCC (basal cell carcinoma of skin) (Acute) History of colonoscopy (Acute 2014) History of lateral meniscus repair of left knee (Acute) History of tonsillectomy (Acute) Family History Father CAD (coronary artery disease) Mother CAD (coronary artery disease) Thyroid disorder Social History Smoking Status: Never smoker alcohol intake: never HPI HPI HPI: CASEY FLANAGAN, is a 68 M who presents to the office today for HPI HPI Surgical H AND P: Yes HPI: CASEY FLANAGAN, is a 68 M who presents to the office today for evaluation of a bulge in his left groin. Patient was working out doing crunches developed a bulge from this which was painless. The bulge easily reduced but comes back once he starts doing crunches and significant lower body workouts. He has had no change in his bowel or bladder habits. He has had occasional left lower quadrant abdominal discomfort. It is usually when the bulge is out. The symptoms are exacerbated by straining. He has had no nausea or vomiting ROS General General: No weight change, appetite, fatigue, colon cancer, breast cancer or weakness HEENT HEENT: No difficulty swallowing, eye injury, eye surgery, swollen glands or hoarseness Endo Endocrine: Yes thyroid disease; no diabetes mellitus, thyroid cancer, Hair loss, heat intolerance or cold intolerance Musc Musculoskeletal: Yes back problems and arthritis; no rheumatoid arthritis, gout or joint pain Additional Details: left groin lump Cardio Cardiovascular: Yes pacemaker; no murmur, heart disease, atrial fibrillation, high blood pressure, heart attack, heart stent, palpitations, shortness of breat with exertion or chest pain Resp Respiratory: No shortness of breath, No sleep apnea, No cough, No COPD, No asthma, No emphysema, No wheezing Gastro Gastrointestinal: No abdominal pain, No nausea or vomiting, No diarrhea, No constipation, No blood in stool, No acid reflux, No hemorrhoids, Yes ulcers, No gallbladder problem, No black,tarry stools Shan Hematologic: No blood thinners, No blood disorders, No bleeding, Yes anemia, Yes blood clots Additional Details: DVT 2014 Neuro Neurologic: No weakness Exam Const General: no acute distress, well developed, well hydrated Orientation: oriented to person, oriented to place, oriented to time [facility] Head: normocephalic, atraumatic Ears: external ears normal Mouth: moist mucous membranes Eyes Sclera: sclerae normal Pupils: normal by confrontation Neck Neck: no lymphadenopathy noted Neck mass: No Thyroid: thyroid normal, symmetrical Chest Chest palpation AND inspection: normal inspection of the chest Resp Effort AND Inspection: normal respiratory effort Auscultation: clear to auscultation bilaterally Percussion: percussion normal Cardio Rate: regular rate Rhythm: regular rhythm Heart Sounds: no murmurs GI Palpation: soft, no hepatosplenomegaly, no masses, tender Rectal Exam: other Other: There is weakness in the left inguinal area which I believe is probably a standard inguinal hernia and not a femoral hernia Rectal exam deferred. Extrem General: normal to inspection, no clubbing, cyanosis or edema Assessment AND Plan Problems 1. Non-recurrent unilateral inguinal hernia without obstruction or gangrene K40.90 Plan My plan is to perform a laparoscopic left inguinal repair. The planned surgical procedure was discussed extensively with the patient. The risks, benefits, anticipated outcomes and possible complication were mentioned. The patient understands that all hernia repair surgery has a chance of recurrence and/or chronic post-operative pain. My staff has also explained the procedure in understandable terms and the patient was given the option to take printed material concerning the planned procedure. The patient had the opportunity to ask questions concerning the planned procedure. The patient freely consents to the planned procedure. Preoperative H AND P Coding Level of Care Code Off vis,new,level 3 Diagnoses Non-recurrent unilateral inguinal hernia without obstruction or gangrene K40.90 Obstruction and gangrene presence: without obstruction or gangrene Laterality: unilateral Recurrence: non-recurrent 01/09/19 0853 <Electronically signed by Antoni Castellon MD> Date Antoni Castellon MD I have re-examined the patient. There are no clinical changes since date of exam. 01/17/19 1241 <Electronically signed by Antoni Castellon MD> Date: Time: Antoni Castellon MD CC: Antoni Castellon MD; Simran Woodard DO Date Dictated: 01/09/19 0853 Date Transcribed: 01/11/19 0742 Procurement Cost Coordinator: Signed Simran Woodard Start: 01-16-2019 End: 01-16-2019 12 lead ECG Comments: See Note; NOTES: [facility] Cardiovascular Services [address] [place] [address] 12 Lead EKG 01/15/19 1131 MR#: [id number] Acct: [id number] Name: CASEY FLANAGAN Rep #: [id number] : 1950 68 From: Curly Young MD Attending Dr: Antoni Castellon MD Status: PRE SDC Ordering Dr: Antoni Castellon MD Date: 01/15/19 Location: [facility] Sex: M C Admitted: Test Reason : PRE OP Blood Pressure : / mmHG Vent. Rate : 060 BPM Atrial Rate : 060 BPM P-R Int : 204 ms QRS Dur : 112 ms QT Int : 416 ms P-R-T Axes : 086 262 001 degrees QTc Int : 416 ms Normal sinus rhythm Right superior axis deviation Abnormal ECG Confirmed by CURLY YOUNG MD ([id number]), manager editorial MYRIAM LEONARDO ([id number]) on 01/16/2019 9:16:10 AM Referred By: Antoni Castellon Confirmed By:CURLY YOUNG MD 01/16/19 0916 Date Curly Young MD CC: Antoni Castellon MD; Simran Woodard DO Signed Simran Woodard Start: 01-09-2019 End: 01-09-2019 Surgery Visit Report Comments: See Note; NOTES: [facility] [address] [place] [address]. [address] [place]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 [[place] 5/325] 1 - 2 tablet PO Q4H PRN PRN #12 tablet PRN Reason: Pain Referrals: Simran Woodard DO [Primary Care Provider] - 3-5 Days Additional Instructions: follow up with Dr Woodard. ice if helps. may nee further imaging if pain persists. What to do if you have Problems For any increased pain, shortness of breath, bleeding, nausea or vomiting, chest pain, or any unexpected problems, contact your doctor. Call [facility] ) or report to the closest Emergency Room. Call 911 if necessary. 01/06/152012 <Electronically signed by Jensen Oliveros MD> Date Jensen Oliveros MD Cosigner Signature (If Indicated): Date CC: Simran Mccarthy Start: 01-06-2015 End: 01-07-2015 Knee 4 or More Views Comments: See Note; NOTES: [facility] Imaging Services [address] [place] [address] Radiology Report MR#: [id number] Acct: [id number] Name: CASEY FLANAGAN Rep #: [id number] : 1950 64 From: Jr Ojeda MD PCP: Simran Woodard DO Status: DEP ER Study: Knee 4 or More Views Date of Exam: 01/06/15 Exam# [id number] Ordering Dr: Jensen Oliveros MD STUDY: X-RAY - LEFT KNEE REASON FOR EXAM: Male, 64 years old. Knee pain. TECHNIQUE: 4 view(s) of the knee. COMPARISON: None. FINDINGS: Normal visualized distal femur. Normal visualized proximal tibia and fibula. Normal proximal tibiofibular articulation. Normal medial femorotibial compartment. Normal lateral femorotibial compartment. Normal patellofemoral articulation. The soft tissue structures are unremarkable. IMPRESSION: Normal x-ray examination of the knee. 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 El Hermosillo Comment on above: Dermatology Dr. El Davis Comment on above: Dermatology Dr. lE Richard Comment on above: Dermatology Dr. El Mccrary Comment on above: Dermatology Dr. El Becerril CMA Comment on above: Dermatology Dr. El Richard LP N Comment on above: Dermatology Dr. El SOFIA Comment on above: Dermatology Dr. El Becerril CMA Comment on above: Dermatology Dr. Harshad Hermosillo Comment on above: Eyes, in [place] Dr. Harshad Davis Comment on above: Eyes, in [place] Dr. Harshad Richard Comment on above: Eyes, in [place] Dr. Harshad Mccrary Comment on above: Eyes, in [place] Dr. Harshad Becerril CMA Comment on above: Eyes, in [place] Dr. Harshad Richard LP N Comment on above: Eyes, in [place] Dr. Harshad Lynne PN Comment on above: Eyes, in [place] Dr. Harshad Becerril CMA Comment on above: Eyes, in [place] H/O: surgery Tonsillectomy Poonam Brito k DYE MAKER H/O: surgery Tonsillectomy Suhas Lynne PN H/O: surgery Tonsillectomy Kassidy Handy LPN H/O: surgery Tonsillectomy Poonam Alisha k DYE MAKER H/O: surgery Antolin Caldwell CMA Hernia of abdominal cavity (disorder) DR JASMINE BEYER MD Comment on above: LEFT INGUINAL AND ABDOMEN Left knee meniscus t ear 2014 Riya Messenger Left knee meniscus t ear 2014 Suhas Davis Left knee meniscus t ear 2014 Suhas Richard Left knee meniscus t ear 2014 Olena Gravius Left knee meniscus t ear 2014 Poonam Jerrica DYE MAKER Left knee meniscus t ear 2014 Suhas Richard UPHOLSTERY CUTTER Left knee meniscus t ear 2014 Kassidy Rozina UPHOLSTERY CUTTER Left knee meniscus t ear 2014 Poonam Manwolfk DYE MAKER Pacemaker Riya Messenger Comment on above: 07/29/17 Pacemaker Suhas Davis Comment on above: 07/29/17 Pacemaker Suhas Richard Comment on above: 07/29/17 Pacemaker Olena Mccrary Comment on above: 07/29/17 Pacemaker Poonam Jerrica CHANEY Comment on above: 07/29/17 Pacemaker Suhas Richard LP N Comment on above: 07/29/17 Pacemaker Kassidy Lynne PN Comment on above: 07/29/17 Pacemaker Poonam Manwolfk SHIV Comment on above: 07/29/17 Pacemaker observable (observable entity) DR JASMINE BEYER MD Tonsillectomy DR JASMINE PLAMA MD Antolin Caldwell CMA Plan of Treatment Date Care Activity Detail Author Start: 06-16-2031 Urine microalbumin profile [facility] Start: 2027 RSV Vaccine (1 - 1-d ose 75+ series) RSV Vaccine (1 - 1-dose 75+ series) [facility] Start: 01-19-2026 [facility]ABET[facility]CREEN [facility] Start: 01-19-2026 Diabetes Screening Diabetes Screendannielle g [facility] Start: 06-27-2025 Subsequent hospital visit by physician 06/27/2025 Hospital Encounter [facility] [address] [place] [address] Mook Lara MD [address] [place], [place] [phone] (Fax) Atrial fibrillation, persistent (HCC) [I48.19] [facility] Comment on above: Atrial fibrillation, persistent (HCC) [I48.19] Start: 06-03-2025 End: 06-03-2025 Patient encounter procedure 06/03/2025 8:00 AM EDT Office Visit [facility] [address] [place], [place] [phone] Mook Lara MD [address] [place] [phone] (Fax) Sooner follow up for afib. [facility] Comment on above: Sooner follow up for afib. Start: 05-06-2025 Influenza vaccination [facility] Start: 03-22-2025 End: 03-22-2025 Patient encounter procedure 03/22/2025 1:20 PM EDT Office Visit [facility] [address] [place] [address] Mook Lara MD [address] [place] [phone] (Fax) Return in about 6 months (around 03/25/2025) for Afib follow up [facility] Comment on above: Return in about 6 mo nths (around 03/25/2025) for Afib follow up Start: 12-17-2024 Patient discharge [facility] Start: 11-20-2024 Patient discharge [facility] Start: 09-27-2024 End: 09-27-2024 Patient encounter procedure 09/27/2024 9:20 AM EST Office Visit [facility] [address] [place], [place] [phone] Mook Lara MD [address] [place] [address] [address] [place] [address] discuss AFIB/medication per Dr.Matto Esperanza [place] [facility] Comment on above: discuss AFIB/medicat ion per Dr.Matto Esperanza [place] Start: 09-05-2024 Advance Directive Discussion Advance Directive Discussion [facility] Start: 09-05-2024 Medicare Advantage Annual Wellness Visit Medicare Advantage Annual Wellness Visit [facility] Start: 05-06-2024 Covid-19 Vaccine ( season) Covid-19 Vaccine () [facility] Start: 05-06-2024 Influenza vaccination [facility] Start: 09-05-2023 Advance Directive Discussion Advance Directive Discussion [facility] Start: 09-05-2023 Behavioral Health Screening Behavioral Health Screening [facility] Start: 05-06-2023 Covid-19 Vaccine () Covid-19 Vaccine () [facility] Start: 05-06-2023 Influenza vaccination [facility] Start: 10-28-2022 Procedure Education [facility]; [facility] Work Phone: Start: 10-28-2022 Provider Instruction s for Treatment [facility]; [facility] Work Phone: Start: 10-15-2022 Assay of testosteron e free TESTOSTERONE FREE (69877) [facility]; [facility] Work Phone: Start: 10-15-2022 Procedure Education [facility]; [facility] Work Phone: Start: 10-15-2022 Comprehensive metabo lic panel [facility]; [facility] Work Phone: Start: 10-15-2022 Assay of thyroid stimulating hormone tsh TSH (THYROID STIMULATING HORMONE) (42688) [facility]; [facility] Work Phone: Start: 10-15-2022 CBC, PLATELETS & MAN UAL DIFF (69077) CBC, PLATELETS & MANUAL DIFF (67912) [facility]; [facility] Work Phone: Start: 10-15-2022 Assay of testosteron e total TESTOSTERONE TOTAL (28086) [facility]; [facility] Work Phone: Start: 10-15-2022 Assay of prostate specific antigen total PSA (PROSTATE SPECIFIC ANTIGEN) (50335) [facility]; [facility] Work Phone: Start: 09-05-2022 ADVANCE DIRECTIVE DISCUSSION ADVANCE DIRECTIVE DISCUSSION [facility] Start: 09-05-2022 DEPRESSION ASSESSMENT DEPRESSION ASS ESSMENT [facility] Start: 06-16-2022 Pneumococcal Vaccine : 50+ (2 of 2 - PCV) Pneumococcal Vaccine: 50+ (2 of 2 - PCV) [facility] Start: 06-16-2022 Pneumococcal Vaccine : 65+ (2 - PCV) Pneumococcal Vaccine: 65+ (2 - PCV) [facility] Start: 06-16-2022 Pneumococcal Vaccine : 65+ (2 of 2 - PCV) Pneumococcal Vaccine: 65+ (2 of 2 - PCV) [facility] Start: 05-06-2022 Influenza vaccination INFLUENZA (#1) [facility] Start: 11-02-2021 Prothrombin time Compre [facility]; [facility] Work Phone: Start: 11-02-2021 Urnls dip stick/tabl et rgnt non-auto w/o micrscp [facility]; [facility] Work Phone: Comment on above: normal Start: 11-02-2021 Assay of thyroid stimulating hormone tsh [facility]; [facility] Work Phone: Start: 11-02-2021 Blood count complete auto&auto difrntl wbc [facility]; [facility] Work Phone: Start: 11-02-2021 Basic metabolic pane l calcium total [facility]; [facility] Work Phone: Start: 11-02-2021 Procedure Education [facility]; [facility] Work Phone: Start: 11-02-2021 Provider Instruction s for Treatment [facility]; [facility] Work Phone: Start: 09-25-2021 Procedure Education [facility]; [facility] Work Phone: Start: 09-25-2021 Provider Instruction s for Treatment [facility]; [facility] Work Phone: Start: 09-25-2021 Iaadiadoo influenza [facility]; [facility] Work Phone: Start: 06-15-2021 Procedure Education [facility]; [facility] Work Phone: Start: 06-04-2021 Procedure Education [facility]; [facility] Work Phone: Start: 06-04-2021 Provider Instruction s for Treatment [facility]; [facility] Work Phone: Start: 05-27-2021 Procedure Education [facility]; [facility] Work Phone: Start: 01-08-2021 COVID-19 VACCINE (2 - Booster for Roxie series) COVID-19 VACCINE (2 - Booster for Roxie series) [facility] Start: 09-08-2020 Iaadiadoo influenza 2019 Novel Coronavirus (COVID-19), LAURYN (12751) [facility]; [facility] Work Phone: Start: 09-08-2020 Procedure Education [facility]; [facility] Work Phone: Start: 01-23-2020 DIABETES SCREEN DIABETES SCREEN [facility] Start: 11-21-2019 Provider Instruction s for Treatment [facility] Work Phone: Start: 09-12-2019 Procedure Education [facility] Work Phone: Start: 09-12-2019 Provider Instruction s for Treatment [facility] Work Phone: Start: 01-04-2019 Procedure Education [facility] Work Phone: Start: 09-30-2017 Provider Instruction s for Treatment [facility] Work Phone: Start: 09-23-2017 Procedure Education [facility] Work Phone: Start: 09-23-2017 Virus centrifuge enh ncd id imfluor stain ea [facility] Work Phone: Start: 09-06-2017 End: 09-06-2017 Appointment Appointment [facility] Work Phone: Start: 08-10-2017 Provider Instruction s for Treatment [facility] Work Phone: Start: 08-03-2017 End: 08-03-2017 Appointment Appointment [facility] Work Phone: Start: 08-03-2017 End: 08-03-2017 Follow Up Appt 1 month Follow Up Appt 1 month [facility] Work Phone: Start: 08-03-2017 End: 08-03-2017 Pacer Clinic Pacer Clinic [facility] Work Phone: Start: 2017 PNEUMOCOCCAL: 65+ (1 - PCV) PNEUMOCOCCAL: 65+ (1 - PCV) [facility] Start: 02-14-2017 Provider Instruction s for Treatment [facility] Work Phone: Start: 03-18-2016 Procedure Education [facility] Work Phone: Start: 03-18-2016 Provider Instruction s for Treatment [facility] Work Phone: Start: 03-18-2016 Hemoglobin A1c/Hemoglobin.total mass fraction (Bld) HGB A1C (96804) [facility] Work Phone: Start: 03-18-2016 Hemoglobin glycosyla pacheco a1c [facility]; [facility] Work Phone: Start: 03-18-2016 Comprehensive metabo lic panel [facility] Work Phone: Start: 03-18-2016 Blood count complete auto&auto difrntl wbc [facility] Work Phone: Start: 03-18-2016 Lipid panel [facility] Work Phone: Start: 03-18-2016 Assay of thyroid stimulating hormone tsh [facility]; [facility] Work Phone: Start: 03-18-2016 Thyrotropin Qn TSH (THYROID STIMULATING HORMONE) (55258) [facility] Work Phone: Start: 09-19-2015 Provider Instruction s for Treatment [facility] Work Phone: Start: 09-11-2015 Procedure Education [facility] Work Phone: Start: 09-11-2015 Provider Instruction s for Treatment [facility] Work Phone: Start: 09-10-2015 Creatinine blood [facility]; [facility] Work Phone: Start: 09-10-2015 Creatinine mass conc CREATININ E BLOOD (96724) [facility] Work Phone: Start: 09-10-2015 Provider Instruction s for Treatment [facility] Work Phone: Start: 08-25-2015 Procedure Education [facility] Work Phone: Start: 04-09-2015 Procedure Education [facility] Work Phone: Start: 04-09-2015 Provider Instruction s for Treatment [facility] Work Phone: Start: 12-18-2014 Provider Instruction s for Treatment [facility] Work Phone: Start: 09-12-2014 Provider Instruction s for Treatment [facility] Work Phone: Start: 01-03-2014 Lipid panel [facility] Work Phone: Start: 01-03-2014 Blood count manual c ell count each [facility] Work Phone: Start: 01-03-2014 Comprehensive metabo lic panel [facility] Work Phone: Start: 01-03-2014 Assay of thyroid stimulating hormone tsh [facility]; [facility] Work Phone: Start: 01-03-2014 Thyrotropin Qn TSH (59341) [facility] Work Phone: Start: 09-12-2013 Provider Instruction s for Treatment [facility] Work Phone: Start: 07-23-2013 Provider Instruction s for Treatment [facility] Work Phone: Start: 07-23-2013 Blood occult fecal h gb deter ia qual feces 1-3 [facility] Work Phone: Start: 06-08-2013 Patient Education [facility] Work Phone: Start: 06-08-2013 Provider Instruction s for Treatment [facility] Work Phone: Start: 05-11-2013 Provider Instruction s for Treatment [facility] Work Phone: Start: 03-29-2013 Provider Instruction s for Treatment [facility] Work Phone: Start: 02-23-2013 Provider Instruction s for Treatment [facility] Work Phone: Start: 07-13-2012 End: 07-13-2012 Follow Up Appt 6 weeks Follow Up Appt 6 weeks [facility] Work Phone: Start: 06-26-2012 Provider Instruction s for Treatment [facility] Work Phone: Start: 2012 RSV Vaccine (1 - 1-d ose 60+ series) RSV Vaccine (1 - 1-dose 60+ series) [facility] Start: 03-20-2012 Patient Education [facility] Work Phone: Start: 03-20-2012 Provider Instruction s for Treatment [facility] Work Phone: Start: 03-20-2012 Assay of blood/uric acid [facility] Work Phone: Start: 11-04-2011 Provider Instruction s for Treatment [facility] Work Phone: Start: 11-04-2011 Assay of prostate specific antigen total [facility] Work Phone: Start: 11-04-2011 Protein mass conc PSA (PROSTAT E SPECIFIC ANTIGEN) (V76.44) [facility] Work Phone: Start: 04-30-2011 Provider Instruction s for Treatment [facility] Work Phone: Start: 12-01-2010 Provider Instruction s for Treatment [facility] Work Phone: Start: 06-06-2008 Provider Instruction s for Treatment [facility] Work Phone: Start: 11-21-2007 Provider Instruction s for Treatment [facility] Work Phone: Start: 11-06-2007 Assay of prostate specific antigen total [facility] Work Phone: Start: 11-06-2007 Protein mass conc PSA (PROSTAT E SPECIFIC ANTIGEN) (V76.44) [facility] Work Phone: Start: 11-06-2007 Lipid panel [facility] Work Phone: Start: 11-06-2007 Assay of thyroid stimulating hormone tsh [facility]; [facility] Work Phone: Start: 11-06-2007 Thyrotropin Qn TSH (22576) [facility] Work Phone: Start: 01-10-2007 Provider Instruction s for Treatment [facility] Work Phone: Start: 2002 SHINGRIX VACCINE (1 of 2) SHINGRIX VACCINE (1 of 2) [facility] Start: 1997 COLOGUARD (FIT-DNA) COLOGUARD (FIT-D NA) [facility] Start: 1997 Colonoscopy COLONOSCOPY [facility] Start: 1997 COLORECTAL CANCER SCREENING COLORECTAL CANCER SCREENING [facility] Start: [address] COLONOGRAPHY [facility] Start: 1997 FECAL OCCULT BLOOD FECAL OCCULT BLOO D [facility] Start: 1997 Screening for malign ant neoplasm of colon [facility] Start: 1997 [facility] Start: 1987 Lipid 1996 panel - Serum or Plasma Lipid Screening [facility] Start: 1987 Lipid panel Lipid Screening [facility] Start: 1987 LIPID SCREEN LIPID SCREEN [facility] Start: 1971 Urine microalbumin profile DTAP,TDAP,TD (1 - Tdap) [facility] Start: 1970 ANNUAL PCP TEAM RETAIL [employer]S PRO RITA DISEASE VISIT ANNUAL PCP TEAM CHRONIC DISEASE VISIT [facility] Start: 1970 Anxiety Screening Anxiety Screening [facility] Start: 1970 Depression Screening Depression Scre ening [facility] Start: 1970 HEPATITIS C SCREENING HEPATITIS C [facility] Start: 1970 Hepatitis C screening Hepatitis C [facility] Cardioversion [facility] ECG B/O W INTERP (ME D OFFICE) ECG B/O W INTERP (MED OFFICE) ECG Routine Persistent atrial fibrillation (HCC) Ordered: 09/25/2024 [facility] Work Phone: Comment on above: Ordered: 09/25/2024 ECG B/O W INTERP (ME D OFFICE) ECG B/O W INTERP (MED OFFICE) ECG Routine Paroxysmal atrial fibrillation (HCC) Ordered: 03/22/2025 [facility] Work Phone: Comment on above: Ordered: 03/22/2025 Ephys evl trnsptl tx atrial fib isolat pulm vein COMPRE EP EVAL ABLTJ ATR FIB PULM VEIN ISOLATION Atrial fibrillation, persistent (HCC) [place] [facility] Patient referral [facility] Work Phone: Replacement of electronic heart device, pulse generator [facility] Work Phone: [facility] Work Phone: [facility] Work Phone: [facility] Work Phone: [facility] Work Phone: [facility] Work Phone[facility] Work Phone: [facility] Work Phone: [facility] Work Phone: [facility] Work Phone: [facility] Work Phone: [facility] Work Phone: [facility] Work Phone: [facility] Work Phone: [facility] Work Phone: [facility] Work Phone: [facility] Work Phone: [facility] Work Phone[facility] Work Phone: [facility] Work Phone: [facility] Work Phone: [facility] Work Phone: [facility] Work Phone: [facility] Work Phone: [facility]; [facility] Work Phone: [facility] Work Phone: [facility] [place] EP LAB [facility] Immunizations Immunization Date Immunization Notes Care Provider [facility] 06-16-2021 tetanus and diphther ia toxoids, adsorbed, preservative free, for adult use (2 Lf of tetanus toxoid and 2 Lf of diphtheria toxoid) Simran Woodard DO Work Phone: [facility]; [facility] Work Phone: 06-16-2021 pneumococcal polysaccharide vaccine, 23 valent Simran Woodard DO Work Phone: [facility]; [facility] Work Phone: Comment on above: Site: Left [facility]to[facility] [id number] [facility] 07-28-2017 influenza, injectabl e, quadrivalent, preservative free Dr. Simran Woodard Work Phone: [facility] 07-28-2017 influenza, seasonal, injectable Dr. iSmran Woodard Work Phone: [facility] 07-28-2017 influenza virus vaccine, unspecified formulation Jocelin Anderson APRN.CNP Work Phone: [facility] 08-07-2007 influenza, seasonal, injectable Simran Woodard [facility] Work Phone: Comment on above: Lot #[id number]/ 30/08Site-left deltoidDose0.5cc/IMgiven by Hima Vargas LPN Payers Date Payer Category Payer Self-pay [id number] 2021 Medicare [employer] [place] [id number] 2021-Present [phone] [address] [place] [address] HMO [id number] 2021 Medicare (Managed Care) [place] [id number] 2021 Unknown [id number] 2018 Medicare [id number] 2017 Unknown [id number] 2014 Medicare MEDICARE PART A B [id number] 2014 Unknown [id number] 2014 Private Health Insurance [id number] 2007 Private Health Insurance [id number] 1952 Unknown [id number] 2..840.1.598392.3.579.2. 716 Unknown Unknown [id number] Unknown [id number] Unknown [id number] 2.16.840.1.156408.3.579.2. 462 Unknown [id number] 2..840.1.668054.3.579.2. 462 Unknown [id number] 2.840.1.471146.3.579.2. 462 Unknown [id number] .840.1.712674.3.579.2. 462 Unknown [id number] .840.1.593364.3.579.2. 462 Unknown [id number] 2.840.1.172971.3.579.2. 462 Unknown [id number] .840.1.918927.3.579.2. 462 Unknown [id number] 2.840.1.952265.3.579.2. 462 Unknown [id number] 2.840.1.589784.3.579.2. 462 Unknown [id number] 2.840.1.120393.3.579.2. 462 Unknown [id number] .840.1.677926.3.579.2. 462 Unknown [id number] .840.1.808663.3.579.2. 462 Unknown [id number] .840.1.158346.3.579.2. 462 Unknown [id number] 2.840.1.004738.3.579.2. 462 Unknown [id number] 2..840.1.658221.3.579.2. 462 Unknown [id number] 2.840.1.662885.3.579.2. 462 Unknown [id number] 2.840.1.647778.3.579.2. 462 Unknown [id number] 2.16.840.1.304445.3.579.2. 462 Unknown [id number] 2.16.840.1.392290.3.579.2. 462 Unknown [id number] 2.16.840.1.342342.3.579.2. 462 Unknown [id number] 2.16.840.1.343881.3.579.2. 462 Unknown [id number] 2.16.840.1.291034.3.579.2. 462 Unknown [id number] 2.16.840.1.410139.3.579.2. 462 Unknown [id number] 2.16.840.1.388651.3.579.2. 462 Unknown [id number] 2.16.840.1.831021.3.579.2. 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 [facility] Work Phone: Tobacco use: Tobacco use: [facility] Work Phone: Start: 06-23-2020 Smoker (finding) [facility] Start: 1950 Sex Assigned At Male A [facility] Start: 11-24-2021 End: 09-25-2024 Never smoked tobacco (finding) [facility] Start: 08-11-2022 End: 03-22-2025 Alcohol intake Current non-drinker of alcohol (finding) [facility] Start: 1950 Sex Assigned At Not on file [facility] Start: 09-16-2022 End: 09-12-2023 Tobacco smoking status NHIS Unknown if ever smoked [facility] Start: 01-19-2021 None [facility] Start: 01-19-2021 Non-smoker [facility] Start: 01-20-2023 History SDOH Financial 5 [facility] Start: 01-20-2023 History SDOH Food Worry 1 [facility] Start: 01-20-2023 History SDOH Transpo rt Med 2 [facility] Start: 01-17-2023 End: 07-27-2023 Tobacco use panel [facility] Work Phone: Start: 08-06-2012 How hard is it for y ou to pay for the very basics like food, housing, medical care, and heating Not hard at all [facility] Work Phone: (I/We) worried robyn er (my/our) food would run out before (I/we) got money to buy more. Never true [facility] Work Phone: In the past 12 month s, was there a time when you were not able to pay the mortgage or rent on time? No [facility] Work Phone: Start: 07-28-2017 Spouse/ Signif icant Other [facility] Start: 09-25-2024 Tobacco use and exposure Smokeless tobacco non-user [facility] Start: 11-20-2024 End: 12-17-2024 Sex Male (finding) [facility] Medical Equipment Procedure Code Equipment Code Equipment Origin al Text Equipment Identifier Dates MESH,3DMAX LEFT LG [id number] FDA Start: 01-17-2019 STAPLER,PROTACK 5MM HERNIA FDA Start: 01-17-2019 MESH,3DMAX LEFT LG [id number] FDA Start: 01-17-2019 STAPLER,PROTACK 5MM HERNIA FDA Start: 01-17-2019 Loop Recorder-Ln q11 Reveal [id number] Start: 01-21-2017 MESH,3DMAX LEFT LG [id number] FDA Start: 01-17-2019 STAPLER,PROTACK 5MM HERNIA FDA Start: 01-17-2019 MESH,3DMAX LEFT LG [id number] FDA Start: 01-17-2019 STAPLER,PROTACK 5MM HERNIA FDA Start: 01-17-2019 MESH,3DMAX LEFT LG [id number] FDA Start: 01-17-2019 STAPLER,PROTACK 5MM HERNIA FDA Start: 01-17-2019 MESH,3DMAX LEFT LG [id number] FDA Start: 01-17-2019 STAPLER,PROTACK 5MM HERNIA FDA Start: 01-17-2019 Dual-chamber implantable pacemaker, rate-responsive [id number] FDA Start: 12-17-2024 MESH,3DMAX LEFT LG [id number] FDA Start: 01-17-2019 STAPLER,PROTACK 5MM HERNIA FDA Start: 01-17-2019 MESH,3DMAX LEFT LG [id number] FDA Start: 01-17-2019 STAPLER,PROTACK 5MM HERNIA FDA Start: 01-17-2019 Goals Date Patient Goal Desired Activity /State Personal health goal Functional Status Date Assessment Result Facility 01-20-2023 Are you deaf, or do you have serious difficulty hearing No 01/20/2023 10:00 AM Emily Maurice RN No [facility] Work Phone: 01-20-2023 Are you blind, or do you have serious difficulty seeing, even when wearing glasses No 01/20/2023 10:00 AM Emily Maurice, JOSLYN [facility] 01-20-2023 Do you have serious difficulty walking or climbing stairs No 01/20/2023 10:00 AM Emily Maurice, RN No [facility] 01-20-2023 Do you have difficul ty dressing or bathing No 01/20/2023 10:00 AM Emily Maurice, RN [facility] 01-20-2023 Because of a physica l, mental, or emotional condition, do you have difficulty doing errands alone such as visiting a physician's office or shopping No 01/20/2023 10:00 AM Emily Maurice RN No [facility] Mental Status Date Assessment Result Facility 01-20-2023 Because of a physica l, mental, or emotional condition, do you have serious difficulty concentrating, remembering, or making decisions No 01/20/2023 10:00 AM EDT Emily Veloz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 patient agreed to proceed. At 1119, the patient was given 40 mg of propofol. The patient achieved an appropriate level of sedation and was given a 200 joule synchronized cardioversion by Dr. Young at the bedside. This was successful in achieving normal sinus rhythm. The patient was monitored until 1133, at which time he reached his baseline mental status and function. The patient tolerated the procedure well. COMPLICATIONS: None ESTIMATED BLOOD LOSS: None RECOMMENDATIONS: Okay to recover in usual fashion. 11/20/24 1137 Cosigner Signature (if applicable): CC: Dr. Curly Young MD; Dr. Pablito Viera DO; Dr. Simran Woodard DO~ Signed [facility]03-18-2025 Procedure note [facility] Medical Records Department [address] [place] [address] Procedure Report 11/20/24 1130 MR#: [id number] Acct: [id number] Name: CASEY FLANAGAN Rep #:[id number] : 1950 74 From: Curly Young MD PCP: Dr. Simran Woodard DO Status:[facility] Location: [facility] Problems Associated Problem List Diagnoses (1) Paroxysmal atrial fibrillation: Non-invasive Procedural Procedure Information Date of Procedure: 11/20/24 Pre-Procedure Diagnosis: Paroxysmal atrial fibrillation Post-Procedure Diagnosis: Same Procedure Performed:: DC cardioversion technical business systems analyst: No Procedure Time Out: 11:11 Procedure Start Time: 11:16 Procedure Stop Time: 11:20 Special Medications: Intravenous propofol Description of procedure: Patient was brought to the cardiac catheterization lab in the postabsorptive nonsedated state. Informed consent was obtained. Anterior-posterior pads were applied. The patient was seen by Dr. Viera of the critical care division. Informed consent was obtained. 40 mg of intravenous propofol was administered. Synchronized DC biphasic energy was applied time to the R wave of the QRS complex and 200 Jof synchronized DC cardioversion energy were applied with prompt reversal of 2 sinus rhythm. EKG confirmed the above. Procedure findings: Successful DC cardioversion from atrial fibrillation to sinus and paced rhythm. Complications Complications: No 11/20/24 1131 Cosigner Signature (if applicable): CC: Dr. Curly Young MD; Dr. Simran Woodard, DO~ Signed [facility]03-17-2025 History and physical note Author Curly Young [facility] Note Date/Time November 19, 2024 11: 45am [facility] Medical Records Department [address] [place] [address] History & Physical Exam 11/19/24 0936 MR#: [id number] Acct: [id number] Name: CASEY FLANAGAN Rep #:[id number] : 1950 74 From: Curly Young MD PCP: Dr. Simran Woodard DO Status:ME E [facility] Location: [facility] History and Physical Date of Admission: 11/20/24 CASEY FLANAGAN, is a 74 M who presents today for cardioversion. He has a history of recurrent syncope and had a loop recorder placed at the [facility]. He had presented over the week with [...] underwent a left cardiac catheterization, which demonstrated moderatelysevere disease (60% stenosis) noted in the proximal left anterior descending artery. He was referred to food clerk, Dr. Lara, for watchman device evaluation due to concerns taking anticoagulation and high fall risk for ongoingdizziness. He proceeded with Watchmen device placement on 01/19/2023. Device evaluation August 2024 showed persistent atrial fibrillation. He is evaluatedagain with food clerk on 09/25/2024 to further discuss rhythm controlling strategies and recommendation to proceed with cardioversion. He presented previously for such cardioversion and was not to have missed a dosage of Eliquis. His cardioversion was not preformed and he presents today for cardioversion after 4 weeks of anticoagulation. He denies chest, arm, jaw, or neck discomfort. He denies palpitations. He denies bilateral lower extremity edema. He denies claudication. He states intermittent shortness of breath with activity such as going up stairs. He denies shortness of breath at rest, orthopnea, or PND. He denies chronic cough. He denies significant, sudden weight gain. He states lightheadedness when overexerting himself along with near syncope. He denies dizziness or syncope. He denies blood in urine, blood in stool, or epistaxis. He denies fever with chills. He denies myalgia. He states fatigue. His exercise level has remainedstable. He has been on Eliquis prior to 2023. Intake Vital Signs: See EMR Intake Visit Reasons: DCCV Soil Technologist Required: No Accompanied by: Is patient in pain?: No Allergies No Known Allergies Allergy (Verified 09/27/24 10:27) Medications: See EMR Ejection fraction %: 65 Have you fallen in the past year?: No [facility] Medical History Pacemaker malfunction Presence of Watchman left atrial appendage closure device (01/19/23) Nonobstructive atherosclerosis of coronary artery COVID-19 virus detected (09/02/20) Ventricular tachycardia (paroxysmal) (10/02/20) Paroxysmal atrial flutter Paroxysmal atrial fibrillation Nonrheumatic mitral (valve) prolapse Sick sinus syndrome Left inguinal hernia BCC (basal cell carcinoma of skin) Carpal tunnel syndrome Anemia History of DVT (deep vein thrombosis) Plantar fasciitis Hypothyroidism Syncope and collapse Atrioventricular block, complete History of traumatic brain injury Surgical History History of right shoulder replacement History of left heart catheterization (11/03/20) History of permanent cardiac pacemaker placement (07/29/17) Hx of left inguinal hernia repair BCC (basal cell carcinoma of skin) History of lateral meniscus repair of left knee History of colonoscopy (2014) History of tonsillectomy Family History Father CAD (coronary artery disease), Onset Age: 65 CABGMother CAD (coronary artery disease) Thyroid disorder PacemakerBrother Heart disease Valve replacement Social History (Updated 09/27/24 @ 10:28 by Aisha Redding) Smoking Status: Never smoker alcohol intake: current alcohol intake frequency: holidays/special occasions only substance use type: does not use caffeine: Yes Type: coffee ROS Const Const: Positive for fatigue; Negative for weakness Eyes Eyes: Negative for change in vision ENT ENT: Negative for dizziness or balance problems Cardio Chest Pain: No Palpitations: No Edema: None Muscle aches with walking: None Resp Respiratory: Positive for SOB with activity; Negative for SOB at rest or SOB orthopneaundefinedSOB lying down GI GI: Negative nausea or heartburn : Negative for hematuria or frequent nighttime urination/ nocturia Musc Musc: Negative for balance problems Skin Skin: Negative non-healing lesions or rash Neuro Neuro: Negative for dizziness, lightheadedness, near syncope, syncope or weakness Endo Endo: Positive for fatigue Allergy Allergy/Immunology: Negative for rash Cardiology Exam Const Appearance: cooperative, healthy appearing, comfortable and no acute distress Nutritional Appearance: average body habitus and well nourished Orientation: alert, awake and oriented x3 Head [...] awake, patient oriented x3 and CN's II-XI intactbilaterally Skin Skin: no rashes or lesions noted Extremities Pulses: Normal: Right Posterior Tibial Pulse, Left Posterior Tibial Pulse, RightRadial Pulse and Left Radial Pulse Lower Extremity Edema: None: Bilateral Psych Psychological: normal affect Supplemental Info Supplemental Information Echocardiogram from 11/01/2023: Interpretation Summary Normal LV size. Left ventricular systolic function is normal. The estimated ejection fraction is 65 %. Bileaflet diffuse mitral valve thickening. Mild mitral valve prolapse. Mild (1+) mitral valve insufficiency. Echocardiogram 10/23/2019: Interpretation Summary Normal LV size. Left ventricular systolic function is normal. The estimated ejection fraction is 60 %. Stage 2 diastolic dysfunction. Mild tricuspid valve insufficiency. Stress test from 11/01/2023: Conclusion: Normal exercise myocardial perfusion stress test at a high workload Preserved ejection fraction. Cardiac catheterization 11/03/2020: PROCEDURE(S) PERFORMED PM22-PVD/COR/LV CLINICAL PROFILE AND INDICATIONS Indications: Cardiac Arrhythmia [...] Angiographically normal RIGHT CORONARY ARTERY: Angiographically normal Carotid duplex ultrasound from 09/21/2022: Interpretation Summary Mild (<50%) stenosis right extracranial internal carotid. Mild (<50%) stenosis left extracranial internal carotid. Patent and antegrade vertebrals bilaterally. Assessment and Plan Assessment and Plan (1) Paroxysmal atrial fibrillation: Status: Chronic Comment: JENA occlusion on 01/19/2023 with a 27 mm Watchman device at [facility]; Plan: [id number] score: 2 (age, CAD) (2.2% stroke risk) Atrial fibrillation stage: 3A, paroxysmal left atrial appendage occlusion: 01/19/2023-27 mm Watchman device 12 Lead EC09/27/2024-ventricular paced rhythm at 71 bpm Echocardiogram: 11/01/2023-EF: 65%, mildly enlarged left atrium, mildly enlarged right atrium Heart Rate Control: Metoprolol succinate 50 mg p.o. twice daily Anticoagulation/CVA Protection: Eliquis 5 mg p.o. twice daily Device report on 08/07/2024 showed atrial fibrillation. Per device report, he appears to be in persistent atrial fibrillation since such time. He notes worsening shortness of breath going up stairs and fatigue. He was started on anticoagulation in August 2024. He saw electrophysiology team on 09/25/2024 with agreement to proceed with cardioversion and then return to EP clinic for discussion regarding antiarrhythmic loading with sotalol or Tikosyn or atrial fibrillation ablation. Hopefully with maintaining sinus rhythm, his symptoms improved. Transesophageal echocardiogram on 01/19/2023 showed well-seated Watchman device with no flow around his edges. Post cardioversion, he will remain on Eliquis for 1 month and then ultimately transition back to Aspirin given Watchman device placement. (2) Sick sinus syndrome: Status: Chronic Plan: He is status post permanent pacemaker.. He continue to follow with device clinic. (3) History of permanent cardiac pacemaker placement: Status: Chronic Plan: Device report on 09/12/2024 shows RA pacing 50%, RV pacing 9%, battery life 10 months, persistent AFL/AF, and 17 ventricular high rate episodes. (4) Ventricular tachycardia (paroxysmal): Status: Acute Plan: His most recent pacemaker evaluation shows no true VT/VF episodes. He will continue current medical therapy and continue to monitor. He will continue metoprolol. (5) Nonrheumatic mitral (valve) prolapse: Status: Chronic Plan: Echocardiogram in October 2023 showed an ejection fraction of 65%, mild mitral valve prolapse, mild mitral valve insufficiency, and a pulmonary artery systolicpressure 24 mmHg. Overall, this appears stable. We will continue to monitor. (6) Nonobstructive atherosclerosis of coronary artery: Status: Chronic Plan: Heart catheterization from November 2020 showed moderately severe disease noted in the proximal left anterior descending artery at 60%. Stress test in October 2023 was negative for ischemia at a high workload. Ejection fraction was noted be preserved. Overall, this appears stable. We will continue to monitor. If maintaining sinus rhythm does not improve his shortness of breath or fatigue, will consider repeat stress test. (7) Hyperlipidemia: Status: Acute Qualifiers: Hyperlipidemia type: mixed hyperlipidemia Qualified Code(s): E78.2 - Mixed hyperlipidemia Plan: This is monitored by PCP. He will continue Atorvastatin 80mg. 11/19/24 1145 <Electronically signed by Curly Young MD> Cosigner Signature (if applicable): 11/19/24 0942 <Electronically signed by Prosper RAMIREZ> CC: JAMES Lawrence; Dr. Curly Young MD; Dr. Simran Woodard DO~ Signed [facility] Work Phone: [phone]) 937-164603-17-2025 History and physical note [facility] Medical Records Department [address] [place] [address] History & Physical Exam 11/19/24 0936 MR#: [id number] Acct: [id number] Name: CAESY FLANAGAN Rep #:[id number] : 1950 74 From: Curly Young MD PCP: Dr. Simran Woodard, DO Status:ME E [facility] Location: [facility] History and Physical Date of Admission: 11/20/24 CASEY FLANAGAN, is a 74 M who presents today for cardioversion. He has a history of recurrent syncope and had a loop recorder placed at the [facility]. He had presented over the week with [...] concerning for VT at the end of September2020. It was AV dissociated for approximately 13 seconds. Patient at that time was not symptomatic but was having a verbal heated argument with his brother. In November of 2020, he underwent a left cardiac catheterization, which demonstrated moderatelysevere disease (60% stenosis) noted in the proximal left anterior descending artery. He was referred to food clerk, Dr. Lara, for watchman device evaluation due to concerns taking anticoagulation and high fall risk for ongoingdizziness. He proceeded with Watchmen device placement on 01/19/2023. Device evaluation August 2024 showed persistent atrial fibrillation. He is evaluatedagain with food clerk on 09/25/2024 to further discuss rhythm controlling strategies and recommendation to proceed with cardioversion. He presented previously for such cardioversion and was not to have missed a dosage of Eliquis. His cardioversion wasnot preformed and he presents today for cardioversion after 4 weeks of anticoagulation. He denies chest, arm, jaw, or neck discomfort. He denies palpitations. He denies bilateral lower extremity edema. He denies claudication. He states intermittent shortness of breath with activity suchas going up stairs. He denies shortness of breath at rest, orthopnea, or PND. He denies chronic cough. He denies significant, sudden weight gain. He states lightheadedness when overexerting himself along with near syncope. He denies dizziness or syncope. He denies blood in urine, blood in stool, orepistaxis. He denies fever with chills. He denies myalgia. He states fatigue. His exercise level has remainedstable. He has been on Eliquis prior to 2023. Intake Vital Signs: See EMR [facility] So[facility] Required: No Accompanied by: Is patient in pain?: No Allergies No Known Allergies Allergy (Verified 09/27/24 10:27) Medications: See EMR Ejection fraction %: 65 Have you fallen in the past year?: No [facility] Medical History Pacemaker malfunction Presence of Watchman left atrial appendage closure device (01/19/23) Nonobstructive atherosclerosis of coronary artery COVID-19 virus detected (09/02/20) Ventricular tachycardia (paroxysmal) (10/02/20) Paroxysmal atrial flutter Paroxysmal atrial fibrillation Nonrheumatic mitral (valve) prolapse Sick sinus syndrome Left inguinal hernia BCC (basal cell carcinoma of skin) Carpal tunnel syndrome Anemia History of DVT (deep vein thrombosis) Plantar fasciitis Hypothyroidism Syncope and collapse Atrioventricular block, complete History of traumatic brain injury Surgical History History of right shoulder replacement History of left heart catheterization (11/03/20) History of permanent cardiac pacemaker placement (07/29/17) Hx of left inguinal hernia repair BCC (basal cell carcinoma of skin) History of lateral meniscus repair of left knee History of colonoscopy (2014) History of tonsillectomy Family History Father CAD (coronary artery disease), Onset Age: 65 CABGMother CAD (coronary artery disease) Thyroid disorder PacemakerBrother Heart disease Valve replacement Social History (Updated 09/27/24 @ 10:28 by Aisha Redding) Smoking Status: Never smoker alcohol intake: current alcohol intake frequency: holidays/special occasions only substance use type: does not use caffeine: Yes Type: coffee ROS Const Const: Positive for fatigue; Negative for weakness Eyes Eyes: Negative for change in vision ENT ENT: Negative for dizziness or balance problems Cardio Chest Pain: No Palpitations: No Edema: None Muscle aches with walking: None Resp Respiratory: Positive for SOB with activity; Negative for SOB at rest or SOB orthopneaundefinedSOB lying down GI GI: Negative nausea or heartburn : Negative for hematuria or frequent nighttime urination/ nocturia Musc Musc: Negative for balance problems Skin Skin: Negative non-healing lesions or rash Neuro Neuro: Negative for dizziness, lightheadedness, near syncope, syncope or weakness Endo Endo: Positive for fatigue Allergy Allergy/Immunology: Negative for rash Cardiology Exam Const Appearance: cooperative, healthy appearing, comfortable and no acute distress Nutritional Appearance: average body habitus and well nourished Orientation: alert, awake and oriented x3 Head [...] awake, patient oriented x3 and CN's II-XI intactbilaterally Skin Skin: no rashes or lesions noted Extremities Pulses: Normal: Right Posterior Tibial Pulse, Left Posterior Tibial Pulse, RightRadial Pulse and Left Radial Pulse Lower Extremity Edema: None: Bilateral Psych Psychological: normal affect Supplemental Info Supplemental Information Echocardiogram from 11/01/2023: Interpretation Summary Normal LV size. Left ventricular systolic function is normal. The estimated ejection fraction is 65 %. Bileaflet diffuse mitral valve thickening. Mild mitral valve prolapse. Mild (1+) mitral valve insufficiency. Echocardiogram 10/23/2019: Interpretation Summary Normal LV size. Left ventricular systolic function is normal. The estimated ejection fraction is 60 %. Stage 2 diastolic dysfunction. Mild tricuspid valve insufficiency. Stress test from 11/01/2023: Conclusion: Normal exercise myocardial perfusion stress test at a high workload Preserved ejection fraction. Cardiac catheterization 11/03/2020: PROCEDURE(S) PERFORMED WW87-SQV/COR/LV CLINICAL PROFILE AND INDICATIONS Indications: Cardiac Arrhythmia [...] Angiographically normal RIGHT CORONARY ARTERY: Angiographically normal Carotid duplex ultrasound from 09/21/2022: Interpretation Summary Mild (<50%) stenosis right extracranial internal carotid. Mild (<50%) stenosis left extracranial internal carotid. Patent and antegrade vertebrals bilaterally. Assessment and Plan Assessment and Plan (1) Paroxysmal atrial fibrillation: Status: Chronic Comment: JENA occlusion on 01/19/2023 with a 27 mm Watchman device at [facility]; Plan: [id number] score: 2 (age, CAD) (2.2% stroke risk) Atrial fibrillation stage: 3A, paroxysmal left atrial appendage occlusion: 01/19/2023-27 mm Watchman device 12 Lead EC09/27/2024-ventricular paced rhythm at 71 bpm Echocardiogram: 11/01/2023-EF: 65%, mildly enlarged left atrium, mildly enlarged right atrium Heart Rate Control: Metoprolol succinate 50 mg p.o. twice daily Anticoagulation/CVA Protection: Eliquis 5 mg p.o. twice daily Device report on 08/07/2024 showed atrial fibrillation. Per device report, he appears to be in persistent atrial fibrillation since such time. He notes worsening shortness of breath going up stairs and fatigue. He was started on anticoagulation in August 2024. He saw electrophysiology team on 09/25/2024 with agreement to proceed with cardioversion and then return to EP clinic for discussion regarding antiarrhythmic loading with sotalol or Tikosyn or atrial fibrillation ablation. Hopefully with maintaining sinus rhythm, his symptoms improved. Transesophageal echocardiogram on 01/19/2023 showed well-seated Watchman device with no flow around his edges. Post cardioversion, he will remain on Eliquis for 1 month and then ultimately transition back to Aspirin given Watchman device placement. (2) Sick sinus syndrome: Status: Chronic Plan: He is status post permanent pacemaker.. He continue to follow with device clinic. (3) History of permanent cardiac pacemaker placement: Status: Chronic Plan: Device report on 09/12/2024 shows RA pacing 50%, RV pacing 9%, battery life 10 months, persistent AFL/AF, and 17 ventricular high rate episodes. (4) Ventricular tachycardia (paroxysmal): Status: Acute Plan: His most recent pacemaker evaluation shows no true VT/VF episodes. He will continue current medicaltherapy and continue to monitor. He will continue metoprolol. (5) Nonrheumatic mitral (valve) prolapse: Status: Chronic Plan: Echocardiogram in October 2023 showed an ejection fraction of 65%, mild mitral valve prolapse, mild mitral valve insufficiency, and a pulmonary artery systolicpressure 24 mmHg. Overall, this appearsstable. We will continue to monitor. (6) Nonobstructive atherosclerosis of coronary artery: Status: Chronic Plan: Heart catheterization from November 2020 showed moderately severe disease noted in the proximal left anterior descending artery at 60%. Stress test in October 2023 was negative for ischemia at a high workload. Ejection fraction was noted be preserved. Overall, this appears stable. We will continue tomonitor. If maintaining sinus rhythm does not improve his shortness of breath or fatigue, will consider repeat stress test. (7) Hyperlipidemia: Status: Acute Qualifiers: Hyperlipidemia type: mixed hyperlipidemia Qualified Code(s): E78.2 - Mixed hyperlipidemia Plan: This is monitored by PCP. He will continue Atorvastatin 80mg. 11/19/24 1145 Cosigner Signature (if applicable): 11/19/24 0942 CC: JAMES Lawrence; Dr. Curly Young MD; Dr. Simran Woodard DO~ Signed [facility]03-17-2025 [facility] Medical Records Department [address] [place] [address] History Physical Exam 11/19/24 0936 MR#: [id number] Acct: [id number] Name: CASEY FLANAGAN Rep #: [id number] : 1950 74 From: Curly Young MD PCP: Dr. Simran Woodard DO Status:PRE [facility] Location: [facility] History and Physical Date of Admission: 11/20/24 CASEY FLANAGAN, is a 74 M who presents today for cardioversion. He has a history of recurrent syncope and had a loop recorder placed at the [facility]. He had presented over the week with [...] anterior descending artery. He was referred to food clerk, Dr. Lara, for watchman device evaluation due to concerns taking anticoagulation and high fall risk for ongoing dizziness. He proceeded with Watchmen device placement on 01/19/2023. Device evaluation August 2024 showed persistent atrial fibrillation. He is evaluated again with food clerk on 09/25/2024 to further discuss rhythm controlling strategies and recommendation to proceed with cardioversion. He presented previously for such cardioversion and was not to have missed a dosage of Eliquis. His cardioversion was not preformed and he presents today for cardioversion after 4 weeks of anticoagulation. He denies chest, arm, jaw, or neck discomfort. He denies palpitations. He denies bilateral lower extremity edema. He denies claudication. He states intermittent shortness of breath with activity such as going up stairs. He denies shortness of breath at rest, orthopnea, or PND. He denies chronic cough. He denies significant, sudden weight gain. He states lightheadedness when overexerting himself along with near syncope. He denies dizziness or syncope. He denies blood in urine, blood in stool, or epistaxis. He denies fever with chills. He denies myalgia. He states fatigue. His exercise level has remained stable. He has been on Eliquis prior to 2023. Intake Vital Signs: See EMR Intake Visit Reasons: [facility] Soil Technologist Required: No Accompanied by: Is patient in pain?: No Allergies No Known Allergies Allergy (Verified 09/27/24 10:27) Medications: See EMR Ejection fraction %: 65 Have you fallen in the past year?: No PFSH Medical History Pacemaker malfunction Presence of Watchman left atrial appendage closure device (01/19/23) Nonobstructive atherosclerosis of coronary artery COVID-19 virus detected (09/02/20) Ventricular tachycardia (paroxysmal) (10/02/20) Paroxysmal atrial flutter Paroxysmal atrial fibrillation Nonrheumatic mitral (valve) prolapse Sick sinus syndrome Left inguinal hernia BCC (basal cell carcinoma of skin) Carpal tunnel syndrome Anemia History of DVT (deep vein thrombosis) Plantar fasciitis Hypothyroidism Syncope and collapse Atrioventricular block, complete History of traumatic brain injury Surgical History History of right shoulder replacement History of left heart catheterization (11/03/20) History of permanent cardiac pacemaker placement (07/29/17) Hx of left inguinal hernia repair BCC (basal cell carcinoma of skin) History of lateral meniscus repair of left knee History of colonoscopy (2014) History of tonsillectomy Family History Father CAD (coronary artery disease), Onset Age: 65 CABGMother CAD (coronary artery disease) Thyroid disorder PacemakerBrother Heart disease Valve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 You will stay overnight for observation. Patient should continue to take medications as prescribed the morning of the procedure with just a sip of water unless otherwise instructed. LVM for patient, requested call back to confirm. Danika Mejia documented in this encounterMetrohealth [facility] Center03-23-2022 Hospital Discharge instructions Patient Education 11/25/2021 08:35:02 5 - [facility] Post-op Instruction 04/2017 ([id number]) [facility] Post-operative Instructions PLEASE FOLLOW [facility] POST-OP INSTRUCTIONS GIVEN WATCH FOR SIGNS OF INFECTION: call the office ([phone]) if experencing any of the following: (Usually [...] on your follow up instructions. Form: 338A ([id number]) R: 01/09 Follow Up Care 10/20/2021 08:00:28 With:SHAHNAZ HUFFMAN PA-C, Orthopedic, Orthopedic, Orthopedic Address: [facility] [address] [place] [id number]- When:12/07/2021 09:45:00 Comments:This is your post-op appointment. Follow-up as scheduled. With:[facility] Address: [address] [place] [phone] When:12/07/2021 10:00:00 Comments:This is your first physical therapy appointment. Follow-up as scheduled. 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 Paroxysmal atrial fibrillation chronic Paroxysmal atrial flutter ch ronic Sick sinus syndrome chronic Dizziness acute Ventricular tachycardia (paroxysmal) October 02 1 acute 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 29, 2017 chronic Nonobstructive atheroscleros is of coronary artery chronic Nonrheumatic mitral (valve) prolapse chronic Paroxysmal atrial fibrillation chronic Sick sinus syndrome [facility] Work Phone: [phone] Evaluation note* Diagnosis Onset Date Resolution Status Dizziness acute Ventricular tachycardia (paroxysmal) October 02 1 acute 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 29, 2017 chronic Nonobstructive atheroscleros is of coronary artery chronic Nonrheumatic mitral (valve) prolapse chronic Paroxysmal atrial fibrillation chronic Sick sinus syndrome chronic Ventricular tachycardia (paroxysmal) October 02 1 acute Atrioventricular block, complete chronic 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 29, 2017 chronic Paroxysmal atrial fibrillation chronic Paroxysmal atrial flutter ch ronic Sick sinus syndrome [facility] Work Phone: Evaluation + Plan note Future Appointments [facility] Evaluation note* Diagnosis Paroxysmal atrial fibrillation (HCC)- Primary Atrial fibrillation S/P placement of cardiac pacemaker Cardiac pacemaker in situ Syncope, unspecified syncope type At risk for stroke Other specified personal history presenting hazards to health Paroxysmal atrial fibrillation (HCC) Atrial fibrillation documented in this encounter [facility] note* Diagnosis Presence of Watchman left atrial appendage closure device- Primary documented in this encounter [facility] note* Diagnosis Paroxysmal atrial fibrillation (HCC)- Primary Atrial fibrillation Encounter for care of pacemaker AV block, complete (HCC) Atrioventricular block, complete Presence of Watchman left atrial appendage closure device Dizziness Dizziness and giddiness Syncope, unspecified syncope type At risk for stroke Other specified personal history presenting hazards to health documented in this encounter [facility] note* Diagnosis Persistent atrial fibrillation (HCC)- Primary Atrial fibrillation Sinus bradycardia Other specified cardiac dysrhythmias S/P placement of cardiac pacemaker Cardiac pacemaker in situ Presence of Watchman left atrial appendage closure device documented in this encounter [facility] note* Diagnosis Paroxysmal atrial fibrillation (HCC)- Primary Atrial fibrillation AV block, complete (HCC) Atrioventricular block, complete S/P placement of cardiac pacemaker Cardiac pacemaker in situ Presence of Watchman left atrial appendage closure device documented in this encounter [facility] noteNo assessment information availableK[facility] Work Phone: Evaluqjzwh note* Diagnosis Atrial fibrillation, persistent (HCC)- Primary Atrial fibrillation documented in this encounter [facility] course Narrative No data available for this section [facility] Hospital Discharge instructions No data available for this section [facility] Instructions* Name Dates Details Patient Instructions Indication:Encounter for gynecological examination without abnormal finding Start:15-Jun-2021 Instruction Type:Provider Instructions for Treatment How to Access Health Informa tion Online using Patient Portal and [employer] Apps Indication:Encounter for gynecological examination without abnormal finding Start:15-Jun-2021 Instruction Type:Patient Education Patient Instructions Indication:BMI 24.0-24.9, adult Start:04-Jun-2021 Instruction Type:Provider Instructions for Treatment How to Access Health Informa tion Online using Patient Portal and [employer] Indication:BMI 24.0-24.9, adult Start:04-Jun-2021 Instruction Type:Patient Education Patient Instructions Indication:BMI 26.0-26.9,adult Start:27-May-2021 Instruction Type:Provider Instructions for Treatment How to Access Health Informa tion Online using Patient Portal and [employer] Indication:BMI 26.0-26.9,adult Start:27-May-2021 Instruction Type:Patient Education Patient Instructions Indication:Current nonsmoker (Renamed from Current non-smoker) Start:08-Sep-2020 Instruction Type:Provider Instructions for Treatment How to Access Health Informa tion Online using Patient Portal and [employer] Indication:Current nonsmoker (Renamed from Current non-smoker) [...] Informa tion Online using Patient Portal and [employer] Apps Indication:Current nonsmoker (Renamed from Current non-smoker) Start:25-Sep-2021 Instruction Type:Patient Education Patient Instructions Indication:Encounter for gynecological examination without abnormal finding Start:15-Jun-2021 Instruction Type:Provider Instructions for Treatment How to Access Health Informa tion Online using Patient Portal and [employer] Indication:Encounter for gynecological examination without abnormal finding Start:15-Jun-2021 Instruction Type:Patient Education Patient Instructions Indication:BMI 24.0-24.9, adult Start:04-Jun-2021 Instruction Type:Provider Instructions for Treatment How to Access Health Informa tion Online using Patient Portal and [employer] Apps Indication:BMI 24.0-24.9, adult Start:04-Jun-2021 Instruction Type:Patient Education Patient Instructions Indication:BMI 26.0-26.9,adult Start:27-May-2021 Instruction Type:Provider Instructions for Treatment How to Access Health Informa tion Online using Patient Portal and [employer] Apps Indication:BMI 26.0-26.9,adult Start:27-May-2021 Instruction Type:Patient Education Patient Instructions Indication:Current nonsmoker (Renamed from Current non-smoker) Start:08-Sep-2020 Instruction Type:Provider Instructions for Treatment How to Access Health Informa tion Online using Patient Portal and [employer] Apps Indication:Current nonsmoker (Renamed from Current non-smoker) [...] tion Online using Patient Portal and [employer] Indication:Current nonsmoker (Renamed from Current non-smoker) Start:25-Sep-2021 Instruction Type:Patient Education Patient Instructions Indication:Encounter for gynecological examination without abnormal finding Start:15-Jun-2021 Instruction Type:Provider Instructions for Treatment How to Access Health Informa tion Online using Patient Portal and [employer] Indication:Encounter for gynecological examination without abnormal finding Start:15-Jun-2021 Instruction Type:Patient Education Patient Instructions Indication:BMI 24.0-24.9, adult Start:04-Jun-2021 Instruction Type:Provider Instructions for Treatment How to Access Health Informa tion Online using Patient Portal and [employer] Apps Indication:BMI 24.0-24.9, adult Start:04-Jun-2021 Instruction Type:Patient Education Patient Instructions Indication:BMI 26.0-26.9,adult Start:27-May-2021 Instruction Type:Provider Instructions for Treatment How to Access Health Informa tion Online using Patient Portal and [employer] Apps Indication:BMI 26.0-26.9,adult Start:27-May-2021 Instruction Type:Patient Education Patient Instructions Indication:Current nonsmoker (Renamed from Current non-smoker) Start:08-Sep-2020 Instruction Type:Provider Instructions for Treatment How to Access Health Informa tion Online using Patient Portal and [employer] Apps Indication:Current nonsmoker (Renamed from Current non-smoker) [...] Informa tion Online using Patient Portal and [employer] Apps Indication:Preop examination Start:02-Nov-2021 Instruction Type:Patient Education Patient Instructions Indication:Current nonsmoker (Renamed from Current non-smoker) Start:25-Sep-2021 Instruction Type:Provider Instructions for Treatment How to Access Health Informa tion Online using Patient Portal and [employer] Apps Indication:Current nonsmoker (Renamed from Current non-smoker) Start:25-Sep-2021 Instruction Type:Patient Education Patient Instructions Indication:Encounter for gynecological examination without abnormal finding Start:15-Jun-2021 Instruction Type:Provider Instructions for Treatment How to Access Health Informa tion Online using Patient Portal and [employer] Apps Indication:Encounter for gynecological examination without abnormal finding Start:15-Jun-2021 Instruction Type:Patient Education Patient Instructions Indication:BMI 24.0-24.9, adult Start:04-Jun-2021 Instruction Type:Provider Instructions for Treatment How to Access Health Informa tion Online using Patient Portal and [employer] Indication:BMI 24.0-24.9, adult Start:04-Jun-2021 Instruction Type:Patient Education Patient Instructions Indication:BMI 26.0-26.9,adult Start:27-May-2021 Instruction Type:Provider Instructions for Treatment How to Access Health Informa tion Online using Patient Portal and [employer] Indication:BMI 26.0-26.9,adult Start:27-May-2021 Instruction Type:Patient Education Patient Instructions Indication:Current nonsmoker (Renamed from Current non-smoker) Start:08-Sep-2020 Instruction Type:Provider Instructions for Treatment How to Access Health Informa tion Online using Patient Portal and [employer] Indication:Current nonsmoker (Renamed from Current non-smoker) [...] Informa tion Online using Patient Portal and [employer] Indication:Preop examination Start:02-Nov-2021 Instruction Type:Patient Education Patient Instructions Indication:Current nonsmoker (Renamed from Current non-smoker) Start:25-Sep-2021 Instruction Type:Provider Instructions for Treatment How to Access Health Informa tion Online using Patient Portal and [employer] Indication:Current nonsmoker (Renamed from Current non-smoker) Start:25-Sep-2021 Instruction Type:Patient Education Patient Instructions Indication:Encounter for gynecological examination without abnormal finding Start:15-Jun-2021 Instruction Type:Provider Instructions for Treatment How to Access Health Informa tion Online using Patient Portal and [employer] Indication:Encounter for gynecological examination without abnormal finding Start:15-Jun-2021 Instruction Type:Patient Education Patient Instructions Indication:BMI 24.0-24.9, adult Start:04-Jun-2021 Instruction Type:Provider Instructions for Treatment How to Access Health Informa tion Online using Patient Portal and [employer] Indication:BMI 24.0-24.9, adult Start:04-Jun-2021 Instruction Type:Patient Education Patient Instructions Indication:BMI 26.0-26.9,adult Start:27-May-2021 Instruction Type:Provider Instructions for Treatment How to Access Health Informa tion Online using Patient Portal and [employer] Indication:BMI 26.0-26.9,adult Start:27-May-2021 Instruction Type:Patient Education Patient Instructions Indication:Current nonsmoker (Renamed from Current non-smoker) Start:08-Sep-2020 Instruction Type:Provider Instructions for Treatment How to Access Health Informa tion Online using Patient Portal and [employer] Indication:Current nonsmoker (Renamed from Current non-smoker) [...] tion Online using Patient Portal and [employer] Indication:Preop examination Start:02-Nov-2021 Instruction Type:Patient Education Patient Instructions Indication:Current nonsmoker (Renamed from Current non-smoker) Start:25-Sep-2021 Instruction Type:Provider Instructions for Treatment How to Access Health Informa tion Online using Patient Portal and [employer] Apps Indication:Current nonsmoker (Renamed from Current non-smoker) Start:25-Sep-2021 Instruction Type:Patient Education Patient Instructions Indication:Encounter for gynecological examination without abnormal finding Start:15-Jun-2021 Instruction Type:Provider Instructions for Treatment How to Access Health Informa tion Online using Patient Portal and [employer] Apps Indication:Encounter for gynecological examination without abnormal finding Start:15-Jun-2021 Instruction Type:Patient Education Patient Instructions Indication:BMI 24.0-24.9, adult Start:04-Jun-2021 Instruction Type:Provider Instructions for Treatment How to Access Health Informa tion Online using Patient Portal and [employer] Indication:BMI 24.0-24.9, adult Start:04-Jun-2021 Instruction Type:Patient Education Patient Instructions Indication:BMI 26.0-26.9,adult Start:27-May-2021 Instruction Type:Provider Instructions for Treatment How to Access Health Informa tion Online using Patient Portal and [employer] Indication:BMI 26.0-26.9,adult Start:27-May-2021 Instruction Type:Patient Education Patient Instructions Indication:Current nonsmoker (Renamed from Current non-smoker) Start:08-Sep-2020 Instruction Type:Provider Instructions for Treatment How to Access Health Informa tion Online using Patient Portal and [employer] Indication:Current nonsmoker (Renamed from Current non-smoker) [...] tion Online using Patient Portal and [employer] Indication:Preop examination Start:02-Nov-2021 Instruction Type:Patient Education Patient Instructions Indication:Current nonsmoker (Renamed from Current non-smoker) Start:25-Sep-2021 Instruction Type:Provider Instructions for Treatment How to Access Health Informa tion Online using Patient Portal and [employer] Indication:Current nonsmoker (Renamed from Current non-smoker) Start:25-Sep-2021 Instruction Type:Patient Education Patient Instructions Indication:Encounter for gynecological examination without abnormal finding Start:15-Jun-2021 Instruction Type:Provider Instructions for Treatment How to Access Health Informa tion Online using Patient Portal and [employer] Indication:Encounter for gynecological examination without abnormal finding Start:15-Jun-2021 Instruction Type:Patient Education Patient Instructions Indication:BMI 24.0-24.9, adult Start:04-Jun-2021 Instruction Type:Provider Instructions for Treatment How to Access Health Informa tion Online using Patient Portal and [employer] Indication:BMI 24.0-24.9, adult Start:04-Jun-2021 Instruction Type:Patient Education Patient Instructions Indication:BMI 26.0-26.9,adult Start:27-May-2021 Instruction Type:Provider Instructions for Treatment How to Access Health Informa tion Online using Patient Portal and [employer] Indication:BMI 26.0-26.9,adult Start:27-May-2021 Instruction Type:Patient Education Patient Instructions Indication:Current nonsmoker (Renamed from Current non-smoker) Start:08-Sep-2020 Instruction Type:Provider Instructions for Treatment How to Access Health Informa tion Online using Patient Portal and [employer] Indication:Current nonsmoker (Renamed from Current non-smoker) [...] tion Online using Patient Portal and [employer] Indication:Erectile dysfunction, unspecified erectile dysfunction type Start:15-Oct-2022 Instruction Type:Patient Education Patient Instructions Indication:Preop examination Start:02-Nov-2021 Instruction Type:Provider Instructions for Treatment How to Access Health Informa tion Online using Patient Portal and [employer] Indication:Preop examination Start:02-Nov-2021 Instruction Type:Patient Education Patient Instructions Indication:Current nonsmoker (Renamed from Current non-smoker) Start:25-Sep-2021 Instruction Type:Provider Instructions for Treatment How to Access Health Informa tion Online using Patient Portal and [employer] Indication:Current nonsmoker (Renamed from Current non-smoker) Start:25-Sep-2021 Instruction Type:Patient Education Patient Instructions Indication:Encounter for gynecological examination without abnormal finding Start:15-Jun-2021 Instruction Type:Provider Instructions for Treatment How to Access Health Informa tion Online using Patient Portal and [employer] Indication:Encounter for gynecological examination without abnormal finding Start:15-Jun-2021 Instruction Type:Patient Education Patient Instructions Indication:BMI 24.0-24.9, adult Start:04-Jun-2021 Instruction Type:Provider Instructions for Treatment How to Access Health Informa tion Online using Patient Portal and [employer] Indication:BMI 24.0-24.9, adult Start:04-Jun-2021 Instruction Type:Patient Education Patient Instructions Indication:BMI 26.0-26.9,adult Start:27-May-2021 Instruction Type:Provider Instructions for Treatment How to Access Health Informa tion Online using Patient Portal and [employer] Indication:BMI 26.0-26.9,adult Start:27-May-2021 Instruction Type:Patient Education Patient Instructions Indication:Current nonsmoker (Renamed from Current non-smoker) Start:08-Sep-2020 Instruction Type:Provider Instructions for Treatment How to Access Health Informa tion Online using Patient Portal and [employer] Indication:Current nonsmoker (Renamed from Current non-smoker) [...] Informa tion Online using Patient Portal and [employer] Indication:BMI 25.0-25.9,adult Start:28-Oct-2022 Instruction Type:Patient Education Patient Instructions Indication:Erectile dysfunction, unspecified erectile dysfunction type Start:15-Oct-2022 Instruction Type:Provider Instructions for Treatment How to Access Health Informa tion Online using Patient Portal and [employer] Indication:Erectile dysfunction, unspecified erectile dysfunction type Start:15-Oct-2022 Instruction Type:Patient Education Patient Instructions Indication:Preop examination Start:02-Nov-2021 Instruction Type:Provider Instructions for Treatment How to Access Health Informa tion Online using Patient Portal and [employer] Indication:Preop examination Start:02-Nov-2021 Instruction Type:Patient Education Patient Instructions Indication:Current nonsmoker (Renamed from Current non-smoker) Start:25-Sep-2021 Instruction Type:Provider Instructions for Treatment How to Access Health Informa tion Online using Patient Portal and [employer] Indication:Current nonsmoker (Renamed from Current non-smoker) Start:25-Sep-2021 Instruction Type:Patient Education Patient Instructions Indication:Encounter for gynecological examination without abnormal finding Start:15-Jun-2021 Instruction Type:Provider Instructions for Treatment How to Access Health Informa tion Online using Patient Portal and [employer] Indication:Encounter for gynecological examination without abnormal finding Start:15-Jun-2021 Instruction Type:Patient Education Patient Instructions Indication:BMI 24.0-24.9, adult Start:04-Jun-2021 Instruction Type:Provider Instructions for Treatment How to Access Health Informa tion Online using Patient Portal and [employer] Indication:BMI 24.0-24.9, adult Start:04-Jun-2021 Instruction Type:Patient Education Patient Instructions Indication:BMI 26.0-26.9,adult Start:27-May-2021 Instruction Type:Provider Instructions for Treatment How to Access Health Informa tion Online using Patient Portal and [employer] Indication:BMI 26.0-26.9,adult Start:27-May-2021 Instruction Type:Patient Education Patient Instructions Indication:Current nonsmoker (Renamed from Current non-smoker) Start:08-Sep-2020 Instruction Type:Provider Instructions for Treatment How to Access Health Informa tion Online using Patient Portal and [employer] Indication:Current nonsmoker (Renamed from Current non-smoker) [...] Informa tion Online using Patient Portal and [employer] Indication:BMI 25.0-25.9,adult Start:28-Oct-2022 Instruction Type:Patient Education Patient Instructions Indication:Erectile dysfunction, unspecified erectile dysfunction type Start:15-Oct-2022 Instruction Type:Provider Instructions for Treatment How to Access Health Informa tion Online using Patient Portal and [employer] Indication:Erectile dysfunction, unspecified erectile dysfunction type Start:15-Oct-2022 Instruction Type:Patient Education Patient Instructions Indication:Preop examination Start:02-Nov-2021 Instruction Type:Provider Instructions for Treatment How to Access Health Informa tion Online using Patient Portal and [employer] Indication:Preop examination Start:02-Nov-2021 Instruction Type:Patient Education Patient Instructions Indication:Current nonsmoker (Renamed from Current non-smoker) Start:25-Sep-2021 Instruction Type:Provider Instructions for Treatment How to Access Health Informa tion Online using Patient Portal and [employer] Indication:Current nonsmoker (Renamed from Current non-smoker) Start:25-Sep-2021 Instruction Type:Patient Education Patient Instructions Indication:Encounter for gynecological examination without abnormal finding Start:15-Jun-2021 Instruction Type:Provider Instructions for Treatment How to Access Health Informa tion Online using Patient Portal and [employer] Indication:Encounter for gynecological examination without abnormal finding Start:15-Jun-2021 Instruction Type:Patient Education Patient Instructions Indication:BMI 24.0-24.9, adult Start:04-Jun-2021 Instruction Type:Provider Instructions for Treatment How to Access Health Informa tion Online using Patient Portal and [employer] Indication:BMI 24.0-24.9, adult Start:04-Jun-2021 Instruction Type:Patient Education Patient Instructions Indication:BMI 26.0-26.9,adult Start:27-May-2021 Instruction Type:Provider Instructions for Treatment How to Access Health Informa tion Online using Patient Portal and [employer] Indication:BMI 26.0-26.9,adult Start:27-May-2021 Instruction Type:Patient Education Patient Instructions Indication:Current nonsmoker (Renamed from Current non-smoker) Start:08-Sep-2020 Instruction Type:Provider Instructions for Treatment How to Access Health Informa tion Online using Patient Portal and [employer] Indication:Current nonsmoker (Renamed from Current non-smoker) [...] tion Online using Patient Portal and [employer] Indication:BMI 25.0-25.9,adult Start:28-Oct-2022 Instruction Type:Patient Education Patient Instructions Indication:Erectile dysfunction, unspecified erectile dysfunction type Start:15-Oct-2022 Instruction Type:Provider Instructions for Treatment How to Access Health Informa tion Online using Patient Portal and [employer] Indication:Erectile dysfunction, unspecified erectile dysfunction type Start:15-Oct-2022 Instruction Type:Patient Education Patient Instructions Indication:Preop examination Start:02-Nov-2021 Instruction Type:Provider Instructions for Treatment How to Access Health Informa tion Online using Patient Portal and [employer] Indication:Preop examination Start:02-Nov-2021 Instruction Type:Patient Education Patient Instructions Indication:Current nonsmoker (Renamed from Current non-smoker) Start:25-Sep-2021 Instruction Type:Provider Instructions for Treatment How to Access Health Informa tion Online using Patient Portal and [employer] Indication:Current nonsmoker (Renamed from Current non-smoker) Start:25-Sep-2021 Instruction Type:Patient Education Patient Instructions Indication:Encounter for gynecological examination without abnormal finding Start:15-Jun-2021 Instruction Type:Provider Instructions for Treatment How to Access Health Informa tion Online using Patient Portal and [employer] Indication:Encounter for gynecological examination without abnormal finding Start:15-Jun-2021 Instruction Type:Patient Education Patient Instructions Indication:BMI 24.0-24.9, adult Start:04-Jun-2021 Instruction Type:Provider Instructions for Treatment How to Access Health Informa tion Online using Patient Portal and [employer] Indication:BMI 24.0-24.9, adult Start:04-Jun-2021 Instruction Type:Patient Education Patient Instructions Indication:BMI 26.0-26.9,adult Start:27-May-2021 Instruction Type:Provider Instructions for Treatment How to Access Health Informa tion Online using Patient Portal and [employer] Indication:BMI 26.0-26.9,adult Start:27-May-2021 Instruction Type:Patient Education Patient Instructions Indication:Current nonsmoker (Renamed from Current non-smoker) Start:08-Sep-2020 Instruction Type:Provider Instructions for Treatment How to Access Health Informa tion Online using Patient Portal and [employer] Indication:Current nonsmoker (Renamed from Current non-smoker) [...] Internal Medicine; [facility] Work Phone: reason for referral (narrative)No reason for referral [facility]: Summary Purpose Family History No Family History Records Found Relationship Condition Age at Onset Recorded Date/T jalen father Coronary artery disease 65 mother Coronary artery disease Unknown Disorder of thyroid Unknown Presence of cardiac pacemaker Unknown brother Cardiac disease Unknown Advance Directives No Advanced Directives Records Found Name Dates Details Immunization Registry [place] - Effective on 06/16/2021. Expiration date unspecified Effective:16-Jun-2021 Name Dates Details Immunization Registry [place] - Effective on 06/16/2021. Expiration date unspecified Effective:16-Jun-2021 Name Dates Details Immunization Registry [place] - Effective on 06/16/2021. Expiration date unspecified Effective:16-Jun-2021 Name Dates Details Immunization Registry [place] - Effective on 06/16/2021. Expiration date unspecified Effective:16-Jun-2021 Name Dates Details Immunization Registry [place] - Effective on 06/16/2021. Expiration date unspecified Effective:16-Jun-2021 Name Dates Details Immunization Registry [place] - Effective on 06/16/2021. Expiration date unspecified Effective:16-Jun-2021 Name Dates Details Immunization Registry [place] - Effective on 06/16/2021. Expiration date unspecified Effective:16-Jun-2021 Advance Directive Response Recorded Date/ Time Advance Directives Yes November 03 9:14am Living Will Yes November 03, 2020 9:14am Power of Photographic Laboratory Technician Yes November 03 9:14am Name Dates Details Immunization Registry [place] - Effective on 06/16/2021. Expiration date unspecified Effective:16-Jun-2021 Name Dates Details Immunization Registry [place] - Effective on 06/16/2021. Expiration date unspecified Effective:16-Jun-2021 Name Dates Details Immunization Registry [place] - Effective on 06/16/2021. Expiration date unspecified Effective:16-Jun-2021 Name Dates Details Immunization Registry [place] - Effective on 06/16/2021. Expiration date unspecified Effective:16-Jun-2021 Advance Directive Response Recorded Date/ Time Advance Directives on File Yes November 20, 2024 9:52am Living Will Yes November 20, 2024 9:52am Power of Photographic Laboratory Technician Yes November 20 9:52am Name of Medical Power of Photographic Laboratory Technician Thu Flanagan - November 20, 2024 9:52am Advance Directives Yes November 20, 9:52am Advance Directive Response Recorded Date/ Time Living Will Yes November 03, 2020 10:14am Do you have a Healthcare Pow er of Photographic Laboratory Technician? Yes November 03, 2020 10:14am Advance Directives on File Yes November 20, 2024 9:52am Living Will Yes November 20, 2024 9:52am Do you have a Healthcare Pow er of Photographic Laboratory Technician? Yes November 20, 2024 9:52am Name of Medical Power of Photographic Laboratory Technician Thu Olivaresumley - November 20, 2024 9:52am Advance Directives Yes November 20 9:52am Advance Directive Response Recorded Date/ Time Living Will Yes November 03, 2020 10:14am Do you have a Healthcare Pow er of Photographic Laboratory Technician? Yes November 03, 2020 10:14am Advance Directives on File Yes November 20, 2024 9:52am Living Will Yes November 20, 2024 9:52am Do you have a Healthcare Pow er of Photographic Laboratory Technician? Yes November 20, 2024 9:52am Name of Medical Power of Photographic Laboratory Technician Thu Masha - November 20, 2024 9:52am Advance Directives on File Yes December 17, 2024 11:12am Living Will Yes December 17, 2024 11:12am Do you have a Healthcare Pow er of Photographic Laboratory Technician? Yes December 17, 2024 11:12am Name of Medical Power of Photographic Laboratory Technician Thu December 17, 2024 11:12am Advance Directives Yes December 17 11:12am Advance Directive Response Recorded Date/ Time Advance Directives Yes December 17 11:12am Instructions Name Dates Details Current nonsmoker (Renamed [...] Informa tion Online using Patient Portal and [employer] Apps Indication:Current nonsmoker (Renamed from Current non-smoker) [...] Informa tion Online using Patient Portal and [employer] Apps Indication:Current nonsmoker (Renamed from Current non-smoker) [...] non-smoker) Flu-like symptoms : How to a [employer] health information online Indication:Flu-like symptoms Flu-like symptoms : How to a [employer] health information online - Detail Indication:Flu-like symptoms [...] Informa tion Online using Patient Portal and [employer] Apps Indication:Current nonsmoker (Renamed from Current non-smoker) [...] Informa tion Online using Patient Portal and [employer] Apps Indication:Current nonsmoker (Renamed from Current non-smoker) [...] Indication:Hypothyroidism Start:29-Mar-2013 Instruction Type:Provider Instructions for Treatment Chief Complaint and Reason for Visit Chief Complaint 3 mos remote PPM f/u PER [facility], WATCHMAN DIZZINESS Amb Documentation Reason for Visit Ventricular tachycar kaye (paroxysmal) Atrioventricular block, complete History of permanent cardiac pacemaker placement Paroxysmal atrial fibrillation Paroxysmal atrial flutter Sick sinus syndrome Dizziness Ventricular tachycardia (paroxysmal) History of permanent cardiac pacemaker placement Nonobstructive atherosclerosis of coronary artery Nonrheumatic mitral (valve) prolapse Paroxysmal atrial fibrillation Sick sinus syndrome Chief Complaint XRAY Pacer Check Remote 1 Y FU Pacer Check Remote Pacer Check Remote ATRIAL LEAD ISSUE DYSPNEA; CAD Amb Documentation Reason for Visit Dizziness Ventricular tachycardia (paroxysmal) History of permanent cardiac pacemaker placement Nonobstructive atherosclerosis of coronary artery Nonrheumatic mitral (valve) prolapse Paroxysmal atrial fibrillation Sick sinus syndrome Ventricular tachycardia (paroxysmal) Atrioventricular block, complete History of permanent cardiac pacemaker placement Paroxysmal atrial fibrillation Paroxysmal atrial flutter Sick sinus syndrome Chief Complaint Admit Date Pacer Check Remote August 07, 2024 9 :27pm Pacer Check Remote August 25, 2024 3:01am Pacer Check Remote September 06, 2024 3: 01am Pacer Check Remote September 12, 2024 3: 01am Discuss DCCV, pt started Tavo 4 September 27, 2024 9:55am E-ORDER September 27, 2024 1 2:04pm Pacer Check Remote October 16, 2024 3:01am ATRIAL Fibrillation November 19, 2024 9:3 6am ATRIAL Fibrillation November 20, 2024 9:2 9am ATRIAL Fibrillation November 20, 2024 11: 30am ATRIAL Fibrillation November 20, 2024 11: 35am Reason for Visit Admit Date Hyperlipidemia September 27, 2024 9 :55am Ventricular tachycardia (paroxysmal) Ashok jolenestephanie 2024 9:55am History of permanent cardiac pacemaker p lacement September 27, 2024 9:55am Nonobstructive atherosclerosis of heath ry artery September 27, 2024 9:55am Nonrheumatic mitral (valve) prolapse [facility] 2024 9:55am Paroxysmal atrial fibrillation September 062024 9:55am Sick sinus syndrome September 27, 2024 9 :55am Paroxysmal atrial fibrillation November 9:29am Chief Complaint Admit Date Pacer Check Remote August 25, 2024 3:01am Pacer Check Remote September 06, 2024 3: 01am Pacer Check Remote September 12, 2024 3: 01am Discuss DCCV, pt started Eliquis 4 September 27, 2024 9:55am E-ORDER September 27, 2024 1 2:04pm Pacer Check Remote October 16, 2024 3:01am ATRIAL Fibrillation November 19, 2024 9:3 6am ATRIAL Fibrillation November 20, 2024 9:2 9am ATRIAL Fibrillation November 20, 2024 11: 30am ATRIAL Fibrillation November 20, 2024 11: 35am 1 Y FU/PAULY @ 10 December 04, 2024 9:28 am Schedule gen change/MMM @ 9:30 December 9:32am Reason for Visit Admit Date Hyperlipidemia September 27, 2024 9 :55am Ventricular tachycardia (paroxysmal) [facility] 2024 9:55am History of permanent cardiac pacemaker p lacement September 27, 2024 9:55am Nonobstructive atherosclerosis of heath ry artery September 27, 2024 9:55am Nonrheumatic mitral (valve) prolapse [facility] 2024 9:55am Paroxysmal atrial fibrillation September 062024 9:55am Sick sinus syndrome September 27, 2024 9 :55am Paroxysmal atrial fibrillation November 9:29am Hyperlipidemia December 04, 2024 9:28 am Ventricular tachycardia (paroxysmal) Dec 9:28am History of permanent cardiac pacemaker p lacement December 04, 2024 9:28am Nonobstructive atherosclerosis of heath ry artery December 04, 2024 9:28am Nonrheumatic mitral (valve) prolapse Dec 9:28am Paroxysmal atrial fibrillation December 9:28am Sick sinus syndrome December 04, 2024 9:28 am Pacemaker malfunction December 04, 2024 9: 32am Atrioventricular block, complete December 042024 9:32am History of permanent cardiac pacemaker p lacement December 04, 2024 9:32am Paroxysmal atrial fibrillation December 9:32am Paroxysmal atrial flutter December 04 9:32am Presence of Watchman left atrial appenda ge closure device December 04, 2024 9:32am Sick sinus syndrome December 04, 2024 9:32 am Chief Complaint Admit Date Pacer Check Remote August 25, 2024 3:01am Pacer Check Remote September 06, 2024 3: 01am Pacer Check Remote September 12, 2024 3: 01am Discuss DCCV, pt started Eliquis 4 September 27, 2024 9:55am E-ORDER September 27, 2024 1 2:04pm Pacer Check Remote October 16, 2024 3:01am ATRIAL Fibrillation November 19, 2024 9:3 6am ATRIAL Fibrillation November 20, 2024 9:2 9am ATRIAL Fibrillation November 20, 2024 11: 30am ATRIAL Fibrillation November 20, 2024 11: 35am Pacer Check Remote December 04, 2024 9:00 am 1 Y FU/PAULY @ 10 December 04, 2024 9:28 am Schedule gen change/MMM @ 9:30 December 9:32am GENERATOR CHANGE DUAL CHAMBER December 10:43am Chief Complaint Admit Date Pacer Check Remote December 25, 2024 9:0 0am 1 wk s/p PPM generator change December 10:13am Pacer Check Remote April 01, 2025 4:42 am Reason for Visit Admit Date Atrioventricular block, complete December 052024 10:13am History of permanent cardiac pacemaker p lacement December 25, 2024 10:13am Sick sinus syndrome December 25, 2024 10: 13am Pacemaker malfunction December 25, 2024 1 0:13am Chief Complaint Admit Date Pacer Check Remote April 01, 2025 4:42 am Pacer Check Remote May 08, 2025 8:11am Pacer Check Remote May 12, 2025 4:41am Reason for Referral Specialty Diagnoses / Procedures Referred By Ugo quinonez Referred To Contact Diagnoses Dizziness Syncope, unspecified syncope type Procedures CONSULT TO SYNCOPE CLINIC OFFICE/OUTPATIENT [facility] 60-74 MINUTES Jocelin Anderson, JIGGER MACHINE OPERATOR.REGULATOR MECHANIC [address] [place] [address] Referral ID Status Reason Start Date Expiration Date Visits Requested Visits Authorized [id number] Pending Review PCP Requested Referral 3 07/26/2024 1 1 Additional Source Comments (unrecognized sect ion and content) No Status Records FoundNo Status Records FoundNo Status Records FoundNo Status Records FoundNo Status Records FoundNo Status Records Found INFORMATION SOURCE (unrecogn ized section and content) DATE CREATED AUTHOR 02/28/2018 [facility] DATE CREATED AUTHOR AUTHOR'S ORGANIZ ATION 12/04/2021 [facility] ([place]) DATE CREATED AUTHOR AUTHOR'S ORGANIZ ATION 10/15/2022 [facility] DATE CREATED AUTHOR AUTHOR'S ORGANIZ ATION 08/23/2024 [facility] DATE CREATED AUTHOR AUTHOR'S ORGANIZ ATION 07/12/2025 [facility] DATE CREATED AUTHOR AUTHOR'S ORGANIZ ATION 07/16/2025 [facility] Source Comments (unrecognize d section and content) In the event this informatio n is protected by the Federal Confidentiality of Alcohol and Drug Abuse Patient Records regulations: The Federal rules restrict any use of the information to criminally investigate or prosecute any alcohol or drug abuse patient.[facility] the event this information is protected by the Federal Confidentiality of Alcohol and Drug Abuse Patient Records regulations: The Federal rules restrict any use of the information to criminally investigate or prosecute any alcohol or drug abuse patient.[facility] the event this information is protected by the Federal Confidentiality of Alcohol and Drug Abuse Patient Records regulations: The Federal rules restrict any use of the information to criminally investigate or prosecute any alcohol or drug abuse patient.[facility] the event this information is protected by the Federal Confidentiality of Alcohol and Drug Abuse Patient Records regulations: The Federal rules restrict any use of the information to criminally investigate or prosecute any alcohol or drug abuse patient.[facility] the event this information is protected by the Federal Confidentiality of Alcohol and Drug Abuse Patient Records regulations: The Federal rules restrict any use of the information to criminally investigate or prosecute any alcohol or drug abuse patient.[facility] the event this information is protected by the Federal Confidentiality of Alcohol and Drug Abuse Patient Records regulations: The Federal rules restrict any use of the information to criminally investigate or prosecute any alcohol or drug abuse patient.[facility] the event this information is protected by the Federal Confidentiality of Alcohol and Drug Abuse Patient Records regulations: The Federal rules restrict any use of the information to criminally investigate or prosecute any alcohol or drug abuse patient.[facility] Center[facility] the event this information is protected by the Federal Confidentiality of Alcohol and Drug Abuse Patient Records regulations: The Federal rules restrict any use of the information to criminally investigate or prosecute any alcohol or drug abuse patient.[facility] Center[facility] the event this information is protected by the Federal Confidentiality of Alcohol and Drug Abuse Patient Records regulations: The Federal rules restrict any use of the information to criminally investigate or prosecute any alcohol or drug abuse patient.[facility] Center[facility] the event this information is protected by the Federal Confidentiality of Alcohol and Drug Abuse Patient Records regulations: The Federal rules restrict any use of the information to criminally investigate or prosecute any alcohol or drug abuse patient.[facility] Center[facility] the event this information is protected by the Federal Confidentiality of Alcohol and Drug Abuse Patient Records regulations: The Federal rules restrict any use of the information to criminally investigate or prosecute any alcohol or drug abuse patient.[facility] Center[facility] the event this information is protected by the Federal Confidentiality of Alcohol and Drug Abuse Patient Records regulations: The Federal rules restrict any use of the information to criminally investigate or prosecute any alcohol or drug abuse patient.[facility] CenterIn the event this information is protected by the Federal Confidentiality of Alcohol and Drug Abuse Patient Records regulations: The Federal rules restrict any use of the information to criminally investigate or prosecute any alcohol or drug abuse patient.[facility] Reason for Visit (unrecogniz ed section and content) Reason Comments Preparations For Procedures Watchman Dev ice Reason Comments Preparations For Procedures Reason Comments Cardiology Follow Up PAF Reason Comments Patient Update Reason Comments Orders Reason Comments CARD Follow Up 6 Month Reason Comments Document Design Specialist - Other Reason Comments Cardiology Follow Up Discuss afib/medica tion Reason Comments CARD Follow Up 6 Month FOLLOW UP TO PAF Care Teams (unrecognized sec tion and content) Rat Culturist Relationship Specialty Start Date End Date Simran Woodard DO PCP - General Internal Medicine 08/31/12 Team Status: Active Member Role Status Dates Dr. Simran Woodard DO Family Provider Active Dr. Simran Woodard DO Primary Care Provider Active Team Status: Inactive Member Role Status Dates Dr. Simran Woodard DO Primary Care Provider Active Cinda Krause Active Dr. Curly Young MD Attending Provider, Referring Pro vider Active Team Status: Inactive Member Role Status Dates Dr. Simran Woodard DO Primary Care Provider, Referr ing Provider Active Prospre Lawrence SEASONAL RECRUITER, SEASONAL RECRUITER-C Attending Provider Active Team Status: Active Member Role Status Dates Dr. Simran Woodard DO Primary Care Provider Active Dr. Onofre Jean MD Attending Provider Active Team Status: Active Member Role Status Dates Dr. Simran Woodard DO Primary Care Provider Active Prosper Lawrence SEASONAL RECRUITER, SEASONAL RECRUITER-C Attending Provider Active Team Status: Inactive Member Role Status Dates Dr. Simran Woodard DO Primary Care Provider Active Prosper Lawrence SEASONAL RECRUITER, SEASONAL RECRUITER-C Attending Provider, Referring Pro vider Active Rat Culturist Relationship Specialty Start Date End Date Simran Woodard DO PCP - General Internal Medicine 08/31/12 Rat Culturist Relationship Specialty Start Date End Date Simran Woodard DO PCP - General Internal Medicine 08/31/12 Rat Culturist Relationship Specialty Start Date End Date Simran Woodard DO PCP - General Internal Medicine 08/31/12 Rat Culturist Relationship Specialty Start Date End Date Simran Woodard DO PCP - General Internal Medicine 08/31/12 Team Status: Inactive Member Role Status Dates Dr. Simran Woodard DO Primary Care Provider Active Dr. Curly Young MD Attending Provider Active Team Status: Inactive Member Role Status Dates Dr. Simran Woodard DO Primary Care Provider, Referr ing Provider Active Cinda Krause Attending Provider Active Team Status: Inactive Member Role Status Dates Dr. Simran Woodard DO Primary Care Provider Active Dr. Curly Young MD Attending Provider, Referring Pro vider Active Team Status: Active Member Role Status Dates Dr. Simran Woodard DO Primary Care Provider Active Dr. Curly Young MD Attending Provider Active Rat Culturist Relationship Specialty Start Date End Date Simran Woodard DO PCP - General Internal Medicine 08/31/12 Rat Culturist Relationship Specialty Start Date End Date Simran Woodard DO PCP - General Internal Medicine 08/31/12 Rat Culturist Relationship Specialty Start Date End Date Simran Woodard DO PCP - General Internal Medicine 08/31/12 Team Status: Active Member Role Status Dates Dr. Simran Woodard DO Primary Care Provider Active Team Status: Inactive Member Role Status Dates Dr. Simran Woodard DO Primary Care Provider Active Start: August 07, 2024 End: August 07, 2024 Dr. Curly Young MD Attending Provider Active S tart: August 07, 2024 End: August 07, 2024 Dr. Curly Young MD Referring Provider Active S tart: August 07, 2024 End: August 07, 2024 Team Status: Inactive Member Role Status Dates Dr. Simran Woodard DO Primary Care Provider Active Start: August 25, 2024 End: August 25, 2024 Dr. Curly Young MD Attending Provider Active S tart: August 25, 2024 End: August 25, 2024 Dr. Curly Young MD Referring Provider Active S tart: August 25, 2024 End: August 25, 2024 Team Status: Inactive Member Role Status Dates Dr. Simran Woodard DO Primary Care Provider Active Start: September 06, 2024 End: September 06, 2024 Dr. Curly Young MD Attending Provider Active S tart: September 06, 2024 End: September 06, 2024 Dr. Curly Young MD Referring Provider Active S tart: September 06, 2024 End: September 06, 2024 Team Status: Inactive Member Role Status Dates Dr. Simran Woodard DO Primary Care Provider Active Start: September 12, 2024 End: September 12, 2024 Dr. Curly Young MD Attending Provider Active S tart: September 12, 2024 End: September 12, 2024 Dr. Curly Young MD Referring Provider Active S tart: September 12, 2024 End: September 12, 2024 Team Status: Inactive Member Role Status Dates Dr. Simran Woodard DO Primary Care Provider Active Start: September 27, 2024 End: September 27, 2024 Dr. Simran Woodard DO Referring Provider Active Start: September 27, 2024 End: September 27, 2024 Prosper Lawrence SEASONAL RECRUITER, SEASONAL RECRUITER-C Attending Provider Active S tart: September 27, 2024 End: September 27, 2024 Team Status: Inactive Member Role Status Dates Dr. Simran Woodard DO Primary Care Provider Active Start: September 27, 2024 End: September 27, 2024 Prosper Lawrence SEASONAL RECRUITER, SEASONAL RECRUITER-C Attending Provider Active S tart: September 27, 2024 End: September 27, 2024 Prosper Lawrence SEASONAL RECRUITER, SEASONAL RECRUITER-C Referring Provider Active S tart: September 27, 2024 End: September 27, 2024 Team Status: Inactive Member Role Status Dates Dr. Simran Woodard DO Primary Care Provider Active Start: October 04, 2024 End: October 04, 2024 Prosper Lawrence SEASONAL RECRUITER, SEASONAL RECRUITER-C Attending Provider Active S tart: October 04, 2024 End: October 04, 2024 Prosper Lawrence SEASONAL RECRUITER, SEASONAL RECRUITER-C Referring Provider Active S tart: October 04, 2024 End: October 04, 2024 Team Status: Inactive Member Role Status Dates Dr. Simran Woodard DO Primary Care Provider Active Start: October 16, 2024 End: October 16, 2024 Dr. Curly Young MD Attending Provider Active S tart: October 16, 2024 End: October 16, 2024 Dr. Curly Young MD Referring Provider Active S tart: October 16, 2024 End: October 16, 2024 Team Status: Active Member Role Status Dates Dr. Simran Woodard DO Primary Care Provider Active Start: November 19, 2024 Dr. Curly Young MD Attending Provider Active S tart: November 19, 2024 Dr. Curly Young MD Referring Provider Active S tart: November 19, 2024 Dr. Curly Young MD Other Provider Active Start : November 19, 2024 Team Status: Inactive Member Role Status Dates Dr. Simran Woodard DO Primary Care Provider Active Start: November 20, 2024 End: November 20, 2024 Dr. Curly Young MD Attending Provider Active S tart: November 20, 2024 End: November 20, 2024 Dr. Curly Young MD Referring Provider Active S tart: November 20, 2024 End: November 20, 2024 Team Status: Active Member Role Status Dates Dr. Simran Woodard DO Primary Care Provider Active Start: November 20, 2024 Dr. Curly Young MD Attending Provider Active S tart: November 20, 2024 Dr. Curly Young MD Referring Provider Active S tart: November 20, 2024 Dr. Curly Young MD Other Provider Active Start : November 20, 2024 Team Status: Active Member Role Status Dates Dr. Simran Woodard DO Primary Care Provider Active Start: November 20, 2024 Dr. Curly Young MD Referring Provider Active S tart: November 20, 2024 Dr. Curly Young MD Other Provider Active Start : November 20, 2024 Dr. Pablito Viera DO Attending Provider Active S tart: November 20, 2024 Team Status: Inactive Member Role Status Dates Dr. Simran Woodard DO Primary Care Provider Active Start: December 04, 2024 End: December 04, 2024 Dr. Simran Woodard DO Referring Provider Active Start: December 04, 2024 End: December 04, 2024 Manju James PA, PA Attending Provider Active Start: December 04, 2024 End: December 04, 2024 Team Status: Inactive Member Role Status Dates Dr. Simran Woodard DO Primary Care Provider Active Start: December 04, 2024 End: December 04, 2024 Dr. Simran Woodard DO Referring Provider Active Start: December 04, 2024 End: December 04, 2024 Cinda Krause Attending Provider Active Start: A [email or web address] End: December 04, 2024 Team Status: Inactive Member Role Status Dates Dr. Simran oWodard DO Primary Care Provider Active Start: December 04, 2024 End: December 04, 2024 Manju James PA, PA Attending Provider Active Start: December 04, 2024 End: December 04, 2024 Manju James PA, PA Referring Provider Active Start: December 04, 2024 End: December 04, 2024 Team Status: Active Member Role Status Dates Dr. Simran Woodard DO Primary Care Provider Active Start: December 04, 2024 Dr. Curly Young MD Attending Provider Active S tart: December 04, 2024 Team Status: Inactive Member Role Status Dates Dr. Simran Woodard DO Primary Care Provider Active Start: December 17, 2024 End: December 17, 2024 Dr. Curly Young MD Attending Provider Active S tart: December 17, 2024 End: December 17, 2024 Dr. 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 Simran Woodard DO Primary Care Provider Active Team Status: Inactive Member Role/Relationship Status Dates Dr. Simran Woodard DO Primary Care Provider Active Start: December 25, 2024 End: December 25, 2024 Dr. Curly Young MD Attending Provider Active S tart: December 25, 2024 End: December 25, 2024 Team Status: Inactive Member Role/Relationship Status Dates Dr. Simran Woodard DO Primary Care Provider Active Start: December 25, 2024 End: December 25, 2024 Dr. Simran Woodard DO Referring Provider Active Start: December 25, 2024 End: December 25, 2024 Cinda Krause Attending Provider Active Start: A [email or web address] End: December 25, 2024 Team Status: Inactive Member Role/Relationship Status Dates Dr. Simran Woodard DO Primary Care Provider Active Start: April 01, 2025 End: April 01, 2025 Dr. Curly Young MD Attending Provider Active S tart: April 01, 2025 End: April 01, 2025 Team Status: Inactive Member Role/Relationship Status Dates Dr. Simran Woodard DO Primary Care Provider Active Start: April 01, 2025 End: April 01, 2025 Dr. Curly Young MD Attending Provider Active S tart: April 01, 2025 End: April 01, 2025 Dr. Curly Young MD Referring Provider Active S tart: April 01, 2025 End: April 01, 2025 Team Status: Inactive Member Role/Relationship Status Dates Dr. Simran Woodard DO Primary Care Provider Active Start: May 08, 2025 End: May 08, 2025 Dr. Curly Young MD Attending Provider Active S tart: May 08, 2025 End: May 08, 2025 Team Status: Inactive Member Role/Relationship Status Dates Dr. Simran Woodard DO Primary Care Provider Active Start: May 12, 2025 End: May 12, 2025 Dr. Curly Young MD Attending Provider Active S tart: May 12, 2025 End: May 12, 2025 Rat [employer] Relationship Specialty Start Date End Date Simran Woodard DO PCP - General Internal Medicine 08/31/12 [employer]ist Relationship Specialty Start Date End Date Simran Woodard DO PCP - General Internal Medicine 08/31/12 Goals (unrecognized section and content) Goals may be documented in a n alternate section FOR RECORDS PERTAINING TO PATIENTS WHO ARE [...] BE BASED ON THE PRIMARY CLINICAL RECORDS. [employer] provides no warranty or guarantee of the accuracy or completeness of information in this document.
== END | disposition home or self-care (01) ==
PROVIDERS: PCP Internal Medicine; Referring Provider Physician Assistant Surgical; Visit Provider Physician Assistant Surgical
DX: I48.0 Paroxysmal atrial fibrillation (principal); I44.2 Atrioventricular block, complete; I34.1 Nonrheumatic mitral (valve) prolapse; Z95.818 Presence of other cardiac implants and grafts
CPT/HCPCS: 71046